=== PATIENT | male | born 1985 | race Caucasian/White ===

== ENCOUNTER 2018-02-16 17:13 | Emergency (ER) | payer MEDICAID, OTHER ==
[2018-02-16 17:20] VITALS: BMI 41.1
[2018-02-16] MEDS ORDERED: Sodium Chloride 0.9% 1,000 ML IV ONE (18:46)
[2018-02-16] MEDS ORDERED: Clindamycin 600mg/50ml D5W 600 MG/50 ML VIAL IVPB SCH (19:00)
--- NOTE | 2018-02-16 19:09 | C.PDOC ---
History Of Present Illness 32 year old male with a history of diabetes (diagnosed 2013) and hypertension presents to the ED for evaluation of a growing abscess on the left side of his neck for the last month. Patient non compliant on medications X 1 year. Last week was shaved at a [employer] shop and soon started developing small abscesses. Notes prior abscesses are normally only around the groin area, this is the first time the abscess appeared on the neck, fever of 100.7 today and fever of 100.6 1 day ago. Denies vomiting and any other associated symptoms. Time Seen by Provider: 02/16/18 18:28 Chief Complaint (Nursing): Abnormal Skin Integrity History Per: Patient History/Exam Limitations: no limitations Onset/Duration Of Symptoms: Days Current Symptoms Are (Timing): Still Present Past Medical History Reviewed: Historical Data, Nursing Documentation, Vital Signs Vital Signs: Last Vital Signs Temp 98.6 F 02/16/18 17:20 Pulse 101 H 02/16/18 17:20 Resp 18 02/16/18 17:20 BP 144/98 H 02/16/18 17:20 Pulse Ox 98 02/16/18 17:20 - Medical History PMH: Diabetes, HTN, Seizures Family History: States: Unknown Family Hx - Social History Hx Tobacco Use: No Hx Alcohol Use: No Hx Substance Use: Yes - Immunization History Hx Tetanus Toxoid Vaccination: Yes Hx Influenza Vaccination: No Hx Pneumococcal Vaccination: No Review Of Systems Except As Marked, All Systems Reviewed And Found Negative. Constitutional: Positive for: Fever. Negative for: Chills ENT: Negative for: Ear Pain Cardiovascular: Negative for: Chest Pain Respiratory: Negative for: Cough, Shortness of Breath Gastrointestinal: Negative for: Vomiting Musculoskeletal: Positive for: Other (abscess to the left side of the neck.) Physical Exam - Physical Exam Appears: Non-toxic, Other (obese. ) Skin: Normal Color, Warm, Dry Head: Atraumatic, Normacephalic Eye(s): bilateral: Normal Inspection Nose: Normal Oral Mucosa: Moist Neck: Other (limited range of motion due to abscess. Large area of induration to left neck with small opening and some purulent drainage. multiple small pimples surrounding the area. ) Chest: Symmetrical Cardiovascular: Rhythm Regular Respiratory: Normal Breath Sounds, Other (no acute respiratory distress.) Gastrointestinal/Abdominal: Normal Exam, Soft, No Tenderness Extremity: Normal ROM (x4) Neurological/Psych: Oriented x3, Normal Speech, Normal Motor, Normal Sensation Gait: Steady ED Course And Treatment - Laboratory Results Result Diagrams: 02/16/18 19:29 02/16/18 19:29 ECG Rhythm: Sinus Tachycardia Interpretation Of ECG: Sinus tachycardia at 107bpm. No ST elevations or depressions. Borderline right bundle branch block Rate From EC O2 Sat by Pulse Oximetry: 98 (RA) Pulse Ox Interpretation: Normal - Incision & Drainage Of Abscess Anesthesia: Lidocaine 2% Prep Used: Betadine Procedure: Incised W/Scalpel Blade#: (11), Drained Pus (Little to no drainage. Little blood visualized.) Medical Decision Making Medical Decision Making: Plan: --Blood sent. --CXR portable. --Blood culture sent. --Given Clindamycin, Morphine and Insulin. Update/Progress: Patient was admitted to the ED for an incision and drainage. Procedure: Incision and Drainage. Cleaned and prepped with betadine. Injected 2% Lidocaine. No epi. Created a 1mm incision with an 11 blade. Little to no drainage visualized. Little bit of blood visualized. Disposition Counseled Patient/Family Regarding: Studies Performed, Diagnosis, Need For Followup, Rx Given - Disposition Referrals: [facility] at [facility] [Outside] Disposition: HOME/ ROUTINE Disposition Time: 22:22 Condition: IMPROVED Additional Instructions: Keep area clean and dry. Use warm compresses 2-3 times a day. Return to the Emergency Department in the next 2 days for wound evaluation or follow with your physician. Return immediate if you developed fever, stiff neck of anything concerning to you. Prescriptions: Ibuprofen [Motrin] 600 mg PO TID #15 tab MetFORMIN [glucoPHAGE] 500 mg PO BID #30 tab traMADol [Ultram] 50 mg PO TID #12 tab Instructions: Skin Abscess Forms: [facility] ([facility]), General Discharge Instructions - POA Present On Arrival: None - Clinical Impression Clinical Impression: Abscess, Uncontrolled diabetes mellitus - Scribe Statement The provider has reviewed the documentation as recorded by the Scribe (Snow Lucero) Provider Attestation: All medical record entries made by the Scribe were at my direction and personally dictated by me. I have reviewed the chart and agree that the record accurately reflects my personal performance of the history, physical exam, medical decision making, and the department course for this patient. I have also personally directed, reviewed, and agree with the discharge instructions and disposition. Decision To Admit - . Patient Diagnosis: Abscess
[2018-02-16 19:34] LABS: BASO # 0.1 K/uL (0.0-0.2); BASO % 0.6 % (0.0-2.0); EOS # 0.4 K/uL (0.0-0.7); EOS % 3.7 % (0.0-4.0); LYMPH # 1.9 K/uL (1.0-4.3); LYMPH % 16.3 % (20.0-40.0); MEAN CELL VOLUME 83.1 fL (80.0-94.0); MEAN CORPUSCULAR HEMOGLOBIN 29.4 pg (27.0-31.0); MEAN CORPUSCULAR HGB CONC 35.4 g/dL (33.0-37.0); MEAN PLATELET VOLUME 9.6 fL (7.2-11.7); MONO # 0.9 K/uL (0.0-0.8); MONO % 7.8 % (0.0-10.0); NEUT # 8.3 K/uL (1.8-7.0); NEUT % 71.6 % (50.0-75.0); NRBC % 0.1 % (0.0-2.0); RBC 5.09 Mil/uL (4.40-5.90); RED CELL DISTRIBUTION WIDTH 12.4 % (11.5-14.5); WHITE BLOOD COUNT 11.7 K/uL (4.8-10.8)
[2018-02-16] MEDS ORDERED: Clindamycin 600mg/50ml NS 600 MG/50 ML BAG IVPB ONE (19:43)
[2018-02-16] MEDS ORDERED: Sodium Chloride 0.9% 1,000 ML ONE (19:43)
[2018-02-16 19:44] LABS: VENOUS BLOOD GAS BASE EXCESS -2.8 mmol/L (0.0-2.0); VENOUS BLOOD GAS PCO2 32 mmHg (40-60); VENOUS BLOOD GAS PO2 164 mm/Hg (30-55); VENOUS BLOOD PH 7.42 (7.32-7.43)
[2018-02-16 19:52] LABS: ALB/GLOB RATIO 1.2 (1.0-2.1); ALBUMIN 4.1 g/dL (3.5-5.0); ALT/SGPT 29 U/L (21-72); AST/SGOT 23 U/L (17-59); BLOOD UREA NITROGEN 11 mg/dL (9-20); GFR NON-AFRICAN AMERICAN > 60
[2018-02-16] MEDS ORDERED: (Novolin 70/30) NPH/Regular 70/30 Units/ml 10 ml vial SC STA (19:53)
[2018-02-16] MEDS ORDERED: Lidocaine 2% Inj (20ml) INFIL ONE (19:54)
[2018-02-16] MEDS ORDERED: Lidocaine 2% w Epi 1:100,000 Inj IJ ONE (20:03)
[2018-02-16] MEDS ORDERED: (Novolin 70/30) NPH/Regular 70/30 Units/ml 10 ml vial SC ONE (20:16)
[2018-02-16] MEDS ORDERED: Morphine 4 MG/ML VIAL ONE (20:16)
[2018-02-16 22:45] VITALS: BP 137/87; PULSE 92; RESP 18; TEMP 98.5
--- NOTE | 2018-02-17 09:14 | RAD ---
Date of service: 02/16/2018 HISTORY: hyperglycemia/admission COMPARISON: No prior. FINDINGS: LUNGS: No active pulmonary disease. PLEURA: No significant pleural effusion identified, no pneumothorax apparent. CARDIOVASCULAR: Normal. OSSEOUS STRUCTURES: No significant abnormalities. VISUALIZED UPPER ABDOMEN: Normal. OTHER FINDINGS: None. IMPRESSION: No acute cardiopulmonary disease appreciated.
--- NOTE | 2018-02-18 12:31 | CARD ---
APPROVED REPORT Date of service: 02/16/2018 EKG Measurement Heart [id number] <Conclusion> Sinus tachycardia Otherwise normal ECG
[2018-02-18 14:44] VITALS: O2SAT 98
== END 2018-02-16 22:44 | disposition home or self-care (01) ==
LOC: C.ER 17:13
DX: L02.11 Cutaneous abscess of neck (principal); E11.65 Type 2 diabetes mellitus with hyperglycemia
CPT/HCPCS: 10060; 71045; 80053; 82803; 82948; 85025; 87040; 87149; 87181; 87205; 93005; 96361; 96365; 96375; 99284; J2270; J7030

== ENCOUNTER 2018-03-21 01:45 | Inpatient (IN) | payer OTHER ==
[2018-03-21 01:47] VITALS: BMI 41.1
[2018-03-21] MEDS ORDERED: Piperacillin/Tazobact 3.375 gm 100 ML IVPB STA (02:21)
[2018-03-21] MEDS ORDERED: Sodium Chloride 0.9% 1,000 ML IV ONE ×2 (02:22→06:58)
--- NOTE | 2018-03-21 02:25 | C.PDOC ---
History Of Present Illness 32 y/o male with niddm presents with worsening pain to right back and right lateral rib/chest wall area. pt was seen in ed 2 days ago for same, had ekg, labs, cxr done, with no acute findings and discharged with gabapentin, tramadol and robaxin. pt reports he is taking all medications as prescribed, however pain is much worse, it hurts to breathe due to pain, and now has a rash to back and right side. denies fever and chills, no trauma, insect bites. no cough. feels sob due to pain of deep breaths. denies chicken pox as child. <Bree Machuca - Last Filed: 03/21/18 07:23> History Per: Patient History/Exam Limitations: no limitations Onset/Duration Of Symptoms: Days Current Symptoms Are (Timing): Worse Location Of Injury: Right: Back, Chest Quality Of Symptoms: Painful Severity: Severe <Bree Machuca - Last Filed: 03/21/18 07:23> <Haresh Baker Jr. - Last Filed: 03/21/18 08:37> Time Seen by Provider: 03/21/18 02:03 Chief Complaint (Nursing): Abnormal Skin Integrity Past Medical History Reviewed: Historical Data, Nursing Documentation, Vital Signs Vital Signs: Last Vital Signs Temp 98.8 F 03/21/18 01:53 Pulse 129 H 03/21/18 01:53 Resp 24 03/21/18 01:53 BP 147/86 03/21/18 01:53 Pulse Ox 99 03/21/18 01:53 - Medical History PMH: Diabetes, HTN, Seizures Family History: States: Unknown Family Hx - Social History Hx Tobacco Use: No Hx Alcohol Use: No Hx Substance Use: Yes - Immunization History Hx Tetanus Toxoid Vaccination: Yes Hx Influenza Vaccination: No Hx Pneumococcal Vaccination: No <Bree Machuca - Last Filed: 03/21/18 07:23> Vital Signs: Last Vital Signs Temp 99.6 F 03/21/18 07:42 Pulse 112 H 03/21/18 07:42 Resp 20 03/21/18 07:42 BP 134/98 H 03/21/18 07:42 Pulse Ox 99 03/21/18 07:42 <Haresh Baker Jr. - Last Filed: 03/21/18 08:37> Review Of Systems Constitutional: Negative for: Fever, Chills ENT: Negative for: Ear Pain, Throat Pain Cardiovascular: Negative for: Chest Pain Respiratory: Positive for: Pleuritic Pain. Negative for: Cough, Wheezing Gastrointestinal: Negative for: Nausea, Vomiting, Abdominal Pain Musculoskeletal: Positive for: Back Pain, Other (lateral chest wall right ) Skin: Positive for: Rash (erythemaotus and warm to right side bakc and right lateral chest wall) Neurological: Negative for: Weakness, Numbness <Bree Machuca - Last Filed: 03/21/18 07:23> Physical Exam - Physical Exam Appears: In Acute Distress (from pain) Skin: Warm, Dry, Rash (most if right side back with well demarcated erythematous warm tender patch, skin blances; lateral right chest wall with erythematous exquisitely tender striae, no vesicles noted. ) Head: Atraumatic, Normacephalic Oral Mucosa: Dry, Other (lips chapped) Chest: Tenderness (right lateral chest at site of rash, no swelling noted) Cardiovascular: Rhythm Regular, Other (tachycardic) Respiratory: No Decreased Breath Sounds, No Stridor, No Wheezing, Other (tachypneic) Gastrointestinal/Abdominal: Bowel Sounds, Soft, No Tenderness Neurological/Psych: Oriented x3, Normal Speech, Normal Cognition <Bree Machuca - Last Filed: 03/21/18 07:23> ED Course And Treatment - Laboratory Results Result Diagrams: 03/21/18 02:51 03/21/18 02:51 O2 Sat by Pulse Oximetry: 99 - CT Scan/US CT Chest Other Rad Studies (CT/US): Read By Radiologist, Radiology Report Reviewed CT/US Interpretation: IMPRESSION: Soft tissue cellulitis of the back. No associated abscess formation. Multifocal nodular groundglass densities of the lungs. Probably multifocal infectious/inflammatory pathology. Hepatomegaly with hepatic steatosis. Mild right pleural effusion. <Bree Machuca - Last Filed: 03/21/18 07:23> - Laboratory Results Result Diagrams: 03/21/18 02:51 03/21/18 02:51 <Haresh Baker Jr. - Last Filed: 03/21/18 08:37> Medical Decision Making Medical Decision Makin32 y/o diabetic male with hyperglycemia, rash c/w cellulitis ro right side back and right lateral chest wall, with pain that appears to be out of proportion to condition.l will get labs, give analgesics, fluids, antibiotics for cellulitis, and get chest ct to evalf or necrotizing fasciitis, gas gangrene. Spoke to Dr. Mahajan 04:10, patient will be admitted to her, Dr. Amador for surgery and Dr. Marin for ID. 04:20 spoke to Willian from OR, who stated that Dr. Amadro and certified ophthalmic surgical assistant are both in the OR and will be notified regarding the case as soon as possible. 05:35 Dr. Amador and certified ophthalmic surgical assistant are still in the OR. Awaiting a call back. <Bree Machuca - Last Filed: 03/21/18 07:23> Medical Decision Makin:34 AM Progress note by ED attending. Pt is admitted to floor but surgery just came down to the ED to do a consult. Surgery states that no surgical treatment is required at this time. I also examined pt at bedside w/ surgery. Dr. Amador (surgeon) and I feel that Shingles is in the differential diagnosis. 1 gm Valtrex ordered and 8 mg Morphine also ordered. 1 gm Valtrex TID x 7 days is recommended. This was explained to pt. Pt to go to floor shortly. <Haresh Baker Jr. - Last Filed: 03/21/18 08:37> Disposition Discussed With : Sonia Mahajan Doctor Will See Patient In The: Hospital - Disposition Disposition Time: 05:05 <Bree Machuca - Last Filed: 03/21/18 07:23> <Haresh Baker Jr. - Last Filed: 03/21/18 08:37> - Disposition Disposition: HOSPITALIZED Condition: GOOD - Clinical Impression Clinical Impression: Cellulitis of back, Hyperglycemia - PA / CHAIR SPRINGER / Resident Statement /DO has reviewed & agrees with the documentation as recorded. <Bree Machuca - Last Filed: 03/21/18 07:23> Decision To Admit - Pt Status Changed To: Hospital Disposition Of: Inpatient - Admit Certification Admit to Inpatient:: After my assessment, the patient will require hospitalization for at least two midnights. This is because of the severity of symptoms shown, intensity of services needed, and/or the medical risk in this patient being treated as an outpatient. - InPatient: Physician Admission Certification: I certify that this patient requires 2 or more midnights of care for the following reason:: pt will require several days iv antobiotics for cellulitis - . Bed Request Type: Regular <Bree Machuca - Last Filed: 03/21/18 07:23> <Haresh Baker Jr. - Last Filed: 03/21/18 08:37> - . Patient Diagnosis: Cellulitis of back, Hyperglycemia
[2018-03-21] MEDS ORDERED: Piperacillin/Tazobact 3.375 gm 100 ML IVPB ONE (02:35)
[2018-03-21] MEDS ORDERED: Sodium Chloride 0.9% 1,000 ML ONE (02:35)
[2018-03-21 02:51] LABS: VENOUS BLOOD GAS BASE EXCESS -1.6 mmol/L (0.0-2.0); VENOUS BLOOD GAS PCO2 32 mmHg (40-60); VENOUS BLOOD GAS PO2 56 mm/Hg (30-55); VENOUS BLOOD PH 7.44 (7.32-7.43)
[2018-03-21 02:55] LABS: BASO % 0.5 % (0.0-2.0); EOS % 0.2 % (0.0-4.0); HEMOGLOBIN 14.2 g/dL (12.0-18.0); LYMPH # 0.6 K/uL (1.0-4.3); LYMPH % 6.3 % (20.0-40.0); MEAN CELL VOLUME 83.2 fL (80.0-94.0); MEAN CORPUSCULAR HEMOGLOBIN 28.7 pg (27.0-31.0); MEAN CORPUSCULAR HGB CONC 34.5 g/dL (33.0-37.0); MEAN PLATELET VOLUME 9.1 fL (7.2-11.7); MONO % 10.6 % (0.0-10.0); NEUT % 82.4 % (50.0-75.0); PLATELET COUNT 229 K/uL (130-400); RBC 4.93 Mil/uL (4.40-5.90); RED CELL DISTRIBUTION WIDTH 12.4 % (11.5-14.5); WHITE BLOOD COUNT 9.7 K/uL (4.8-10.8)
[2018-03-21 02:59] LABS: INR 1.2; PROTHROMBIN TIME 12.8 SECONDS (9.7-12.2)
[2018-03-21 03:35] LABS: ALB/GLOB RATIO 1.2 (1.0-2.1); ALBUMIN 3.9 g/dL (3.5-5.0); ALT/SGPT 56 U/L (21-72); AST/SGOT 60 U/L (17-59); BLOOD UREA NITROGEN 8 mg/dL (9-20); GFR NON-AFRICAN AMERICAN > 60
[2018-03-21] MEDS ORDERED: Vancomycin 1 GM 1 GM/250 ML BAG IVPB ONE (03:36)
[2018-03-21 03:47] LABS: BARBITURATES, UR NEGATIVE (NEGATIVE); BENZODIAZEPINES, UR NEGATIVE (NEGATIVE); OPIATES, UR NEGATIVE (NEGATIVE); PHENCYCLIDINE, UR NEGATIVE (NEGATIVE)
[2018-03-21] MEDS ORDERED: (Novolin R) Insulin Human Regular 100 units/ml vial IVP ONE (04:08)
[2018-03-21] MEDS ORDERED: (Novolin R) Insulin Human Regular 100 units/ml vial ONE (04:15)
[2018-03-21 04:41] LABS: BANDS 7 % (0-2); LYMPHOCYTE 6 % (20-40); MONOCYTE 6 % (0-10); NEUTROPHIL 78 % (50-75); PLATELET ESTIMATE NORMAL (NORMAL); REACTIVE LYMPHOCYTES 3 % (0-0); TOTAL CELLS COUNTED 100
[2018-03-21] MEDS: Piperacill/Tazo 3.375gm in Dex 3.375 GM/50 ML BAG IVPB SCH ×3 (07:51→18:14)
[2018-03-21] MEDS: Sodium Chloride 0.9% 1,000 ML IV SCH ×3 (07:52→21:12)
[2018-03-21] MEDS ORDERED: Vancomycin 1 gm/NS 200 ml 1 GM/200 ML BAG IVPB SCH (08:00)
--- NOTE | 2018-03-21 08:54 | CP.PCM.CON ---
History of Present Illness - History of Present Illness History of Present Illness: GENERAL SURGERY CONSULT NOTE FOR DR. WATKINS 32 yo M with PMHx of DM presents to the ED with right flank/back pain. The pain began a week ago. On 03/19, he came to the ED with right rib pain that was worse with movement. Labs were normal. He was discharged home with chest wall muscle strain and Rx for gabapentin, ultram, and methocarbamol. Then, a rash began on the right flank and right back yesterday. Pt returned to the ED with pain that was unrelieved by previously prescribed medications as well as the new rash. Pt denies any trauma, insect bites. Never had a rash like this before. PMHx: DM, seizures Surgeries: none Allergies: none Medications: Metformin Social hx: denies etoh, tobacco, occasional marijuana use Past Patient History - Infectious Disease Hx of Infectious Diseases: None - Past Social History Smoking Status: Never Smoked - CARDIAC Hx Hypertension: Yes - NEUROLOGICAL Hx Seizures: Yes - ENDOCRINE/METABOLIC Hx Diabetes Mellitus Type 2: Yes - PSYCHIATRIC Hx Substance Use: Yes - SURGICAL HISTORY Hx Surgeries: No - ANESTHESIA Hx Anesthesia: No Meds Allergies/Adverse Reactions: Allergies Allergy/AdvReac Type Severity Reaction Status Date / Time No Known Allergies Allergy Verified 03/21/18 01:57 - Medications Medications: Current Medications Piperacillin Sod/Tazobactam Sod (Zosyn 3.375 Gm Iv Premix) 3.375 gm in 50 mls @ 100 mls/hr IVPB Q6H [facility]; Protocol Last Admin: 03/21/18 07:51 Dose: 100 mls/hr Sodium Chloride (Sodium Chloride 0.9%) 1,000 mls @ 150 mls/hr IV .Q6H40M [facility] Last Admin: 03/21/18 07:52 Dose: 150 mls/hr Vancomycin/Sodium Chloride (Vancomycin 1 Gm/Ns 200 Ml) 1 gm in 200 mls @ 133.333 mls/hr IVPB Q12H [facility]; Protocol Morphine Sulfate (Morphine) 2 mg IVP Q4 PRN PRN Reason: Pain, severe (8-10) Valacyclovir HCl (Valtrex) 1,000 mg PO TID JERED; Protocol Stop: 03/28/18 10:01 Last Admin: 03/21/18 08:44 Dose: 1,000 mg Physical Exam - Constitutional Appears: Non-toxic, No Acute Distress - Head Exam Head Exam: ATRAUMATIC, NORMAL INSPECTION - Eye Exam Eye Exam: EOMI, Normal appearance - Respiratory Exam Respiratory Exam: NORMAL BREATHING PATTERN. absent: Respiratory Distress - Cardiovascular Exam Cardiovascular Exam: Tachycardia - GI/Abdominal Exam GI & Abdominal Exam: Hernia (reducible umbilical hernia), Soft, Tenderness. absent: Distended, Firm, Guarding, Rebound, Rigid Additional comments: Tenderness over rash on right flank - Back Exam Additional comments: Mildly erythematous rash on right back extending around to right flank, does not cross midline, no vesicles, tender - Neurological Exam Neurological exam: Alert, CN II-XII Intact, Oriented x3 - Psychiatric Exam Psychiatric exam: Normal Affect, Normal Mood - Skin Skin Exam: Dry, Erythema, Rash, Warm Results - Vital Signs Recent Vital Signs: Last Vital Signs Temp 98.9 F 03/21/18 08:48 Pulse 100 H 03/21/18 08:48 Resp 18 03/21/18 08:48 BP 153/95 H 03/21/18 08:48 Pulse Ox 96 03/21/18 08:48 - Labs Result Diagrams: 03/21/18 02:51 03/21/18 02:51 Labs: Laboratory Results - last 24 hr 03/21/18 03/21/18 03/21/18 01:51 02:40 02:51 WBC 9.7 RBC 4.93 Hgb 14.2 Hct 41.0 MCV 83.2 MCH 28.7 MCHC 34.5 RDW 12.4 Plt Count 229 MPV 9.1 Neut % (Auto) 82.4 H Lymph % (Auto) 6.3 L Petroleum % (Auto) 10.6 H Eos % (Auto) 0.2 Baso % (Auto) 0.5 Neut # (Auto) 8.0 H Lymph # (Auto) 0.6 L Petroleum # (Auto) 1.0 H Eos # (Auto) 0.0 Baso # (Auto) 0.0 Neutrophils % (Manual) 78 H Band Neutrophils % 7 H Lymphocytes % (Manual) 6 L Reactive Lymphs % 3 H Monocytes % (Manual) 6 Platelet Estimate Normal PT INR APTT pO2 56 H VBG pH 7.44 H VBG pCO2 32 L VBG HCO3 23.5 VBG Total CO2 22.7 VBG O2 Sat (Calc) 93.8 H VBG Base Excess -1.6 L VBG Potassium 3.8 Sodium 135.0 Chloride 101.0 Glucose 376 H Lactate 1.4 Potassium Carbon Dioxide Anion Gap BUN Creatinine Est GFR ( Amer) Est GFR (Non-Af Amer) POC Glucose (mg/dL) 366 H Random Glucose Calcium Total Bilirubin AST ALT Alkaline Phosphatase Total Creatine Kinase C-Reactive Protein Total Protein Albumin Globulin Albumin/Globulin Ratio Venous Blood Potassium 3.8 Urine Opiates Screen Urine Methadone Screen Ur Barbiturates Screen Ur Phencyclidine Scrn Ur Amphetamines Screen U Benzodiazepines Scrn U Oth Cocaine Metabols U Cannabinoids Screen Alcohol, Quantitative 03/21/18 03/21/18 03/21/18 02:51 02:51 03:28 WBC RBC Hgb Hct MCV MCH MCHC RDW Plt Count MPV Neut % (Auto) Lymph % (Auto) Petroleum % (Auto) Eos % (Auto) Baso % (Auto) Neut # (Auto) Lymph # (Auto) Petroleum # (Auto) Eos # (Auto) Baso # (Auto) Neutrophils % (Manual) Band Neutrophils % Lymphocytes % (Manual) Reactive Lymphs % Monocytes % (Manual) Platelet Estimate PT 12.8 H INR 1.2 APTT 32 pO2 VBG pH VBG pCO2 VBG HCO3 VBG Total CO2 VBG O2 Sat (Calc) VBG Base Excess VBG Potassium Sodium 133 Chloride 100 Glucose Lactate Potassium 4.3 Carbon Dioxide 24 Anion Gap 14 BUN 8 L Creatinine 0.6 L Est GFR ( Amer) > 60 Est GFR (Non-Af Amer) > 60 POC Glucose (mg/dL) Random Glucose 407 H* Calcium 9.0 Total Bilirubin 1.0 AST 60 H D ALT 56 Alkaline Phosphatase 122 Total Creatine Kinase 121 C-Reactive Protein 260.80 H Total Protein 7.2 Albumin 3.9 Globulin 3.3 Albumin/Globulin Ratio 1.2 Venous Blood Potassium Urine Opiates Screen Negative Urine Methadone Screen Negative Ur Barbiturates Screen Negative Ur Phencyclidine Scrn Negative Ur Amphetamines Screen Negative U Benzodiazepines Scrn Negative U Oth Cocaine Metabols Negative U Cannabinoids Screen Positive H Alcohol, Quantitative < 10 03/21/18 03/21/18 04:04 05:44 WBC RBC Hgb Hct MCV MCH MCHC RDW Plt Count MPV Neut % (Auto) Lymph % (Auto) Petroleum % (Auto) Eos % (Auto) Baso % (Auto) Neut # (Auto) Lymph # (Auto) Petroleum # (Auto) Eos # (Auto) Baso # (Auto) Neutrophils % (Manual) Band Neutrophils % Lymphocytes % (Manual) Reactive Lymphs % Monocytes % (Manual) Platelet Estimate PT INR APTT pO2 VBG pH VBG pCO2 VBG HCO3 VBG Total CO2 VBG O2 Sat (Calc) VBG Base Excess VBG Potassium Sodium Chloride Glucose Lactate Potassium Carbon Dioxide Anion Gap BUN Creatinine Est GFR ( Amer) Est GFR (Non-Af Amer) POC Glucose (mg/dL) 328 H 265 H Random Glucose Calcium Total Bilirubin AST ALT Alkaline Phosphatase Total Creatine Kinase C-Reactive Protein Total Protein Albumin Globulin Albumin/Globulin Ratio Venous Blood Potassium Urine Opiates Screen Urine Methadone Screen Ur Barbiturates Screen Ur Phencyclidine Scrn Ur Amphetamines Screen U Benzodiazepines Scrn U Oth Cocaine Metabols U Cannabinoids Screen Alcohol, Quantitative Assessment & Plan - Assessment and Plan (Free Text) Assessment: 32 yo M with PMHx of DM presents to the ED with right flank/back pain who was found to have cellulitis, rule out necrotizing fasciitis vs shingles - IV Antibiotics - Valtrex for possible Shingles - Unlikely necrotizing fasciitis - Discussed plan with Dr. Marjorie Blanco PGY-4
[2018-03-21] MEDS: Enoxaparin 40 mg Syringe SC SCH (10:50)
--- NOTE | 2018-03-21 13:09 | CP.PCM.HP ---
History of Present Illness - History of Present Illness History of Present Illness: pt came in for sever pain r side lower back with small aperance odf papular lesions in one dermatome very painfull Present on Admission - Present on Admission Any Indicators Present on Admission: No Review of Systems - Review of Systems Systems not reviewed;Unavailable: Acuity of Condition - Constitutional Constitutional: Weight Gain - EENT Eyes: As Per HPI Ears: As Per HPI Nose/Mouth/Throat: As Per HPI - Cardiovascular Cardiovascular: As Per HPI - Genitourinary Genitourinary: As Per HPI - Musculoskeletal Musculoskeletal: As Per HPI - Integumentary Integumentary: As Per HPI - Neurological Neurological: As Per HPI - Psychiatric Psychiatric: As Per HPI - Endocrine Endocrine: Fatigue - Hematologic/Lymphatic Hematologic: As Per HPI Past Patient History - Infectious Disease Hx of Infectious Diseases: None - Past Social History Smoking Status: Never Smoked - CARDIAC Hx Hypertension: Yes - NEUROLOGICAL Hx Seizures: Yes - ENDOCRINE/METABOLIC Hx Diabetes Mellitus Type 2: Yes - PSYCHIATRIC Hx Substance Use: Yes - SURGICAL HISTORY Hx Surgeries: No - ANESTHESIA Hx Anesthesia: No Meds Allergies/Adverse Reactions: Allergies Allergy/AdvReac Type Severity Reaction Status Date / Time No Known Allergies Allergy Verified 03/21/18 01:57 Physical Exam - Constitutional Appears: In Acute Distress - Head Exam Head Exam: ATRAUMATIC - Eye Exam Eye Exam: Normal appearance - ENT Exam ENT Exam: Mucous Membranes Moist - Neck Exam Neck exam: Positive for: Full Rom - Respiratory Exam Respiratory Exam: Decreased Breath Sounds - Cardiovascular Exam Cardiovascular Exam: REGULAR RHYTHM - GI/Abdominal Exam GI & Abdominal Exam: Normal Bowel Sounds - Exam Exam: NORMAL INSPECTION - Extremities Exam Extremities exam: Positive for: normal inspection - Back Exam Additional comments: smal papular rash in one dermatome very painful - Neurological Exam Neurological exam: Oriented x3 - Skin Skin Exam: Normal Color Results - Vital Signs Recent Vital Signs: Last Vital Signs Temp 98.9 F 03/21/18 09:11 Pulse 100 H 03/21/18 09:11 Resp 20 03/21/18 09:11 BP 139/93 H 03/21/18 12:20 Pulse Ox 97 03/21/18 09:11 - Labs Result Diagrams: 03/21/18 02:51 03/21/18 02:51 Labs: Laboratory Results - last 24 hr 03/21/18 03/21/18 03/21/18 01:51 02:40 02:51 WBC 9.7 RBC 4.93 Hgb 14.2 Hct 41.0 MCV 83.2 MCH 28.7 MCHC 34.5 RDW 12.4 Plt Count 229 MPV 9.1 Neut % (Auto) 82.4 H Lymph % (Auto) 6.3 L [place] % (Auto) 10.6 H Eos % (Auto) 0.2 Baso % (Auto) 0.5 Neut # (Auto) 8.0 H Lymph # (Auto) 0.6 L [place] # (Auto) 1.0 H Eos # (Auto) 0.0 Baso # (Auto) 0.0 Neutrophils % (Manual) 78 H Band Neutrophils % 7 H Lymphocytes % (Manual) 6 L Reactive Lymphs % 3 H Monocytes % (Manual) 6 Platelet Estimate Normal PT INR APTT pO2 56 H VBG pH 7.44 H VBG pCO2 32 L VBG HCO3 23.5 VBG Total CO2 22.7 VBG O2 Sat (Calc) 93.8 H VBG Base Excess -1.6 L VBG Potassium 3.8 Sodium 135.0 Chloride 101.0 Glucose 376 H Lactate 1.4 Potassium Carbon Dioxide Anion Gap BUN Creatinine Est GFR ( Amer) Est GFR (Non-Af Amer) POC Glucose (mg/dL) 366 H Random Glucose Calcium Total Bilirubin AST ALT Alkaline Phosphatase Total Creatine Kinase C-Reactive Protein Total Protein Albumin Globulin Albumin/Globulin Ratio Venous Blood Potassium 3.8 Urine Opiates Screen Urine Methadone Screen Ur Barbiturates Screen Ur Phencyclidine Scrn Ur Amphetamines Screen U Benzodiazepines Scrn U Oth Cocaine Metabols U Cannabinoids Screen Alcohol, Quantitative 03/21/18 03/21/18 03/21/18 02:51 02:51 03:28 WBC RBC Hgb Hct MCV MCH MCHC RDW Plt Count MPV Neut % (Auto) Lymph % (Auto) [place] % (Auto) Eos % (Auto) Baso % (Auto) Neut # (Auto) Lymph # (Auto) [place] # (Auto) Eos # (Auto) Baso # (Auto) Neutrophils % (Manual) Band Neutrophils % Lymphocytes % (Manual) Reactive Lymphs % Monocytes % (Manual) Platelet Estimate PT 12.8 H INR 1.2 APTT 32 pO2 VBG pH VBG pCO2 VBG HCO3 VBG Total CO2 VBG O2 Sat (Calc) VBG Base Excess VBG Potassium Sodium 133 Chloride 100 Glucose Lactate Potassium 4.3 Carbon Dioxide 24 Anion Gap 14 BUN 8 L Creatinine 0.6 L Est GFR ( Amer) > 60 Est GFR (Non-Af Amer) > 60 POC Glucose (mg/dL) Random Glucose 407 H* Calcium 9.0 Total Bilirubin 1.0 AST 60 H D ALT 56 Alkaline Phosphatase 122 Total Creatine Kinase 121 C-Reactive Protein 260.80 H Total Protein 7.2 Albumin 3.9 Globulin 3.3 Albumin/Globulin Ratio 1.2 Venous Blood Potassium Urine Opiates Screen Negative Urine Methadone Screen Negative Ur Barbiturates Screen Negative Ur Phencyclidine Scrn Negative Ur Amphetamines Screen Negative U Benzodiazepines Scrn Negative U Oth Cocaine Metabols Negative U Cannabinoids Screen Positive H Alcohol, Quantitative < 10 03/21/18 03/21/18 03/21/18 04:04 05:44 08:51 WBC RBC Hgb Hct MCV MCH MCHC RDW Plt Count MPV Neut % (Auto) Lymph % (Auto) [place] % (Auto) Eos % (Auto) Baso % (Auto) Neut # (Auto) Lymph # (Auto) [place] # (Auto) Eos # (Auto) Baso # (Auto) Neutrophils % (Manual) Band Neutrophils % Lymphocytes % (Manual) Reactive Lymphs % Monocytes % (Manual) Platelet Estimate PT INR APTT pO2 VBG pH VBG pCO2 VBG HCO3 VBG Total CO2 VBG O2 Sat (Calc) VBG Base Excess VBG Potassium Sodium Chloride Glucose Lactate Potassium Carbon Dioxide Anion Gap BUN Creatinine Est GFR ( Amer) Est GFR (Non-Af Amer) POC Glucose (mg/dL) 328 H 265 H 260 H Random Glucose Calcium Total Bilirubin AST ALT Alkaline Phosphatase Total Creatine Kinase C-Reactive Protein Total Protein Albumin Globulin Albumin/Globulin Ratio Venous Blood Potassium Urine Opiates Screen Urine Methadone Screen Ur Barbiturates Screen Ur Phencyclidine Scrn Ur Amphetamines Screen U Benzodiazepines Scrn U Oth Cocaine Metabols U Cannabinoids Screen Alcohol, Quantitative 03/21/18 11:20 WBC RBC Hgb Hct MCV MCH MCHC RDW Plt Count MPV Neut % (Auto) Lymph % (Auto) [place] % (Auto) Eos % (Auto) Baso % (Auto) Neut # (Auto) Lymph # (Auto) [place] # (Auto) Eos # (Auto) Baso # (Auto) Neutrophils % (Manual) Band Neutrophils % Lymphocytes % (Manual) Reactive Lymphs % Monocytes % (Manual) Platelet Estimate PT INR APTT pO2 VBG pH VBG pCO2 VBG HCO3 VBG Total CO2 VBG O2 Sat (Calc) VBG Base Excess VBG Potassium Sodium Chloride Glucose Lactate Potassium Carbon Dioxide Anion Gap BUN Creatinine Est GFR ( Amer) Est GFR (Non-Af Amer) POC Glucose (mg/dL) 370 H Random Glucose Calcium Total Bilirubin AST ALT Alkaline Phosphatase Total Creatine Kinase C-Reactive Protein Total Protein Albumin Globulin Albumin/Globulin Ratio Venous Blood Potassium Urine Opiates Screen Urine Methadone Screen Ur Barbiturates Screen Ur Phencyclidine Scrn Ur Amphetamines Screen U Benzodiazepines Scrn U Oth Cocaine Metabols U Cannabinoids Screen Alcohol, Quantitative Assessment & Plan - Assessment and Plan (Free Text) Assessment: ac severe pain prbably hepes zoster Plan: as per orders - Date & Time Date: 03/21/18 Time: 13:11
[2018-03-21] MEDS: oxyCODONE 30 mg Immediate Release Tab PO SCH ×2 (14:16→22:25)
--- NOTE | 2018-03-21 16:24 | CT ---
Date of service: 03/21/2018 PROCEDURE: CT Chest without contrast HISTORY: soft tissue infection/cellulitis to back COMPARISON: None available. TECHNIQUE: Contiguous axial images were obtained through the chest without intravenous contrast enhancement. Sagittal and coronal reconstructions were performed. Radiation dose: Total exam DLP = 1245.34 mGy-cm. This CT exam was performed using one or more of the following dose reduction techniques: Automated exposure control, adjustment of the mA and/or kV according to patient size, and/or use of iterative reconstruction technique. FINDINGS: LUNGS: Limited bilateral nodular infiltrates are identified including at the left lower lobe superior segment. Limited nodular foci ranging from a few mm in size up to 2 cm identified at the bilateral upper lobes and infrequently at the right middle and lower lobes with limited patchy nodular infiltrate noted at the right lower lobe as well. The lingula is minimally involved. Central airways are clear. MEDIASTINUM: Unremarkable thoracic aorta. No aneurysm. Normal sized heart. Main pulmonary artery unremarkable. No vascular congestion. No significant lymphadenopathy with the bilateral hilar regions evaluated as best possible given lack of intravenous contrast. No aortic atherosclerotic calcification. PLEURA: No pleural fluid. No pneumothorax. BONES: No fracture. No destructive lesion. UPPER ABDOMEN: Hepatomegaly and hepatic steatosis are identified as well as a moderate umbilical hernia containing only fat. OTHER FINDINGS: None. IMPRESSION: 1. Nodular infiltrates are identified bilaterally but predominate at the left lower lobe. No pleural or pericardial effusion or gross lymphadenopathy. Central airway appears clear. 2. Incidental hepatic steatosis and hepatomegaly. Moderate umbilical hernia contains only fat.
[2018-03-21] MEDS: Vancomycin 1 gm/NS 200 ml 1 GM/200 ML BAG IVPB SCH (16:29)
[2018-03-22] MEDS: Piperacill/Tazo 3.375gm in Dex 3.375 GM/50 ML BAG IVPB SCH ×4 (02:07→18:26)
[2018-03-22] MEDS: Vancomycin 1 gm/NS 200 ml 1 GM/200 ML BAG IVPB SCH ×2 (03:13→18:03)
[2018-03-22] MEDS: Sodium Chloride 0.9% 1,000 ML IV SCH ×2 (05:12→11:04)
[2018-03-22 08:02] LABS: BASO % 0.4 % (0.0-2.0); EOS % 0.1 % (0.0-4.0); HEMOGLOBIN 13.7 g/dL (12.0-18.0); LYMPH # 1.3 K/uL (1.0-4.3); LYMPH % 10.6 % (20.0-40.0); MEAN CELL VOLUME 84.8 fL (80.0-94.0); MEAN CORPUSCULAR HEMOGLOBIN 29.2 pg (27.0-31.0); MEAN CORPUSCULAR HGB CONC 34.4 g/dL (33.0-37.0); MONO # 1.3 K/uL (0.0-0.8); MONO % 9.9 % (0.0-10.0); NRBC % 0.2 % (0.0-2.0); RBC 4.7 Mil/uL (4.40-5.90); RED CELL DISTRIBUTION WIDTH 12.6 % (11.5-14.5); WHITE BLOOD COUNT 12.7 K/uL (4.8-10.8)
[2018-03-22 08:21] LABS: BLOOD UREA NITROGEN 9 mg/dL (9-20); CALCIUM 8.8 mg/dl (8.6-10.4); GFR NON-AFRICAN AMERICAN > 60
[2018-03-22] MEDS ORDERED: HYDROmorphone 0.5 mg/0.5 ml ISec IVP ONE (09:45)
[2018-03-22] MEDS ORDERED: Iodixanol 320 MG/ML 100 ML BOTTLE IV ONE (09:54)
--- NOTE | 2018-03-22 10:07 | PCM.RRT ---
<Edson Peres - Last Filed: 03/22/18 09:56> BIOSTATISTICS PROFESSOR Nurses Assessment - Situation Date: 03/22/18 Time BIOSTATISTICS PROFESSOR was called: 09:28 BIOSTATISTICS PROFESSOR Responder Arrival Time:: 09:30 - Constitutional Appears: In Acute Distress - Head Head Exam: ATRAUMATIC, NORMOCEPHALIC - Eyes Eye Exam: Normal appearance - Respiratory Exam Respiratory Exam: Clear to Ausculation Bilateral. absent: Accessory Muscle Use, Rales, Rhonchi, Wheezes, Respiratory Distress - Cardiovascular Exam Cardiovascular Exam: Tachycardia, REGULAR RHYTHM, +S1, +S2. absent: Gallop, Rubs, Murmur - GI/Abdominal Exam GI & Abdominal Exam: Soft, Normal Bowel Sounds. absent: Distended, Firm, Guarding, Tenderness - Neurological Exam Neurological Exam: Alert, Awake, Oriented x3 - Extremities Exam Extremities Exam: Normal Inspection. absent: Calf Tenderness Plan - Assessment of Findings&Treatment Plan Rapid response was called at 9:28 AM for chest pain and shortness of breath. Upon arrival, patient is in distress and yelling complaining of chest pain only on the right side of the back and chest. Patient is admitted for severe pain on ride side lower back with small appearance of papular lesions. Vitals: BP 128/90, HR 145, RR 22, O2%: 90 on 4L Stat ordere were made: EKG showed sinus tachycardia @ 135, POC glucose of 276, CXR, CT angiogram, Dilaudid 0.5mg, Ativan 0.5mg, D-dimer, Troponin, ESR, urine culture, rapid inluenza A/B Will transfer patient to telemetry. Repeat vitals: BP: 128/85, HR 142, RR: 20, O2%: 92% on 4L Admitting physician Dr. Sonia Mahajan contacted and was updated on patient's status. <Haresh New - Last Filed: 03/22/18 10:48> BIOSTATISTICS PROFESSOR Nurses Assessment - Vital Signs Vital Signs: Rapid Response Vital Sign Blood Pressure 128/87 Pulse Rate 125 Respiratory Rate 24 Temperature 99.9 F Oxygen Saturation 94 - Vital Signs at end of BIOSTATISTICS PROFESSOR Vital Signs at end of BIOSTATISTICS PROFESSOR: Rapid Response End Vital Sign Blood Pressure 126/86 Pulse Rate 130 Respiratory Rate 20 Temperature 100 F O2 Sat by Pulse Oximetry 90 Attending/Attestation - Attestation I have personally seen and examined this patient.: Yes I have fully participated in the care of the patient.: Yes I have reviewed all pertinent clinical information, including history, physical exam and plan: Yes Notes (Text): 03/22/18 10:40 Medical Hospitalist - I came to the BIOSTATISTICS PROFESSOR and the patient was reporting that he was having severe right side pain. We did a 12 lead, this looked not changed from before. His morning lab work does not look acute. We did a portable film stat - and this showed changes to the right lung field. He was given pain medication and the patient reports this helped The patient was brought down for a stat CT of the chest with contrast. We are pending the official read however I looked at it myself and there is a concerning right loculated area that has developed, possible blood in this area. I spoke with resident care spec. Pending official read. Patient was able to say that he did not remember having any recent trauma or falls. Patient has now been moved to telemetry. Haresh New
--- NOTE | 2018-03-22 11:02 | CT ---
Date of service: 03/22/2018 PROCEDURE: CT Chest with contrast (Pulmonary Angiogram) HISTORY: tachycardia, SOB COMPARISON: Noncontrast chest CT 03/21/2018. TECHNIQUE: Axial computed tomography images were obtained of the chest in the pulmonary arterial phase of enhancement. Coronal and sagittal reformatted images were created and reviewed. Intravenous contrast dose: Visipaque 320, 100 cc Radiation dose: Total exam DLP = 635.0 mGy-cm. This CT exam was performed using one or more of the following dose reduction techniques: Automated exposure control, adjustment of the mA and/or kV according to patient size, and/or use of iterative reconstruction technique. FINDINGS: PULMONARY ARTERIES: No definitive pulmonary embolus appreciable. Artifacts obscure exam. AORTA: No acute findings. No thoracic aortic aneurysm. No aortic atherosclerotic calcification or mural plaque present. Right and left ventricle volumes appear within normal limits the images. The interventricular septum appears unremarkable. LUNGS: Nodular infiltrates persist bilaterally within aerated lung and are not significantly changed in the interval. PLEURAL SPACES: There now moderate right pleural effusion exerting compressive atelectasis at the right lower lobe which is nearly completely atelectatic. HEART: Unremarkable. No cardiomegaly. No significant pericardial effusion. LYMPH NODES: Shotty mediastinal and bilateral axillary lymph nodes identified. BONES, CHEST WALL: Unremarkable. No fracture or destructive lesion OTHER FINDINGS: Marked hepatic steatosis reiterated. IMPRESSION: 1. No definite pulmonary embolus appreciable. 2. Moderate right pleural effusion with marked compression atelectasis affecting right lower lobe. 3. Scattered bilateral nodular infiltrates are reiterated within aerated lung dumont once again.
[2018-03-22] MEDS: Enoxaparin 40 mg Syringe SC SCH (11:03)
[2018-03-22] MEDS: oxyCODONE 30 mg Immediate Release Tab PO SCH (11:04)
--- NOTE | 2018-03-22 11:25 | CP.PCM.PN ---
Subjective - Date & Time of Evaluation Date of Evaluation: 03/22/18 Time of Evaluation: 11:23 - Subjective Subjective: pt has pain some papulovesicular leasion in one dermatome is less now ct scan cheast marked pleural efusion Objective - Vital Signs/Intake and Output Vital Signs (last 24 hours): Temp Pulse Resp BP Pulse Ox 98.7 F 131 H 20 134/78 92 L 03/22/18 10:50 03/22/18 10:50 03/22/18 10:50 03/22/18 10:50 03/22/18 10:50 Intake and Output: 03/22/18 03/22/18 06:59 18:59 Intake Total 1200 Balance 1200 - Medications Medications: Current Medications Enoxaparin Sodium (Lovenox) 40 mg SC DAILY [facility] Last Admin: 03/22/18 11:03 Dose: Not Given Gabapentin (Neurontin) 400 mg PO TID [facility] Last Admin: 03/22/18 11:04 Dose: Not Given Piperacillin Sod/Tazobactam Sod (Zosyn 3.375 Gm Iv Premix) 3.375 gm in 50 mls @ 100 mls/hr IVPB Q6H [facility]; Protocol Last Admin: 03/22/18 07:47 Dose: 100 mls/hr Vancomycin/Sodium Chloride (Vancomycin 1 Gm/Ns 200 Ml) 1 gm in 200 mls @ 133.33 3 mls/hr IVPB Q12H [facility]; Protocol Last Admin: 03/22/18 03:13 Dose: 133.333 mls/hr Influenza Virus Vaccine (Fluzone Quad [id number]) 60 mcg IM .ONCE ONE Stop: 03/24/18 10:01 Metformin HCl (Glucophage) 1,000 mg PO BID [facility] Last Admin: 03/22/18 11:03 Dose: Not Given Metoprolol Tartrate (Lopressor) 25 mg PO BID [facility] Last Admin: 03/22/18 11:03 Dose: Not Given Morphine Sulfate (Morphine) 2 mg IVP Q3 PRN PRN Reason: Pain, severe (8-10) Oxycodone HCl (Oxycodone Immediate Release Tab) 30 mg PO Q12 [facility] Last Admin: 03/22/18 11:04 Dose: Not Given - Labs Labs: 03/22/18 07:51 03/22/18 07:51 PT 12.8 SECONDS (9.7-12.2) H 03/21/18 02:51 INR 1.2 03/21/18 02:51 APTT 32 SECONDS (21-34) 03/21/18 02:51 - Constitutional Appears: In Acute Distress - Head Exam Head Exam: ATRAUMATIC - Eye Exam Eye Exam: Normal appearance Pupil Exam: NORMAL ACCOMODATION - ENT Exam ENT Exam: Mucous Membranes Moist - Neck Exam Neck Exam: Full ROM - Respiratory Exam Respiratory Exam: Decreased Breath Sounds - Cardiovascular Exam Cardiovascular Exam: Tachycardia, REGULAR RHYTHM - GI/Abdominal Exam GI & Abdominal Exam: Tenderness, Normal Bowel Sounds - Extremities Exam Extremities Exam: Normal Inspection - Back Exam Back Exam: CVA tenderness (L) - Neurological Exam Neurological Exam: Alert, Oriented x3 - Psychiatric Exam Psychiatric exam: Depressed - Skin Additional comments: skin leasions improving Assessment and Plan - Assessment and Plan (Free Text) Assessment: possible ac shingls severe pain new pleural efusion Plan: cont treatment pulmonary consult
--- NOTE | 2018-03-22 12:22 | CP.PCM.PN ---
Subjective - Date & Time of Evaluation Date of Evaluation: 03/22/18 Time of Evaluation: 07:00 - Subjective Subjective: Dr. Amador Pt seen and examined. No acute overnight events. However, this morning pt found to be tachycardic with O2 sats in the low 90's. pt complaining of severe pain on the R side of his chest/back. An CHAUFFEUR was called and stat CXR an EKQ were obtained along with stat labs. Pt given pain medication which helped improved his symptoms. Objective - Vital Signs/Intake and Output Vital Signs (last 24 hours): Temp Pulse Resp BP Pulse Ox 98.7 F 131 H 20 134/78 92 L 03/22/18 10:50 03/22/18 10:50 03/22/18 10:50 03/22/18 10:50 03/22/18 10:50 Intake and Output: 03/22/18 03/22/18 06:59 18:59 Intake Total 1200 Balance 1200 - Medications Medications: Current Medications Enoxaparin Sodium (Lovenox) 40 mg SC DAILY [facility] Last Admin: 03/22/18 11:03 Dose: Not Given Gabapentin (Neurontin) 400 mg PO TID [facility] Last Admin: 03/22/18 11:04 Dose: Not Given Piperacillin Sod/Tazobactam Sod (Zosyn 3.375 Gm Iv Premix) 3.375 gm in 50 mls @ 100 mls/hr IVPB Q6H [facility]; Protocol Last Admin: 03/22/18 07:47 Dose: 100 mls/hr Vancomycin/Sodium Chloride (Vancomycin 1 Gm/Ns 200 Ml) 1 gm in 200 mls @ 133.333 mls/hr IVPB Q12H [facility]; Protocol Last Admin: 03/22/18 03:13 Dose: 133.333 mls/hr Influenza Virus Vaccine (Fluzone Quad [id number]) 60 mcg IM .ONCE ONE Stop: 03/24/18 10:01 Metformin HCl (Glucophage) 1,000 mg PO BID [facility] Last Admin: 03/22/18 11:03 Dose: Not Given Metoprolol Tartrate (Lopressor) 25 mg PO BID [facility] Last Admin: 03/22/18 11:03 Dose: Not Given Morphine Sulfate (Morphine) 2 mg IVP Q3 PRN PRN Reason: Pain, severe (8-10) Oxycodone HCl (Oxycodone Immediate Release Tab) 30 mg PO Q12 [facility] Last Admin: 03/22/18 11:04 Dose: Not Given - Labs Labs: 03/22/18 07:51 03/22/18 07:51 PT 12.8 SECONDS (9.7-12.2) H 03/21/18 02:51 INR 1.2 03/21/18 02:51 APTT 32 SECONDS (21-34) 03/21/18 02:51 - Head Exam Head Exam: ATRAUMATIC, NORMOCEPHALIC - Eye Exam Eye Exam: Normal appearance - Respiratory Exam Additional comments: breathing heavily, decreased breath sound RLL - Cardiovascular Exam Cardiovascular Exam: Tachycardia - Neurological Exam Neurological Exam: Alert, Awake, Oriented x3 - Skin Skin Exam: Dry, Warm Assessment and Plan - Assessment and Plan (Free Text) Assessment: 32M with R chest/back rash vs cellulitis; r/o shingles Plan: - work up negative for PE; however pt found to have R sided pleural effusion on CT chest which is new compared to yest - recommend IR drainage of pleural effusion to establish etiology - pain control - no plan for surgical intervention at this time - d/w Dr. Marjorie Lord
[2018-03-22 15:29] LABS: ABG ALLEN TEST POS; ARTERIAL BLOOD GAS O2 SAT 96.1 % (95-98); ARTERIAL BLOOD GAS PCO2 32 mm/Hg (35-45); ARTERIAL BLOOD GAS PH 7.43 (7.35-7.45); ARTERIAL BLOOD GAS PO2 62 mm/Hg (80-100); ARTERIAL BLOOD GAS TCO2 22.2 mmol/L (22-28)
--- NOTE | 2018-03-22 15:34 | CP.PCM.PN ---
Subjective - Date & Time of Evaluation Date of Evaluation: 03/22/18 Time of Evaluation: 15:00 - Subjective Subjective: ADDENDUM: I came by again to see how patient was doing and he was still short of breath and still having the pain despite medication from before. He is also diaphoretic as well. I spoke with ICU attending and because of the initial cult ures are positive it is possible that the patient does have endocarditis which caused this R pleural effusion. Echo was ordered. At this time we should repeat cultures again, follow another ABG. Use toradol IV for pain now to see if this helps with pleuritic pain. If worsens then may need to be moved to ICU. Haresh New Objective - Vital Signs/Intake and Output Vital Signs (last 24 hours): Temp Pulse Resp BP Pulse Ox 98.7 F 131 H 20 134/78 92 L 03/22/18 10:50 03/22/18 10:50 03/22/18 10:50 03/22/18 10:50 03/22/18 10:50 Intake and Output: 03/22/18 03/22/18 06:59 18:59 Intake Total 1650 Balance 1650 - Medications Medications: Current Medications Enoxaparin Sodium (Lovenox) 40 mg SC DAILY [facility] Last Admin: 03/22/18 11:03 Dose: Not Given Gabapentin (Neurontin) 400 mg PO TID [facility] Last Admin: 03/22/18 13:47 Dose: Not Given Piperacillin Sod/Tazobactam Sod (Zosyn 3.375 Gm Iv Premix) 3.375 gm in 50 mls @ 100 mls/hr IVPB Q6H [facility]; Protocol Last Admin: 03/22/18 13:40 Dose: 100 mls/hr Vancomycin/Sodium Chloride (Vancomycin 1 Gm/Ns 200 Ml) 1 gm in 200 mls @ 133.333 mls/hr IVPB Q12H [facility]; Protocol Last Admin: 03/22/18 03:13 Dose: 133.333 mls/hr Influenza Virus Vaccine (Fluzone Quad [id number]) 60 mcg IM .ONCE ONE Stop: 03/24/18 10:01 Ketorolac Tromethamine (Toradol) 30 mg IVP Q6 [facility] Metformin HCl (Glucophage) 1,000 mg PO BID [facility] Last Admin: 03/22/18 11:03 Dose: Not Given Metoprolol Tartrate (Lopressor) 25 mg PO BID [facility] Last Admin: 03/22/18 11:03 Dose: Not Given Morphine Sulfate (Morphine) 2 mg IVP Q3 PRN PRN Reason: Pain, severe (8-10) Last Admin: 03/22/18 13:40 Dose: 2 mg Oxycodone HCl (Oxycodone Immediate Release Tab) 30 mg PO Q12 [facility] Last Admin: 03/22/18 11:04 Dose: Not Given - Labs Labs: 03/22/18 07:51 03/22/18 07:51 PT 12.8 SECONDS (9.7-12.2) H 03/21/18 02:51 INR 1.2 03/21/18 02:51 APTT 32 SECONDS (21-34) 03/21/18 02:51
--- NOTE | 2018-03-22 15:40 | CP.PCM.CON ---
History of Present Illness - History of Present Illness History of Present Illness: 32 yo M with PMHx of DM presents to the ED with right flank/back pain. ID consulted for possible VZV / shingles denies fever c/o SOB and chest pain cardio on board PMHx: DM, seizures Surgeries: none Allergies: none Medications: Metformin Social hx: denies etoh, tobacco, occasional marijuana use Review of Systems - Review of Systems All systems: reviewed and no additional remarkable complaints except - Constitutional Constitutional: As Per HPI - EENT Eyes: absent: As Per HPI, Blind Spots, Blurred Vision, Change in Vision, Decreased Night Vision, Diplopia, Discharge, Dry Eye, Exophthalmos, Floaters, Irritation, Itchy Eyes, Loss of Peripheral Vision, Pain, Photophobia, Requires Corrective Lenses, Sees Flashes, Spots in Vision, Tunnel Vision, Other Visual Disturbances, Loss of Vision, Other Ears: absent: As Per HPI, Decreased Hearing, Ear Discharge, Ear Pain, Tinnitus, Abnormal Hearing, Disequilibrium, Dizziness, Other Nose/Mouth/Throat: absent: As Per HPI, Epistaxis, Nasal Congestion, Nasal Discharge, Nasal Obstruction, Nasal Trauma, Nose Pain, Post Nasal Drip, Sinus Pain, Sinus Pressure, Bleeding Gums, Change in Voice, Dental Pain, Dry Mouth, Dysphagia, Halitosis, Hoarsness, Lip Swelling, Mouth Lesions, Mouth Pain, Odynophagia, Sore Throat, Throat Swelling, Tongue Swelling, Facial Pain, Neck Pain, Neck Mass, Other - Cardiovascular Cardiovascular: As Per HPI - Respiratory Respiratory: As Per HPI - Gastrointestinal Gastrointestinal: absent: As Per HPI, Abdominal Pain, Belching, Bloating, Change in Bowel Habits, Change in Stool Character, Coffee Ground Emesis, Constipation, Cramping, Diarrhea, Dyspepsia, Dysphagia, Early Satiety, Excessive Flatus, Fecal Incontinence, Heartburn, Hematemesis, Hematochezia, Loose Stools, Melena, Nausea, Odynophagia, Temesmus, Vomiting, Other - Genitourinary Genitourinary: absent: As Per HPI, Change in Urinary Stream, Difficulty Urinating, Dysuria, Flank Pain, Hematuria, Pyuria, Nocturia, Urinary Incontinence, Urinary Frequency, Urinary Hesitance, Urinary Urgency, Voiding Freq/Small Amts, Freq UTI, Hx Renal/Bladder Calculi, Hx /Renal Surgery, Bladder Distension, Other - Musculoskeletal Musculoskeletal: As Per HPI - Integumentary Integumentary: As Per HPI - Neurological Neurological: absent: As Per HPI, Abnormal Gait, Abnormal Hearing, Abnormal Movements, Abnormal Speech, Behavioral Changes, Burning Sensations, Confusion, Convulsions, Disequilibrium, Dizziness, Numbness, Focal Weakness, Frequent Falls, Headaches, Lack of Coordination, Loss of Vision, Memory Loss, Paresthesias, Radicular Pain, Restless Legs, Sensory Deficit, Syncope, Tingling, Tremor, Vertigo, Weakness, Other Visual Disturbances, Other - Psychiatric Psychiatric: absent: As Per HPI, Abnormal Sleep Pattern, Anhedonia, Anxiety, Auditory Hallucinations, Behavioral Changes, Change in Appetite, Change in Libido, Confusion, Depression, Difficulty Concentrating, Hallucinations, [place] omid Ideation, Hopelessness, Irritability, Memory Loss, Mood Swings, Panic Attacks, Paranoia, Suicidal Ideation, Visual Hallucinations, Tactile Hallucinations, Other - Endocrine Endocrine: absent: As Per HPI, Change in Body Appearance, Change in Libido, Cold Intolorance, Deepening of Voice, Excessive Sweating, Fatigue, Flushing, Heat Intolorance, Increase in Ring/Shoe/Hat Size, Palpitations, Polydipsia, Polyphagia, Polyuria, Other - Hematologic/Lymphatic Hematologic: absent: As Per HPI, Easy Bleeding, Easy Bruising, Lymphadenopathy, Other Past Patient History - Infectious Disease Hx of Infectious Diseases: None - Past Social History Smoking Status: Never Smoked - CARDIAC Hx Hypertension: Yes - NEUROLOGICAL Hx Seizures: Yes (when he was much younger, last seizure more than 10 years ago) - ENDOCRINE/METABOLIC Hx Diabetes Mellitus Type 2: Yes - MUSCULOSKELETAL/RHEUMATOLOGICAL Hx Falls: No - PSYCHIATRIC Hx Substance Use: Yes (marijuana once in a while as per pt) - SURGICAL HISTORY Hx Surgeries: No - ANESTHESIA Hx Anesthesia: No Meds Allergies/Adverse Reactions: Allergies Allergy/AdvReac Type Severity Reaction Status Date / Time No Known Allergies Allergy Verified 03/21/18 01:57 - Medications Medications: Current Medications Enoxaparin Sodium (Lovenox) 40 mg SC DAILY [facility] Last Admin: 03/22/18 11:03 Dose: Not Given Gabapentin (Neurontin) 400 mg PO TID [facility] Last Admin: 03/22/18 13:47 Dose: Not Given Piperacillin Sod/Tazobactam Sod (Zosyn 3.375 Gm Iv Premix) 3.375 gm in 50 mls @ 100 mls/hr IVPB Q6H [facility]; Protocol Last Admin: 03/22/18 13:40 Dose: 100 mls/hr Vancomycin/Sodium Chloride (Vancomycin 1 Gm/Ns 200 Ml) 1 gm in 200 mls @ 133.333 mls/hr IVPB Q12H [facility]; Protocol Last Admin: 03/22/18 03:13 Dose: 133.333 mls/hr Influenza Virus Vaccine (Fluzone Quad [id number]) 60 mcg IM .ONCE ONE Stop: 03/24/18 10:01 Ketorolac Tromethamine (Toradol) 30 mg IVP Q6 PRN Metformin HCl (Glucophage) 1,000 mg PO BID [facility] Last Admin: 03/22/18 11:03 Dose: Not Given Metoprolol Tartrate (Lopressor) 25 mg PO BID [facility] Last Admin: 03/22/18 11:03 Dose: Not Given Morphine Sulfate (Morphine) 2 mg IVP Q3 PRN PRN Reason: Pain, severe (8-10) Last Admin: 03/22/18 13:40 Dose: 2 mg Oxycodone HCl (Oxycodone Immediate Release Tab) 30 mg PO Q12 [facility] Last Admin: 03/22/18 11:04 Dose: Not Given Physical Exam - Constitutional Appears: In Acute Distress - Head Exam Head Exam: ATRAUMATIC, NORMAL INSPECTION, NORMOCEPHALIC - Eye Exam Eye Exam: EOMI. absent: Scleral icterus - ENT Exam ENT Exam: Mucous Membranes Dry, Normal External Ear Exam - Neck Exam Neck exam: Negative for: Lymphadenopathy - Respiratory Exam Respiratory Exam: Decreased Breath Sounds - Cardiovascular Exam Cardiovascular Exam: REGULAR RHYTHM - GI/Abdominal Exam GI & Abdominal Exam: Diminished Bowel Sounds, Soft. absent: Tenderness - Rectal Exam Rectal Exam: Deferred - Exam Exam: NORMAL INSPECTION - Extremities Exam Extremities exam: Negative for: pedal edema - Back Exam Back exam: absent: CVA tenderness (L), CVA tenderness (R) - Neurological Exam Neurological exam: Alert, CN II-XII Intact, Oriented x3, Reflexes Normal - Psychiatric Exam Psychiatric exam: Depressed - Skin Skin Exam: Dry, Rash Results - Vital Signs Recent Vital Signs: Last Vital Signs Temp 98.7 F 03/22/18 10:50 Pulse 131 H 03/22/18 10:50 Resp 20 03/22/18 10:50 BP 134/78 03/22/18 10:50 Pulse Ox 92 L 03/22/18 10:50 - Labs Result Diagrams: 03/23/18 06:26 03/23/18 06:27 Labs: Laboratory Results - last 24 hr 03/21/18 03/22/18 03/22/18 21:25 07:51 07:51 WBC 12.7 H RBC 4.70 Hgb 13.7 Hct 39.9 MCV 84.8 MCH 29.2 MCHC 34.4 RDW 12.6 Plt Count 245 MPV 9.0 Neut % (Auto) 79.0 H Lymph % (Auto) 10.6 L [place] % (Auto) 9.9 Eos % (Auto) 0.1 Baso % (Auto) 0.4 Neut # (Auto) 10.0 H Lymph # (Auto) 1.3 [place] # (Auto) 1.3 H Eos # (Auto) 0.0 Baso # (Auto) 0.0 ESR D-Dimer, Quantitative Puncture Site pCO2 pO2 HCO3 ABG pH ABG Total CO2 ABG O2 Saturation ABG Base Excess Naseem Test ABG Potassium A-a O2 Difference Respiratory Index Glucose Lactate Liter Flow FiO2 Sodium 133 Potassium 4.7 Chloride 99 Carbon Dioxide 24 Anion Gap 15 BUN 9 Creatinine 0.8 Est GFR ( Amer) > 60 Est GFR (Non-Af Amer) > 60 POC Glucose (mg/dL) 282 H Random Glucose 277 H Lactic Acid Calcium 8.8 Troponin I Arterial Blood Potassium Influenza Typ A,B (EIA) 03/22/18 03/22/18 03/22/18 08:15 09:31 10:00 WBC RBC Hgb Hct MCV MCH MCHC RDW Plt Count MPV Neut % (Auto) Lymph % (Auto) [place] % (Auto) Eos % (Auto) Baso % (Auto) Neut # (Auto) Lymph # (Auto) [place] # (Auto) Eos # (Auto) Baso # (Auto) ESR D-Dimer, Quantitative Puncture Site pCO2 pO2 HCO3 ABG pH ABG Total CO2 ABG O2 Saturation ABG Base Excess Naseem Test ABG Potassium A-a O2 Difference Respiratory Index Glucose Lactate Liter Flow FiO2 Sodium Potassium Chloride Carbon Dioxide Anion Gap BUN Creatinine Est GFR ( Amer) Est GFR (Non-Af Amer) POC Glucose (mg/dL) 247 H 276 H Random Glucose Lactic Acid Calcium Troponin I Arterial Blood Potassium Influenza Typ A,B (EIA) Negative for flu a/b 03/22/18 03/22/18 03/22/18 10:03 10:03 10:03 WBC RBC Hgb Hct MCV MCH MCHC RDW Plt Count MPV Neut % (Auto) Lymph % (Auto) [place] % (Auto) Eos % (Auto) Baso % (Auto) Neut # (Auto) Lymph # (Auto) [place] # (Auto) Eos # (Auto) Baso # (Auto) ESR 101 H D-Dimer, Quantitative 649 H Puncture Site pCO2 pO2 HCO3 ABG pH ABG Total CO2 ABG O2 Saturation ABG Base Excess Naseem Test ABG Potassium A-a O2 Difference Respiratory Index Glucose Lactate Liter Flow FiO2 Sodium Potassium Chloride Carbon Dioxide Anion Gap BUN Creatinine Est GFR ( Amer) Est GFR (Non-Af Amer) POC Glucose (mg/dL) Random Glucose Lactic Acid Calcium Troponin I 0.0480 Arterial Blood Potassium Influenza Typ A,B (EIA) 03/22/18 03/22/18 03/22/18 10:03 14:29 15:25 WBC RBC Hgb Hct MCV MCH MCHC RDW Plt Count MPV Neut % (Auto) Lymph % (Auto) [place] % (Auto) Eos % (Auto) Baso % (Auto) Neut # (Auto) Lymph # (Auto) [place] # (Auto) Eos # (Auto) Baso # (Auto) ESR D-Dimer, Quantitative Puncture Site Rr pCO2 32 L pO2 62 L HCO3 23.0 ABG pH 7.43 ABG Total CO2 22.2 ABG O2 Saturation 96.1 ABG Base Excess -2.3 L Naseem Test Pos ABG Potassium 4.1 A-a O2 Difference 183.0 Respiratory Index 3.0 Glucose 267 H Lactate 1.3 Liter Flow 5.0 FiO2 40.0 Sodium 133.0 Potassium Chloride 101.0 Carbon Dioxide Anion Gap BUN Creatinine Est GFR ( Amer) Est GFR (Non-Af Amer) POC Glucose (mg/dL) 258 H Random Glucose Lactic Acid 1.5 Calcium Troponin I Arterial Blood Potassium 4.1 Influenza Typ A,B (EIA) Assessment & Plan (1) Cellulitis of back Status: Acute (2) Hyperglycemia Status: Acute (3) Chest wall muscle strain Status: Acute - Assessment and Plan (Free Text) Assessment: needs cardio eval cont empiric antivirals and antibiotics await septic work uo check CT chest/ aortogram add Vanco /Zosyn
--- NOTE | 2018-03-22 16:22 | CP.PCM.CON ---
History of Present Illness - History of Present Illness History of Present Illness: 32 y/o female with pmx of circumcision, living with , children and dog. NO recent sick contact presents to [facility] with right sided pleuritic chest pain, worsen with deep breathing, no fevers, (+)dark urine, denies any sick contact, (+)THC CT angio revealed no PE Patient placed on bi-pap 2nd shallow breathing 2nd pleural effusion/pain Review of Systems - Constitutional Constitutional: As Per HPI Past Patient History - Infectious Disease Hx of Infectious Diseases: None - Past Social History Smoking Status: Current Some Days Smoker - CARDIAC Hx Hypertension: Yes - NEUROLOGICAL Hx Seizures: Yes (when he was much younger, last seizure more than 10 years ago) - ENDOCRINE/METABOLIC Hx Diabetes Mellitus Type 2: Yes - MUSCULOSKELETAL/RHEUMATOLOGICAL Hx Falls: No - PSYCHIATRIC Hx Substance Use: Yes (marijuana once in a while as per pt) - SURGICAL HISTORY Hx Surgeries: No - ANESTHESIA Hx Anesthesia: No Meds Allergies/Adverse Reactions: Allergies Allergy/AdvReac Type Severity Reaction Status Date / Time No Known Allergies Allergy Verified 03/21/18 01:57 - Medications Medications: Current Medications Enoxaparin Sodium (Lovenox) 40 mg SC DAILY [facility] Last Admin: 03/22/18 11:03 Dose: Not Given Gabapentin (Neurontin) 400 mg PO TID [facility] Last Admin: 03/22/18 13:47 Dose: Not Given Piperacillin Sod/Tazobactam Sod (Zosyn 3.375 Gm Iv Premix) 3.375 gm in 50 mls @ 100 mls/hr IVPB Q6H [facility]; Protocol Last Admin: 03/22/18 13:40 Dose: 100 mls/hr Vancomycin/Sodium Chloride (Vancomycin 1 Gm/Ns 200 Ml) 1 gm in 200 mls @ 133.333 mls/hr IVPB Q12H [facility]; Protocol Last Admin: 03/22/18 03:13 Dose: 133.333 mls/hr Influenza Virus Vaccine (Fluzone Quad [id number]) 60 mcg IM .ONCE ONE Stop: 03/24/18 10:01 Ketorolac Tromethamine (Toradol) 30 mg IVP Q6 PRN Metoprolol Tartrate (Lopressor) 25 mg PO BID [facility] Last Admin: 03/22/18 11:03 Dose: Not Given Morphine Sulfate (Morphine) 2 mg IVP Q3 PRN PRN Reason: Pain, severe (8-10) Last Admin: 03/22/18 13:40 Dose: 2 mg Oxycodone HCl (Oxycodone Immediate Release Tab) 30 mg PO Q12 [facility] Last Admin: 03/22/18 11:04 Dose: Not Given Physical Exam - Head Exam Head Exam: ATRAUMATIC, NORMAL INSPECTION, NORMOCEPHALIC - Eye Exam Eye Exam: EOMI Pupil Exam: PERRL - ENT Exam ENT Exam: Mucous Membranes Moist - Respiratory Exam Respiratory Exam: Decreased Breath Sounds, Clear to Auscultation Bilateral, Respiratory Distress - Cardiovascular Exam Cardiovascular Exam: Tachycardia, REGULAR RHYTHM, +S1, +S2 - GI/Abdominal Exam GI & Abdominal Exam: Distended, Normal Bowel Sounds. absent: Guarding, Hernia, Rebound, Rigid - Neurological Exam Neurological exam: Alert, Oriented x3 - Skin Skin Exam: Normal Color Results - Vital Signs Recent Vital Signs: Last Vital Signs Temp 98.6 F 03/22/18 15:00 Pulse 129 H 03/22/18 15:00 Resp 18 03/22/18 15:00 BP 164/97 H 03/22/18 15:00 Pulse Ox 97 03/22/18 15:00 - Labs Result Diagrams: 03/22/18 07:51 03/22/18 07:51 Labs: Laboratory Results - last 24 hr 03/21/18 03/22/18 03/22/18 21:25 07:51 07:51 WBC 12.7 H RBC 4.70 Hgb 13.7 Hct 39.9 MCV 84.8 MCH 29.2 MCHC 34.4 RDW 12.6 Plt Count 245 MPV 9.0 Neut % (Auto) 79.0 H Lymph % (Auto) 10.6 L [place] % (Auto) 9.9 Eos % (Auto) 0.1 Baso % (Auto) 0.4 Neut # (Auto) 10.0 H Lymph # (Auto) 1.3 [place] # (Auto) 1.3 H Eos # (Auto) 0.0 Baso # (Auto) 0.0 ESR D-Dimer, Quantitative Puncture Site pCO2 pO2 HCO3 ABG pH ABG Total CO2 ABG O2 Saturation ABG Base Excess Naseem Test ABG Potassium A-a O2 Difference Respiratory Index Glucose Lactate Liter Flow FiO2 Sodium 133 Potassium 4.7 Chloride 99 Carbon Dioxide 24 Anion Gap 15 BUN 9 Creatinine 0.8 Est GFR ( Amer) > 60 Est GFR (Non-Af Amer) > 60 POC Glucose (mg/dL) 282 H Random Glucose 277 H Lactic Acid Calcium 8.8 Troponin I Arterial Blood Potassium Influenza Typ A,B (EIA) 03/22/18 03/22/18 03/22/18 08:15 09:31 10:00 WBC RBC Hgb Hct MCV MCH MCHC RDW Plt Count MPV Neut % (Auto) Lymph % (Auto) [place] % (Auto) Eos % (Auto) Baso % (Auto) Neut # (Auto) Lymph # (Auto) [place] # (Auto) Eos # (Auto) Baso # (Auto) ESR D-Dimer, Quantitative Puncture Site pCO2 pO2 HCO3 ABG pH ABG Total CO2 ABG O2 Saturation ABG Base Excess Naseem Test ABG Potassium A-a O2 Difference Respiratory Index Glucose Lactate Liter Flow FiO2 Sodium Potassium Chloride Carbon Dioxide Anion Gap BUN Creatinine Est GFR ( Amer) Est GFR (Non-Af Amer) POC Glucose (mg/dL) 247 H 276 H Random Glucose Lactic Acid Calcium Troponin I Arterial Blood Potassium Influenza Typ A,B (EIA) Negative for flu a/b 03/22/18 03/22/18 03/22/18 10:03 10:03 10:03 WBC RBC Hgb Hct MCV MCH MCHC RDW Plt Count MPV Neut % (Auto) Lymph % (Auto) [place] % (Auto) Eos % (Auto) Baso % (Auto) Neut # (Auto) Lymph # (Auto) [place] # (Auto) Eos # (Auto) Baso # (Auto) ESR 101 H D-Dimer, Quantitative 649 H Puncture Site pCO2 pO2 HCO3 ABG pH ABG Total CO2 ABG O2 Saturation ABG Base Excess Naseem Test ABG Potassium A-a O2 Difference Respiratory Index Glucose Lactate Liter Flow FiO2 Sodium Potassium Chloride Carbon Dioxide Anion Gap BUN Creatinine Est GFR ( Amer) Est GFR (Non-Af Amer) POC Glucose (mg/dL) Random Glucose Lactic Acid Calcium Troponin I 0.0480 Arterial Blood Potassium Influenza Typ A,B (EIA) 03/22/18 03/22/18 03/22/18 10:03 11:20 14:29 WBC RBC Hgb Hct MCV MCH MCHC RDW Plt Count MPV Neut % (Auto) Lymph % (Auto) [place] % (Auto) Eos % (Auto) Baso % (Auto) Neut # (Auto) Lymph # (Auto) [place] # (Auto) Eos # (Auto) Baso # (Auto) ESR D-Dimer, Quantitative Puncture Site pCO2 pO2 HCO3 ABG pH ABG Total CO2 ABG O2 Saturation ABG Base Excess Naseem Test ABG Potassium A-a O2 Difference Respiratory Index Glucose Lactate Liter Flow FiO2 Sodium Potassium Chloride Carbon Dioxide Anion Gap BUN Creatinine Est GFR ( Amer) Est GFR (Non-Af Amer) POC Glucose (mg/dL) 287 H 258 H Random Glucose Lactic Acid 1.5 Calcium Troponin I Arterial Blood Potassium Influenza Typ A,B (EIA) 03/22/18 15:25 WBC RBC Hgb Hct MCV MCH MCHC RDW Plt Count MPV Neut % (Auto) Lymph % (Auto) [place] % (Auto) Eos % (Auto) Baso % (Auto) Neut # (Auto) Lymph # (Auto) [place] # (Auto) Eos # (Auto) Baso # (Auto) ESR D-Dimer, Quantitative Puncture Site Rr pCO2 32 L pO2 62 L HCO3 23.0 ABG pH 7.43 ABG Total CO2 22.2 ABG O2 Saturation 96.1 ABG Base Excess -2.3 L Naseem Test Pos ABG Potassium 4.1 A-a O2 Difference 183.0 Respiratory Index 3.0 Glucose 267 H Lactate 1.3 Liter Flow 5.0 FiO2 40.0 Sodium 133.0 Potassium Chloride 101.0 Carbon Dioxide Anion Gap BUN Creatinine Est GFR ( Amer) Est GFR (Non-Af Amer) POC Glucose (mg/dL) Random Glucose Lactic Acid Calcium Troponin I Arterial Blood Potassium 4.1 Influenza Typ A,B (EIA) Assessment & Plan - Assessment and Plan (Free Text) Assessment: right sided chest pain: described as painful upon deep breathing, pleuritic in nature, suspect infectious etiology, toradol IV -sepsis: not in shock: serial lactic, start empirial abx vanco + zosyn -r/o IE, check echo -currently on bi-pap: check ABG, avoid sedatoin -c/o right flank pain: check UA, CT abd/pelvis, if nephrolithiasis, start flomax -dvt ppx heparin sq -PUD ppx pepcid Patient is is in pain ? withdrawal, check utox, oxycodone urine screning -multiple diagnostic tests pending -continue to monitor d/w nursing Addendum: Patient admitted to ICU. Family (, mother, mother inlaw and sister at bedside) -Sister informed the ICU team that patient has history of drug use including cocaine, IV "drugs" -Utox pending -legionella pending - Date & Time Date: 03/22/18 Time: 16:28
--- NOTE | 2018-03-22 16:45 | RAD ---
Date of service: 03/22/2018 HISTORY: chest pain COMPARISON: Right ribs with chest 03/19/2018. FINDINGS: LUNGS: Prominent opacification of the right hemithorax is appreciated comprise of moderate right pleural effusion with likely mid to inferior pulmonary infiltrate. No definite left-sided infiltrate although pulmonary vascular congestion is question. Cardiac silhouette is likely technically magnified by frontal technique. Clinically correlate further. No pneumothorax bilaterally. PLEURA: As above. CARDIOVASCULAR: As above. No aortic atherosclerosis demonstrated grossly. OSSEOUS STRUCTURES: No significant abnormalities. VISUALIZED UPPER ABDOMEN: Normal. OTHER FINDINGS: None. IMPRESSION: At least moderate right pleural effusion with prominent right mid to inferior pulmonary infiltrates present in the interval. Underlying pulmonary vascular congestion is questioned. No left-sided infiltrate.
[2018-03-22] MEDS ORDERED: Sodium Chloride 0.9% 1,000 ML IV ONE (17:21)
[2018-03-22] MEDS ORDERED: Moxifloxacin IV 400mg/250ml NS 400 MG/250 ML BAG IVPB ONE (18:09)
--- NOTE | 2018-03-22 18:53 | PCM.SEPTIC ---
Sepsis Progress Note - Reassessment Type Date of Evaluation: 03/22/18 Time of Evaluation: 18:52 Reassessment Type: Non-invasive reassessment - Non Invasive Reassessment Were the most recent vital sign reviewed: Yes Vital Sign (Latest): Temp Pulse Resp BP Pulse Ox 98.6 F 130 H 24 170/110 H 91 L 03/22/18 15:00 03/22/18 18:40 03/22/18 18:40 03/22/18 18:07 03/22/18 18:40 Cardiovascular: Yes: Regular Rate, Rhythm, Tachycardia Respiratory: Yes: Normal Breath Sounds, Decreased Breath Sounds Capillary Refill: Normal (Less than 2 sec) Pulses: Normal Radial, Normal Dorsalis Pedis, Normal Posterior Tibialis Skin: Normal Color - Invasive Reassessment (complete 2 of 4) Was a Central Venous Pressure Measurement obtained within 6 Hours after the presentation of septic shock: No Was a central venous oxygen measurement obtained within 6 hours after the presentation of septic shock: No Was a bedside cardiovascular ultrasound performed within 6 hours after the presentation of septic shock: No Was a passive leg raise performed or was a fluid challenge performed within 6 hrs of the initial fluid bolus: No
[2018-03-22 20:25] LABS: GRANULAR CAST 1 /lpf (0-1); SQUAMOUS EPITHIAL 4 /hpf (0-5); URINE BILIRUBIN NEGATIVE (NEGATIVE); URINE BLOOD 1+ (NEGATIVE); URINE CLARITY Clear (Clear); URINE COLOR Yellow (YELLOW); URINE GLUCOSE (UA) 3+ mg/dL (Normal); URINE LEUKOCYTE ESTERASE NEG Leu/uL (Negative); URINE PROTEIN 2+ mg/dL (NEGATIVE); URINE UROBILINOGEN NORMAL mg/dL (0.2-1.0)
[2018-03-22] MEDS: (Novolog) Insulin Aspart, Recombinant 100 u/ml 10 ml vial SC SCH (22:43)
[2018-03-23] MEDS: Piperacill/Tazo 3.375gm in Dex 3.375 GM/50 ML BAG IVPB SCH ×4 (01:31→18:24)
[2018-03-23] MEDS: Vancomycin 1 gm/NS 200 ml 1 GM/200 ML BAG IVPB SCH ×3 (03:11→18:25)
[2018-03-23 06:36] LABS: BASO # 0.1 K/uL (0.0-0.2); BASO % 0.6 % (0.0-2.0); EOS # 0.1 K/uL (0.0-0.7); EOS % 1.2 % (0.0-4.0); HEMOGLOBIN 12.9 g/dL (12.0-18.0); LYMPH # 1.6 K/uL (1.0-4.3); LYMPH % 13.9 % (20.0-40.0); MEAN CORPUSCULAR HEMOGLOBIN 28.8 pg (27.0-31.0); MEAN CORPUSCULAR HGB CONC 33.8 g/dL (33.0-37.0); MONO # 1.4 K/uL (0.0-0.8); MONO % 12.5 % (0.0-10.0); NEUT # 8.3 K/uL (1.8-7.0); NEUT % 71.8 % (50.0-75.0); NRBC % 0.1 % (0.0-2.0); RBC 4.49 Mil/uL (4.40-5.90); RED CELL DISTRIBUTION WIDTH 12.6 % (11.5-14.5); WHITE BLOOD COUNT 11.6 K/uL (4.8-10.8)
[2018-03-23 06:54] LABS: ALB/GLOB RATIO 0.9 (1.0-2.1); ALBUMIN 3.6 g/dL (3.5-5.0); ALT/SGPT 30 U/L (21-72); AST/SGOT 35 U/L (17-59); BLOOD UREA NITROGEN 11 mg/dL (9-20); CALCIUM 8.8 mg/dl (8.6-10.4); GFR NON-AFRICAN AMERICAN > 60
[2018-03-23] MEDS: (Novolog) Insulin Aspart, Recombinant 100 u/ml 10 ml vial SC SCH ×4 (08:03→21:21)
--- NOTE | 2018-03-23 08:21 | CP.CCUPN ---
<Dian Zuleta - Last Filed: 03/23/18 14:22> CCU Subjective - Physician Review Events Since Last Encounter (Free Text): 03/23/18 08:15 no over night events reported Subjective (Free Text): 03/23/18 08:15 Patient was seen and examined this morning. He is complaining of significant R back pain that radiates to the chest/front and pain with inspiration. He is saturating well on RA. Critical Care Time Spent (in minutes): 35 CCU Objective - Vital Signs / Intake & Output Vital Signs (Last 4 hours): Vital Signs Temp Pulse Resp BP Pulse Ox 03/23/18 07:02 121 H 17 152/104 H 95 03/23/18 06:06 117 H 12 175/114 H 95 03/23/18 05:03 109 H 39 H 158/101 H 97 03/23/18 05:00 98.3 F Intake and Output (Last 8hrs): Intake & Output 03/22/18 03/23/18 03/23/18 22:59 06:59 14:59 Intake Total 1033 983 100 Output Total 725 700 Balance 308 283 100 Weight 288 lb 14.4 oz Intake: Intake, IV Amount 733 783 100 Right Hand 733 783 100 Oral 300 200 Output: Urine 725 700 Urine, Voided 725 700 Other: # Voids Urine, Voided 1 1 - Physical Exam Head: Positive for: Atraumatic, Normocephalic Pupils: Positive for: PERRL Extroacular Muscles: Positive for: EOMI Conjunctiva: Positive for: Normal Mouth: Positive for: Moist Mucous Membranes Nose (Internal): Positive for: Normal Inspection Respiratory/Chest: Positive for: Decreased Breath Sounds (R>L), Tachypneic. Negative for: Respiratory Distress, Accessory Muscle Use, Retracting Cardiovascular: Positive for: Normal S1, S2, Tachycardic. Negative for: Murmurs Abdomen: Negative for: Tenderness, Distention, Peritoneal Signs Back: Positive for: Other (no lesions observed) Neurological: Positive for: GCS=15, CN II-XII Intact Skin: Positive for: Warm, Dry, Normal Color. Negative for: Rashes Psychiatric: Positive for: Alert, Oriented x 3 - Medications Active Medications: Active Medications Generic Name Dose Route Start Last Admin Trade Name Freq PRN Reason Stop Dose Admin Acetaminophen 650 mg 03/22/18 21:49 03/22/18 23:38 Tylenol 325mg Tab PO 650 mg Q6 PRN Administration Pain, moderate (4-7) Enoxaparin Sodium 40 mg 03/21/18 10:30 03/22/18 11:03 Lovenox SC Not Given DAILY JERED Gabapentin 400 mg 03/21/18 18:00 03/22/18 18:25 Neurontin PO 400 mg TID JERED Administration Piperacillin Sod/Tazobactam Sod 3.375 gm in 50 mls @ 100 mls/hr 03/21/18 07:15 03/23/18 06:44 Zosyn 3.375 Gm Iv Premix IVPB 100 mls/hr Q6H JERED Administration Protocol Vancomycin/Sodium Chloride 1 gm in 200 mls @ 133.333 mls/hr 03/21/18 16:00 03/23/18 03:11 Vancomycin 1 Gm/Ns 200 Ml IVPB 133.333 mls/hr Q12H JERED Administration Protocol Influenza Virus Vaccine 60 mcg 03/24/18 10:00 Fluzone Quad [id number] IM 03/24/18 10:01 .ONCE ONE Insulin Aspart 0 unit 03/22/18 22:00 03/23/18 08:03 Novolog SC 4 units ACHS JERED Administration Protocol Ketorolac Tromethamine 30 mg 03/22/18 15:33 03/23/18 08:04 Toradol IVP 30 mg Q6 PRN Administration Metoprolol Tartrate 25 mg 03/22/18 10:00 03/22/18 18:07 Lopressor PO 25 mg BID JERED Administration Morphine Sulfate 2 mg 03/22/18 09:23 03/23/18 03:18 Morphine IVP 2 mg Q3 PRN Administration Pain, severe (8-10) - Patient Studies Lab Studies: Microbiology Studies 03/21/18 07:30 Blood Culture - Final Blood Gram Positive Cocci Gram Stain - Final 03/21/18 07:30 Blood Culture - Preliminary Blood Gram Positive Cocci Gram Stain - Final Lab Studies 03/23/18 03/23/18 03/23/18 Range/Units 06:36 06:27 06:26 WBC 11.6 H (4.8-10.8) K/uL RBC 4.49 (4.40-5.90) Mil/uL Hgb 12.9 (12.0-18.0) g/dL Hct 38.2 (35.0-51.0) % MCV 85.0 (80.0-94.0) fL MCH 28.8 (27.0-31.0) pg MCHC 33.8 (33.0-37.0) g/dL RDW 12.6 (11.5-14.5) % Plt Count 272 (130-400) K/uL MPV 9.0 (7.2-11.7) fL Neut % (Auto) 71.8 (50.0-75.0) % Lymph % (Auto) 13.9 L (20.0-40.0) % [place] % (Auto) 12.5 H (0.0-10.0) % Eos % (Auto) 1.2 (0.0-4.0) % Baso % (Auto) 0.6 (0.0-2.0) % Neut # (Auto) 8.3 H (1.8-7.0) K/uL Lymph # (Auto) 1.6 (1.0-4.3) K/uL [place] # (Auto) 1.4 H (0.0-0.8) K/uL Eos # (Auto) 0.1 (0.0-0.7) K/uL Baso # (Auto) 0.1 (0.0-0.2) K/uL ESR (0-15) mm/hr D-Dimer, Quantitative (0-243) ng/mlDDU Puncture Site pCO2 (35-45) mm/Hg pO2 (80-100) mm/Hg HCO3 (21-28) mmol/L ABG pH (7.35-7.45) ABG Total CO2 (22-28) mmol/L ABG O2 Saturation (95-98) % ABG Base Excess (-2.0-3.0) mmol/L Naseem Test ABG Potassium (3.6-5.2) mmol/L A-a O2 Difference mm/Hg Respiratory Index Glucose (75-110) mg/dl Lactate (0.7-2.1) mmol/L Liter Flow FiO2 % Sodium 134 (132-148) mmol/L Potassium 4.6 (3.6-5.2) mmol/L Chloride 100 (98-107) mmol/L Carbon Dioxide 26 (22-30) mmol/L Anion Gap 12 (10-20) BUN 11 (9-20) mg/dL Creatinine 0.5 L (0.8-1.5) mg/dL Est GFR ( Amer) > 60 Est GFR (Non-Af Amer) > 60 POC Glucose (mg/dL) (65-110) mg/dL Random Glucose 251 H (75-110) mg/dL Hemoglobin A1c (4.2-6.5) % Lactic Acid 1.6 (0.7-2.1) mmol/L Calcium 8.8 (8.6-10.4) mg/dl Phosphorus 2.9 (2.5-4.5) mg/dL Magnesium 2.0 (1.6-2.3) mg/dL Total Bilirubin 1.2 (0.2-1.3) mg/dL AST 35 (17-59) U/L ALT 30 (21-72) U/L Alkaline Phosphatase 159 H D (38-126) U/L Troponin I (0.00-0.120) ng/mL NT-Pro-B Natriuret Pep (0-450) pg/mL Total Protein 7.4 (6.3-8.3) g/dL Albumin 3.6 (3.5-5.0) g/dL Globulin 3.8 (2.2-3.9) gm/dL Albumin/Globulin Ratio 0.9 L (1.0-2.1) Procalcitonin (0.19-0.49) NG/ML TSH 3rd Generation (0.46-4.68) mIU/L Arterial Blood Potassium (3.6-5.2) mmol/L Urine Color (YELLOW) Urine Clarity (Clear) Urine pH (5.0-8.0) Ur Specific [place] (1.003-1.030) Urine Protein (NEGATIVE) mg/dL Urine Glucose (UA) (Normal) mg/dL Urine Ketones (NEGATIVE) mg/dL Urine Blood (NEGATIVE) Urine Nitrate (NEGATIVE) Urine Bilirubin (NEGATIVE) Urine Urobilinogen (0.2-1.0) mg/dL Ur Leukocyte Esterase (Negative) [place]/uL Urine WBC (Auto) (0-5) /hpf Urine RBC (Auto) (0-3) /hpf Ur Squamous Epith Cells (0-5) /hpf Granular Casts (Auto) (0-1) /lpf Influenza Typ A,B (EIA) (NEGATIVE) 03/22/18 03/22/18 03/22/18 Range/Units 21:13 20:12 17:00 WBC (4.8-10.8) K/uL RBC (4.40-5.90) Mil/uL Hgb (12.0-18.0) g/dL Hct (35.0-51.0) % MCV (80.0-94.0) fL MCH (27.0-31.0) pg MCHC (33.0-37.0) g/dL RDW (11.5-14.5) % Plt Count (130-400) K/uL MPV (7.2-11.7) fL Neut % (Auto) (50.0-75.0) % Lymph % (Auto) (20.0-40.0) % [place] % (Auto) (0.0-10.0) % Eos % (Auto) (0.0-4.0) % Baso % (Auto) (0.0-2.0) % Neut # (Auto) (1.8-7.0) K/uL Lymph # (Auto) (1.0-4.3) K/uL [place] # (Auto) (0.0-0.8) K/uL Eos # (Auto) (0.0-0.7) K/uL Baso # (Auto) (0.0-0.2) K/uL ESR (0-15) mm/hr D-Dimer, Quantitative (0-243) ng/mlDDU Puncture Site pCO2 (35-45) mm/Hg pO2 (80-100) mm/Hg HCO3 (21-28) mmol/L ABG pH (7.35-7.45) ABG Total CO2 (22-28) mmol/L ABG O2 Saturation (95-98) % ABG Base Excess (-2.0-3.0) mmol/L Naseem Test ABG Potassium (3.6-5.2) mmol/L A-a O2 Difference mm/Hg Respiratory Index Glucose (75-110) mg/dl Lactate (0.7-2.1) mmol/L Liter Flow FiO2 % Sodium (132-148) mmol/L Potassium (3.6-5.2) mmol/L Chloride (98-107) mmol/L Carbon Dioxide (22-30) mmol/L Anion Gap (10-20) BUN (9-20) mg/dL Creatinine (0.8-1.5) mg/dL Est GFR ( Amer) Est GFR (Non-Af Amer) POC Glucose (mg/dL) 337 H (65-110) mg/dL Random Glucose (75-110) mg/dL Hemoglobin A1c (4.2-6.5) % Lactic Acid (0.7-2.1) mmol/L Calcium (8.6-10.4) mg/dl Phosphorus (2.5-4.5) mg/dL Magnesium (1.6-2.3) mg/dL Total Bilirubin (0.2-1.3) mg/dL AST (17-59) U/L ALT (21-72) U/L Alkaline Phosphatase (38-126) U/L Troponin I 0.0380 (0.00-0.120) ng/mL NT-Pro-B Natriuret Pep (0-450) pg/mL Total Protein (6.3-8.3) g/dL Albumin (3.5-5.0) g/dL Globulin (2.2-3.9) gm/dL Albumin/Globulin Ratio (1.0-2.1) Procalcitonin (0.19-0.49) NG/ML TSH 3rd Generation (0.46-4.68) mIU/L Arterial Blood Potassium (3.6-5.2) mmol/L Urine Color Yellow (YELLOW) Urine Clarity Clear (Clear) Urine pH 5.0 (5.0-8.0) Ur Specific [place] 1.035 H (1.003-1.030) Urine Protein 2+ H (NEGATIVE) mg/dL Urine Glucose (UA) 3+ H (Normal) mg/dL Urine Ketones 2+ H (NEGATIVE) mg/dL Urine Blood 1+ H (NEGATIVE) Urine Nitrate Negative (NEGATIVE) Urine Bilirubin Negative (NEGATIVE) Urine Urobilinogen Normal (0.2-1.0) mg/dL Ur Leukocyte Esterase Neg (Negative) [place]/uL Urine WBC (Auto) 1 (0-5) /hpf Urine RBC (Auto) 3 (0-3) /hpf Ur Squamous Epith Cells 4 (0-5) /hpf Granular Casts (Auto) 1 (0-1) /lpf Influenza Typ A,B (EIA) (NEGATIVE) 03/22/18 03/22/18 03/22/18 Range/Units 16:47 16:47 16:47 WBC (4.8-10.8) K/uL RBC (4.40-5.90) Mil/uL Hgb (12.0-18.0) g/dL Hct (35.0-51.0) % MCV (80.0-94.0) fL MCH (27.0-31.0) pg MCHC (33.0-37.0) g/dL RDW (11.5-14.5) % Plt Count (130-400) K/uL MPV (7.2-11.7) fL Neut % (Auto) (50.0-75.0) % Lymph % (Auto) (20.0-40.0) % [place] % (Auto) (0.0-10.0) % Eos % (Auto) (0.0-4.0) % Baso % (Auto) (0.0-2.0) % Neut # (Auto) (1.8-7.0) K/uL Lymph # (Auto) (1.0-4.3) K/uL [place] # (Auto) (0.0-0.8) K/uL Eos # (Auto) (0.0-0.7) K/uL Baso # (Auto) (0.0-0.2) K/uL ESR (0-15) mm/hr D-Dimer, Quantitative (0-243) ng/mlDDU Puncture Site pCO2 (35-45) mm/Hg pO2 (80-100) mm/Hg HCO3 (21-28) mmol/L ABG pH (7.35-7.45) ABG Total CO2 (22-28) mmol/L ABG O2 Saturation (95-98) % ABG Base Excess (-2.0-3.0) mmol/L Naseem Test ABG Potassium (3.6-5.2) mmol/L A-a O2 Difference mm/Hg Respiratory Index Glucose (75-110) mg/dl Lactate (0.7-2.1) mmol/L Liter Flow FiO2 % Sodium (132-148) mmol/L Potassium (3.6-5.2) mmol/L Chloride (98-107) mmol/L Carbon Dioxide (22-30) mmol/L Anion Gap (10-20) BUN (9-20) mg/dL Creatinine (0.8-1.5) mg/dL Est GFR ( Amer) Est GFR (Non-Af Amer) POC Glucose (mg/dL) (65-110) mg/dL Random Glucose (75-110) mg/dL Hemoglobin A1c 12.4 H (4.2-6.5) % Lactic Acid 2.7 H (0.7-2.1) mmol/L Calcium (8.6-10.4) mg/dl Phosphorus (2.5-4.5) mg/dL Magnesium (1.6-2.3) mg/dL Total Bilirubin (0.2-1.3) mg/dL AST (17-59) U/L ALT (21-72) U/L Alkaline Phosphatase (38-126) U/L Troponin I (0.00-0.120) ng/mL NT-Pro-B Natriuret Pep 654 H (0-450) pg/mL Total Protein (6.3-8.3) g/dL Albumin (3.5-5.0) g/dL Globulin (2.2-3.9) gm/dL Albumin/Globulin Ratio (1.0-2.1) Procalcitonin (0.19-0.49) NG/ML TSH 3rd Generation 2.41 (0.46-4.68) mIU/L Arterial Blood Potassium (3.6-5.2) mmol/L Urine Color (YELLOW) Urine Clarity (Clear) Urine pH (5.0-8.0) Ur Specific [place] (1.003-1.030) Urine Protein (NEGATIVE) mg/dL Urine Glucose (UA) (Normal) mg/dL Urine Ketones (NEGATIVE) mg/dL Urine Blood (NEGATIVE) Urine Nitrate (NEGATIVE) Urine Bilirubin (NEGATIVE) Urine Urobilinogen (0.2-1.0) mg/dL Ur Leukocyte Esterase (Negative) [place]/uL Urine WBC (Auto) (0-5) /hpf Urine RBC (Auto) (0-3) /hpf Ur Squamous Epith Cells (0-5) /hpf Granular Casts (Auto) (0-1) /lpf Influenza Typ A,B (EIA) (NEGATIVE) 03/22/18 03/22/18 03/22/18 Range/Units 16:47 16:09 15:25 WBC (4.8-10.8) K/uL RBC (4.40-5.90) Mil/uL Hgb (12.0-18.0) g/dL Hct (35.0-51.0) % MCV (80.0-94.0) fL MCH (27.0-31.0) pg MCHC (33.0-37.0) g/dL RDW (11.5-14.5) % Plt Count (130-400) K/uL MPV (7.2-11.7) fL Neut % (Auto) (50.0-75.0) % Lymph % (Auto) (20.0-40.0) % [place] % (Auto) (0.0-10.0) % Eos % (Auto) (0.0-4.0) % Baso % (Auto) (0.0-2.0) % Neut # (Auto) (1.8-7.0) K/uL Lymph # (Auto) (1.0-4.3) K/uL [place] # (Auto) (0.0-0.8) K/uL Eos # (Auto) (0.0-0.7) K/uL Baso # (Auto) (0.0-0.2) K/uL ESR (0-15) mm/hr D-Dimer, Quantitative (0-243) ng/mlDDU Puncture Site Rr pCO2 32 L (35-45) mm/Hg pO2 62 L (80-100) mm/Hg HCO3 23.0 (21-28) mmol/L ABG pH 7.43 (7.35-7.45) ABG Total CO2 22.2 (22-28) mmol/L ABG O2 Saturation 96.1 (95-98) % ABG Base Excess -2.3 L (-2.0-3.0) mmol/L Naseem Test Pos ABG Potassium 4.1 (3.6-5.2) mmol/L A-a O2 Difference 183.0 mm/Hg Respiratory Index 3.0 Glucose 267 H (75-110) mg/dl Lactate 1.3 (0.7-2.1) mmol/L Liter Flow 5.0 FiO2 40.0 % Sodium 133.0 (132-148) mmol/L Potassium (3.6-5.2) mmol/L Chloride 101.0 (98-107) mmol/L Carbon Dioxide (22-30) mmol/L Anion Gap (10-20) BUN (9-20) mg/dL Creatinine (0.8-1.5) mg/dL Est GFR ( Amer) Est GFR (Non-Af Amer) POC Glucose (mg/dL) 249 H (65-110) mg/dL Random Glucose (75-110) mg/dL Hemoglobin A1c (4.2-6.5) % Lactic Acid (0.7-2.1) mmol/L Calcium (8.6-10.4) mg/dl Phosphorus (2.5-4.5) mg/dL Magnesium (1.6-2.3) mg/dL Total Bilirubin (0.2-1.3) mg/dL AST (17-59) U/L ALT (21-72) U/L Alkaline Phosphatase (38-126) U/L Troponin I (0.00-0.120) ng/mL NT-Pro-B Natriuret Pep (0-450) pg/mL Total Protein (6.3-8.3) g/dL Albumin (3.5-5.0) g/dL Globulin (2.2-3.9) gm/dL Albumin/Globulin Ratio (1.0-2.1) Procalcitonin 2.92 H (0.19-0.49) NG/ML TSH 3rd Generation (0.46-4.68) mIU/L Arterial Blood Potassium 4.1 (3.6-5.2) mmol/L Urine Color (YELLOW) Urine Clarity (Clear) Urine pH (5.0-8.0) Ur Specific [place] (1.003-1.030) Urine Protein (NEGATIVE) mg/dL Urine Glucose (UA) (Normal) mg/dL Urine Ketones (NEGATIVE) mg/dL Urine Blood (NEGATIVE) Urine Nitrate (NEGATIVE) Urine Bilirubin (NEGATIVE) Urine Urobilinogen (0.2-1.0) mg/dL Ur Leukocyte Esterase (Negative) [place]/uL Urine WBC (Auto) (0-5) /hpf Urine RBC (Auto) (0-3) /hpf Ur Squamous Epith Cells (0-5) /hpf Granular Casts (Auto) (0-1) /lpf Influenza Typ A,B (EIA) (NEGATIVE) 03/22/18 03/22/18 03/22/18 Range/Units 14:29 11:20 10:03 WBC (4.8-10.8) K/uL RBC (4.40-5.90) Mil/uL Hgb (12.0-18.0) g/dL Hct (35.0-51.0) % MCV (80.0-94.0) fL MCH (27.0-31.0) pg MCHC (33.0-37.0) g/dL RDW (11.5-14.5) % Plt Count (130-400) K/uL MPV (7.2-11.7) fL Neut % (Auto) (50.0-75.0) % Lymph % (Auto) (20.0-40.0) % [place] % (Auto) (0.0-10.0) % Eos % (Auto) (0.0-4.0) % Baso % (Auto) (0.0-2.0) % Neut # (Auto) (1.8-7.0) K/uL Lymph # (Auto) (1.0-4.3) K/uL [place] # (Auto) (0.0-0.8) K/uL Eos # (Auto) (0.0-0.7) K/uL Baso # (Auto) (0.0-0.2) K/uL ESR (0-15) mm/hr D-Dimer, Quantitative (0-243) ng/mlDDU Puncture Site pCO2 (35-45) mm/Hg pO2 (80-100) mm/Hg HCO3 (21-28) mmol/L ABG pH (7.35-7.45) ABG Total CO2 (22-28) mmol/L ABG O2 Saturation (95-98) % ABG Base Excess (-2.0-3.0) mmol/L Naseem Test ABG Potassium (3.6-5.2) mmol/L A-a O2 Difference mm/Hg Respiratory Index Glucose (75-110) mg/dl Lactate (0.7-2.1) mmol/L Liter Flow FiO2 % Sodium (132-148) mmol/L Potassium (3.6-5.2) mmol/L Chloride (98-107) mmol/L Carbon Dioxide (22-30) mmol/L Anion Gap (10-20) BUN (9-20) mg/dL Creatinine (0.8-1.5) mg/dL Est GFR ( Amer) Est GFR (Non-Af Amer) POC Glucose (mg/dL) 258 H 287 H (65-110) mg/dL Random Glucose (75-110) mg/dL Hemoglobin A1c (4.2-6.5) % Lactic Acid 1.5 (0.7-2.1) mmol/L Calcium (8.6-10.4) mg/dl Phosphorus (2.5-4.5) mg/dL Magnesium (1.6-2.3) mg/dL Total Bilirubin (0.2-1.3) mg/dL AST (17-59) U/L ALT (21-72) U/L Alkaline Phosphatase (38-126) U/L Troponin I (0.00-0.120) ng/mL NT-Pro-B Natriuret Pep (0-450) pg/mL Total Protein (6.3-8.3) g/dL Albumin (3.5-5.0) g/dL Globulin (2.2-3.9) gm/dL Albumin/Globulin Ratio (1.0-2.1) Procalcitonin (0.19-0.49) NG/ML TSH 3rd Generation (0.46-4.68) mIU/L Arterial Blood Potassium (3.6-5.2) mmol/L Urine Color (YELLOW) Urine Clarity (Clear) Urine pH (5.0-8.0) Ur Specific [place] (1.003-1.030) Urine Protein (NEGATIVE) mg/dL Urine Glucose (UA) (Normal) mg/dL Urine Ketones (NEGATIVE) mg/dL Urine Blood (NEGATIVE) Urine Nitrate (NEGATIVE) Urine Bilirubin (NEGATIVE) Urine Urobilinogen (0.2-1.0) mg/dL Ur Leukocyte Esterase (Negative) [place]/uL Urine WBC (Auto) (0-5) /hpf Urine RBC (Auto) (0-3) /hpf Ur Squamous Epith Cells (0-5) /hpf Granular Casts (Auto) (0-1) /lpf Influenza Typ A,B (EIA) (NEGATIVE) 03/22/18 03/22/18 03/22/18 Range/Units 10:03 10:03 10:03 WBC (4.8-10.8) K/uL RBC (4.40-5.90) Mil/uL Hgb (12.0-18.0) g/dL Hct (35.0-51.0) % MCV (80.0-94.0) fL MCH (27.0-31.0) pg MCHC (33.0-37.0) g/dL RDW (11.5-14.5) % Plt Count (130-400) K/uL MPV (7.2-11.7) fL Neut % (Auto) (50.0-75.0) % Lymph % (Auto) (20.0-40.0) % [place] % (Auto) (0.0-10.0) % Eos % (Auto) (0.0-4.0) % Baso % (Auto) (0.0-2.0) % Neut # (Auto) (1.8-7.0) K/uL Lymph # (Auto) (1.0-4.3) K/uL [place] # (Auto) (0.0-0.8) K/uL Eos # (Auto) (0.0-0.7) K/uL Baso # (Auto) (0.0-0.2) K/uL ESR 101 H (0-15) mm/hr D-Dimer, Quantitative 649 H (0-243) ng/mlDDU Puncture Site pCO2 (35-45) mm/Hg pO2 (80-100) mm/Hg HCO3 (21-28) mmol/L ABG pH (7.35-7.45) ABG Total CO2 (22-28) mmol/L ABG O2 Saturation (95-98) % ABG Base Excess (-2.0-3.0) mmol/L Naseem Test ABG Potassium (3.6-5.2) mmol/L A-a O2 Difference mm/Hg Respiratory Index Glucose (75-110) mg/dl Lactate (0.7-2.1) mmol/L Liter Flow FiO2 % Sodium (132-148) mmol/L Potassium (3.6-5.2) mmol/L Chloride (98-107) mmol/L Carbon Dioxide (22-30) mmol/L Anion Gap (10-20) BUN (9-20) mg/dL Creatinine (0.8-1.5) mg/dL Est GFR ( Amer) Est GFR (Non-Af Amer) POC Glucose (mg/dL) (65-110) mg/dL Random Glucose (75-110) mg/dL Hemoglobin A1c (4.2-6.5) % Lactic Acid (0.7-2.1) mmol/L Calcium (8.6-10.4) mg/dl Phosphorus (2.5-4.5) mg/dL Magnesium (1.6-2.3) mg/dL Total Bilirubin (0.2-1.3) mg/dL AST (17-59) U/L ALT (21-72) U/L Alkaline Phosphatase (38-126) U/L Troponin I 0.0480 (0.00-0.120) ng/mL NT-Pro-B Natriuret Pep (0-450) pg/mL Total Protein (6.3-8.3) g/dL Albumin (3.5-5.0) g/dL Globulin (2.2-3.9) gm/dL Albumin/Globulin Ratio (1.0-2.1) Procalcitonin (0.19-0.49) NG/ML TSH 3rd Generation (0.46-4.68) mIU/L Arterial Blood Potassium (3.6-5.2) mmol/L Urine Color (YELLOW) Urine Clarity (Clear) Urine pH (5.0-8.0) Ur Specific [place] (1.003-1.030) Urine Protein (NEGATIVE) mg/dL Urine Glucose (UA) (Normal) mg/dL Urine Ketones (NEGATIVE) mg/dL Urine Blood (NEGATIVE) Urine Nitrate (NEGATIVE) Urine Bilirubin (NEGATIVE) Urine Urobilinogen (0.2-1.0) mg/dL Ur Leukocyte Esterase (Negative) [place]/uL Urine WBC (Auto) (0-5) /hpf Urine RBC (Auto) (0-3) /hpf Ur Squamous Epith Cells (0-5) /hpf Granular Casts (Auto) (0-1) /lpf Influenza Typ A,B (EIA) (NEGATIVE) 03/22/18 03/22/18 03/22/18 Range/Units 10:00 09:31 08:15 WBC (4.8-10.8) K/uL RBC (4.40-5.90) Mil/uL Hgb (12.0-18.0) g/dL Hct (35.0-51.0) % MCV (80.0-94.0) fL MCH (27.0-31.0) pg MCHC (33.0-37.0) g/dL RDW (11.5-14.5) % Plt Count (130-400) K/uL MPV (7.2-11.7) fL Neut % (Auto) (50.0-75.0) % Lymph % (Auto) (20.0-40.0) % [place] % (Auto) (0.0-10.0) % Eos % (Auto) (0.0-4.0) % Baso % (Auto) (0.0-2.0) % Neut # (Auto) (1.8-7.0) K/uL Lymph # (Auto) (1.0-4.3) K/uL [place] # (Auto) (0.0-0.8) K/uL Eos # (Auto) (0.0-0.7) K/uL Baso # (Auto) (0.0-0.2) K/uL ESR (0-15) mm/hr D-Dimer, Quantitative (0-243) ng/mlDDU Puncture Site pCO2 (35-45) mm/Hg pO2 (80-100) mm/Hg HCO3 (21-28) mmol/L ABG pH (7.35-7.45) ABG Total CO2 (22-28) mmol/L ABG O2 Saturation (95-98) % ABG Base Excess (-2.0-3.0) mmol/L Naseem Test ABG Potassium (3.6-5.2) mmol/L A-a O2 Difference mm/Hg Respiratory Index Glucose (75-110) mg/dl Lactate (0.7-2.1) mmol/L Liter Flow FiO2 % Sodium (132-148) mmol/L Potassium (3.6-5.2) mmol/L Chloride (98-107) mmol/L Carbon Dioxide (22-30) mmol/L Anion Gap (10-20) BUN (9-20) mg/dL Creatinine (0.8-1.5) mg/dL Est GFR ( Amer) Est GFR (Non-Af Amer) POC Glucose (mg/dL) 276 H 247 H (65-110) mg/dL Random Glucose (75-110) mg/dL Hemoglobin A1c (4.2-6.5) % Lactic Acid (0.7-2.1) mmol/L Calcium (8.6-10.4) mg/dl Phosphorus (2.5-4.5) mg/dL Magnesium (1.6-2.3) mg/dL Total Bilirubin (0.2-1.3) mg/dL AST (17-59) U/L ALT (21-72) U/L Alkaline Phosphatase (38-126) U/L Troponin I (0.00-0.120) ng/mL NT-Pro-B Natriuret Pep (0-450) pg/mL Total Protein (6.3-8.3) g/dL Albumin (3.5-5.0) g/dL Globulin (2.2-3.9) gm/dL Albumin/Globulin Ratio (1.0-2.1) Procalcitonin (0.19-0.49) NG/ML TSH 3rd Generation (0.46-4.68) mIU/L Arterial Blood Potassium (3.6-5.2) mmol/L Urine Color (YELLOW) Urine Clarity (Clear) Urine pH (5.0-8.0) Ur Specific [place] (1.003-1.030) Urine Protein (NEGATIVE) mg/dL Urine Glucose (UA) (Normal) mg/dL Urine Ketones (NEGATIVE) mg/dL Urine Blood (NEGATIVE) Urine Nitrate (NEGATIVE) Urine Bilirubin (NEGATIVE) Urine Urobilinogen (0.2-1.0) mg/dL Ur Leukocyte Esterase (Negative) [place]/uL Urine WBC (Auto) (0-5) /hpf Urine RBC (Auto) (0-3) /hpf Ur Squamous Epith Cells (0-5) /hpf Granular Casts (Auto) (0-1) /lpf Influenza Typ A,B (EIA) Negative for flu a/b (NEGATIVE) 03/22/18 Range/Units 07:51 WBC (4.8-10.8) K/uL RBC (4.40-5.90) Mil/uL Hgb (12.0-18.0) g/dL Hct (35.0-51.0) % MCV (80.0-94.0) fL MCH (27.0-31.0) pg MCHC (33.0-37.0) g/dL RDW (11.5-14.5) % Plt Count (130-400) K/uL MPV (7.2-11.7) fL Neut % (Auto) (50.0-75.0) % Lymph % (Auto) (20.0-40.0) % [place] % (Auto) (0.0-10.0) % Eos % (Auto) (0.0-4.0) % Baso % (Auto) (0.0-2.0) % Neut # (Auto) (1.8-7.0) K/uL Lymph # (Auto) (1.0-4.3) K/uL [place] # (Auto) (0.0-0.8) K/uL Eos # (Auto) (0.0-0.7) K/uL Baso # (Auto) (0.0-0.2) K/uL ESR (0-15) mm/hr D-Dimer, Quantitative (0-243) ng/mlDDU Puncture Site pCO2 (35-45) mm/Hg pO2 (80-100) mm/Hg HCO3 (21-28) mmol/L ABG pH (7.35-7.45) ABG Total CO2 (22-28) mmol/L ABG O2 Saturation (95-98) % ABG Base Excess (-2.0-3.0) mmol/L Naseem Test ABG Potassium (3.6-5.2) mmol/L A-a O2 Difference mm/Hg Respiratory Index Glucose (75-110) mg/dl Lactate (0.7-2.1) mmol/L Liter Flow FiO2 % Sodium 133 (132-148) mmol/L Potassium 4.7 (3.6-5.2) mmol/L Chloride 99 (98-107) mmol/L Carbon Dioxide 24 (22-30) mmol/L Anion Gap 15 (10-20) BUN 9 (9-20) mg/dL Creatinine 0.8 (0.8-1.5) mg/dL Est GFR ( Amer) > 60 Est GFR (Non-Af Amer) > 60 POC Glucose (mg/dL) (65-110) mg/dL Random Glucose 277 H (75-110) mg/dL Hemoglobin A1c (4.2-6.5) % Lactic Acid (0.7-2.1) mmol/L Calcium 8.8 (8.6-10.4) mg/dl Phosphorus (2.5-4.5) mg/dL Magnesium (1.6-2.3) mg/dL Total Bilirubin (0.2-1.3) mg/dL AST (17-59) U/L ALT (21-72) U/L Alkaline Phosphatase (38-126) U/L Troponin I (0.00-0.120) ng/mL NT-Pro-B Natriuret Pep (0-450) pg/mL Total Protein (6.3-8.3) g/dL Albumin (3.5-5.0) g/dL Globulin (2.2-3.9) gm/dL Albumin/Globulin Ratio (1.0-2.1) Procalcitonin (0.19-0.49) NG/ML TSH 3rd Generation (0.46-4.68) mIU/L Arterial Blood Potassium (3.6-5.2) mmol/L Urine Color (YELLOW) Urine Clarity (Clear) Urine pH (5.0-8.0) Ur Specific [place] (1.003-1.030) Urine Protein (NEGATIVE) mg/dL Urine Glucose (UA) (Normal) mg/dL Urine Ketones (NEGATIVE) mg/dL Urine Blood (NEGATIVE) Urine Nitrate (NEGATIVE) Urine Bilirubin (NEGATIVE) Urine Urobilinogen (0.2-1.0) mg/dL Ur Leukocyte Esterase (Negative) [place]/uL Urine WBC (Auto) (0-5) /hpf Urine RBC (Auto) (0-3) /hpf Ur Squamous Epith Cells (0-5) /hpf Granular Casts (Auto) (0-1) /lpf Influenza Typ A,B (EIA) (NEGATIVE) Laboratory Results - last 24 hr 03/22/18 03/22/18 03/22/18 07:51 08:15 09:31 WBC RBC Hgb Hct MCV MCH MCHC RDW Plt Count MPV Neut % (Auto) Lymph % (Auto) [place] % (Auto) Eos % (Auto) Baso % (Auto) Neut # (Auto) Lymph # (Auto) [place] # (Auto) Eos # (Auto) Baso # (Auto) ESR D-Dimer, Quantitative Puncture Site pCO2 pO2 HCO3 ABG pH ABG Total CO2 ABG O2 Saturation ABG Base Excess Naseem Test ABG Potassium A-a O2 Difference Respiratory Index Glucose Lactate Liter Flow FiO2 Sodium 133 Potassium 4.7 Chloride 99 Carbon Dioxide 24 Anion Gap 15 BUN 9 Creatinine 0.8 Est GFR ( Amer) > 60 Est GFR (Non-Af Amer) > 60 POC Glucose (mg/dL) 247 H 276 H Random Glucose 277 H Hemoglobin A1c Lactic Acid Calcium 8.8 Phosphorus Magnesium Total Bilirubin AST ALT Alkaline Phosphatase Troponin I NT-Pro-B Natriuret Pep Total Protein Albumin Globulin Albumin/Globulin Ratio Procalcitonin TSH 3rd Generation Arterial Blood Potassium Urine Color Urine Clarity Urine pH Ur Specific [place] Urine Protein Urine Glucose (UA) Urine Ketones Urine Blood Urine Nitrate Urine Bilirubin Urine Urobilinogen Ur Leukocyte Esterase Urine WBC (Auto) Urine RBC (Auto) Ur Squamous Epith Cells Granular Casts (Auto) Influenza Typ A,B (EIA) 03/22/18 03/22/18 03/22/18 10:00 10:03 10:03 WBC RBC Hgb Hct MCV MCH MCHC RDW Plt Count MPV Neut % (Auto) Lymph % (Auto) [place] % (Auto) Eos % (Auto) Baso % (Auto) Neut # (Auto) Lymph # (Auto) [place] # (Auto) Eos # (Auto) Baso # (Auto) ESR 101 H D-Dimer, Quantitative 649 H Puncture Site pCO2 pO2 HCO3 ABG pH ABG Total CO2 ABG O2 Saturation ABG Base Excess Naseem Test ABG Potassium A-a O2 Difference Respiratory Index Glucose Lactate Liter Flow FiO2 Sodium Potassium Chloride Carbon Dioxide Anion Gap BUN Creatinine Est GFR ( Amer) Est GFR (Non-Af Amer) POC Glucose (mg/dL) Random Glucose Hemoglobin A1c Lactic Acid Calcium Phosphorus Magnesium Total Bilirubin AST ALT Alkaline Phosphatase Troponin I NT-Pro-B Natriuret Pep Total Protein Albumin Globulin Albumin/Globulin Ratio Procalcitonin TSH 3rd Generation Arterial Blood Potassium Urine Color Urine Clarity Urine pH Ur Specific [place] Urine Protein Urine Glucose (UA) Urine Ketones Urine Blood Urine Nitrate Urine Bilirubin Urine Urobilinogen Ur Leukocyte Esterase Urine WBC (Auto) Urine RBC (Auto) Ur Squamous Epith Cells Granular Casts (Auto) Influenza Typ A,B (EIA) Negative for flu a/b 03/22/18 03/22/18 03/22/18 10:03 10:03 11:20 WBC RBC Hgb Hct MCV MCH MCHC RDW Plt Count MPV Neut % (Auto) Lymph % (Auto) [place] % (Auto) Eos % (Auto) Baso % (Auto) Neut # (Auto) Lymph # (Auto) [place] # (Auto) Eos # (Auto) Baso # (Auto) ESR D-Dimer, Quantitative Puncture Site pCO2 pO2 HCO3 ABG pH ABG Total CO2 ABG O2 Saturation ABG Base Excess Naseem Test ABG Potassium A-a O2 Difference Respiratory Index Glucose Lactate Liter Flow FiO2 Sodium Potassium Chloride Carbon Dioxide Anion Gap BUN Creatinine Est GFR ( Amer) Est GFR (Non-Af Amer) POC Glucose (mg/dL) 287 H Random Glucose Hemoglobin A1c Lactic Acid 1.5 Calcium Phosphorus Magnesium Total Bilirubin AST ALT Alkaline Phosphatase Troponin I 0.0480 NT-Pro-B Natriuret Pep Total Protein Albumin Globulin Albumin/Globulin Ratio Procalcitonin TSH 3rd Generation Arterial Blood Potassium Urine Color Urine Clarity Urine pH Ur Specific [place] Urine Protein Urine Glucose (UA) Urine Ketones Urine Blood Urine Nitrate Urine Bilirubin Urine Urobilinogen Ur Leukocyte Esterase Urine WBC (Auto) Urine RBC (Auto) Ur Squamous Epith Cells Granular Casts (Auto) Influenza Typ A,B (EIA) 03/22/18 03/22/18 03/22/18 14:29 15:25 16:09 WBC RBC Hgb Hct MCV MCH MCHC RDW Plt Count MPV Neut % (Auto) Lymph % (Auto) [place] % (Auto) Eos % (Auto) Baso % (Auto) Neut # (Auto) Lymph # (Auto) [place] # (Auto) Eos # (Auto) Baso # (Auto) ESR D-Dimer, Quantitative Puncture Site Rr pCO2 32 L pO2 62 L HCO3 23.0 ABG pH 7.43 ABG Total CO2 22.2 ABG O2 Saturation 96.1 ABG Base Excess -2.3 L Naseem Test Pos ABG Potassium 4.1 A-a O2 Difference 183.0 Respiratory Index 3.0 Glucose 267 H Lactate 1.3 Liter Flow 5.0 FiO2 40.0 Sodium 133.0 Potassium Chloride 101.0 Carbon Dioxide Anion Gap BUN Creatinine Est GFR ( Amer) Est GFR (Non-Af Amer) POC Glucose (mg/dL) 258 H 249 H Random Glucose Hemoglobin A1c Lactic Acid Calcium Phosphorus Magnesium Total Bilirubin AST ALT Alkaline Phosphatase Troponin I NT-Pro-B Natriuret Pep Total Protein Albumin Globulin Albumin/Globulin Ratio Procalcitonin TSH 3rd Generation Arterial Blood Potassium 4.1 Urine Color Urine Clarity Urine pH Ur Specific [place] Urine Protein Urine Glucose (UA) Urine Ketones Urine Blood Urine Nitrate Urine Bilirubin Urine Urobilinogen Ur Leukocyte Esterase Urine WBC (Auto) Urine RBC (Auto) Ur Squamous Epith Cells Granular Casts (Auto) Influenza Typ A,B (EIA) 03/22/18 03/22/18 03/22/18 16:47 16:47 16:47 WBC RBC Hgb Hct MCV MCH MCHC RDW Plt Count MPV Neut % (Auto) Lymph % (Auto) [place] % (Auto) Eos % (Auto) Baso % (Auto) Neut # (Auto) Lymph # (Auto) [place] # (Auto) Eos # (Auto) Baso # (Auto) ESR D-Dimer, Quantitative Puncture Site pCO2 pO2 HCO3 ABG pH ABG Total CO2 ABG O2 Saturation ABG Base Excess Naseem Test ABG Potassium A-a O2 Difference Respiratory Index Glucose Lactate Liter Flow FiO2 Sodium Potassium Chloride Carbon Dioxide Anion Gap BUN Creatinine Est GFR ( Amer) Est GFR (Non-Af Amer) POC Glucose (mg/dL) Random Glucose Hemoglobin A1c Lactic Acid 2.7 H Calcium Phosphorus Magnesium Total Bilirubin AST ALT Alkaline Phosphatase Troponin I NT-Pro-B Natriuret Pep 654 H Total Protein Albumin Globulin Albumin/Globulin Ratio Procalcitonin 2.92 H TSH 3rd Generation 2.41 Arterial Blood Potassium Urine Color Urine Clarity Urine pH Ur Specific [place] Urine Protein Urine Glucose (UA) Urine Ketones Urine Blood Urine Nitrate Urine Bilirubin Urine Urobilinogen Ur Leukocyte Esterase Urine WBC (Auto) Urine RBC (Auto) Ur Squamous Epith Cells Granular Casts (Auto) Influenza Typ A,B (EIA) 03/22/18 03/22/18 03/22/18 16:47 17:00 20:12 WBC RBC Hgb Hct MCV MCH MCHC RDW Plt Count MPV Neut % (Auto) Lymph % (Auto) [place] % (Auto) Eos % (Auto) Baso % (Auto) Neut # (Auto) Lymph # (Auto) [place] # (Auto) Eos # (Auto) Baso # (Auto) ESR D-Dimer, Quantitative Puncture Site pCO2 pO2 HCO3 ABG pH ABG Total CO2 ABG O2 Saturation ABG Base Excess Naseem Test ABG Potassium A-a O2 Difference Respiratory Index Glucose Lactate Liter Flow FiO2 Sodium Potassium Chloride Carbon Dioxide Anion Gap BUN Creatinine Est GFR ( Amer) Est GFR (Non-Af Amer) POC Glucose (mg/dL) Random Glucose Hemoglobin A1c 12.4 H Lactic Acid Calcium Phosphorus Magnesium Total Bilirubin AST ALT Alkaline Phosphatase Troponin I 0.0380 NT-Pro-B Natriuret Pep Total Protein Albumin Globulin Albumin/Globulin Ratio Procalcitonin TSH 3rd Generation Arterial Blood Potassium Urine Color Yellow Urine Clarity Clear Urine pH 5.0 Ur Specific [place] 1.035 H Urine Protein 2+ H Urine Glucose (UA) 3+ H Urine Ketones 2+ H Urine Blood 1+ H Urine Nitrate Negative Urine Bilirubin Negative Urine Urobilinogen Normal Ur Leukocyte Esterase Neg Urine WBC (Auto) 1 Urine RBC (Auto) 3 Ur Squamous Epith Cells 4 Granular Casts (Auto) 1 Influenza Typ A,B (EIA) 03/22/18 03/23/18 03/23/18 21:13 06:26 06:27 WBC 11.6 H RBC 4.49 Hgb 12.9 Hct 38.2 MCV 85.0 MCH 28.8 MCHC 33.8 RDW 12.6 Plt Count 272 MPV 9.0 Neut % (Auto) 71.8 Lymph % (Auto) 13.9 L [place] % (Auto) 12.5 H Eos % (Auto) 1.2 Baso % (Auto) 0.6 Neut # (Auto) 8.3 H Lymph # (Auto) 1.6 [place] # (Auto) 1.4 H Eos # (Auto) 0.1 Baso # (Auto) 0.1 ESR D-Dimer, Quantitative Puncture Site pCO2 pO2 HCO3 ABG pH ABG Total CO2 ABG O2 Saturation ABG Base Excess Naseem Test ABG Potassium A-a O2 Difference Respiratory Index Glucose Lactate Liter Flow FiO2 Sodium 134 Potassium 4.6 Chloride 100 Carbon Dioxide 26 Anion Gap 12 BUN 11 Creatinine 0.5 L Est GFR ( Amer) > 60 Est GFR (Non-Af Amer) > 60 POC Glucose (mg/dL) 337 H Random Glucose 251 H Hemoglobin A1c Lactic Acid Calcium 8.8 Phosphorus 2.9 Magnesium 2.0 Total Bilirubin 1.2 AST 35 ALT 30 Alkaline Phosphatase 159 H D Troponin I NT-Pro-B Natriuret Pep Total Protein 7.4 Albumin 3.6 Globulin 3.8 Albumin/Globulin Ratio 0.9 L Procalcitonin TSH 3rd Generation Arterial Blood Potassium Urine Color Urine Clarity Urine pH Ur Specific [place] Urine Protein Urine Glucose (UA) Urine Ketones Urine Blood Urine Nitrate Urine Bilirubin Urine Urobilinogen Ur Leukocyte Esterase Urine WBC (Auto) Urine RBC (Auto) Ur Squamous Epith Cells Granular Casts (Auto) Influenza Typ A,B (EIA) 03/23/18 06:36 WBC RBC Hgb Hct MCV MCH MCHC RDW Plt Count MPV Neut % (Auto) Lymph % (Auto) [place] % (Auto) Eos % (Auto) Baso % (Auto) Neut # (Auto) Lymph # (Auto) [place] # (Auto) Eos # (Auto) Baso # (Auto) ESR D-Dimer, Quantitative Puncture Site pCO2 pO2 HCO3 ABG pH ABG Total CO2 ABG O2 Saturation ABG Base Excess Naseem Test ABG Potassium A-a O2 Difference Respiratory Index Glucose Lactate Liter Flow FiO2 Sodium Potassium Chloride Carbon Dioxide Anion Gap BUN Creatinine Est GFR ( Amer) Est GFR (Non-Af Amer) POC Glucose (mg/dL) Random Glucose Hemoglobin A1c Lactic Acid 1.6 Calcium Phosphorus Magnesium Total Bilirubin AST ALT Alkaline Phosphatase Troponin I NT-Pro-B Natriuret Pep Total Protein Albumin Globulin Albumin/Globulin Ratio Procalcitonin TSH 3rd Generation Arterial Blood Potassium Urine Color Urine Clarity Urine pH Ur Specific [place] Urine Protein Urine Glucose (UA) Urine Ketones Urine Blood Urine Nitrate Urine Bilirubin Urine Urobilinogen Ur Leukocyte Esterase Urine WBC (Auto) Urine RBC (Auto) Ur Squamous Epith Cells Granular Casts (Auto) Influenza Typ A,B (EIA) Fingerstick Blood Sugar Results: 268 Results Reviewed to Date: Yes Review of Systems - Review of Systems Systems not reviewed;Unavailable: Acuity of Condition Critical Care Progress Note - Extremities/Vascular Does the Patient have a Central Venous Catheter?: No Does the Patient need a Central Venous Catheter?: No Does the Patient have a Boothe Catheter?: No Does the Patient need a Boothe Catheter?: No - Prophylaxis GI Prophylaxis GI: PPI - Prophylaxis DVT Prophylaxis DVT: Heparin SQ - Nutrition Nutrition: Nutrition Category Date Time Status Consistent Carbohydrate [DIET] Diets 03/21/18 Lunch Active Assessment/Plan - Assessment and Plan (Free Text) Assessment: Patient is a 32 yo male with a history of T2DM and drug abuse who initially presented with low back pain. 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 A DIRECTOR AUTO was called for SOB and R-sided chest pain. He was transferred to ICU. Plan: Neuro: - No acute issues - Gabapentin 400 mg PO TID CV: - Sinus tachycardia- pain - Metoprolol 25 mg PO BID - Monitor vitals - Echo pending Pulm: - CXR: moderate R pleural effusions with prominent R pulm infiltrates - CTA chest 03/22- no PE, moderate R pleural effusion with marked compression atelectasis, scattered b/l nodular infiltrates - Maintain spO2>92%- NC or BiPAP PRN - ABG wnl - Toradol 30 mg IV Q6H PRN - Morphine 2 mg IV Q3H PRN - Pulmonology consulted (Artur) - IR consulted (Leon)- possible thoracentesis GI: - CT A/P pending - Diabetic diet : - I's & O's - Replete electrolytes PRN - 1/2NS @ 50 mL/hr Endo: - A1c 12.4 - Maintain euglycemia - Hypoglycemic protocol - ISS Heme: - Monitor H&H - D-dimer 649 - LE Dopplers pending ID: Sepsis (MRSA bacteremia)- r/o endocarditis - Tmax 102.5- afebrile since 03/21 - Tylenol 650 mg PO Q6H PRN - Mild leukocytosis stable (11.6) - ESR 101, CRP 260.8 - Blood Cx: MRSA - HIV negative - Legionella, Mycoplasma, Herpes pending - Echo pending - Zosyn 3.375 g IV Q6H - Vancomycin 1 g IV Q8H - ID consulted (Tomas) Integumentary: - No lesions identifiable - Herpes pending - Discontinue valacyclovir - Surgery consulted (Marjorie)- r/o nec fasc PPx: VTE: heparin 5000 units SC Q12H GI: PTX 40 mg IV daily PT/OT/ST Code status: full code Case discussed with attending, Dr. Saunders. PGY-1 Dian Zuleta D.O. <Ian Saunders - Last Filed: 03/23/18 19:36> CCU Objective - Vital Signs / Intake & Output Vital Signs (Last 4 hours): Vital Signs Temp Pulse Resp BP Pulse Ox 03/23/18 19:02 107 H 48 H 110/93 H 96 03/23/18 19:00 106 H 41 H 95 03/23/18 18:31 115 H 31 H 92/71 L 97 03/23/18 18:00 123 H 24 97 03/23/18 17:13 144/93 H 03/23/18 17:02 111 H 41 H 144/93 H 99 03/23/18 17:00 104 H 33 H 97 03/23/18 16:02 110 H 27 H 132/76 96 03/23/18 16:00 97.9 F 109 H 26 H 98 Intake and Output (Last 8hrs): Intake & Output 03/23/18 03/23/18 03/23/18 06:59 14:59 22:59 Intake Total 983 1378 751 Output Total 700 1150 Balance 283 228 751 Weight 288 lb 14.4 oz Intake: Intake, IV Amount 783 778 391 Right Hand 783 778 391 Oral 200 600 360 Output: Urine 700 1150 Urine, Voided 700 1150 Other: # Voids Urine, Voided 1 1 # Bowel Movements 1 - Medications Active Medications: Active Medications Generic Name Dose Route Start Last Admin Trade Name Freq PRN Reason Stop Dose Admin Acetaminophen 650 mg 03/22/18 21:49 03/22/18 23:38 Tylenol 325mg Tab PO 650 mg Q6 PRN Administration Pain, moderate (4-7) Enoxaparin Sodium 40 mg 03/21/18 10:30 03/22/18 11:03 Lovenox SC Not Given DAILY JERED Gabapentin 400 mg 03/21/18 18:00 03/23/18 17:14 Neurontin PO 400 mg TID JERED Administration Heparin Sodium (Porcine) 5,000 units 03/23/18 14:00 03/23/18 13:35 Heparin SC 5,000 units Q8 JERED Administration Piperacillin Sod/Tazobactam Sod 3.375 gm in 50 mls @ 100 mls/hr 03/21/18 07:15 03/23/18 18:24 Zosyn 3.375 Gm Iv Premix IVPB 100 mls/hr Q6H JERED Administration Protocol Sodium Chloride 1,000 mls @ 50 mls/hr 03/23/18 11:30 03/23/18 11:40 Sodium Chloride 0.45% IV 50 mls/hr .Q20H JERED Administration Vancomycin/Sodium Chloride 1 gm in 200 mls @ 166.6 mls/hr 03/23/18 11:15 03/23/18 18:25 Vancomycin 1 Gm/Ns 200 Ml IVPB 03/28/18 11:16 166.6 mls/hr Q8H JERED Administration Protocol Influenza Virus Vaccine 60 mcg 03/24/18 10:00 Fluzone Quad [id number] IM 03/24/18 10:01 .ONCE ONE Insulin Aspart 0 unit 03/22/18 22:00 03/23/18 16:28 Novolog SC 6 units ACHS JERED Administration Protocol Ketorolac Tromethamine 30 mg 03/22/18 15:33 03/23/18 14:09 Toradol IVP 30 mg Q6 PRN Administration Metoprolol Tartrate 25 mg 03/22/18 10:00 03/23/18 17:13 Lopressor PO 25 mg BID JERED Administration Morphine Sulfate 2 mg 03/22/18 09:23 03/23/18 18:27 Morphine IVP 2 mg Q3 PRN Administration Pain, severe (8-10) Pantoprazole Sodium 40 mg 03/23/18 11:30 03/23/18 11:41 Protonix Ec Tab PO 40 mg DAILY JERED Administration - Patient Studies Lab Studies: Microbiology Studies 03/22/18 17:00 Blood Culture - Preliminary Blood NO GROWTH AFTER 24 HOURS 03/22/18 18:47 MRSA Culture (Admit) - Final Naris MRSA DETECTED 03/22/18 16:30 Blood Culture - Preliminary Blood NO GROWTH AFTER 24 HOURS 03/21/18 07:30 Blood Culture - Final Blood Methicillin Resistant S Aureus Gram Stain - Final 03/21/18 07:30 S.aureus & Coag-Neg Staph PNA FISH - Final Blood Blood Culture - Final Methicillin Resistant S Aureus Gram Stain - Final Lab Studies 03/23/18 03/23/18 03/23/18 Range/Units 16:20 14:12 11:08 WBC (4.8-10.8) K/uL RBC (4.40-5.90) Mil/uL Hgb (12.0-18.0) g/dL Hct (35.0-51.0) % MCV (80.0-94.0) fL MCH (27.0-31.0) pg MCHC (33.0-37.0) g/dL RDW (11.5-14.5) % Plt Count (130-400) K/uL MPV (7.2-11.7) fL Neut % (Auto) (50.0-75.0) % Lymph % (Auto) (20.0-40.0) % [place] % (Auto) (0.0-10.0) % Eos % (Auto) (0.0-4.0) % Baso % (Auto) (0.0-2.0) % Neut # (Auto) (1.8-7.0) K/uL Lymph # (Auto) (1.0-4.3) K/uL [place] # (Auto) (0.0-0.8) K/uL Eos # (Auto) (0.0-0.7) K/uL Baso # (Auto) (0.0-0.2) K/uL Sodium (132-148) mmol/L Potassium (3.6-5.2) mmol/L Chloride (98-107) mmol/L Carbon Dioxide (22-30) mmol/L Anion Gap (10-20) BUN (9-20) mg/dL Creatinine (0.8-1.5) mg/dL Est GFR ( Amer) Est GFR (Non-Af Amer) POC Glucose (mg/dL) 302 H 329 H (65-110) mg/dL Random Glucose (75-110) mg/dL Lactic Acid (0.7-2.1) mmol/L Calcium (8.6-10.4) mg/dl Phosphorus (2.5-4.5) mg/dL Magnesium (1.6-2.3) mg/dL Total Bilirubin (0.2-1.3) mg/dL AST (17-59) U/L ALT (21-72) U/L Alkaline Phosphatase (38-126) U/L Total Protein (6.3-8.3) g/dL Albumin (3.5-5.0) g/dL Globulin (2.2-3.9) gm/dL Albumin/Globulin Ratio (1.0-2.1) Procalcitonin (0.19-0.49) NG/ML Urine Color (YELLOW) Urine Clarity (Clear) Urine pH (5.0-8.0) Ur Specific [place] (1.003-1.030) Urine Protein (NEGATIVE) mg/dL Urine Glucose (UA) (Normal) mg/dL Urine Ketones (NEGATIVE) mg/dL Urine Blood (NEGATIVE) Urine Nitrate (NEGATIVE) Urine Bilirubin (NEGATIVE) Urine Urobilinogen (0.2-1.0) mg/dL Ur Leukocyte Esterase (Negative) [place]/uL Urine WBC (Auto) (0-5) /hpf Urine RBC (Auto) (0-3) /hpf Ur Squamous Epith Cells (0-5) /hpf Granular Casts (Auto) (0-1) /lpf HIV 1&2 Ag/Ab, 4th Gen (Nonreactive) Ur L.pneumophila Ag Negative (NEGATIVE) 03/23/18 03/23/18 03/23/18 Range/Units 07:52 06:36 06:27 WBC (4.8-10.8) K/uL RBC (4.40-5.90) Mil/uL Hgb (12.0-18.0) g/dL Hct (35.0-51.0) % MCV (80.0-94.0) fL MCH (27.0-31.0) pg MCHC (33.0-37.0) g/dL RDW (11.5-14.5) % Plt Count (130-400) K/uL MPV (7.2-11.7) fL Neut % (Auto) (50.0-75.0) % Lymph % (Auto) (20.0-40.0) % [place] % (Auto) (0.0-10.0) % Eos % (Auto) (0.0-4.0) % Baso % (Auto) (0.0-2.0) % Neut # (Auto) (1.8-7.0) K/uL Lymph # (Auto) (1.0-4.3) K/uL [place] # (Auto) (0.0-0.8) K/uL Eos # (Auto) (0.0-0.7) K/uL Baso # (Auto) (0.0-0.2) K/uL Sodium 134 (132-148) mmol/L Potassium 4.6 (3.6-5.2) mmol/L Chloride 100 (98-107) mmol/L Carbon Dioxide 26 (22-30) mmol/L Anion Gap 12 (10-20) BUN 11 (9-20) mg/dL Creatinine 0.5 L (0.8-1.5) mg/dL Est GFR ( Amer) > 60 Est GFR (Non-Af Amer) > 60 POC Glucose (mg/dL) 268 H (65-110) mg/dL Random Glucose 251 H (75-110) mg/dL Lactic Acid 1.6 (0.7-2.1) mmol/L Calcium 8.8 (8.6-10.4) mg/dl Phosphorus 2.9 (2.5-4.5) mg/dL Magnesium 2.0 (1.6-2.3) mg/dL Total Bilirubin 1.2 (0.2-1.3) mg/dL AST 35 (17-59) U/L ALT 30 (21-72) U/L Alkaline Phosphatase 159 H D (38-126) U/L Total Protein 7.4 (6.3-8.3) g/dL Albumin 3.6 (3.5-5.0) g/dL Globulin 3.8 (2.2-3.9) gm/dL Albumin/Globulin Ratio 0.9 L (1.0-2.1) Procalcitonin (0.19-0.49) NG/ML Urine Color (YELLOW) Urine Clarity (Clear) Urine pH (5.0-8.0) Ur Specific [place] (1.003-1.030) Urine Protein (NEGATIVE) mg/dL Urine Glucose (UA) (Normal) mg/dL Urine Ketones (NEGATIVE) mg/dL Urine Blood (NEGATIVE) Urine Nitrate (NEGATIVE) Urine Bilirubin (NEGATIVE) Urine Urobilinogen (0.2-1.0) mg/dL Ur Leukocyte Esterase (Negative) [place]/uL Urine WBC (Auto) (0-5) /hpf Urine RBC (Auto) (0-3) /hpf Ur Squamous Epith Cells (0-5) /hpf Granular Casts (Auto) (0-1) /lpf HIV 1&2 Ag/Ab, 4th Gen (Nonreactive) Ur L.pneumophila Ag (NEGATIVE) 03/23/18 03/22/18 03/22/18 Range/Units 06:26 21:13 20:12 WBC 11.6 H (4.8-10.8) K/uL RBC 4.49 (4.40-5.90) Mil/uL Hgb 12.9 (12.0-18.0) g/dL Hct 38.2 (35.0-51.0) % MCV 85.0 (80.0-94.0) fL MCH 28.8 (27.0-31.0) pg MCHC 33.8 (33.0-37.0) g/dL RDW 12.6 (11.5-14.5) % Plt Count 272 (130-400) K/uL MPV 9.0 (7.2-11.7) fL Neut % (Auto) 71.8 (50.0-75.0) % Lymph % (Auto) 13.9 L (20.0-40.0) % [place] % (Auto) 12.5 H (0.0-10.0) % Eos % (Auto) 1.2 (0.0-4.0) % Baso % (Auto) 0.6 (0.0-2.0) % Neut # (Auto) 8.3 H (1.8-7.0) K/uL Lymph # (Auto) 1.6 (1.0-4.3) K/uL [place] # (Auto) 1.4 H (0.0-0.8) K/uL Eos # (Auto) 0.1 (0.0-0.7) K/uL Baso # (Auto) 0.1 (0.0-0.2) K/uL Sodium (132-148) mmol/L Potassium (3.6-5.2) mmol/L Chloride (98-107) mmol/L Carbon Dioxide (22-30) mmol/L Anion Gap (10-20) BUN (9-20) mg/dL Creatinine (0.8-1.5) mg/dL Est GFR ( Amer) Est GFR (Non-Af Amer) POC Glucose (mg/dL) 337 H (65-110) mg/dL Random Glucose (75-110) mg/dL Lactic Acid (0.7-2.1) mmol/L Calcium (8.6-10.4) mg/dl Phosphorus (2.5-4.5) mg/dL Magnesium (1.6-2.3) mg/dL Total Bilirubin (0.2-1.3) mg/dL AST (17-59) U/L ALT (21-72) U/L Alkaline Phosphatase (38-126) U/L Total Protein (6.3-8.3) g/dL Albumin (3.5-5.0) g/dL Globulin (2.2-3.9) gm/dL Albumin/Globulin Ratio (1.0-2.1) Procalcitonin (0.19-0.49) NG/ML Urine Color Yellow (YELLOW) Urine Clarity Clear (Clear) Urine pH 5.0 (5.0-8.0) Ur Specific [place] 1.035 H (1.003-1.030) Urine Protein 2+ H (NEGATIVE) mg/dL Urine Glucose (UA) 3+ H (Normal) mg/dL Urine Ketones 2+ H (NEGATIVE) mg/dL Urine Blood 1+ H (NEGATIVE) Urine Nitrate Negative (NEGATIVE) Urine Bilirubin Negative (NEGATIVE) Urine Urobilinogen Normal (0.2-1.0) mg/dL Ur Leukocyte Esterase Neg (Negative) [place]/uL Urine WBC (Auto) 1 (0-5) /hpf Urine RBC (Auto) 3 (0-3) /hpf Ur Squamous Epith Cells 4 (0-5) /hpf Granular Casts (Auto) 1 (0-1) /lpf HIV 1&2 Ag/Ab, 4th Gen (Nonreactive) Ur L.pneumophila Ag (NEGATIVE) 03/22/18 03/22/18 Range/Units 16:47 10:03 WBC (4.8-10.8) K/uL RBC (4.40-5.90) Mil/uL Hgb (12.0-18.0) g/dL Hct (35.0-51.0) % MCV (80.0-94.0) fL MCH (27.0-31.0) pg MCHC (33.0-37.0) g/dL RDW (11.5-14.5) % Plt Count (130-400) K/uL MPV (7.2-11.7) fL Neut % (Auto) (50.0-75.0) % Lymph % (Auto) (20.0-40.0) % [place] % (Auto) (0.0-10.0) % Eos % (Auto) (0.0-4.0) % Baso % (Auto) (0.0-2.0) % Neut # (Auto) (1.8-7.0) K/uL Lymph # (Auto) (1.0-4.3) K/uL [place] # (Auto) (0.0-0.8) K/uL Eos # (Auto) (0.0-0.7) K/uL Baso # (Auto) (0.0-0.2) K/uL Sodium (132-148) mmol/L Potassium (3.6-5.2) mmol/L Chloride (98-107) mmol/L Carbon Dioxide (22-30) mmol/L Anion Gap (10-20) BUN (9-20) mg/dL Creatinine (0.8-1.5) mg/dL Est GFR ( Amer) Est GFR (Non-Af Amer) POC Glucose (mg/dL) (65-110) mg/dL Random Glucose (75-110) mg/dL Lactic Acid (0.7-2.1) mmol/L Calcium (8.6-10.4) mg/dl Phosphorus (2.5-4.5) mg/dL Magnesium (1.6-2.3) mg/dL Total Bilirubin (0.2-1.3) mg/dL AST (17-59) U/L ALT (21-72) U/L Alkaline Phosphatase (38-126) U/L Total Protein (6.3-8.3) g/dL Albumin (3.5-5.0) g/dL Globulin (2.2-3.9) gm/dL Albumin/Globulin Ratio (1.0-2.1) Procalcitonin 2.92 H (0.19-0.49) NG/ML Urine Color (YELLOW) Urine Clarity (Clear) Urine pH (5.0-8.0) Ur Specific [place] (1.003-1.030) Urine Protein (NEGATIVE) mg/dL Urine Glucose (UA) (Normal) mg/dL Urine Ketones (NEGATIVE) mg/dL Urine Blood (NEGATIVE) Urine Nitrate (NEGATIVE) Urine Bilirubin (NEGATIVE) Urine Urobilinogen (0.2-1.0) mg/dL Ur Leukocyte Esterase (Negative) [place]/uL Urine WBC (Auto) (0-5) /hpf Urine RBC (Auto) (0-3) /hpf Ur Squamous Epith Cells (0-5) /hpf Granular Casts (Auto) (0-1) /lpf HIV 1&2 Ag/Ab, 4th Gen Nonreactive (Nonreactive) Ur L.pneumophila Ag (NEGATIVE) Laboratory Results - last 24 hr 03/22/18 03/22/18 03/22/18 10:03 16:47 20:12 WBC RBC Hgb Hct MCV MCH MCHC RDW Plt Count MPV Neut % (Auto) Lymph % (Auto) [place] % (Auto) Eos % (Auto) Baso % (Auto) Neut # (Auto) Lymph # (Auto) [place] # (Auto) Eos # (Auto) Baso # (Auto) Sodium Potassium Chloride Carbon Dioxide Anion Gap BUN Creatinine Est GFR ( Amer) Est GFR (Non-Af Amer) POC Glucose (mg/dL) Random Glucose Lactic Acid Calcium Phosphorus Magnesium Total Bilirubin AST ALT Alkaline Phosphatase Total Protein Albumin Globulin Albumin/Globulin Ratio Procalcitonin 2.92 H Urine Color Yellow Urine Clarity Clear Urine pH 5.0 Ur Specific [place] 1.035 H Urine Protein 2+ H Urine Glucose (UA) 3+ H Urine Ketones 2+ H Urine Blood 1+ H Urine Nitrate Negative Urine Bilirubin Negative Urine Urobilinogen Normal Ur Leukocyte Esterase Neg Urine WBC (Auto) 1 Urine RBC (Auto) 3 Ur Squamous Epith Cells 4 Granular Casts (Auto) 1 HIV 1&2 Ag/Ab, 4th Gen Nonreactive Ur L.pneumophila Ag 03/22/18 03/23/18 03/23/18 21:13 06:26 06:27 WBC 11.6 H RBC 4.49 Hgb 12.9 Hct 38.2 MCV 85.0 MCH 28.8 MCHC 33.8 RDW 12.6 Plt Count 272 MPV 9.0 Neut % (Auto) 71.8 Lymph % (Auto) 13.9 L [place] % (Auto) 12.5 H Eos % (Auto) 1.2 Baso % (Auto) 0.6 Neut # (Auto) 8.3 H Lymph # (Auto) 1.6 [place] # (Auto) 1.4 H Eos # (Auto) 0.1 Baso # (Auto) 0.1 Sodium 134 Potassium 4.6 Chloride 100 Carbon Dioxide 26 Anion Gap 12 BUN 11 Creatinine 0.5 L Est GFR ( Amer) > 60 Est GFR (Non-Af Amer) > 60 POC Glucose (mg/dL) 337 H Random Glucose 251 H Lactic Acid Calcium 8.8 Phosphorus 2.9 Magnesium 2.0 Total Bilirubin 1.2 AST 35 ALT 30 Alkaline Phosphatase 159 H D Total Protein 7.4 Albumin 3.6 Globulin 3.8 Albumin/Globulin Ratio 0.9 L Procalcitonin Urine Color Urine Clarity Urine pH Ur Specific [place] Urine Protein Urine Glucose (UA) Urine Ketones Urine Blood Urine Nitrate Urine Bilirubin Urine Urobilinogen Ur Leukocyte Esterase Urine WBC (Auto) Urine RBC (Auto) Ur Squamous Epith Cells Granular Casts (Auto) HIV 1&2 Ag/Ab, 4th Gen Ur L.pneumophila Ag 03/23/18 03/23/18 03/23/18 06:36 07:52 11:08 WBC RBC Hgb Hct MCV MCH MCHC RDW Plt Count MPV Neut % (Auto) Lymph % (Auto) [place] % (Auto) Eos % (Auto) Baso % (Auto) Neut # (Auto) Lymph # (Auto) [place] # (Auto) Eos # (Auto) Baso # (Auto) Sodium Potassium Chloride Carbon Dioxide Anion Gap BUN Creatinine Est GFR ( Amer) Est GFR (Non-Af Amer) POC Glucose (mg/dL) 268 H 329 H Random Glucose Lactic Acid 1.6 Calcium Phosphorus Magnesium Total Bilirubin AST ALT Alkaline Phosphatase Total Protein Albumin Globulin Albumin/Globulin Ratio Procalcitonin Urine Color Urine Clarity Urine pH Ur Specific [place] Urine Protein Urine Glucose (UA) Urine Ketones Urine Blood Urine Nitrate Urine Bilirubin Urine Urobilinogen Ur Leukocyte Esterase Urine WBC (Auto) Urine RBC (Auto) Ur Squamous Epith Cells Granular Casts (Auto) HIV 1&2 Ag/Ab, 4th Gen Ur L.pneumophila Ag 03/23/18 03/23/18 14:12 16:20 WBC RBC Hgb Hct MCV MCH MCHC RDW Plt Count MPV Neut % (Auto) Lymph % (Auto) [place] % (Auto) Eos % (Auto) Baso % (Auto) Neut # (Auto) Lymph # (Auto) [place] # (Auto) Eos # (Auto) Baso # (Auto) Sodium Potassium Chloride Carbon Dioxide Anion Gap BUN Creatinine Est GFR ( Amer) Est GFR (Non-Af Amer) POC Glucose (mg/dL) 302 H Random Glucose Lactic Acid Calcium Phosphorus Magnesium Total Bilirubin AST ALT Alkaline Phosphatase Total Protein Albumin Globulin Albumin/Globulin Ratio Procalcitonin Urine Color Urine Clarity Urine pH Ur Specific [place] Urine Protein Urine Glucose (UA) Urine Ketones Urine Blood Urine Nitrate Urine Bilirubin Urine Urobilinogen Ur Leukocyte Esterase Urine WBC (Auto) Urine RBC (Auto) Ur Squamous Epith Cells Granular Casts (Auto) HIV 1&2 Ag/Ab, 4th Gen Ur L.pneumophila Ag Negative Critical Care Progress Note - Nutrition Nutrition: Nutrition Category Date Time Status Consistent Carbohydrate [DIET] Diets 03/21/18 Lunch Active Attending/Attestation - Attestation I have fully participated in the care of the patient.: Yes I have reviewed all pertinent clinical information: Yes Notes (Text): 03/23/18 19:36 for pig tail in am by MARIA FERNANDA
--- NOTE | 2018-03-23 11:08 | CP.PCM.PN ---
Subjective - Date & Time of Evaluation Date of Evaluation: 03/23/18 Time of Evaluation: 08:00 - Subjective Subjective: events noted MRSA + blood cultures possible endocarditis consider thoracentesis r/o empyema Objective - Vital Signs/Intake and Output Vital Signs (last 24 hours): Temp Pulse Resp BP Pulse Ox 98.2 F 118 H 37 H 180/106 H 96 03/23/18 08:39 03/23/18 09:02 03/23/18 09:02 03/23/18 09:10 03/23/18 09:02 Intake and Output: 03/23/18 03/23/18 06:59 18:59 Intake Total 1483 440 Output Total 1425 400 Balance 58 40 - Medications Medications: Current Medications Acetaminophen (Tylenol 325mg Tab) 650 mg PO Q6 PRN PRN Reason: Pain, moderate (4-7) Last Admin: 03/22/18 23:38 Dose: 650 mg Enoxaparin Sodium (Lovenox) 40 mg SC DAILY [facility] Last Admin: 03/22/18 11:03 Dose: Not Given Gabapentin (Neurontin) 400 mg PO TID [facility] Last Admin: 03/23/18 09:10 Dose: 400 mg Piperacillin Sod/Tazobactam Sod (Zosyn 3.375 Gm Iv Premix) 3.375 gm in 50 mls @ 100 mls/hr IVPB Q6H [facility]; Protocol Last Admin: 03/23/18 06:44 Dose: 100 mls/hr Vancomycin/Sodium Chloride (Vancomycin 1 Gm/Ns 200 Ml) 1 gm in 200 mls @ 133.333 mls/hr IVPB Q12H [facility]; Protocol Last Admin: 03/23/18 03:11 Dose: 133.333 mls/hr Influenza Virus Vaccine (Fluzone Quad [id number]) 60 mcg IM .ONCE ONE Stop: 03/24/18 10:01 Insulin Aspart (Novolog) 0 unit SC ACHS [facility]; Protocol Last Admin: 03/23/18 08:03 Dose: 4 units Ketorolac Tromethamine (Toradol) 30 mg IVP Q6 PRN Last Admin: 03/23/18 08:04 Dose: 30 mg Metoprolol Tartrate (Lopressor) 25 mg PO BID [facility] Last Admin: 03/23/18 09:10 Dose: 25 mg Morphine Sulfate (Morphine) 2 mg IVP Q3 PRN PRN Reason: Pain, severe (8-10) Last Admin: 03/23/18 03:18 Dose: 2 mg - Labs Labs: 03/23/18 06:26 03/23/18 06:27 PT 12.8 SECONDS (9.7-12.2) H 03/21/18 02:51 INR 1.2 03/21/18 02:51 APTT 32 SECONDS (21-34) 03/21/18 02:51 - Head Exam Head Exam: NORMOCEPHALIC - Eye Exam Eye Exam: absent: Scleral icterus - ENT Exam ENT Exam: Mucous Membranes Dry - Neck Exam Neck Exam: absent: Lymphadenopathy - Respiratory Exam Respiratory Exam: Decreased Breath Sounds - Cardiovascular Exam Cardiovascular Exam: REGULAR RHYTHM - GI/Abdominal Exam GI & Abdominal Exam: Distended, Soft - Rectal Exam Rectal Exam: Deferred - Exam Exam: NORMAL INSPECTION Assessment and Plan (1) Cellulitis of back Status: Acute (2) Hyperglycemia Status: Acute (3) Chest wall muscle strain Status: Acute - Assessment and Plan (Free Text) Assessment: await echo follow up CXR cont Vanco
[2018-03-23] MEDS: Sodium Chloride 0.45% 1,000 ML IV SCH (11:40)
[2018-03-23] MEDS: Pantoprazole 40 mg EC Tab PO SCH (11:41)
--- NOTE | 2018-03-23 15:46 | CP.PCM.PN ---
Subjective - Date & Time of Evaluation Date of Evaluation: 03/23/18 Time of Evaluation: 07:00 - Subjective Subjective: GENERAL SURGERY PROGRESS NOTE FOR DR. WATKINS Patient seen and examined at bedside. 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 On BIPAP overnight. Per nurse, pain controlled on morphine + toradol. + Bm this morning. Objective - Vital Signs/Intake and Output Vital Signs (last 24 hours): Temp Pulse Resp BP Pulse Ox 98.2 F 116 H 32 H 153/100 H 88 L 03/23/18 08:39 03/23/18 12:02 03/23/18 12:02 03/23/18 12:02 03/23/18 12:02 Intake and Output: 03/23/18 03/23/18 06:59 18:59 Intake Total 1483 1096 Output Total 1425 700 Balance 58 396 - Medications Medications: Current Medications Acetaminophen (Tylenol 325mg Tab) 650 mg PO Q6 PRN PRN Reason: Pain, moderate (4-7) Last Admin: 03/22/18 23:38 Dose: 650 mg Enoxaparin Sodium (Lovenox) 40 mg SC DAILY [facility] Last Admin: 03/22/18 11:03 Dose: Not Given Gabapentin (Neurontin) 400 mg PO TID [facility] Last Admin: 03/23/18 13:35 Dose: 400 mg Heparin Sodium (Porcine) (Heparin) 5,000 units SC Q8 [facility] Last Admin: 03/23/18 13:35 Dose: 5,000 units Piperacillin Sod/Tazobactam Sod (Zosyn 3.375 Gm Iv Premix) 3.375 gm in 50 mls @ 100 mls/hr IVPB Q6H [facility]; Protocol Last Admin: 03/23/18 13:34 Dose: 100 mls/hr Sodium Chloride (Sodium Chloride 0.45%) 1,000 mls @ 50 mls/hr IV .Q20H [facility] Last Admin: 03/23/18 11:40 Dose: 50 mls/hr Vancomycin/Sodium Chloride (Vancomycin 1 Gm/Ns 200 Ml) 1 gm in 200 mls @ 166.6 mls/hr IVPB Q8H [facility]; Protocol Stop: 03/28/18 11:16 Last Admin: 03/23/18 12:09 Dose: 166.6 mls/hr Influenza Virus Vaccine (Fluzone Quad [id number]) 60 mcg IM .ONCE ONE Stop: 03/24/18 10:01 Insulin Aspart (Novolog) 0 unit SC ACHS [facility]; Protocol Last Admin: 03/23/18 11:41 Dose: 6 units Ketorolac Tromethamine (Toradol) 30 mg IVP Q6 PRN Last Admin: 03/23/18 14:09 Dose: 30 mg Metoprolol Tartrate (Lopressor) 25 mg PO BID [facility] Last Admin: 03/23/18 09:10 Dose: 25 mg Morphine Sulfate (Morphine) 2 mg IVP Q3 PRN PRN Reason: Pain, severe (8-10) Last Admin: 03/23/18 03:18 Dose: 2 mg Pantoprazole Sodium (Protonix Ec Tab) 40 mg PO DAILY [facility] Last Admin: 03/23/18 11:41 Dose: 40 mg - Labs Labs: 03/23/18 06:26 03/23/18 06:27 PT 12.8 SECONDS (9.7-12.2) H 03/21/18 02:51 INR 1.2 03/21/18 02:51 APTT 32 SECONDS (21-34) 03/21/18 02:51 Assessment and Plan - Assessment and Plan (Free Text) Assessment: 32M with R chest/back rash vs cellulitis; r/o shingles, + blood cx for MRSA Plan: - IV antibiotics per ID - work up negative for PE; however pt found to have R sided pleural effusion on CT chest - recommend IR drainage of pleural effusion to establish etiology - pain control - no plan for surgical intervention at this time - d/w Dr. Marjorie Blanco PGY-4
--- NOTE | 2018-03-23 17:25 | CP.PCM.CON ---
History of Present Illness - History of Present Illness History of Present Illness: Patient is a 32 y/o male with PMHx of DM Type II, who presented to ED on 03/21/18 with complaint of right flank/back pain x 1 week. Patient had been present on 03/19/18 to the ED with similar right rib pain, but was discharged w ith dx of chest wall muscle strain with Rx for Gabapentin, Ultram, and Methocarbamol. Then, a rash appeared on the right flank/back on 03/20/18 with pain out of proportion, prompting him to come to ED. CT chest was done and revealed moderate right pleural effusion with marked compression atelectasis affecting right lower lobe and scattered bilateral nodular infiltrates. During his stay, rapid response was called for increasing shortness of breath and right-sided chest pain, and patient was transferred to ICU; currently on suspicion of infective endocarditis as underlying cause of pleural effusion, since hx. of IVDU and blood culture x1 positive for MRSA. Currently, patient still complains of right-sided flank pain with shortness of breath, but SOB is improving with BiPAP. Patient also complains of diaphoresis. PMHx: DM, seizures PSHx: denies Allergies: denies, NKDA Medication: Metformin Social Hx: denies tobacco, alcohol use; admits only to occasional marijuana use, but according to sister, he has hx. of IVDU (cocaine + "other drugs") CT chest (03/22): no definite pulmonary embolus; moderate right pleural effusion with marked compression atelectasis affecting right lower lobe; scattered bilateral nodular infiltrates as reiterated within aerated lung dumont once again. CXR (03/22): at least moderate right pleural effusion with prominent right [id number] pulmonary infiltrates present in the interval; underlying pulmonary vascular congestion is questioned; no left-sided infiltrate. Review of Systems - Review of Systems All systems: reviewed and no additional remarkable complaints except (Shortness of breath) Past Patient History - Infectious Disease Hx of Infectious Diseases: None - Past Social History Smoking Status: Never Smoked - CARDIAC Hx Hypertension: Yes - NEUROLOGICAL Hx Seizures: Yes (when he was much younger, last seizure more than 10 years ago) - ENDOCRINE/METABOLIC Hx Diabetes Mellitus Type 2: Yes - MUSCULOSKELETAL/RHEUMATOLOGICAL Hx Falls: No - PSYCHIATRIC Hx Substance Use: Yes (marijuana once in a while as per pt) - SURGICAL HISTORY Hx Surgeries: No - ANESTHESIA Hx Anesthesia: No Meds Allergies/Adverse Reactions: Allergies Allergy/AdvReac Type Severity Reaction Status Date / Time No Known Allergies Allergy Verified 03/21/18 01:57 - Medications Medications: Current Medications Acetaminophen (Tylenol 325mg Tab) 650 mg PO Q6 PRN PRN Reason: Pain, moderate (4-7) Last Admin: 03/22/18 23:38 Dose: 650 mg Enoxaparin Sodium (Lovenox) 40 mg SC DAILY [facility] Last Admin: 03/22/18 11:03 Dose: Not Given Gabapentin (Neurontin) 400 mg PO TID [facility] Last Admin: 03/23/18 17:14 Dose: 400 mg Heparin Sodium (Porcine) (Heparin) 5,000 units SC Q8 [facility] Last Admin: 03/23/18 13:35 Dose: 5,000 units Piperacillin Sod/Tazobactam Sod (Zosyn 3.375 Gm Iv Premix) 3.375 gm in 50 mls @ 100 mls/hr IVPB Q6H [facility]; Protocol Last Admin: 03/23/18 13:34 Dose: 100 mls/hr Sodium Chloride (Sodium Chloride 0.45%) 1,000 mls @ 50 mls/hr IV .Q20H [facility] Last Admin: 03/23/18 11:40 Dose: 50 mls/hr Vancomycin/Sodium Chloride (Vancomycin 1 Gm/Ns 200 Ml) 1 gm in 200 mls @ 166.6 mls/hr IVPB Q8H [facility]; Protocol Stop: 03/28/18 11:16 Last Admin: 03/23/18 12:09 Dose: 166.6 mls/hr Influenza Virus Vaccine (Fluzone Quad [id number]) 60 mcg IM .ONCE ONE Stop: 03/24/18 10:01 Insulin Aspart (Novolog) 0 unit SC ACHS [facility]; Protocol Last Admin: 03/23/18 16:28 Dose: 6 units Ketorolac Tromethamine (Toradol) 30 mg IVP Q6 PRN Last Admin: 03/23/18 14:09 Dose: 30 mg Metoprolol Tartrate (Lopressor) 25 mg PO BID [facility] Last Admin: 03/23/18 17:13 Dose: 25 mg Morphine Sulfate (Morphine) 2 mg IVP Q3 PRN PRN Reason: Pain, severe (8-10) Last Admin: 03/23/18 03:18 Dose: 2 mg Pantoprazole Sodium (Protonix Ec Tab) 40 mg PO DAILY [facility] Last Admin: 03/23/18 11:41 Dose: 40 mg Physical Exam - Head Exam Head Exam: ATRAUMATIC - ENT Exam ENT Exam: Mucous Membranes Moist - Respiratory Exam Respiratory Exam: Decreased Breath Sounds - Cardiovascular Exam Cardiovascular Exam: REGULAR RHYTHM - GI/Abdominal Exam GI & Abdominal Exam: Normal Bowel Sounds - Extremities Exam Extremities exam: Positive for: normal inspection - Neurological Exam Neurological exam: Alert, Oriented x3 Results - Vital Signs Recent Vital Signs: Last Vital Signs Temp 97.9 F 03/23/18 16:00 Pulse 111 H 03/23/18 17:02 Resp 41 H 03/23/18 17:02 BP 144/93 H 03/23/18 17:13 Pulse Ox 99 03/23/18 17:02 - Labs Result Diagrams: 03/23/18 06:26 03/23/18 06:27 Labs: Laboratory Results - last 24 hr 03/22/18 03/22/18 03/22/18 10:03 16:47 16:47 WBC RBC Hgb Hct MCV MCH MCHC RDW Plt Count MPV Neut % (Auto) Lymph % (Auto) Boyle % (Auto) Eos % (Auto) Baso % (Auto) Neut # (Auto) Lymph # (Auto) Boyle # (Auto) Eos # (Auto) Baso # (Auto) Sodium Potassium Chloride Carbon Dioxide Anion Gap BUN Creatinine Est GFR ( Amer) Est GFR (Non-Af Amer) POC Glucose (mg/dL) Random Glucose Hemoglobin A1c Lactic Acid Calcium Phosphorus Magnesium Total Bilirubin AST ALT Alkaline Phosphatase Troponin I NT-Pro-B Natriuret Pep 654 H Total Protein Albumin Globulin Albumin/Globulin Ratio Procalcitonin 2.92 H TSH 3rd Generation 2.41 Urine Color Urine Clarity Urine pH Ur Specific [place] Urine Protein Urine Glucose (UA) Urine Ketones Urine Blood Urine Nitrate Urine Bilirubin Urine Urobilinogen Ur Leukocyte Esterase Urine WBC (Auto) Urine RBC (Auto) Ur Squamous Epith Cells Granular Casts (Auto) HIV 1&2 Ag/Ab, 4th Gen Nonreactive Ur L.pneumophila Ag 03/22/18 03/22/18 03/22/18 16:47 17:00 20:12 WBC RBC Hgb Hct MCV MCH MCHC RDW Plt Count MPV Neut % (Auto) Lymph % (Auto) Boyle % (Auto) Eos % (Auto) Baso % (Auto) Neut # (Auto) Lymph # (Auto) Boyle # (Auto) Eos # (Auto) Baso # (Auto) Sodium Potassium Chloride Carbon Dioxide Anion Gap BUN Creatinine Est GFR ( Amer) Est GFR (Non-Af Amer) POC Glucose (mg/dL) Random Glucose Hemoglobin A1c 12.4 H Lactic Acid Calcium Phosphorus Magnesium Total Bilirubin AST ALT Alkaline Phosphatase Troponin I 0.0380 NT-Pro-B Natriuret Pep Total Protein Albumin Globulin Albumin/Globulin Ratio Procalcitonin TSH 3rd Generation Urine Color Yellow Urine Clarity Clear Urine pH 5.0 Ur Specific [place] 1.035 H Urine Protein 2+ H Urine Glucose (UA) 3+ H Urine Ketones 2+ H Urine Blood 1+ H Urine Nitrate Negative Urine Bilirubin Negative Urine Urobilinogen Normal Ur Leukocyte Esterase Neg Urine WBC (Auto) 1 Urine RBC (Auto) 3 Ur Squamous Epith Cells 4 Granular Casts (Auto) 1 HIV 1&2 Ag/Ab, 4th Gen Ur L.pneumophila Ag 03/22/18 03/23/18 03/23/18 21:13 06:26 06:27 WBC 11.6 H RBC 4.49 Hgb 12.9 Hct 38.2 MCV 85.0 MCH 28.8 MCHC 33.8 RDW 12.6 Plt Count 272 MPV 9.0 Neut % (Auto) 71.8 Lymph % (Auto) 13.9 L Boyle % (Auto) 12.5 H Eos % (Auto) 1.2 Baso % (Auto) 0.6 Neut # (Auto) 8.3 H Lymph # (Auto) 1.6 Boyle # (Auto) 1.4 H Eos # (Auto) 0.1 Baso # (Auto) 0.1 Sodium 134 Potassium 4.6 Chloride 100 Carbon Dioxide 26 Anion Gap 12 BUN 11 Creatinine 0.5 L Est GFR ( Amer) > 60 Est GFR (Non-Af Amer) > 60 POC Glucose (mg/dL) 337 H Random Glucose 251 H Hemoglobin A1c Lactic Acid Calcium 8.8 Phosphorus 2.9 Magnesium 2.0 Total Bilirubin 1.2 AST 35 ALT 30 Alkaline Phosphatase 159 H D Troponin I NT-Pro-B Natriuret Pep Total Protein 7.4 Albumin 3.6 Globulin 3.8 Albumin/Globulin Ratio 0.9 L Procalcitonin TSH 3rd Generation Urine Color Urine Clarity Urine pH Ur Specific [place] Urine Protein Urine Glucose (UA) Urine Ketones Urine Blood Urine Nitrate Urine Bilirubin Urine Urobilinogen Ur Leukocyte Esterase Urine WBC (Auto) Urine RBC (Auto) Ur Squamous Epith Cells Granular Casts (Auto) HIV 1&2 Ag/Ab, 4th Gen Ur L.pneumophila Ag 03/23/18 03/23/18 03/23/18 06:36 07:52 11:08 WBC RBC Hgb Hct MCV MCH MCHC RDW Plt Count MPV Neut % (Auto) Lymph % (Auto) Boyle % (Auto) Eos % (Auto) Baso % (Auto) Neut # (Auto) Lymph # (Auto) Boyle # (Auto) Eos # (Auto) Baso # (Auto) Sodium Potassium Chloride Carbon Dioxide Anion Gap BUN Creatinine Est GFR ( Amer) Est GFR (Non-Af Amer) POC Glucose (mg/dL) 268 H 329 H Random Glucose Hemoglobin A1c Lactic Acid 1.6 Calcium Phosphorus Magnesium Total Bilirubin AST ALT Alkaline Phosphatase Troponin I NT-Pro-B Natriuret Pep Total Protein Albumin Globulin Albumin/Globulin Ratio Procalcitonin TSH 3rd Generation Urine Color Urine Clarity Urine pH Ur Specific [place] Urine Protein Urine Glucose (UA) Urine Ketones Urine Blood Urine Nitrate Urine Bilirubin Urine Urobilinogen Ur Leukocyte Esterase Urine WBC (Auto) Urine RBC (Auto) Ur Squamous Epith Cells Granular Casts (Auto) HIV 1&2 Ag/Ab, 4th Gen Ur L.pneumophila Ag 03/23/18 03/23/18 14:12 16:20 WBC RBC Hgb Hct MCV MCH MCHC RDW Plt Count MPV Neut % (Auto) Lymph % (Auto) Boyle % (Auto) Eos % (Auto) Baso % (Auto) Neut # (Auto) Lymph # (Auto) Boyle # (Auto) Eos # (Auto) Baso # (Auto) Sodium Potassium Chloride Carbon Dioxide Anion Gap BUN Creatinine Est GFR ( Amer) Est GFR (Non-Af Amer) POC Glucose (mg/dL) 302 H Random Glucose Hemoglobin A1c Lactic Acid Calcium Phosphorus Magnesium Total Bilirubin AST ALT Alkaline Phosphatase Troponin I NT-Pro-B Natriuret Pep Total Protein Albumin Globulin Albumin/Globulin Ratio Procalcitonin TSH 3rd Generation Urine Color Urine Clarity Urine pH Ur Specific [place] Urine Protein Urine Glucose (UA) Urine Ketones Urine Blood Urine Nitrate Urine Bilirubin Urine Urobilinogen Ur Leukocyte Esterase Urine WBC (Auto) Urine RBC (Auto) Ur Squamous Epith Cells Granular Casts (Auto) HIV 1&2 Ag/Ab, 4th Gen Ur L.pneumophila Ag Negative Assessment & Plan (1) Pleural effusion Status: Acute Comment: thoracentesis by IR. Continue antibiotics. Analgesics. Continue ICU observation. Patient refusing BiPAP. care as per ICU team. Will followup once patient transfered to floor (2) MRSA bacteremia Status: Acute
--- NOTE | 2018-03-23 18:37 | CARD ---
APPROVED REPORT Date of service: 03/23/2018 EXAM: Two-dimensional and M-mode echocardiogram with Doppler and color Doppler. INDICATION Infection:Rule out subacute bacterial endocarditis RISK FACTORS Hypertension Diabetes 2D DIMENSIONS IVSd0.9 (0.7-1.1cm)LVDd4.9 (3.9-5.9cm) PWd0.9 (0.7-1.1cm)LVDs3.3 (2.5-4.0cm) LVEF (%)68.0 (>50%)LVEF (Lopez's)61 % M-Mode DIMENSIONS IVSd0.90 (0.7-1.1cm)LVDd5.40 (4.0-5.6cm) PWd1.00 (0.7-1.1cm)LVDs3.70 (2.0-3.8cm) LVEF (%)59 (>50%) Mitral Valve MV E Dkefhleh402.0cm/sMV A Nucfngvv31.0cm/sE/A ratio1.2 TDI Lateral E' Peak V16.00cm/sMedial E' Peak V11.00cm/sE/Lateral E'7.3 E/Medial E'10.6 Tricuspid Valve TR Peak [id number]/sRAP [id number] Peak Gr.17mmHg LEFT VENTRICLE The left ventricle is normal size. There is normal left ventricular wall thickness. The left ventricular function is normal. The left ventricular ejection fraction is within the normal range. There is normal LV segmental wall motion. The left ventricular diastolic function is normal. RIGHT VENTRICLE The right ventricle is normal size. There is normal right ventricular wall thickness. ATRIA The left atrium size is normal. The right atrium size is normal. AORTIC VALVE The aortic valve is normal in structure. MITRAL VALVE The mitral valve is normal in structure. TRICUSPID VALVE The tricuspid valve is normal in structure. <Conclusion> Normal LV systolic function. Normal chamber size. No definite vegetation seen, consider DEREK if clinically indicated.
--- NOTE | 2018-03-23 18:44 | CP.PCM.PN ---
Subjective - Date & Time of Evaluation Date of Evaluation: 03/23/18 Time of Evaluation: 18:41 - Subjective Subjective: pt in icu still has pain leasions less Objective - Vital Signs/Intake and Output Vital Signs (last 24 hours): Temp Pulse Resp BP Pulse Ox 97.9 F 111 H 41 H 144/93 H 99 03/23/18 16:00 03/23/18 17:02 03/23/18 17:02 03/23/18 17:13 03/23/18 17:02 Intake and Output: 03/23/18 03/23/18 06:59 18:59 Intake Total 1483 1963 Output Total 1425 1150 Balance 58 813 - Medications Medications: Current Medications Acetaminophen (Tylenol 325mg Tab) 650 mg PO Q6 PRN PRN Reason: Pain, moderate (4-7) Last Admin: 03/22/18 23:38 Dose: 650 mg Enoxaparin Sodium (Lovenox) 40 mg SC DAILY [facility] Last Admin: 03/22/18 11:03 Dose: Not Given Gabapentin (Neurontin) 400 mg PO TID [facility] Last Admin: 03/23/18 17:14 Dose: 400 mg Heparin Sodium (Porcine) (Heparin) 5,000 units SC Q8 [facility] Last Admin: 03/23/18 13:35 Dose: 5,000 units Piperacillin Sod/Tazobactam Sod (Zosyn 3.375 Gm Iv Premix) 3.375 gm in 50 mls @ 100 mls/hr IVPB Q6H [facility]; Protocol Last Admin: 03/23/18 18:24 Dose: 100 mls/hr Sodium Chloride (Sodium Chloride 0.45%) 1,000 mls @ 50 mls/hr IV .Q20H [facility] Last Admin: 03/23/18 11:40 Dose: 50 mls/hr Vancomycin/Sodium Chloride (Vancomycin 1 Gm/Ns 200 Ml) 1 gm in 200 mls @ 166.6 mls/hr IVPB Q8H [facility]; Protocol Stop: 03/28/18 11:16 Last Admin: 03/23/18 18:25 Dose: 166.6 mls/hr Influenza Virus Vaccine (Fluzone Quad [id number]) 60 mcg IM .ONCE ONE Stop: 03/24/18 10:01 Insulin Aspart (Novolog) 0 unit SC ACHS [facility]; Protocol Last Admin: 03/23/18 16:28 Dose: 6 units Ketorolac Tromethamine (Toradol) 30 mg IVP Q6 PRN Last Admin: 03/23/18 14:09 Dose: 30 mg Metoprolol Tartrate (Lopressor) 25 mg PO BID [facility] Last Admin: 03/23/18 17:13 Dose: 25 mg Morphine Sulfate (Morphine) 2 mg IVP Q3 PRN PRN Reason: Pain, severe (8-10) Last Admin: 03/23/18 18:27 Dose: 2 mg Pantoprazole Sodium (Protonix Ec Tab) 40 mg PO DAILY [facility] Last Admin: 03/23/18 11:41 Dose: 40 mg - Labs Labs: 03/23/18 06:26 03/23/18 06:27 PT 12.8 SECONDS (9.7-12.2) H 03/21/18 02:51 INR 1.2 03/21/18 02:51 APTT 32 SECONDS (21-34) 03/21/18 02:51 - Constitutional Appears: Non-toxic - Head Exam Head Exam: NORMAL INSPECTION - Eye Exam Eye Exam: Normal appearance Pupil Exam: NORMAL ACCOMODATION - ENT Exam ENT Exam: Normal Exam - Neck Exam Neck Exam: Full ROM - Respiratory Exam Respiratory Exam: Clear to Ausculation Bilateral - Cardiovascular Exam Cardiovascular Exam: REGULAR RHYTHM - GI/Abdominal Exam GI & Abdominal Exam: Normal Bowel Sounds - Rectal Exam Rectal Exam: NORMAL INSPECTION - Exam Exam: NORMAL INSPECTION - Extremities Exam Extremities Exam: Normal Inspection - Back Exam Additional comments: less leasions - Neurological Exam Neurological Exam: Abnormal Gait, Normal Gait - Psychiatric Exam Psychiatric exam: Normal Affect - Skin Skin Exam: Normal Color Assessment and Plan - Assessment and Plan (Free Text) Assessment: ac herpes zosteer radiculopathy obesity Plan: cont as per orders
[2018-03-24] MEDS: Piperacill/Tazo 3.375gm in Dex 3.375 GM/50 ML BAG IVPB SCH ×2 (02:00→06:48)
[2018-03-24] MEDS: Vancomycin 1 gm/NS 200 ml 1 GM/200 ML BAG IVPB SCH (04:15)
[2018-03-24 04:19] LABS: BASO % 0.3 % (0.0-2.0); EOS # 0.1 K/uL (0.0-0.7); EOS % 1.3 % (0.0-4.0); HEMOGLOBIN 11.7 g/dL (12.0-18.0); LYMPH # 1.5 K/uL (1.0-4.3); LYMPH % 13.9 % (20.0-40.0); MEAN CELL VOLUME 83.1 fL (80.0-94.0); MEAN CORPUSCULAR HEMOGLOBIN 28.9 pg (27.0-31.0); MEAN CORPUSCULAR HGB CONC 34.8 g/dL (33.0-37.0); MEAN PLATELET VOLUME 7.7 fL (7.2-11.7); MONO # 1.3 K/uL (0.0-0.8); MONO % 12.3 % (0.0-10.0); NEUT # 7.7 K/uL (1.8-7.0); NEUT % 72.2 % (50.0-75.0); RBC 4.06 Mil/uL (4.40-5.90); RED CELL DISTRIBUTION WIDTH 12.4 % (11.5-14.5); WHITE BLOOD COUNT 10.7 K/uL (4.8-10.8)
[2018-03-24 04:46] LABS: ALBUMIN 3.4 g/dL (3.5-5.0); ALT/SGPT 37 U/L (21-72); AST/SGOT 35 U/L (17-59); BLOOD UREA NITROGEN 11 mg/dL (9-20); CALCIUM 8.6 mg/dl (8.6-10.4); GFR NON-AFRICAN AMERICAN > 60
--- NOTE | 2018-03-24 07:52 | CP.CCUPN ---
<Dian Zuleta - Last Filed: 03/24/18 11:48> CCU Subjective - Physician Review Events Since Last Encounter (Free Text): 03/24/18 07:51 no over night events Subjective (Free Text): 03/24/18 07:51 Patient was seen and examined this morning. He is sitting up comfortably in a chair. He still complains of pain and difficulty taking deep breaths. Critical Care Time Spent (in minutes): 35 CCU Objective - Vital Signs / Intake & Output Vital Signs (Last 4 hours): Vital Signs Temp Pulse Resp BP Pulse Ox 03/24/18 06:02 116 H 30 H 135/89 87 L 03/24/18 06:00 115 H 35 H 87 L 03/24/18 05:02 121 H 32 H 139/80 87 L 03/24/18 05:00 113 H 48 H 86 L 03/24/18 04:23 122 H 34 H 150/97 H 91 L 03/24/18 04:21 120 H 34 H 173/110 H 91 L 03/24/18 04:02 127 H 17 166/105 H 92 L 03/24/18 04:01 124 H 23 169/101 H 91 L 03/24/18 04:00 99.9 F H 127 H 26 H 90 L Intake and Output (Last 8hrs): Intake & Output 03/23/18 03/24/18 03/24/18 22:59 06:59 14:59 Intake Total 901 550 Output Total 600 Balance 301 550 Intake: Intake, IV Amount 541 550 Right Hand 541 550 Oral 360 Output: Urine 600 Urine, Voided 600 - Physical Exam Head: Positive for: Atraumatic, Normocephalic Pupils: Positive for: PERRL Extroacular Muscles: Positive for: EOMI Conjunctiva: Positive for: Normal Mouth: Positive for: Moist Mucous Membranes Nose (Internal): Positive for: Normal Inspection Respiratory/Chest: Positive for: Decreased Breath Sounds (R>L), Tachypneic. Negative for: Respiratory Distress, Accessory Muscle Use, Retracting Cardiovascular: Positive for: Normal S1, S2, Tachycardic. Negative for: Murmurs Abdomen: Negative for: Tenderness, Distention, Peritoneal Signs Back: Positive for: Other (no lesions observed) Neurological: Positive for: GCS=15, CN II-XII Intact Skin: Positive for: Warm, Dry, Normal Color. Negative for: Rashes Psychiatric: Positive for: Alert, Oriented x 3 - Medications Active Medications: Active Medications Generic Name Dose Route Start Last Admin Trade Name Freq PRN Reason Stop Dose Admin Acetaminophen 650 mg 03/22/18 21:49 03/22/18 23:38 Tylenol 325mg Tab PO 650 mg Q6 PRN Administration Pain, moderate (4-7) Enoxaparin Sodium 40 mg 03/21/18 10:30 03/22/18 11:03 Lovenox SC Not Given DAILY JERED Gabapentin 400 mg 03/21/18 18:00 03/23/18 17:14 Neurontin PO 400 mg TID JERED Administration Heparin Sodium (Porcine) 5,000 units 03/23/18 14:00 03/24/18 05:22 Heparin SC Not Given Q8 JERED Sodium Chloride 1,000 mls @ 50 mls/hr 03/23/18 11:30 03/23/18 11:40 Sodium Chloride 0.45% IV 50 mls/hr .Q20H JERED Administration Vancomycin/Sodium Chloride 1 gm in 200 mls @ 166.6 mls/hr 03/23/18 11:15 03/24/18 04:15 Vancomycin 1 Gm/Ns 200 Ml IVPB 03/28/18 11:16 166.6 mls/hr Q8H JERED Administration Protocol Influenza Virus Vaccine 60 mcg 03/24/18 10:00 Fluzone Quad [id number] IM 03/24/18 10:01 .ONCE ONE Insulin Aspart 0 unit 03/22/18 22:00 03/23/18 21:21 Novolog SC Not Given ACHS [facility] Protocol Ketorolac Tromethamine 30 mg 03/22/18 15:33 03/24/18 04:10 Toradol IVP 30 mg Q6 PRN Administration Metoprolol Tartrate 25 mg 03/22/18 10:00 03/23/18 17:13 Lopressor PO 25 mg BID JERED Administration Morphine Sulfate 2 mg 03/22/18 09:23 03/24/18 03:07 Morphine IVP 2 mg Q3 PRN Administration Pain, severe (8-10) Pantoprazole Sodium 40 mg 03/23/18 11:30 03/23/18 11:41 Protonix Ec Tab PO 40 mg DAILY [facility] Administration - Patient Studies Lab Studies: Microbiology Studies 03/22/18 17:00 Blood Culture - Preliminary Blood NO GROWTH AFTER 24 HOURS 03/22/18 18:47 MRSA Culture (Admit) - Final Naris MRSA DETECTED 03/22/18 16:30 Blood Culture - Preliminary Blood NO GROWTH AFTER 24 HOURS 03/21/18 07:30 Blood Culture - Final Blood Methicillin Resistant S Aureus Gram Stain - Final 03/21/18 07:30 S.aureus & Coag-Neg Staph PNA FISH - Final Blood Blood Culture - Final Methicillin Resistant S Aureus Gram Stain - Final Lab Studies 03/24/18 03/24/18 03/24/18 Range/Units 04:16 04:16 04:16 WBC 10.7 (4.8-10.8) K/uL RBC 4.06 L (4.40-5.90) Mil/uL Hgb 11.7 L (12.0-18.0) g/dL Hct 33.7 L (35.0-51.0) % MCV 83.1 (80.0-94.0) fL MCH 28.9 (27.0-31.0) pg MCHC 34.8 (33.0-37.0) g/dL RDW 12.4 (11.5-14.5) % Plt Count 320 (130-400) K/uL MPV 7.7 (7.2-11.7) fL Neut % (Auto) 72.2 (50.0-75.0) % Lymph % (Auto) 13.9 L (20.0-40.0) % Wallace % (Auto) 12.3 H (0.0-10.0) % Eos % (Auto) 1.3 (0.0-4.0) % Baso % (Auto) 0.3 (0.0-2.0) % Neut # (Auto) 7.7 H (1.8-7.0) K/uL Lymph # (Auto) 1.5 (1.0-4.3) K/uL Wallace # (Auto) 1.3 H (0.0-0.8) K/uL Eos # (Auto) 0.1 (0.0-0.7) K/uL Baso # (Auto) 0.0 (0.0-0.2) K/uL Sodium 136 (132-148) mmol/L Potassium 4.0 (3.6-5.2) mmol/L Chloride 99 (98-107) mmol/L Carbon Dioxide 25 (22-30) mmol/L Anion Gap 15 (10-20) BUN 11 (9-20) mg/dL Creatinine 0.7 L (0.8-1.5) mg/dL Est GFR ( Amer) > 60 Est GFR (Non-Af Amer) > 60 POC Glucose (mg/dL) (65-110) mg/dL Random Glucose 301 H (75-110) mg/dL Calcium 8.6 (8.6-10.4) mg/dl Phosphorus 3.0 (2.5-4.5) mg/dL Magnesium 2.0 (1.6-2.3) mg/dL Total Bilirubin 1.0 (0.2-1.3) mg/dL AST 35 (17-59) U/L ALT 37 (21-72) U/L Alkaline Phosphatase 227 H D (38-126) U/L Total Protein 6.9 (6.3-8.3) g/dL Albumin 3.4 L (3.5-5.0) g/dL Globulin 3.5 (2.2-3.9) gm/dL Albumin/Globulin Ratio 1.0 (1.0-2.1) Vancomycin Trough < 5.0 L (5.0-10.0) ug/mL HIV 1&2 Ag/Ab, 4th Gen (Nonreactive) Ur L.pneumophila Ag (NEGATIVE) 03/23/18 03/23/18 03/23/18 Range/Units 21:20 16:20 14:12 WBC (4.8-10.8) K/uL RBC (4.40-5.90) Mil/uL Hgb (12.0-18.0) g/dL Hct (35.0-51.0) % MCV (80.0-94.0) fL MCH (27.0-31.0) pg MCHC (33.0-37.0) g/dL RDW (11.5-14.5) % Plt Count (130-400) K/uL MPV (7.2-11.7) fL Neut % (Auto) (50.0-75.0) % Lymph % (Auto) (20.0-40.0) % Wallace % (Auto) (0.0-10.0) % Eos % (Auto) (0.0-4.0) % Baso % (Auto) (0.0-2.0) % Neut # (Auto) (1.8-7.0) K/uL Lymph # (Auto) (1.0-4.3) K/uL Wallace # (Auto) (0.0-0.8) K/uL Eos # (Auto) (0.0-0.7) K/uL Baso # (Auto) (0.0-0.2) K/uL Sodium (132-148) mmol/L Potassium (3.6-5.2) mmol/L Chloride (98-107) mmol/L Carbon Dioxide (22-30) mmol/L Anion Gap (10-20) BUN (9-20) mg/dL Creatinine (0.8-1.5) mg/dL Est GFR ( Amer) Est GFR (Non-Af Amer) POC Glucose (mg/dL) 317 H 302 H (65-110) mg/dL Random Glucose (75-110) mg/dL Calcium (8.6-10.4) mg/dl Phosphorus (2.5-4.5) mg/dL Magnesium (1.6-2.3) mg/dL Total Bilirubin (0.2-1.3) mg/dL AST (17-59) U/L ALT (21-72) U/L Alkaline Phosphatase (38-126) U/L Total Protein (6.3-8.3) g/dL Albumin (3.5-5.0) g/dL Globulin (2.2-3.9) gm/dL Albumin/Globulin Ratio (1.0-2.1) Vancomycin Trough (5.0-10.0) ug/mL HIV 1&2 Ag/Ab, 4th Gen (Nonreactive) Ur L.pneumophila Ag Negative (NEGATIVE) 03/23/18 03/23/18 03/22/18 Range/Units 11:08 07:52 10:03 WBC (4.8-10.8) K/uL RBC (4.40-5.90) Mil/uL Hgb (12.0-18.0) g/dL Hct (35.0-51.0) % MCV (80.0-94.0) fL MCH (27.0-31.0) pg MCHC (33.0-37.0) g/dL RDW (11.5-14.5) % Plt Count (130-400) K/uL MPV (7.2-11.7) fL Neut % (Auto) (50.0-75.0) % Lymph % (Auto) (20.0-40.0) % Wallace % (Auto) (0.0-10.0) % Eos % (Auto) (0.0-4.0) % Baso % (Auto) (0.0-2.0) % Neut # (Auto) (1.8-7.0) K/uL Lymph # (Auto) (1.0-4.3) K/uL Wallace # (Auto) (0.0-0.8) K/uL Eos # (Auto) (0.0-0.7) K/uL Baso # (Auto) (0.0-0.2) K/uL Sodium (132-148) mmol/L Potassium (3.6-5.2) mmol/L Chloride (98-107) mmol/L Carbon Dioxide (22-30) mmol/L Anion Gap (10-20) BUN (9-20) mg/dL Creatinine (0.8-1.5) mg/dL Est GFR ( Amer) Est GFR (Non-Af Amer) POC Glucose (mg/dL) 329 H 268 H (65-110) mg/dL Random Glucose (75-110) mg/dL Calcium (8.6-10.4) mg/dl Phosphorus (2.5-4.5) mg/dL Magnesium (1.6-2.3) mg/dL Total Bilirubin (0.2-1.3) mg/dL AST (17-59) U/L ALT (21-72) U/L Alkaline Phosphatase (38-126) U/L Total Protein (6.3-8.3) g/dL Albumin (3.5-5.0) g/dL Globulin (2.2-3.9) gm/dL Albumin/Globulin Ratio (1.0-2.1) Vancomycin Trough (5.0-10.0) ug/mL HIV 1&2 Ag/Ab, 4th Gen Nonreactive (Nonreactive) Ur L.pneumophila Ag (NEGATIVE) Laboratory Results - last 24 hr 03/22/18 03/23/18 03/23/18 10:03 07:52 11:08 WBC RBC Hgb Hct MCV MCH MCHC RDW Plt Count MPV Neut % (Auto) Lymph % (Auto) Wallace % (Auto) Eos % (Auto) Baso % (Auto) Neut # (Auto) Lymph # (Auto) Wallace # (Auto) Eos # (Auto) Baso # (Auto) Sodium Potassium Chloride Carbon Dioxide Anion Gap BUN Creatinine Est GFR ( Amer) Est GFR (Non-Af Amer) POC Glucose (mg/dL) 268 H 329 H Random Glucose Calcium Phosphorus Magnesium Total Bilirubin AST ALT Alkaline Phosphatase Total Protein Albumin Globulin Albumin/Globulin Ratio Vancomycin Trough HIV 1&2 Ag/Ab, 4th Gen Nonreactive Ur L.pneumophila Ag 03/23/18 03/23/18 03/23/18 14:12 16:20 21:20 WBC RBC Hgb Hct MCV MCH MCHC RDW Plt Count MPV Neut % (Auto) Lymph % (Auto) Wallace % (Auto) Eos % (Auto) Baso % (Auto) Neut # (Auto) Lymph # (Auto) Wallace # (Auto) Eos # (Auto) Baso # (Auto) Sodium Potassium Chloride Carbon Dioxide Anion Gap BUN Creatinine Est GFR ( Amer) Est GFR (Non-Af Amer) POC Glucose (mg/dL) 302 H 317 H Random Glucose Calcium Phosphorus Magnesium Total Bilirubin AST ALT Alkaline Phosphatase Total Protein Albumin Globulin Albumin/Globulin Ratio Vancomycin Trough HIV 1&2 Ag/Ab, 4th Gen Ur L.pneumophila Ag Negative 03/24/18 03/24/18 03/24/18 04:16 04:16 04:16 WBC 10.7 RBC 4.06 L Hgb 11.7 L Hct 33.7 L MCV 83.1 MCH 28.9 MCHC 34.8 RDW 12.4 Plt Count 320 MPV 7.7 Neut % (Auto) 72.2 Lymph % (Auto) 13.9 L Wallace % (Auto) 12.3 H Eos % (Auto) 1.3 Baso % (Auto) 0.3 Neut # (Auto) 7.7 H Lymph # (Auto) 1.5 Wallace # (Auto) 1.3 H Eos # (Auto) 0.1 Baso # (Auto) 0.0 Sodium 136 Potassium 4.0 Chloride 99 Carbon Dioxide 25 Anion Gap 15 BUN 11 Creatinine 0.7 L Est GFR ( Amer) > 60 Est GFR (Non-Af Amer) > 60 POC Glucose (mg/dL) Random Glucose 301 H Calcium 8.6 Phosphorus 3.0 Magnesium 2.0 Total Bilirubin 1.0 AST 35 ALT 37 Alkaline Phosphatase 227 H D Total Protein 6.9 Albumin 3.4 L Globulin 3.5 Albumin/Globulin Ratio 1.0 Vancomycin Trough < 5.0 L HIV 1&2 Ag/Ab, 4th Gen Ur L.pneumophila Ag Fingerstick Blood Sugar Results: 302 Results Reviewed to Date: Yes Review of Systems - Review of Systems All systems: reviewed and no additional remarkable complaints except - Constitutional Constitutional: absent: Fever, Chills, Sweats - EENT Eyes: Change in Vision, UNREMARKABLE Ears: UNREMARKABLE Nose/Mouth/Throat: UNREMARKABLE - Cardiovascular Cardiovascular: Chest Pain (pleuritic), Dyspnea. absent: Diaphoresis - Respiratory Respiratory: Dyspnea, UNREMARKABLE. absent: Cough, Wheezing - Gastrointestinal Gastrointestinal: UNREMARKABLE. absent: Change in Bowel Habits, Nausea, Vomiting - Genitourinary Genitourinary: UNREMARKABLE - Musculoskeletal Musculoskeletal: Back Pain - Integumentary Integumentary: UNREMARKABLE. absent: Lesions, Pruritus, Rash - Neurological Neurological: UNREMARKABLE - Psychiatric Psychiatric: UNREMARKABLE - Endocrine Endocrine: UNREMARKABLE - Hematologic/Lymphatic Hematologic: UNREMARKABLE Critical Care Progress Note - Extremities/Vascular Does the Patient have a Central Venous Catheter?: No Does the Patient need a Central Venous Catheter?: No Does the Patient have a Boothe Catheter?: No Does the Patient need a Boothe Catheter?: No - Prophylaxis GI Prophylaxis GI: PPI - Prophylaxis DVT Prophylaxis DVT: Heparin SQ - Nutrition Nutrition: Nutrition Category Date Time Status Consistent Carbohydrate [DIET] Diets 03/21/18 Lunch Active Assessment/Plan - Assessment and Plan (Free Text) Assessment: Patient is a 32 yo male with a history of T2DM and drug abuse who initially presented with low back pain. 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 He was transferred to ICU. He is saturating well on RA, still with pleuritc chest pain. CT revealed large loculated pleural effusion. Plan for R thoracentesis by IR today 03/24. Plan: Neuro: - No acute issues - Gabapentin 400 mg PO TID CV: - Sinus tachycardia- pain - Metoprolol 25 mg PO BID - Monitor vitals - TTE: normal EF, no vegetation observed - DEREK pending - Cardiology consulted (Otoniel) Pulm: - CXR: moderate R pleural effusions with prominent R pulm infiltrates - CTA chest 03/22- no PE, moderate R pleural effusion with marked compression atelectasis, scattered b/l nodular infiltrates - Maintain spO2>92%- NC or BiPAP PRN - ABG wnl - Toradol 30 mg IV Q6H PRN - Morphine 2 mg IV Q6H PRN - Pulmonology consulted (Artur) - IR consulted (Leon)- R thoracentesis 03/24 GI: - Diabetic diet : - I's & O's - Replete electrolytes PRN - Stop IVF Endo: - A1c 12.4 - Maintain euglycemia - Hypoglycemic protocol - Accuchecks ACHS with ISS Heme: - Monitor H&H - D-dimer 649 - LE Dopplers: no DVT ID: Sepsis (MRSA bacteremia)- 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 Siddiqui. PGY-1 Dian Zuleta D.O. <Tian Siddiqui - Last Filed: 03/24/18 18:08> CCU Objective - Vital Signs / Intake & Output Vital Signs (Last 4 hours): Vital Signs Pulse Resp BP Pulse Ox 03/24/18 18:00 147/95 H 03/24/18 17:02 104 H 36 H 147/95 H 94 L 03/24/18 17:00 104 H 35 H 93 L 03/24/18 16:04 98 H 34 H 143/88 93 L 03/24/18 16:00 100 H 27 H 95 03/24/18 15:02 96 H 41 H 152/103 H 90 L 03/24/18 15:00 89 42 H 90 L Intake and Output (Last 8hrs): Intake & Output 03/24/18 03/24/18 03/24/18 06:59 14:59 22:59 Intake Total 550 Balance 550 Intake: Intake, IV Amount 550 Right Hand 550 - Medications Active Medications: Active Medications Generic Name Dose Route Start Last Admin Trade Name Freq PRN Reason Stop Dose Admin Acetaminophen 650 mg 03/22/18 21:49 03/22/18 23:38 Tylenol 325mg Tab PO 650 mg Q6 PRN Administration Pain, moderate (4-7) Gabapentin 400 mg 03/21/18 18:00 03/24/18 17:58 Neurontin PO 400 mg TID JERED Administration Heparin Sodium (Porcine) 5,000 units 03/23/18 14:00 03/24/18 05:22 Heparin SC Not Given Q8 JERED Vancomycin HCl 1.25 gm/ Sodium 250 mls @ 166.7 mls/hr 03/24/18 11:30 03/24/18 11:56 Chloride IVPB 166.7 mls/hr Q8H [facility] Administration Protocol Insulin Aspart 0 unit 03/22/18 22:00 03/24/18 16:52 Novolog SC 4 units ACHS [facility] Administration Protocol Ketorolac Tromethamine 30 mg 03/24/18 17:19 03/24/18 17:57 Toradol IVP 30 mg Q6 PRN Administration Pain, moderate (4-7) Metoprolol Tartrate 25 mg 03/22/18 10:00 03/24/18 18:00 Lopressor PO 25 mg BID JERED Administration Morphine Sulfate 2 mg 03/24/18 10:44 03/24/18 14:18 Morphine IVP 2 mg Q6 PRN Administration Pain, severe (8-10) Pantoprazole Sodium 40 mg 03/23/18 11:30 03/24/18 10:32 Protonix Ec Tab PO 40 mg DAILY JERED Administration - Patient Studies Lab Studies: Microbiology Studies 03/22/18 16:30 Blood Culture - Preliminary Blood NO GROWTH AFTER 48 HOURS 03/22/18 14:19 Urine Culture - Final Urine No Growth (<1,000 CFU/ML) 03/22/18 17:00 Blood Culture - Preliminary Blood NO GROWTH AFTER 24 HOURS 03/22/18 18:47 MRSA Culture (Admit) - Final Naris MRSA DETECTED Lab Studies 03/24/18 03/24/18 03/24/18 Range/Units 17:19 11:22 07:29 WBC (4.8-10.8) K/uL RBC (4.40-5.90) Mil/uL Hgb (12.0-18.0) g/dL Hct (35.0-51.0) % MCV (80.0-94.0) fL MCH (27.0-31.0) pg MCHC (33.0-37.0) g/dL RDW (11.5-14.5) % Plt Count (130-400) K/uL MPV (7.2-11.7) fL Neut % (Auto) (50.0-75.0) % Lymph % (Auto) (20.0-40.0) % Wallace % (Auto) (0.0-10.0) % Eos % (Auto) (0.0-4.0) % Baso % (Auto) (0.0-2.0) % Neut # (Auto) (1.8-7.0) K/uL Lymph # (Auto) (1.0-4.3) K/uL Wallace # (Auto) (0.0-0.8) K/uL Eos # (Auto) (0.0-0.7) K/uL Baso # (Auto) (0.0-0.2) K/uL Sodium (132-148) mmol/L Potassium (3.6-5.2) mmol/L Chloride (98-107) mmol/L Carbon Dioxide (22-30) mmol/L Anion Gap (10-20) BUN (9-20) mg/dL Creatinine (0.8-1.5) mg/dL Est GFR ( Amer) Est GFR (Non-Af Amer) POC Glucose (mg/dL) 251 H 289 H (65-110) mg/dL Random Glucose (75-110) mg/dL Calcium (8.6-10.4) mg/dl Phosphorus (2.5-4.5) mg/dL Magnesium (1.6-2.3) mg/dL Total Bilirubin (0.2-1.3) mg/dL AST (17-59) U/L ALT (21-72) U/L Alkaline Phosphatase (38-126) U/L Total Protein (6.3-8.3) g/dL Albumin (3.5-5.0) g/dL Globulin (2.2-3.9) gm/dL Albumin/Globulin Ratio (1.0-2.1) Fluid Source Pleural/thoracentesi Vancomycin Trough (5.0-10.0) ug/mL 03/24/18 03/24/18 03/24/18 Range/Units 04:16 04:16 04:16 WBC 10.7 (4.8-10.8) K/uL RBC 4.06 L (4.40-5.90) Mil/uL Hgb 11.7 L (12.0-18.0) g/dL Hct 33.7 L (35.0-51.0) % MCV 83.1 (80.0-94.0) fL MCH 28.9 (27.0-31.0) pg MCHC 34.8 (33.0-37.0) g/dL RDW 12.4 (11.5-14.5) % Plt Count 320 (130-400) K/uL MPV 7.7 (7.2-11.7) fL Neut % (Auto) 72.2 (50.0-75.0) % Lymph % (Auto) 13.9 L (20.0-40.0) % Wallace % (Auto) 12.3 H (0.0-10.0) % Eos % (Auto) 1.3 (0.0-4.0) % Baso % (Auto) 0.3 (0.0-2.0) % Neut # (Auto) 7.7 H (1.8-7.0) K/uL Lymph # (Auto) 1.5 (1.0-4.3) K/uL Wallace # (Auto) 1.3 H (0.0-0.8) K/uL Eos # (Auto) 0.1 (0.0-0.7) K/uL Baso # (Auto) 0.0 (0.0-0.2) K/uL Sodium 136 (132-148) mmol/L Potassium 4.0 (3.6-5.2) mmol/L Chloride 99 (98-107) mmol/L Carbon Dioxide 25 (22-30) mmol/L Anion Gap 15 (10-20) BUN 11 (9-20) mg/dL Creatinine 0.7 L (0.8-1.5) mg/dL Est GFR ( Amer) > 60 Est GFR (Non-Af Amer) > 60 POC Glucose (mg/dL) (65-110) mg/dL Random Glucose 301 H (75-110) mg/dL Calcium 8.6 (8.6-10.4) mg/dl Phosphorus 3.0 (2.5-4.5) mg/dL Magnesium 2.0 (1.6-2.3) mg/dL Total Bilirubin 1.0 (0.2-1.3) mg/dL AST 35 (17-59) U/L ALT 37 (21-72) U/L Alkaline Phosphatase 227 H D (38-126) U/L Total Protein 6.9 (6.3-8.3) g/dL Albumin 3.4 L (3.5-5.0) g/dL Globulin 3.5 (2.2-3.9) gm/dL Albumin/Globulin Ratio 1.0 (1.0-2.1) Fluid Source Vancomycin Trough < 5.0 L (5.0-10.0) ug/mL 03/23/18 Range/Units 21:20 WBC (4.8-10.8) K/uL RBC (4.40-5.90) Mil/uL Hgb (12.0-18.0) g/dL Hct (35.0-51.0) % MCV (80.0-94.0) fL MCH (27.0-31.0) pg MCHC (33.0-37.0) g/dL RDW (11.5-14.5) % Plt Count (130-400) K/uL MPV (7.2-11.7) fL Neut % (Auto) (50.0-75.0) % Lymph % (Auto) (20.0-40.0) % Wallace % (Auto) (0.0-10.0) % Eos % (Auto) (0.0-4.0) % Baso % (Auto) (0.0-2.0) % Neut # (Auto) (1.8-7.0) K/uL Lymph # (Auto) (1.0-4.3) K/uL Wallace # (Auto) (0.0-0.8) K/uL Eos # (Auto) (0.0-0.7) K/uL Baso # (Auto) (0.0-0.2) K/uL Sodium (132-148) mmol/L Potassium (3.6-5.2) mmol/L Chloride (98-107) mmol/L Carbon Dioxide (22-30) mmol/L Anion Gap (10-20) BUN (9-20) mg/dL Creatinine (0.8-1.5) mg/dL Est GFR ( Amer) Est GFR (Non-Af Amer) POC Glucose (mg/dL) 317 H (65-110) mg/dL Random Glucose (75-110) mg/dL Calcium (8.6-10.4) mg/dl Phosphorus (2.5-4.5) mg/dL Magnesium (1.6-2.3) mg/dL Total Bilirubin (0.2-1.3) mg/dL AST (17-59) U/L ALT (21-72) U/L Alkaline Phosphatase (38-126) U/L Total Protein (6.3-8.3) g/dL Albumin (3.5-5.0) g/dL Globulin (2.2-3.9) gm/dL Albumin/Globulin Ratio (1.0-2.1) Fluid Source Vancomycin Trough (5.0-10.0) ug/mL Laboratory Results - last 24 hr 03/23/18 03/24/18 03/24/18 21:20 04:16 04:16 WBC 10.7 RBC 4.06 L Hgb 11.7 L Hct 33.7 L MCV 83.1 MCH 28.9 MCHC 34.8 RDW 12.4 Plt Count 320 MPV 7.7 Neut % (Auto) 72.2 Lymph % (Auto) 13.9 L Wallace % (Auto) 12.3 H Eos % (Auto) 1.3 Baso % (Auto) 0.3 Neut # (Auto) 7.7 H Lymph # (Auto) 1.5 Wallace # (Auto) 1.3 H Eos # (Auto) 0.1 Baso # (Auto) 0.0 Sodium Potassium Chloride Carbon Dioxide Anion Gap BUN Creatinine Est GFR ( Amer) Est GFR (Non-Af Amer) POC Glucose (mg/dL) 317 H Random Glucose Calcium Phosphorus Magnesium Total Bilirubin AST ALT Alkaline Phosphatase Total Protein Albumin Globulin Albumin/Globulin Ratio Fluid Source Vancomycin Trough < 5.0 L 03/24/18 03/24/18 03/24/18 04:16 07:29 11:22 WBC RBC Hgb Hct MCV MCH MCHC RDW Plt Count MPV Neut % (Auto) Lymph % (Auto) Wallace % (Auto) Eos % (Auto) Baso % (Auto) Neut # (Auto) Lymph # (Auto) Wallace # (Auto) Eos # (Auto) Baso # (Auto) Sodium 136 Potassium 4.0 Chloride 99 Carbon Dioxide 25 Anion Gap 15 BUN 11 Creatinine 0.7 L Est GFR ( Amer) > 60 Est GFR (Non-Af Amer) > 60 POC Glucose (mg/dL) 289 H 251 H Random Glucose 301 H Calcium 8.6 Phosphorus 3.0 Magnesium 2.0 Total Bilirubin 1.0 AST 35 ALT 37 Alkaline Phosphatase 227 H D Total Protein 6.9 Albumin 3.4 L Globulin 3.5 Albumin/Globulin Ratio 1.0 Fluid Source Vancomycin Trough 03/24/18 17:19 WBC RBC Hgb Hct MCV MCH MCHC RDW Plt Count MPV Neut % (Auto) Lymph % (Auto) Wallace % (Auto) Eos % (Auto) Baso % (Auto) Neut # (Auto) Lymph # (Auto) Wallace # (Auto) Eos # (Auto) Baso # (Auto) Sodium Potassium Chloride Carbon Dioxide Anion Gap BUN Creatinine Est GFR ( Amer) Est GFR (Non-Af Amer) POC Glucose (mg/dL) Random Glucose Calcium Phosphorus Magnesium Total Bilirubin AST ALT Alkaline Phosphatase Total Protein Albumin Globulin Albumin/Globulin Ratio Fluid Source Pleural/thoracentesi Vancomycin Trough Critical Care Progress Note - Nutrition Nutrition: Nutrition Category Date Time Status Heart Healthy Diet [DIET] Diets 03/24/18 Dinner Active Assessment/Plan (1) Pleural effusion Current Visit: Yes Status: Acute (2) MRSA bacteremia Current Visit: Yes Status: Acute Attending/Attestation - Attestation I have personally seen and examined this patient.: Yes I have fully participated in the care of the patient.: Yes I have reviewed all pertinent clinical information: Yes Notes (Text): 03/24/18 18:07 patient seen and examined in the intensive care unit. status post thoracentesis and 60 mL of luli colored fluid removed Continue IV antibiotics Cardiology evaluation for DEREK Thoracic consult for chest tube drainage
[2018-03-24] MEDS: (Novolog) Insulin Aspart, Recombinant 100 u/ml 10 ml vial SC SCH ×4 (08:28→22:08)
[2018-03-24] MEDS ORDERED: Pneumococcal 23-Valent Vaccine IM ONE (10:00)
[2018-03-24] MEDS ORDERED: Influenza Vaccine 60 MCG/0.5 ML SYR (3 yr & up) IM ONE (10:00)
--- NOTE | 2018-03-24 10:26 | CP.PCM.PN ---
Subjective - Date & Time of Evaluation Date of Evaluation: 03/24/18 Time of Evaluation: 10:23 - Subjective Subjective: pt seen in icu still has pain but less sob has pleural efusion Objective - Vital Signs/Intake and Output Vital Signs (last 24 hours): Temp Pulse Resp BP Pulse Ox 99.9 F H 116 H 30 H 135/89 87 L 03/24/18 04:00 03/24/18 06:02 03/24/18 06:02 03/24/18 06:02 03/24/18 06:02 Intake and Output: 03/24/18 03/24/18 06:59 18:59 Intake Total 866 Output Total 600 Balance 266 - Medications Medications: Current Medications Acetaminophen (Tylenol 325mg Tab) 650 mg PO Q6 PRN PRN Reason: Pain, moderate (4-7) Last Admin: 03/22/18 23:38 Dose: 650 mg Gabapentin (Neurontin) 400 mg PO TID [facility] Last Admin: 03/23/18 17:14 Dose: 400 mg Heparin Sodium (Porcine) (Heparin) 5,000 units SC Q8 [facility] Last Admin: 03/24/18 05:22 Dose: Not Given Sodium Chloride (Sodium Chloride 0.45%) 1,000 mls @ 50 mls/hr IV .Q20H [facility] Last Admin: 03/23/18 11:40 Dose: 50 mls/hr Vancomycin/Sodium Chloride (Vancomycin 1 Gm/Ns 200 Ml) 1 gm in 200 mls @ 166.6 mls/hr IVPB Q8H [facility]; Protocol Stop: 03/28/18 11:16 Last Admin: 03/24/18 04:15 Dose: 166.6 mls/hr Insulin Aspart (Novolog) 0 unit SC ACHS [facility]; Protocol Last Admin: 03/24/18 08:28 Dose: 4 units Ketorolac Tromethamine (Toradol) 30 mg IVP Q6 PRN Last Admin: 03/24/18 04:10 Dose: 30 mg Metoprolol Tartrate (Lopressor) 25 mg PO BID [facility] Last Admin: 03/23/18 17:13 Dose: 25 mg Morphine Sulfate (Morphine) 2 mg IVP Q3 PRN PRN Reason: Pain, severe (8-10) Last Admin: 03/24/18 03:07 Dose: 2 mg Pantoprazole Sodium (Protonix Ec Tab) 40 mg PO DAILY [facility] Last Admin: 03/23/18 11:41 Dose: 40 mg - Labs Labs: 03/24/18 04:16 03/24/18 04:16 PT 12.8 SECONDS (9.7-12.2) H 03/21/18 02:51 INR 1.2 03/21/18 02:51 APTT 32 SECONDS (21-34) 03/21/18 02:51 - Constitutional Appears: Non-toxic - Head Exam Head Exam: ATRAUMATIC - Eye Exam Eye Exam: Normal appearance Pupil Exam: NORMAL ACCOMODATION - ENT Exam ENT Exam: Mucous Membranes Moist - Neck Exam Neck Exam: Full ROM - Respiratory Exam Respiratory Exam: Decreased Breath Sounds - Cardiovascular Exam Cardiovascular Exam: Tachycardia - GI/Abdominal Exam GI & Abdominal Exam: Normal Bowel Sounds Additional comments: pain back r side herpes leasion going awawy - Extremities Exam Extremities Exam: Normal Inspection - Neurological Exam Neurological Exam: Oriented x3 - Psychiatric Exam Psychiatric exam: Normal Affect - Skin Skin Exam: Normal Color Assessment and Plan - Assessment and Plan (Free Text) Assessment: ac hepes zoster pleural efusins morbid obesity Plan: as per icu
[2018-03-24] MEDS: Pantoprazole 40 mg EC Tab PO SCH (10:32)
--- NOTE | 2018-03-24 10:58 | RAD ---
HISTORY: eval pleural effusions COMPARISON: Chest x-ray performed 03/22/18 TECHNIQUE: Chest, one view. FINDINGS: Examination limited by habitus and hypoinflation. The patient's chin obscures evaluation of the lung apices. LUNGS: Moderate-sized right pleural effusion including loculated appearing component along the lateral wall. Moderate to large right sided and mild left sided interstitial prominence may reflect infection or edema. Please note that chest x-ray has limited sensitivity for the detection of pulmonary masses. CARDIOVASCULAR: Cardiomegaly. No significant atherosclerotic calcification present. OSSEOUS STRUCTURES: No acute osseous abnormality identified. VISUALIZED UPPER ABDOMEN: Unremarkable. OTHER FINDINGS: None. IMPRESSION: Moderate-sized right pleural effusion including loculated appearing component along the lateral wall. Moderate to large right sided and mild left sided interstitial prominence may reflect infection or edema.
--- NOTE | 2018-03-24 11:58 | CP.PCM.PN ---
Subjective - Date & Time of Evaluation Date of Evaluation: 03/24/18 Time of Evaluation: 08:00 - Subjective Subjective: events noted IV rx adjustred will follow Objective - Vital Signs/Intake and Output Vital Signs (last 24 hours): Temp Pulse Resp BP Pulse Ox 99.9 F H 116 H 30 H 139/93 H 87 L 03/24/18 04:00 03/24/18 06:02 03/24/18 06:02 03/24/18 10:32 03/24/18 06:02 Intake and Output: 03/24/18 03/24/18 06:59 18:59 Intake Total 866 Output Total 600 Balance 266 - Medications Medications: Current Medications Acetaminophen (Tylenol 325mg Tab) 650 mg PO Q6 PRN PRN Reason: Pain, moderate (4-7) Last Admin: 03/22/18 23:38 Dose: 650 mg Gabapentin (Neurontin) 400 mg PO TID [facility] Last Admin: 03/24/18 10:32 Dose: 400 mg Heparin Sodium (Porcine) (Heparin) 5,000 units SC Q8 [facility] Last Admin: 03/24/18 05:22 Dose: Not Given Sodium Chloride (Sodium Chloride 0.45%) 1,000 mls @ 50 mls/hr IV .Q20H [facility] Last Admin: 03/23/18 11:40 Dose: 50 mls/hr Vancomycin HCl 1.25 gm/ Sodium (Chloride) 250 mls @ 166.7 mls/hr IVPB Q8H [facility]; Protocol Insulin Aspart (Novolog) 0 unit SC ACHS [facility]; Protocol Last Admin: 03/24/18 08:28 Dose: 4 units Ketorolac Tromethamine (Toradol) 30 mg IVP Q6 PRN Last Admin: 03/24/18 10:30 Dose: 30 mg Metoprolol Tartrate (Lopressor) 25 mg PO BID [facility] Last Admin: 03/24/18 10:32 Dose: 25 mg Morphine Sulfate (Morphine) 2 mg IVP Q6 PRN PRN Reason: Pain, severe (8-10) Pantoprazole Sodium (Protonix Ec Tab) 40 mg PO DAILY [facility] Last Admin: 03/24/18 10:32 Dose: 40 mg - Labs Labs: 03/24/18 04:16 03/24/18 04:16 PT 12.8 SECONDS (9.7-12.2) H 03/21/18 02:51 INR 1.2 03/21/18 02:51 APTT 32 SECONDS (21-34) 03/21/18 02:51 Assessment and Plan (1) Cellulitis of back Status: Acute (2) Hyperglycemia Status: Acute (3) Chest wall muscle strain Status: Acute
[2018-03-24] MEDS: Sodium Chloride 0.45% 1,000 ML IV SCH (14:22)
--- NOTE | 2018-03-24 15:44 | CARD ---
APPROVED REPORT Date of service: 03/21/2018 EKG Measurement Heart [id number] <Conclusion> Sinus tachycardia Otherwise normal ECG
[2018-03-24] MEDS ORDERED: Lidocaine Hydrochloride 10 ML INJ ONE (15:54)
--- NOTE | 2018-03-24 16:16 | PCM.SURG1 ---
Surgeon's Initial Post Op Note - Surgeon's Notes Surgeon: Leon Centrifugal Spinner: None Type of Anesthesia: Local Pre-Operative Diagnosis: Moderate right pleural effusion Operative Findings: Moderate right pleural effusion Post-Operative Diagnosis: Moderate right pleural effusion Operation Performed: Right thoracentesis Specimen/Specimens Removed: Approx 60cc of cloudy yellow fluid aspirated. Estimated Blood Loss: EBL {In ML}: 1 Date of Surgery/Procedure: 03/24/18 Time of Surgery/Procedure: 16:15
--- NOTE | 2018-03-24 16:34 | RAD ---
Date of service: 03/24/2018 HISTORY: post thoracentesis COMPARISON: 03/24/2018 at 0546 hr FINDINGS: LUNGS: The lateral right pleural based opacity compatible with a pleural loculation is similar. PLEURA: Right pleural [id number]-lwygijdpi-iudnbon in appearance No gross pneumothorax appreciated on this exam. CARDIOVASCULAR: No aortic atherosclerotic calcification present. Cardiomegaly-similar . moderate pulmonary venous congestion increased since prior exam. OSSEOUS STRUCTURES: No significant abnormalities. VISUALIZED UPPER ABDOMEN: Normal. OTHER FINDINGS: None. IMPRESSION: No gross pneumothorax appreciated. Large right pleural effusion-appears loculated-similar to that before. Cardiomegaly-similar. Interval increased pulmonary venous congestion.
[2018-03-24 17:22] LABS: BODY FLUID TYPE PLEURAL/THORACENTESI
[2018-03-24 18:33] LABS: CORD BLOOD GAS BE -22.1 mmol/L (0-10); CORD BLOOD GAS HCO3 7.7 mmol/L (2.5-3.5); CORD BLOOD GAS PCO2 21 mm/Hg (49-57)
[2018-03-24 19:57] LABS: BF GROSS APPEARANCE CLOUDY (CLEAR); BODY FLUID MONO/MACROPHAGE 10 % (0-0); BODY FLUID TOTAL COUNT 100 (0-0)
--- NOTE | 2018-03-25 05:35 | CP.PCM.CON ---
History of Present Illness - History of Present Illness History of Present Illness: CT Surgery Consult Note for Dr. Gold CC: Persistent effusion This is a 32M with a PMH of DM who presented for cellulitis that began 2 weeks ago. On admission his first CXR and CT scan were clear of lung pathology however on he developed right sided infiltrates followed by a right sided effusion. IR attempted draining the effusion however they were only able to produce 60cc. PMHx: DM, seizures Surgeries: none Allergies: none Medications: Metformin Social hx: denies etoh, tobacco, occasional marijuana use Review of Systems - Review of Systems All systems: reviewed and no additional remarkable complaints except Review of Systems: Pain from his rash, SOB off [place] Past Patient History - Infectious Disease Hx of Infectious Diseases: None - Past Social History Smoking Status: Never Smoked - CARDIAC Hx Hypertension: Yes - NEUROLOGICAL Hx Seizures: Yes (when he was much younger, last seizure more than 10 years ago) - ENDOCRINE/METABOLIC Hx Diabetes Mellitus Type 2: Yes - MUSCULOSKELETAL/RHEUMATOLOGICAL Hx Falls: No - PSYCHIATRIC Hx Substance Use: Yes (marijuana once in a while as per pt) - SURGICAL HISTORY Hx Surgeries: No - ANESTHESIA Hx Anesthesia: No Meds Allergies/Adverse Reactions: Allergies Allergy/AdvReac Type Severity Reaction Status Date / Time No Known Allergies Allergy Verified 03/21/18 01:57 - Medications Medications: Current Medications Acetaminophen (Tylenol 325mg Tab) 650 mg PO Q6 PRN PRN Reason: Pain, moderate (4-7) Last Admin: 03/22/18 23:38 Dose: 650 mg Gabapentin (Neurontin) 400 mg PO TID [facility] Last Admin: 03/24/18 17:58 Dose: 400 mg Heparin Sodium (Porcine) (Heparin) 5,000 units SC Q8 [facility] Last Admin: 03/24/18 05:22 Dose: Not Given Vancomycin HCl 1.25 gm/ Sodium (Chloride) 250 mls @ 166.7 mls/hr IVPB Q8H [facility]; Protocol Last Admin: 03/25/18 02:38 Dose: 166.7 mls/hr Insulin Aspart (Novolog) 0 unit SC ACHS [facility]; Protocol Last Admin: 03/24/18 22:08 Dose: 2 units Ketorolac Tromethamine (Toradol) 30 mg IVP Q6 PRN PRN Reason: Pain, moderate (4-7) Last Admin: 03/25/18 00:00 Dose: 30 mg Metoprolol Tartrate (Lopressor) 25 mg PO BID [facility] Last Admin: 03/24/18 18:00 Dose: 25 mg Morphine Sulfate (Morphine) 2 mg IVP Q6 PRN PRN Reason: Pain, severe (8-10) Last Admin: 03/25/18 02:39 Dose: 2 mg Pantoprazole Sodium (Protonix Ec Tab) 40 mg PO DAILY [facility] Last Admin: 03/24/18 10:32 Dose: 40 mg Physical Exam - Constitutional Additional comments: - Constitutional Appears: Non-toxic, No Acute Distress - Head Exam Head Exam: ATRAUMATIC, NORMAL INSPECTION - Eye Exam Eye Exam: EOMI, Normal appearance - Respiratory Exam Respiratory Exam: NORMAL BREATHING PATTERN. absent: Respiratory Distress - Cardiovascular Exam Cardiovascular Exam: Tachycardia - GI/Abdominal Exam GI & Abdominal Exam: Hernia (reducible umbilical hernia), Soft, Tenderness. absent: Distended, Firm, Guarding, Rebound, Rigid Additional comments: Tenderness over rash on right flank - Back Exam Additional comments: Mildly erythematous rash on right back extending around to right flank, does not cross midline, no vesicles, tender - Neurological Exam Neurological exam: Alert, CN II-XII Intact, Oriented x3 - Psychiatric Exam Psychiatric exam: Normal Affect, Normal Mood - Skin Skin Exam: Dry, Erythema, Rash, Warm Results - Vital Signs Recent Vital Signs: Last Vital Signs Temp 99.9 F H 03/24/18 04:00 Pulse 123 H 03/25/18 04:10 Resp 18 03/25/18 03:00 BP 135/69 03/25/18 02:03 Pulse Ox 94 L 03/25/18 03:00 - Labs Result Diagrams: 03/24/18 04:16 03/24/18 04:16 Labs: Laboratory Results - last 24 hr 03/21/18 03/24/18 03/24/18 15:45 07:29 11:22 Cord Blood pH Cord Blood PCO2 Cord Blood PO2 Cord Blood HCO3 Cord Base Excess POC Glucose (mg/dL) 289 H 251 H Fluid Source Fluid Appearance Fluid WBC Fluid RBC Fluid Tot Cell Count Fluid Neutrophils Fluid Lymphocytes Fld Monocyte/Macrophag Fluid Comment Herpes Simplex DNA PCR Not detected 03/24/18 03/24/18 03/24/18 16:12 17:19 18:25 Cord Blood pH 7.080 L* Cord Blood PCO2 21 L* Cord Blood PO2 185.0 H Cord Blood HCO3 7.7 H Cord Base Excess -22.1 L POC Glucose (mg/dL) 280 H Fluid Source Pleural/thoracentesi Fluid Appearance Cloudy Fluid WBC 5992.0 H Fluid RBC 669.0 H Fluid Tot Cell Count 100 H Fluid Neutrophils 74.0 H Fluid Lymphocytes 16.0 H Fld Monocyte/Macrophag 10 H Fluid Comment Yellow Herpes Simplex DNA PCR 03/24/18 21:14 Cord Blood pH Cord Blood PCO2 Cord Blood PO2 Cord Blood HCO3 Cord Base Excess POC Glucose (mg/dL) 347 H Fluid Source Fluid Appearance Fluid WBC Fluid RBC Fluid Tot Cell Count Fluid Neutrophils Fluid Lymphocytes Fld Monocyte/Macrophag Fluid Comment Herpes Simplex DNA PCR Assessment & Plan - Assessment and Plan (Free Text) Assessment: 32M with a loculated effusion possible empyema NPO Type and screen Will likely need VATS with Decortication D/W Dr. Asif Funk PGY3
[2018-03-25 06:09] LABS: BASO % 0.4 % (0.0-2.0); EOS # 0.1 K/uL (0.0-0.7); HEMOGLOBIN 11.2 g/dL (12.0-18.0); LYMPH # 1.4 K/uL (1.0-4.3); LYMPH % 12.1 % (20.0-40.0); MEAN CORPUSCULAR HEMOGLOBIN 28.7 pg (27.0-31.0); MEAN CORPUSCULAR HGB CONC 34.2 g/dL (33.0-37.0); MEAN PLATELET VOLUME 8.5 fL (7.2-11.7); MONO # 1.6 K/uL (0.0-0.8); MONO % 13.9 % (0.0-10.0); NEUT # 8.6 K/uL (1.8-7.0); NEUT % 72.6 % (50.0-75.0); NRBC % 0.1 % (0.0-2.0); RBC 3.91 Mil/uL (4.40-5.90); RED CELL DISTRIBUTION WIDTH 12.3 % (11.5-14.5); WHITE BLOOD COUNT 11.8 K/uL (4.8-10.8)
[2018-03-25 06:17] LABS: INR 1.3; PROTHROMBIN TIME 14.3 SECONDS (9.7-12.2)
[2018-03-25 06:30] LABS: ALBUMIN 3.4 g/dL (3.5-5.0); ALT/SGPT 38 U/L (21-72); AST/SGOT 43 U/L (17-59); BLOOD UREA NITROGEN 13 mg/dL (9-20); CALCIUM 8.8 mg/dl (8.6-10.4); GFR NON-AFRICAN AMERICAN > 60
[2018-03-25] MEDS: (Novolog) Insulin Aspart, Recombinant 100 u/ml 10 ml vial SC SCH ×4 (07:30→22:34)
--- NOTE | 2018-03-25 07:42 | CP.PCM.CON ---
History of Present Illness - History of Present Illness History of Present Illness: Reason For Consultation: Endocarditis 32 yo M with PMHx of DM presents to the ED with right flank/back pain. The pain began a week ago. On 03/19, he came to the ED with right rib pain that was worse with movement. Labs were normal. He was discharged home with chest wall muscle strain and Rx for gabapentin, ultram, and methocarbamol. Then, a rash began on the right flank and right back yesterday. Pt returned to the ED with pain that was unrelieved by previously prescribed medications as well as the new rash. Pt denies any trauma, insect bites. Never had a rash like this before. PMHx: DM, seizures Surgeries: none Allergies: none Medications: Metformin Social hx: denies etoh, tobacco, occasional marijuana use Physical Exam - Constitutional Appears: Non-toxic, No Acute Distress - Head Exam Head Exam: ATRAUMATIC, NORMAL INSPECTION - Eye Exam Eye Exam: EOMI, Normal appearance - Respiratory Exam Respiratory Exam: NORMAL BREATHING PATTERN. absent: Respiratory Distress - Cardiovascular Exam Cardiovascular Exam: Tachycardia - GI/Abdominal Exam GI & Abdominal Exam: Hernia (reducible umbilical hernia), Soft, Tenderness. absent: Distended, Firm, Guarding, Rebound, Rigid Additional comments: Tenderness over rash on right flank - Back Exam Additional comments: Mildly erythematous rash on right back extending around to right flank, does not cross midline, no vesicles, tender - Neurological Exam Neurological exam: Alert, CN II-XII Intact, Oriented x3 - Psychiatric Exam Psychiatric exam: Normal Affect, Normal Mood - Skin Skin Exam: Dry, Erythema, Rash, Warm Assessment & Plan - Assessment and Plan (Free Text) Assessment: 32 yo M with PMHx of DM presents to the ED with right flank/back pain who was found to have cellulitis, rule out necrotizing fasciitis vs shingles Positive Blood cultures - IV Antibiotics - Valtrex for possible Shingles - Unlikely necrotizing fasciitis For DEREK tomorrow Past Patient History - Infectious Disease Hx of Infectious Diseases: None - Past Social History Smoking Status: Never Smoked - CARDIAC Hx Hypertension: Yes - NEUROLOGICAL Hx Seizures: Yes (when he was much younger, last seizure more than 10 years ago) - ENDOCRINE/METABOLIC Hx Diabetes Mellitus Type 2: Yes - MUSCULOSKELETAL/RHEUMATOLOGICAL Hx Falls: No - PSYCHIATRIC Hx Substance Use: Yes (marijuana once in a while as per pt) - SURGICAL HISTORY Hx Surgeries: No - ANESTHESIA Hx Anesthesia: No Meds Allergies/Adverse Reactions: Allergies Allergy/AdvReac Type Severity Reaction Status Date / Time No Known Allergies Allergy Verified 03/21/18 01:57 - Medications Medications: Current Medications Acetaminophen (Tylenol 325mg Tab) 650 mg PO Q6 PRN PRN Reason: Pain, moderate (4-7) Last Admin: 03/22/18 23:38 Dose: 650 mg Gabapentin (Neurontin) [address] [facility] Last Admin: 03/24/18 17:58 Dose: 400 mg Heparin Sodium (Porcine) (Heparin) 5,[address] [facility] Last Admin: 03/24/18 05:22 Dose: Not Given Vancomycin HCl 1.25 gm/ Sodium (Chloride) 250 mls @ 166.7 mls/hr IVPB Q8H [facility]; Protocol Last Admin: 03/25/18 02:38 Dose: 166.7 mls/hr Insulin Aspart (Novolog) [address] [facility]; Protocol Last Admin: 03/24/18 22:08 Dose: 2 units Ketorolac Tromethamine (Toradol) 30 mg IVP Q6 PRN PRN Reason: Pain, moderate (4-7) Last Admin: 03/25/18 05:55 Dose: 30 mg Metoprolol Tartrate (Lopressor) [address] [facility] Last Admin: 03/24/18 18:00 Dose: 25 mg Morphine Sulfate (Morphine) 2 mg IVP Q6 PRN PRN Reason: Pain, severe (8-10) Last Admin: 03/25/18 02:39 Dose: 2 mg Pantoprazole Sodium (Protonix Ec Tab) [address] [facility] Last Admin: 03/24/18 10:32 Dose: 40 mg Results - Vital Signs Recent Vital Signs: Last Vital Signs Temp 99.9 F H 03/24/18 04:00 Pulse 120 H 03/25/18 05:00 Resp 28 H 03/25/18 05:00 BP 135/69 03/25/18 02:03 Pulse Ox 95 03/25/18 05:00 - Labs Result Diagrams: 03/25/18 06:01 03/25/18 06:01 Labs: Laboratory Results - last 24 hr 03/21/18 03/24/18 03/24/18 15:45 07:29 11:22 WBC RBC Hgb Hct MCV MCH MCHC RDW Plt Count MPV Neut % (Auto) Lymph % (Auto) Moca % (Auto) Eos % (Auto) Baso % (Auto) Neut # (Auto) Lymph # (Auto) Moca # (Auto) Eos # (Auto) Baso # (Auto) PT INR APTT Cord Blood pH Cord Blood PCO2 Cord Blood PO2 Cord Blood HCO3 Cord Base Excess Sodium Potassium Chloride Carbon Dioxide Anion Gap BUN Creatinine Est GFR ( Amer) Est GFR (Non-Af Amer) POC Glucose (mg/dL) 289 H 251 H Random Glucose Calcium Phosphorus Magnesium Total Bilirubin AST ALT Alkaline Phosphatase Total Protein Albumin Globulin Albumin/Globulin Ratio Fluid Source Fluid Appearance Fluid WBC Fluid RBC Fluid Tot Cell Count Fluid Neutrophils Fluid Lymphocytes Fld Monocyte/Macrophag Fluid Comment Herpes Simplex DNA PCR Not detected 03/24/18 03/24/18 03/24/18 16:12 17:19 18:25 WBC RBC Hgb Hct MCV MCH MCHC RDW Plt Count MPV Neut % (Auto) Lymph % (Auto) Moca % (Auto) Eos % (Auto) Baso % (Auto) Neut # (Auto) Lymph # (Auto) Moca # (Auto) Eos # (Auto) Baso # (Auto) PT INR APTT Cord Blood pH 7.080 L* Cord Blood PCO2 21 L* Cord Blood PO2 185.0 H Cord Blood HCO3 7.7 H Cord Base Excess -22.1 L Sodium Potassium Chloride Carbon Dioxide Anion Gap BUN Creatinine Est GFR ( Amer) Est GFR (Non-Af Amer) POC Glucose (mg/dL) 280 H Random Glucose Calcium Phosphorus Magnesium Total Bilirubin AST ALT Alkaline Phosphatase Total Protein Albumin Globulin Albumin/Globulin Ratio Fluid Source Pleural/thoracentesi Fluid Appearance Cloudy Fluid WBC 5992.0 H Fluid RBC 669.0 H Fluid Tot Cell Count 100 H Fluid Neutrophils 74.0 H Fluid Lymphocytes 16.0 H Fld Monocyte/Macrophag 10 H Fluid Comment Yellow Herpes Simplex DNA PCR 03/24/18 03/25/18 03/25/18 21:14 06:01 06:01 WBC 11.8 H RBC 3.91 L Hgb 11.2 L Hct 32.9 L MCV 84.0 MCH 28.7 MCHC 34.2 RDW 12.3 Plt Count 366 MPV 8.5 Neut % (Auto) 72.6 Lymph % (Auto) 12.1 L Moca % (Auto) 13.9 H Eos % (Auto) 1.0 Baso % (Auto) 0.4 Neut # (Auto) 8.6 H Lymph # (Auto) 1.4 Moca # (Auto) 1.6 H Eos # (Auto) 0.1 Baso # (Auto) 0.0 PT 14.3 H INR 1.3 APTT 31 Cord Blood pH Cord Blood PCO2 Cord Blood PO2 Cord Blood HCO3 Cord Base Excess Sodium Potassium Chloride Carbon Dioxide Anion Gap BUN Creatinine Est GFR ( Amer) Est GFR (Non-Af Amer) POC Glucose (mg/dL) 347 H Random Glucose Calcium Phosphorus Magnesium Total Bilirubin AST ALT Alkaline Phosphatase Total Protein Albumin Globulin Albumin/Globulin Ratio Fluid Source Fluid Appearance Fluid WBC Fluid RBC Fluid Tot Cell Count Fluid Neutrophils Fluid Lymphocytes Fld Monocyte/Macrophag Fluid Comment Herpes Simplex DNA PCR 03/25/18 03/25/18 06:01 07:27 WBC RBC Hgb Hct MCV MCH MCHC RDW Plt Count MPV Neut % (Auto) Lymph % (Auto) Moca % (Auto) Eos % (Auto) Baso % (Auto) Neut # (Auto) Lymph # (Auto) Moca # (Auto) Eos # (Auto) Baso # (Auto) PT INR APTT Cord Blood pH Cord Blood PCO2 Cord Blood PO2 Cord Blood HCO3 Cord Base Excess Sodium 135 Potassium 3.9 Chloride 98 Carbon Dioxide 25 Anion Gap 15 BUN 13 Creatinine 0.7 L Est GFR ( Amer) > 60 Est GFR (Non-Af Amer) > 60 POC Glucose (mg/dL) 267 H Random Glucose 314 H Calcium 8.8 Phosphorus 3.4 Magnesium 2.0 Total Bilirubin 0.7 AST 43 ALT 38 Alkaline Phosphatase 235 H Total Protein 7.0 Albumin 3.4 L Globulin 3.6 Albumin/Globulin Ratio 1.0 Fluid Source Fluid Appearance Fluid WBC Fluid RBC Fluid Tot Cell Count Fluid Neutrophils Fluid Lymphocytes Fld Monocyte/Macrophag Fluid Comment Herpes Simplex DNA PCR
[2018-03-25] MEDS ORDERED: HYDROmorphone 1 mg/ml ISec IVP STA (07:49)
--- NOTE | 2018-03-25 07:54 | CP.CCUPN ---
<Dian Zuleta - Last Filed: 03/25/18 13:31> CCU Subjective - Physician Review Events Since Last Encounter (Free Text): 03/25/18 07:53 no over night events Subjective (Free Text): 03/25/18 07:53 Patient was seen and examined this morning. He appears comfortable but is still complaining of pain. He is not in respiratory distress. Saturating well on NC. Critical Care Time Spent (in minutes): 35 CCU Objective - Vital Signs / Intake & Output Vital Signs (Last 4 hours): Vital Signs Pulse Resp Pulse Ox 03/25/18 05:00 120 H 28 H 95 03/25/18 04:10 123 H Intake and Output (Last 8hrs): Intake & Output 03/24/18 03/25/18 03/25/18 22:59 06:59 14:59 Intake Total 1160 250 Output Total 1450 500 Balance -290 -250 Intake: Intake, IV Amount 250 250 Left Forearm 250 Right Hand 250 Oral 910 0 Output: Urine 1450 500 Urine, Voided 1450 500 Other: # Voids Urine, Voided 2 1 - Physical Exam Head: Positive for: Atraumatic, Normocephalic Pupils: Positive for: PERRL Extroacular Muscles: Positive for: EOMI Conjunctiva: Positive for: Normal Mouth: Positive for: Moist Mucous Membranes Nose (Internal): Positive for: Normal Inspection Respiratory/Chest: Positive for: Decreased Breath Sounds (R>L), Tachypneic. Negative for: Respiratory Distress, Accessory Muscle Use, Retracting Cardiovascular: Positive for: Normal S1, S2, Tachycardic. Negative for: Murmurs Abdomen: Negative for: Tenderness, Distention, Peritoneal Signs Back: Positive for: Other (no lesions observed) Neurological: Positive for: GCS=15, CN II-XII Intact Skin: Positive for: Warm, Dry, Normal Color. Negative for: Rashes Psychiatric: Positive for: Alert, Oriented x 3 - Medications Active Medications: Active Medications Generic Name Dose Route Start Last Admin Trade Name Freq PRN Reason Stop Dose Admin Acetaminophen 650 mg 03/22/18 21:49 03/22/18 23:38 Tylenol 325mg Tab PO 650 mg Q6 PRN Administration Pain, moderate (4-7) Gabapentin 400 mg 03/21/18 18:00 03/24/18 17:58 Neurontin PO 400 mg TID [facility] Administration Heparin Sodium (Porcine) 5,000 units 03/23/18 14:00 03/24/18 05:22 Heparin SC Not Given Q8 [facility] Hydromorphone HCl 1 mg 03/25/18 07:49 Dilaudid IVP 03/25/18 07:50 STAT STA Vancomycin HCl 1.25 gm/ Sodium 250 mls @ 166.7 mls/hr 03/24/18 11:30 03/25/18 02:38 Chloride IVPB 166.7 mls/hr Q8H [facility] Administration Protocol Insulin Aspart 0 unit 03/22/18 22:00 03/24/18 22:08 Novolog SC 2 units ACHS [facility] Administration Protocol Ketorolac Tromethamine 30 mg 03/24/18 17:19 03/25/18 05:00 Toradol IVP 30 mg Q6 PRN Administration Pain, moderate (4-7) Metoprolol Tartrate 25 mg 03/22/18 10:00 03/24/18 18:00 Lopressor PO 25 mg BID [facility] Administration Morphine Sulfate 2 mg 03/24/18 10:44 03/25/18 02:39 Morphine IVP 2 mg Q6 PRN Administration Pain, severe (8-10) Pantoprazole Sodium 40 mg 03/23/18 11:30 03/24/18 10:32 Protonix Ec Tab PO 40 mg DAILY [facility] Administration - Patient Studies Lab Studies: Microbiology Studies 03/24/18 17:19 Gram Stain - Final Thoracic Fluid 03/22/18 17:00 Blood Culture - Preliminary Blood NO GROWTH AFTER 48 HOURS 03/22/18 16:30 Blood Culture - Preliminary Blood NO GROWTH AFTER 48 HOURS 03/22/18 14:19 Urine Culture - Final Urine No Growth (<1,000 CFU/ML) Lab Studies 03/25/18 03/25/18 03/25/18 Range/Units 07:27 06:01 06:01 WBC (4.8-10.8) K/uL RBC (4.40-5.90) Mil/uL Hgb (12.0-18.0) g/dL Hct (35.0-51.0) % MCV (80.0-94.0) fL MCH (27.0-31.0) pg MCHC (33.0-37.0) g/dL RDW (11.5-14.5) % Plt Count (130-400) K/uL MPV (7.2-11.7) fL Neut % (Auto) (50.0-75.0) % Lymph % (Auto) (20.0-40.0) % [place] % (Auto) (0.0-10.0) % Eos % (Auto) (0.0-4.0) % Baso % (Auto) (0.0-2.0) % Neut # (Auto) (1.8-7.0) K/uL Lymph # (Auto) (1.0-4.3) K/uL [place] # (Auto) (0.0-0.8) K/uL Eos # (Auto) (0.0-0.7) K/uL Baso # (Auto) (0.0-0.2) K/uL PT 14.3 H (9.7-12.2) SECONDS INR 1.3 APTT 31 (21-34) SECONDS Cord Blood pH (7.350-7.450) Cord Blood PCO2 (49-57) mm/Hg Cord Blood PO2 (18.0-24.2) mm/Hg Cord Blood HCO3 (2.5-3.5) mmol/L Cord Base Excess (0-10) mmol/L Sodium 135 (132-148) mmol/L Potassium 3.9 (3.6-5.2) mmol/L Chloride 98 (98-107) mmol/L Carbon Dioxide 25 (22-30) mmol/L Anion Gap 15 (10-20) BUN 13 (9-20) mg/dL Creatinine 0.7 L (0.8-1.5) mg/dL Est GFR ( Amer) > 60 Est GFR (Non-Af Amer) > 60 POC Glucose (mg/dL) 267 H (65-110) mg/dL Random Glucose 314 H (75-110) mg/dL Calcium 8.8 (8.6-10.4) mg/dl Phosphorus 3.4 (2.5-4.5) mg/dL Magnesium 2.0 (1.6-2.3) mg/dL Total Bilirubin 0.7 (0.2-1.3) mg/dL AST 43 (17-59) U/L ALT 38 (21-72) U/L Alkaline Phosphatase 235 H (38-126) U/L Total Protein 7.0 (6.3-8.3) g/dL Albumin 3.4 L (3.5-5.0) g/dL Globulin 3.6 (2.2-3.9) gm/dL Albumin/Globulin Ratio 1.0 (1.0-2.1) Fluid Source Fluid Appearance (CLEAR) Fluid WBC (0.0-300.0) /mm3 Fluid RBC (0.0-0.0) /mm3 Fluid Tot Cell Count (0-0) Fluid Neutrophils (0-0) % Fluid Lymphocytes (0-0) % Fld Monocyte/Macrophag (0-0) % Fluid Comment Herpes Simplex DNA PCR (Not Detected) 03/25/18 03/24/18 03/24/18 Range/Units 06:01 21:14 18:25 WBC 11.8 H (4.8-10.8) K/uL RBC 3.91 L (4.40-5.90) Mil/uL Hgb 11.2 L (12.0-18.0) g/dL Hct 32.9 L (35.0-51.0) % MCV 84.0 (80.0-94.0) fL MCH 28.7 (27.0-31.0) pg MCHC 34.2 (33.0-37.0) g/dL RDW 12.3 (11.5-14.5) % Plt Count 366 (130-400) K/uL MPV 8.5 (7.2-11.7) fL Neut % (Auto) 72.6 (50.0-75.0) % Lymph % (Auto) 12.1 L (20.0-40.0) % [place] % (Auto) 13.9 H (0.0-10.0) % Eos % (Auto) 1.0 (0.0-4.0) % Baso % (Auto) 0.4 (0.0-2.0) % Neut # (Auto) 8.6 H (1.8-7.0) K/uL Lymph # (Auto) 1.4 (1.0-4.3) K/uL [place] # (Auto) 1.6 H (0.0-0.8) K/uL Eos # (Auto) 0.1 (0.0-0.7) K/uL Baso # (Auto) 0.0 (0.0-0.2) K/uL PT (9.7-12.2) SECONDS INR APTT (21-34) SECONDS Cord Blood pH 7.080 L* (7.350-7.450) Cord Blood PCO2 21 L* (49-57) mm/Hg Cord Blood PO2 185.0 H (18.0-24.2) mm/Hg Cord Blood HCO3 7.7 H (2.5-3.5) mmol/L Cord Base Excess -22.1 L (0-10) mmol/L Sodium (132-148) mmol/L Potassium (3.6-5.2) mmol/L Chloride (98-107) mmol/L Carbon Dioxide (22-30) mmol/L Anion Gap (10-20) BUN (9-20) mg/dL Creatinine (0.8-1.5) mg/dL Est GFR ( Amer) Est GFR (Non-Af Amer) POC Glucose (mg/dL) 347 H (65-110) mg/dL Random Glucose (75-110) mg/dL Calcium (8.6-10.4) mg/dl Phosphorus (2.5-4.5) mg/dL Magnesium (1.6-2.3) mg/dL Total Bilirubin (0.2-1.3) mg/dL AST (17-59) U/L ALT (21-72) U/L Alkaline Phosphatase (38-126) U/L Total Protein (6.3-8.3) g/dL Albumin (3.5-5.0) g/dL Globulin (2.2-3.9) gm/dL Albumin/Globulin Ratio (1.0-2.1) Fluid Source Fluid Appearance (CLEAR) Fluid WBC (0.0-300.0) /mm3 Fluid RBC (0.0-0.0) /mm3 Fluid Tot Cell Count (0-0) Fluid Neutrophils (0-0) % Fluid Lymphocytes (0-0) % Fld Monocyte/Macrophag (0-0) % Fluid Comment Herpes Simplex DNA PCR (Not Detected) 03/24/18 03/24/18 03/24/18 Range/Units 17:19 16:12 11:22 WBC (4.8-10.8) K/uL RBC (4.40-5.90) Mil/uL Hgb (12.0-18.0) g/dL Hct (35.0-51.0) % MCV (80.0-94.0) fL MCH (27.0-31.0) pg MCHC (33.0-37.0) g/dL RDW (11.5-14.5) % Plt Count (130-400) K/uL MPV (7.2-11.7) fL Neut % (Auto) (50.0-75.0) % Lymph % (Auto) (20.0-40.0) % [place] % (Auto) (0.0-10.0) % Eos % (Auto) (0.0-4.0) % Baso % (Auto) (0.0-2.0) % Neut # (Auto) (1.8-7.0) K/uL Lymph # (Auto) (1.0-4.3) K/uL [place] # (Auto) (0.0-0.8) K/uL Eos # (Auto) (0.0-0.7) K/uL Baso # (Auto) (0.0-0.2) K/uL PT (9.7-12.2) SECONDS INR APTT (21-34) SECONDS Cord Blood pH (7.350-7.450) Cord Blood PCO2 (49-57) mm/Hg Cord Blood PO2 (18.0-24.2) mm/Hg Cord Blood HCO3 (2.5-3.5) mmol/L Cord Base Excess (0-10) mmol/L Sodium (132-148) mmol/L Potassium (3.6-5.2) mmol/L Chloride (98-107) mmol/L Carbon Dioxide (22-30) mmol/L Anion Gap (10-20) BUN (9-20) mg/dL Creatinine (0.8-1.5) mg/dL Est GFR ( Amer) Est GFR (Non-Af Amer) POC Glucose (mg/dL) 280 H 251 H (65-110) mg/dL Random Glucose (75-110) mg/dL Calcium (8.6-10.4) mg/dl Phosphorus (2.5-4.5) mg/dL Magnesium (1.6-2.3) mg/dL Total Bilirubin (0.2-1.3) mg/dL AST (17-59) U/L ALT (21-72) U/L Alkaline Phosphatase (38-126) U/L Total Protein (6.3-8.3) g/dL Albumin (3.5-5.0) g/dL Globulin (2.2-3.9) gm/dL Albumin/Globulin Ratio (1.0-2.1) Fluid Source Pleural/thoracentesi Fluid Appearance Cloudy (CLEAR) Fluid WBC 5992.0 H (0.0-300.0) /mm3 Fluid RBC 669.0 H (0.0-0.0) /mm3 Fluid Tot Cell Count 100 H (0-0) Fluid Neutrophils 74.0 H (0-0) % Fluid Lymphocytes 16.0 H (0-0) % Fld Monocyte/Macrophag 10 H (0-0) % Fluid Comment Yellow Herpes Simplex DNA PCR (Not Detected) 03/24/18 03/21/18 Range/Units 07:29 15:45 WBC (4.8-10.8) K/uL RBC (4.40-5.90) Mil/uL Hgb (12.0-18.0) g/dL Hct (35.0-51.0) % MCV (80.0-94.0) fL MCH (27.0-31.0) pg MCHC (33.0-37.0) g/dL RDW (11.5-14.5) % Plt Count (130-400) K/uL MPV (7.2-11.7) fL Neut % (Auto) (50.0-75.0) % Lymph % (Auto) (20.0-40.0) % [place] % (Auto) (0.0-10.0) % Eos % (Auto) (0.0-4.0) % Baso % (Auto) (0.0-2.0) % Neut # (Auto) (1.8-7.0) K/uL Lymph # (Auto) (1.0-4.3) K/uL [place] # (Auto) (0.0-0.8) K/uL Eos # (Auto) (0.0-0.7) K/uL Baso # (Auto) (0.0-0.2) K/uL PT (9.7-12.2) SECONDS INR APTT (21-34) SECONDS Cord Blood pH (7.350-7.450) Cord Blood PCO2 (49-57) mm/Hg Cord Blood PO2 (18.0-24.2) mm/Hg Cord Blood HCO3 (2.5-3.5) mmol/L Cord Base Excess (0-10) mmol/L Sodium (132-148) mmol/L Potassium (3.6-5.2) mmol/L Chloride (98-107) mmol/L Carbon Dioxide (22-30) mmol/L Anion Gap (10-20) BUN (9-20) mg/dL Creatinine (0.8-1.5) mg/dL Est GFR ( Amer) Est GFR (Non-Af Amer) POC Glucose (mg/dL) 289 H (65-110) mg/dL Random Glucose (75-110) mg/dL Calcium (8.6-10.4) mg/dl Phosphorus (2.5-4.5) mg/dL Magnesium (1.6-2.3) mg/dL Total Bilirubin (0.2-1.3) mg/dL AST (17-59) U/L ALT (21-72) U/L Alkaline Phosphatase (38-126) U/L Total Protein (6.3-8.3) g/dL Albumin (3.5-5.0) g/dL Globulin (2.2-3.9) gm/dL Albumin/Globulin Ratio (1.0-2.1) Fluid Source Fluid Appearance (CLEAR) Fluid WBC (0.0-300.0) /mm3 Fluid RBC (0.0-0.0) /mm3 Fluid Tot Cell Count (0-0) Fluid Neutrophils (0-0) % Fluid Lymphocytes (0-0) % Fld Monocyte/Macrophag (0-0) % Fluid Comment Herpes Simplex DNA PCR Not detected (Not Detected) Laboratory Results - last 24 hr 03/21/18 03/24/18 03/24/18 15:45 07:29 11:22 WBC RBC Hgb Hct MCV MCH MCHC RDW Plt Count MPV Neut % (Auto) Lymph % (Auto) [place] % (Auto) Eos % (Auto) Baso % (Auto) Neut # (Auto) Lymph # (Auto) [place] # (Auto) Eos # (Auto) Baso # (Auto) PT INR APTT Cord Blood pH Cord Blood PCO2 Cord Blood PO2 Cord Blood HCO3 Cord Base Excess Sodium Potassium Chloride Carbon Dioxide Anion Gap BUN Creatinine Est GFR ( Amer) Est GFR (Non-Af Amer) POC Glucose (mg/dL) 289 H 251 H Random Glucose Calcium Phosphorus Magnesium Total Bilirubin AST ALT Alkaline Phosphatase Total Protein Albumin Globulin Albumin/Globulin Ratio Fluid Source Fluid Appearance Fluid WBC Fluid RBC Fluid Tot Cell Count Fluid Neutrophils Fluid Lymphocytes Fld Monocyte/Macrophag Fluid Comment Herpes Simplex DNA PCR Not detected 03/24/18 03/24/18 03/24/18 16:12 17:19 18:25 WBC RBC Hgb Hct MCV MCH MCHC RDW Plt Count MPV Neut % (Auto) Lymph % (Auto) [place] % (Auto) Eos % (Auto) Baso % (Auto) Neut # (Auto) Lymph # (Auto) [place] # (Auto) Eos # (Auto) Baso # (Auto) PT INR APTT Cord Blood pH 7.080 L* Cord Blood PCO2 21 L* Cord Blood PO2 185.0 H Cord Blood HCO3 7.7 H Cord Base Excess -22.1 L Sodium Potassium Chloride Carbon Dioxide Anion Gap BUN Creatinine Est GFR ( Amer) Est GFR (Non-Af Amer) POC Glucose (mg/dL) 280 H Random Glucose Calcium Phosphorus Magnesium Total Bilirubin AST ALT Alkaline Phosphatase Total Protein Albumin Globulin Albumin/Globulin Ratio Fluid Source Pleural/thoracentesi Fluid Appearance Cloudy Fluid WBC 5992.0 H Fluid RBC 669.0 H Fluid Tot Cell Count 100 H Fluid Neutrophils 74.0 H Fluid Lymphocytes 16.0 H Fld Monocyte/Macrophag 10 H Fluid Comment Yellow Herpes Simplex DNA PCR 03/24/18 03/25/18 03/25/18 21:14 06:01 06:01 WBC 11.8 H RBC 3.91 L Hgb 11.2 L Hct 32.9 L MCV 84.0 MCH 28.7 MCHC 34.2 RDW 12.3 Plt Count 366 MPV 8.5 Neut % (Auto) 72.6 Lymph % (Auto) 12.1 L [place] % (Auto) 13.9 H Eos % (Auto) 1.0 Baso % (Auto) 0.4 Neut # (Auto) 8.6 H Lymph # (Auto) 1.4 [place] # (Auto) 1.6 H Eos # (Auto) 0.1 Baso # (Auto) 0.0 PT 14.3 H INR 1.3 APTT 31 Cord Blood pH Cord Blood PCO2 Cord Blood PO2 Cord Blood HCO3 Cord Base Excess Sodium Potassium Chloride Carbon Dioxide Anion Gap BUN Creatinine Est GFR ( Amer) Est GFR (Non-Af Amer) POC Glucose (mg/dL) 347 H Random Glucose Calcium Phosphorus Magnesium Total Bilirubin AST ALT Alkaline Phosphatase Total Protein Albumin Globulin Albumin/Globulin Ratio Fluid Source Fluid Appearance Fluid WBC Fluid RBC Fluid Tot Cell Count Fluid Neutrophils Fluid Lymphocytes Fld Monocyte/Macrophag Fluid Comment Herpes Simplex DNA PCR 03/25/18 03/25/18 06:01 07:27 WBC RBC Hgb Hct MCV MCH MCHC RDW Plt Count MPV Neut % (Auto) Lymph % (Auto) [place] % (Auto) Eos % (Auto) Baso % (Auto) Neut # (Auto) Lymph # (Auto) [place] # (Auto) Eos # (Auto) Baso # (Auto) PT INR APTT Cord Blood pH Cord Blood PCO2 Cord Blood PO2 Cord Blood HCO3 Cord Base Excess Sodium 135 Potassium 3.9 Chloride 98 Carbon Dioxide 25 Anion Gap 15 BUN 13 Creatinine 0.7 L Est GFR ( Amer) > 60 Est GFR (Non-Af Amer) > 60 POC Glucose (mg/dL) 267 H Random Glucose 314 H Calcium 8.8 Phosphorus 3.4 Magnesium 2.0 Total Bilirubin 0.7 AST 43 ALT 38 Alkaline Phosphatase 235 H Total Protein 7.0 Albumin 3.4 L Globulin 3.6 Albumin/Globulin Ratio 1.0 Fluid Source Fluid Appearance Fluid WBC Fluid RBC Fluid Tot Cell Count Fluid Neutrophils Fluid Lymphocytes Fld Monocyte/Macrophag Fluid Comment Herpes Simplex DNA PCR Fingerstick Blood Sugar Results: 347 Review of Systems - Review of Systems All systems: reviewed and no additional remarkable complaints except - Constitutional Constitutional: absent: Fever, Chills, Sweats - EENT Eyes: UNREMARKABLE Ears: UNREMARKABLE Nose/Mouth/Throat: UNREMARKABLE - Cardiovascular Cardiovascular: UNREMARKABLE. absent: Chest Pain, Palpitations - Respiratory Respiratory: Dyspnea, Dyspnea on Exertion, Pain on Inspiration. absent: Cough - Gastrointestinal Gastrointestinal: UNREMARKABLE. absent: Abdominal Pain, Change in Bowel Habits, Nausea, Vomiting - Genitourinary Genitourinary: UNREMARKABLE. absent: Dysuria - Musculoskeletal Musculoskeletal: UNREMARKABLE - Integumentary Integumentary: UNREMARKABLE - Neurological Neurological: UNREMARKABLE - Psychiatric Psychiatric: UNREMARKABLE - Endocrine Endocrine: UNREMARKABLE - Hematologic/Lymphatic Hematologic: UNREMARKABLE Critical Care Progress Note - Extremities/Vascular Does the Patient have a Central Venous Catheter?: No Does the Patient need a Central Venous Catheter?: No Does the Patient have a Boothe Catheter?: No Does the Patient need a Boothe Catheter?: No - Prophylaxis GI Prophylaxis GI: PPI - Prophylaxis DVT Prophylaxis DVT: Heparin SQ - Nutrition Nutrition: Nutrition Category Date Time Status NPO Diet [DIET] Diets 03/24/18 Breakfast Active Assessment/Plan - Assessment and Plan (Free Text) Assessment: Patient is a 32 yo male with a history of T2DM and drug abuse who initially presented with low back pain. A [employer] was called for SOB and R-sided chest pain. He was transferred to ICU. He is saturating well on RA, still with pleuritc chest pain. CT revealed large loculated pleural effusion. R thoracentesis by IR 03/24- removed 60 cc, rec CT surgery. DEREK no vegetation. Plan for VATS tomorrow 03/26. Plan: Neuro: - No acute issues - Gabapentin 400 mg PO TID CV: - Sinus tachycardia- 2/2 pain - Metoprolol 25 mg PO BID - Monitor vitals - TTE: normal EF, no vegetation observed - DEREK: no vegetation - Cardiology consulted (Otoniel) Pulm: Empyema - CXR: moderate R pleural effusions with prominent R pulm infiltrates - CTA chest 03/22- no PE, moderate R pleural effusion with marked compression atelectasis, scattered b/l nodular infiltrates - Pleural fluid: pH 7.08, WBC 5992, 74 neutrophils, RBC 669 - Maintain spO2>92%- NC or BiPAP PRN - ABG wnl - Tylenol 650 mg PO Q6H PRN - Toradol 30 mg IV Q6H PRN - Morphine 2 mg IV Q6H PRN - Pulmonology consulted (Artur) - IR consulted (Leon)- R thoracentesis 03/24, 60 cc - CT surgery consulted (Asif)- VATS with decortication tomorrow 03/26 GI: - Diabetic diet - NPO after midnight : - I's & O's - Replete electrolytes PRN Endo: - A1c 12.4 - Maintain euglycemia - Hypoglycemic protocol - Accuchecks ACHS with ISS Heme: - Monitor H&H - D-dimer 649 - LE Dopplers: no DVT ID: Sepsis (MRSA bacteremia)- 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 Siddiqui. PGY-1 Dian Zuleta D.O. <Tian Siddiqui S - Last Filed: 03/25/18 17:32> CCU Objective - Vital Signs / Intake & Output Vital Signs (Last 4 hours): Vital Signs Temp Pulse Resp BP Pulse Ox 03/25/18 17:00 106 H 39 H 94 L 03/25/18 16:15 101 H 27 H 151/96 H 98 03/25/18 16:00 98.3 F 107 H 23 95 03/25/18 15:15 107 H 33 H 155/121 H 97 03/25/18 15:00 106 H 23 94 L 03/25/18 14:15 99 H 32 H 138/83 97 03/25/18 14:00 97 H 31 H 97 Intake and Output (Last 8hrs): Intake & Output 03/25/18 03/25/18 03/25/18 06:59 14:59 22:59 Intake Total 250 700 160 Output Total 500 800 800 Balance -250 -100 -640 Weight 286 lb 12.8 oz Intake: Intake, IV Amount 250 250 Left Forearm 250 0 Left Wrist 250 Oral 0 450 160 Output: Urine 500 800 800 Urine, Voided 500 800 800 Emesis 0 0 Other: # Voids Urine, Voided 1 # Bowel Movements 0 0 - Medications Active Medications: Active Medications Generic Name Dose Route Start Last Admin Trade Name Freq PRN Reason Stop Dose Admin Acetaminophen 650 mg 03/22/18 21:49 03/22/18 23:38 Tylenol 325mg Tab PO 650 mg Q6 PRN Administration Pain, moderate (4-7) Gabapentin 400 mg 03/21/18 18:00 03/25/18 15:00 Neurontin PO 400 mg TID JERED Administration Heparin Sodium (Porcine) 5,000 units 03/23/18 14:00 03/24/18 05:22 Heparin SC Not Given Q8 JERED Hydromorphone HCl 1 mg 03/25/18 16:47 03/25/18 17:15 Dilaudid IVP 1 mg Q4H PRN Administration Pain, severe (8-10) Vancomycin HCl 1.25 gm/ Sodium 250 mls @ 166.7 mls/hr 03/24/18 11:30 03/25/18 12:01 Chloride IVPB 166.7 mls/hr Q8H JERED Administration Protocol Insulin Aspart 0 unit 03/22/18 22:00 03/25/18 12:00 Novolog SC 4 units ACHS [facility] Administration Protocol Ketorolac Tromethamine 30 mg 03/24/18 17:19 03/25/18 10:45 Toradol IVP 30 mg Q6 PRN Administration Pain, moderate (4-7) Metoprolol Tartrate 25 mg 03/22/18 10:00 03/25/18 10:51 Lopressor PO 25 mg BID JERED Administration Pantoprazole Sodium 40 mg 03/23/18 11:30 03/25/18 10:51 Protonix Ec Tab PO 40 mg DAILY JERED Administration - Patient Studies Lab Studies: Microbiology Studies 03/22/18 16:30 Blood Culture - Preliminary Blood NO GROWTH AFTER 3 DAYS 03/24/18 09:04 Blood Culture - Preliminary Blood-Venous NO GROWTH AFTER 24 HOURS 03/24/18 09:04 Blood Culture - Preliminary Blood-Venous NO GROWTH AFTER 24 HOURS 03/24/18 17:19 Gram Stain - Final Thoracic Fluid 03/22/18 17:00 Blood Culture - Preliminary Blood NO GROWTH AFTER 48 HOURS Lab Studies 03/25/18 03/25/18 03/25/18 Range/Units 11:09 11:00 07:53 WBC (4.8-10.8) K/uL RBC (4.40-5.90) Mil/uL Hgb (12.0-18.0) g/dL Hct (35.0-51.0) % MCV (80.0-94.0) fL MCH (27.0-31.0) pg MCHC (33.0-37.0) g/dL RDW (11.5-14.5) % Plt Count (130-400) K/uL MPV (7.2-11.7) fL Neut % (Auto) (50.0-75.0) % Lymph % (Auto) (20.0-40.0) % [place] % (Auto) (0.0-10.0) % Eos % (Auto) (0.0-4.0) % Baso % (Auto) (0.0-2.0) % Neut # (Auto) (1.8-7.0) K/uL Lymph # (Auto) (1.0-4.3) K/uL [place] # (Auto) (0.0-0.8) K/uL Eos # (Auto) (0.0-0.7) K/uL Baso # (Auto) (0.0-0.2) K/uL PT (9.7-12.2) SECONDS INR APTT (21-34) SECONDS Cord Blood pH (7.350-7.450) Cord Blood PCO2 (49-57) mm/Hg Cord Blood PO2 (18.0-24.2) mm/Hg Cord Blood HCO3 (2.5-3.5) mmol/L Cord Base Excess (0-10) mmol/L Sodium (132-148) mmol/L Potassium (3.6-5.2) mmol/L Chloride (98-107) mmol/L Carbon Dioxide (22-30) mmol/L Anion Gap (10-20) BUN (9-20) mg/dL Creatinine (0.8-1.5) mg/dL Est GFR ( Amer) Est GFR (Non-Af Amer) POC Glucose (mg/dL) 274 H (65-110) mg/dL Random Glucose (75-110) mg/dL Calcium (8.6-10.4) mg/dl Phosphorus (2.5-4.5) mg/dL Magnesium (1.6-2.3) mg/dL Total Bilirubin (0.2-1.3) mg/dL AST (17-59) U/L ALT (21-72) U/L Alkaline Phosphatase (38-126) U/L Total Protein (6.3-8.3) g/dL Albumin (3.5-5.0) g/dL Globulin (2.2-3.9) gm/dL Albumin/Globulin Ratio (1.0-2.1) Fluid Appearance (CLEAR) Fluid WBC (0.0-300.0) /mm3 Fluid RBC (0.0-0.0) /mm3 Fluid Tot Cell Count (0-0) Fluid Neutrophils (0-0) % Fluid Lymphocytes (0-0) % Fld Monocyte/Macrophag (0-0) % Fluid Comment Vancomycin Trough < 5.0 L (5.0-10.0) ug/mL Oxycodone Screen Ur Oxycodone Comment Herpes Simplex DNA PCR (Not Detected) Mycoplasma pneumon IgG (<=0.90) Mycoplasma pneumon IgM (<770) U/mL Blood Type O POSITIVE Antibody Screen Negative 03/25/18 03/25/18 03/25/18 Range/Units 07:27 06:01 06:01 WBC (4.8-10.8) K/uL RBC (4.40-5.90) Mil/uL Hgb (12.0-18.0) g/dL Hct (35.0-51.0) % MCV (80.0-94.0) fL MCH (27.0-31.0) pg MCHC (33.0-37.0) g/dL RDW (11.5-14.5) % Plt Count (130-400) K/uL MPV (7.2-11.7) fL Neut % (Auto) (50.0-75.0) % Lymph % (Auto) (20.0-40.0) % [place] % (Auto) (0.0-10.0) % Eos % (Auto) (0.0-4.0) % Baso % (Auto) (0.0-2.0) % Neut # (Auto) (1.8-7.0) K/uL Lymph # (Auto) (1.0-4.3) K/uL [place] # (Auto) (0.0-0.8) K/uL Eos # (Auto) (0.0-0.7) K/uL Baso # (Auto) (0.0-0.2) K/uL PT 14.3 H (9.7-12.2) SECONDS INR 1.3 APTT 31 (21-34) SECONDS Cord Blood pH (7.350-7.450) Cord Blood PCO2 (49-57) mm/Hg Cord Blood PO2 (18.0-24.2) mm/Hg Cord Blood HCO3 (2.5-3.5) mmol/L Cord Base Excess (0-10) mmol/L Sodium 135 (132-148) mmol/L Potassium 3.9 (3.6-5.2) mmol/L Chloride 98 (98-107) mmol/L Carbon Dioxide 25 (22-30) mmol/L Anion Gap 15 (10-20) BUN 13 (9-20) mg/dL Creatinine 0.7 L (0.8-1.5) mg/dL Est GFR ( Amer) > 60 Est GFR (Non-Af Amer) > 60 POC Glucose (mg/dL) 267 H (65-110) mg/dL Random Glucose 314 H (75-110) mg/dL Calcium 8.8 (8.6-10.4) mg/dl Phosphorus 3.4 (2.5-4.5) mg/dL Magnesium 2.0 (1.6-2.3) mg/dL Total Bilirubin 0.7 (0.2-1.3) mg/dL AST 43 (17-59) U/L ALT 38 (21-72) U/L Alkaline Phosphatase 235 H (38-126) U/L Total Protein 7.0 (6.3-8.3) g/dL Albumin 3.4 L (3.5-5.0) g/dL Globulin 3.6 (2.2-3.9) gm/dL Albumin/Globulin Ratio 1.0 (1.0-2.1) Fluid Appearance (CLEAR) Fluid WBC (0.0-300.0) /mm3 Fluid RBC (0.0-0.0) /mm3 Fluid Tot Cell Count (0-0) Fluid Neutrophils (0-0) % Fluid Lymphocytes (0-0) % Fld Monocyte/Macrophag (0-0) % Fluid Comment Vancomycin Trough (5.0-10.0) ug/mL Oxycodone Screen Ur Oxycodone Comment Herpes Simplex DNA PCR (Not Detected) Mycoplasma pneumon IgG (<=0.90) Mycoplasma pneumon IgM (<770) U/mL Blood Type Antibody Screen 03/25/18 03/24/18 03/24/18 Range/Units 06:01 21:14 18:25 WBC 11.8 H (4.8-10.8) K/uL RBC 3.91 L (4.40-5.90) Mil/uL Hgb 11.2 L (12.0-18.0) g/dL Hct 32.9 L (35.0-51.0) % MCV 84.0 (80.0-94.0) fL MCH 28.7 (27.0-31.0) pg MCHC 34.2 (33.0-37.0) g/dL RDW 12.3 (11.5-14.5) % Plt Count 366 (130-400) K/uL MPV 8.5 (7.2-11.7) fL Neut % (Auto) 72.6 (50.0-75.0) % Lymph % (Auto) 12.1 L (20.0-40.0) % [place] % (Auto) 13.9 H (0.0-10.0) % Eos % (Auto) 1.0 (0.0-4.0) % Baso % (Auto) 0.4 (0.0-2.0) % Neut # (Auto) 8.6 H (1.8-7.0) K/uL Lymph # (Auto) 1.4 (1.0-4.3) K/uL [place] # (Auto) 1.6 H (0.0-0.8) K/uL Eos # (Auto) 0.1 (0.0-0.7) K/uL Baso # (Auto) 0.0 (0.0-0.2) K/uL PT (9.7-12.2) SECONDS INR APTT (21-34) SECONDS Cord Blood pH 7.080 L* (7.350-7.450) Cord Blood PCO2 21 L* (49-57) mm/Hg Cord Blood PO2 185.0 H (18.0-24.2) mm/Hg Cord Blood HCO3 7.7 H (2.5-3.5) mmol/L Cord Base Excess -22.1 L (0-10) mmol/L Sodium (132-148) mmol/L Potassium (3.6-5.2) mmol/L Chloride (98-107) mmol/L Carbon Dioxide (22-30) mmol/L Anion Gap (10-20) BUN (9-20) mg/dL Creatinine (0.8-1.5) mg/dL Est GFR ( Amer) Est GFR (Non-Af Amer) POC Glucose (mg/dL) 347 H (65-110) mg/dL Random Glucose (75-110) mg/dL Calcium (8.6-10.4) mg/dl Phosphorus (2.5-4.5) mg/dL Magnesium (1.6-2.3) mg/dL Total Bilirubin (0.2-1.3) mg/dL AST (17-59) U/L ALT (21-72) U/L Alkaline Phosphatase (38-126) U/L Total Protein (6.3-8.3) g/dL Albumin (3.5-5.0) g/dL Globulin (2.2-3.9) gm/dL Albumin/Globulin Ratio (1.0-2.1) Fluid Appearance (CLEAR) Fluid WBC (0.0-300.0) /mm3 Fluid RBC (0.0-0.0) /mm3 Fluid Tot Cell Count (0-0) Fluid Neutrophils (0-0) % Fluid Lymphocytes (0-0) % Fld Monocyte/Macrophag (0-0) % Fluid Comment Vancomycin Trough (5.0-10.0) ug/mL Oxycodone Screen Ur Oxycodone Comment Herpes Simplex DNA PCR (Not Detected) Mycoplasma pneumon IgG (<=0.90) Mycoplasma pneumon IgM (<770) U/mL Blood Type Antibody Screen 03/24/18 03/24/18 03/23/18 Range/Units 17:19 16:12 14:12 WBC (4.8-10.8) K/uL RBC (4.40-5.90) Mil/uL Hgb (12.0-18.0) g/dL Hct (35.0-51.0) % MCV (80.0-94.0) fL MCH (27.0-31.0) pg MCHC (33.0-37.0) g/dL RDW (11.5-14.5) % Plt Count (130-400) K/uL MPV (7.2-11.7) fL Neut % (Auto) (50.0-75.0) % Lymph % (Auto) (20.0-40.0) % [place] % (Auto) (0.0-10.0) % Eos % (Auto) (0.0-4.0) % Baso % (Auto) (0.0-2.0) % Neut # (Auto) (1.8-7.0) K/uL Lymph # (Auto) (1.0-4.3) K/uL [place] # (Auto) (0.0-0.8) K/uL Eos # (Auto) (0.0-0.7) K/uL Baso # (Auto) (0.0-0.2) K/uL PT (9.7-12.2) SECONDS INR APTT (21-34) SECONDS Cord Blood pH (7.350-7.450) Cord Blood PCO2 (49-57) mm/Hg Cord Blood PO2 (18.0-24.2) mm/Hg Cord Blood HCO3 (2.5-3.5) mmol/L Cord Base Excess (0-10) mmol/L Sodium (132-148) mmol/L Potassium (3.6-5.2) mmol/L Chloride (98-107) mmol/L Carbon Dioxide (22-30) mmol/L Anion Gap (10-20) BUN (9-20) mg/dL Creatinine (0.8-1.5) mg/dL Est GFR ( Amer) Est GFR (Non-Af Amer) POC Glucose (mg/dL) 280 H (65-110) mg/dL Random Glucose (75-110) mg/dL Calcium (8.6-10.4) mg/dl Phosphorus (2.5-4.5) mg/dL Magnesium (1.6-2.3) mg/dL Total Bilirubin (0.2-1.3) mg/dL AST (17-59) U/L ALT (21-72) U/L Alkaline Phosphatase (38-126) U/L Total Protein (6.3-8.3) g/dL Albumin (3.5-5.0) g/dL Globulin (2.2-3.9) gm/dL Albumin/Globulin Ratio (1.0-2.1) Fluid Appearance Cloudy (CLEAR) Fluid WBC 5992.0 H (0.0-300.0) /mm3 Fluid RBC 669.0 H (0.0-0.0) /mm3 Fluid Tot Cell Count 100 H (0-0) Fluid Neutrophils 74.0 H (0-0) % Fluid Lymphocytes 16.0 H (0-0) % Fld Monocyte/Macrophag 10 H (0-0) % Fluid Comment Yellow Vancomycin Trough (5.0-10.0) ug/mL Oxycodone Screen negative Ur Oxycodone Comment See note Herpes Simplex DNA PCR (Not Detected) Mycoplasma pneumon IgG (<=0.90) Mycoplasma pneumon IgM (<770) U/mL Blood Type Antibody Screen 03/23/18 03/21/18 Range/Units 11:00 15:45 WBC (4.8-10.8) K/uL RBC (4.40-5.90) Mil/uL Hgb (12.0-18.0) g/dL Hct (35.0-51.0) % MCV (80.0-94.0) fL MCH (27.0-31.0) pg MCHC (33.0-37.0) g/dL RDW (11.5-14.5) % Plt Count (130-400) K/uL MPV (7.2-11.7) fL Neut % (Auto) (50.0-75.0) % Lymph % (Auto) (20.0-40.0) % [place] % (Auto) (0.0-10.0) % Eos % (Auto) (0.0-4.0) % Baso % (Auto) (0.0-2.0) % Neut # (Auto) (1.8-7.0) K/uL Lymph # (Auto) (1.0-4.3) K/uL [place] # (Auto) (0.0-0.8) K/uL Eos # (Auto) (0.0-0.7) K/uL Baso # (Auto) (0.0-0.2) K/uL PT (9.7-12.2) SECONDS INR APTT (21-34) SECONDS Cord Blood pH (7.350-7.450) Cord Blood PCO2 (49-57) mm/Hg Cord Blood PO2 (18.0-24.2) mm/Hg Cord Blood HCO3 (2.5-3.5) mmol/L Cord Base Excess (0-10) mmol/L Sodium (132-148) mmol/L Potassium (3.6-5.2) mmol/L Chloride (98-107) mmol/L Carbon Dioxide (22-30) mmol/L Anion Gap (10-20) BUN (9-20) mg/dL Creatinine (0.8-1.5) mg/dL Est GFR ( Amer) Est GFR (Non-Af Amer) POC Glucose (mg/dL) (65-110) mg/dL Random Glucose (75-110) mg/dL Calcium (8.6-10.4) mg/dl Phosphorus (2.5-4.5) mg/dL Magnesium (1.6-2.3) mg/dL Total Bilirubin (0.2-1.3) mg/dL AST (17-59) U/L ALT (21-72) U/L Alkaline Phosphatase (38-126) U/L Total Protein (6.3-8.3) g/dL Albumin (3.5-5.0) g/dL Globulin (2.2-3.9) gm/dL Albumin/Globulin Ratio (1.0-2.1) Fluid Appearance (CLEAR) Fluid WBC (0.0-300.0) /mm3 Fluid RBC (0.0-0.0) /mm3 Fluid Tot Cell Count (0-0) Fluid Neutrophils (0-0) % Fluid Lymphocytes (0-0) % Fld Monocyte/Macrophag (0-0) % Fluid Comment Vancomycin Trough (5.0-10.0) ug/mL Oxycodone Screen Ur Oxycodone Comment Herpes Simplex DNA PCR Not detected (Not Detected) Mycoplasma pneumon IgG <=0.90 (<=0.90) Mycoplasma pneumon IgM 463 (<770) U/mL Blood Type Antibody Screen Laboratory Results - last 24 hr 03/21/18 03/23/18 03/23/18 15:45 11:00 14:12 WBC RBC Hgb Hct MCV MCH MCHC RDW Plt Count MPV Neut % (Auto) Lymph % (Auto) [place] % (Auto) Eos % (Auto) Baso % (Auto) Neut # (Auto) Lymph # (Auto) [place] # (Auto) Eos # (Auto) Baso # (Auto) PT INR APTT Cord Blood pH Cord Blood PCO2 Cord Blood PO2 Cord Blood HCO3 Cord Base Excess Sodium Potassium Chloride Carbon Dioxide Anion Gap BUN Creatinine Est GFR ( Amer) Est GFR (Non-Af Amer) POC Glucose (mg/dL) Random Glucose Calcium Phosphorus Magnesium Total Bilirubin AST ALT Alkaline Phosphatase Total Protein Albumin Globulin Albumin/Globulin Ratio Fluid Appearance Fluid WBC Fluid RBC Fluid Tot Cell Count Fluid Neutrophils Fluid Lymphocytes Fld Monocyte/Macrophag Fluid Comment Vancomycin Trough Oxycodone Screen negative Ur Oxycodone Comment See note Herpes Simplex DNA PCR Not detected Mycoplasma pneumon IgG <=0.90 Mycoplasma pneumon IgM 463 Blood Type Antibody Screen 03/24/18 03/24/18 03/24/18 16:12 17:19 18:25 WBC RBC Hgb Hct MCV MCH MCHC RDW Plt Count MPV Neut % (Auto) Lymph % (Auto) [place] % (Auto) Eos % (Auto) Baso % (Auto) Neut # (Auto) Lymph # (Auto) [place] # (Auto) Eos # (Auto) Baso # (Auto) PT INR APTT Cord Blood pH 7.080 L* Cord Blood PCO2 21 L* Cord Blood PO2 185.0 H Cord Blood HCO3 7.7 H Cord Base Excess -22.1 L Sodium Potassium Chloride Carbon Dioxide Anion Gap BUN Creatinine Est GFR ( Amer) Est GFR (Non-Af Amer) POC Glucose (mg/dL) 280 H Random Glucose Calcium Phosphorus Magnesium Total Bilirubin AST ALT Alkaline Phosphatase Total Protein Albumin Globulin Albumin/Globulin Ratio Fluid Appearance Cloudy Fluid WBC 5992.0 H Fluid RBC 669.0 H Fluid Tot Cell Count 100 H Fluid Neutrophils 74.0 H Fluid Lymphocytes 16.0 H Fld Monocyte/Macrophag 10 H Fluid Comment Yellow Vancomycin Trough Oxycodone Screen Ur Oxycodone Comment Herpes Simplex DNA PCR Mycoplasma pneumon IgG Mycoplasma pneumon IgM Blood Type Antibody Screen 03/24/18 03/25/18 03/25/18 21:14 06:01 06:01 WBC 11.8 H RBC 3.91 L Hgb 11.2 L Hct 32.9 L MCV 84.0 MCH 28.7 MCHC 34.2 RDW 12.3 Plt Count 366 MPV 8.5 Neut % (Auto) 72.6 Lymph % (Auto) 12.1 L [place] % (Auto) 13.9 H Eos % (Auto) 1.0 Baso % (Auto) 0.4 Neut # (Auto) 8.6 H Lymph # (Auto) 1.4 [place] # (Auto) 1.6 H Eos # (Auto) 0.1 Baso # (Auto) 0.0 PT 14.3 H INR 1.3 APTT 31 Cord Blood pH Cord Blood PCO2 Cord Blood PO2 Cord Blood HCO3 Cord Base Excess Sodium Potassium Chloride Carbon Dioxide Anion Gap BUN Creatinine Est GFR ( Amer) Est GFR (Non-Af Amer) POC Glucose (mg/dL) 347 H Random Glucose Calcium Phosphorus Magnesium Total Bilirubin AST ALT Alkaline Phosphatase Total Protein Albumin Globulin Albumin/Globulin Ratio Fluid Appearance Fluid WBC Fluid RBC Fluid Tot Cell Count Fluid Neutrophils Fluid Lymphocytes Fld Monocyte/Macrophag Fluid Comment Vancomycin Trough Oxycodone Screen Ur Oxycodone Comment Herpes Simplex DNA PCR Mycoplasma pneumon IgG Mycoplasma pneumon IgM Blood Type Antibody Screen 03/25/18 03/25/18 03/25/18 06:01 07:27 07:53 WBC RBC Hgb Hct MCV MCH MCHC RDW Plt Count MPV Neut % (Auto) Lymph % (Auto) [place] % (Auto) Eos % (Auto) Baso % (Auto) Neut # (Auto) Lymph # (Auto) [place] # (Auto) Eos # (Auto) Baso # (Auto) PT INR APTT Cord Blood pH Cord Blood PCO2 Cord Blood PO2 Cord Blood HCO3 Cord Base Excess Sodium 135 Potassium 3.9 Chloride 98 Carbon Dioxide 25 Anion Gap 15 BUN 13 Creatinine 0.7 L Est GFR ( Amer) > 60 Est GFR (Non-Af Amer) > 60 POC Glucose (mg/dL) 267 H Random Glucose 314 H Calcium 8.8 Phosphorus 3.4 Magnesium 2.0 Total Bilirubin 0.7 AST 43 ALT 38 Alkaline Phosphatase 235 H Total Protein 7.0 Albumin 3.4 L Globulin 3.6 Albumin/Globulin Ratio 1.0 Fluid Appearance Fluid WBC Fluid RBC Fluid Tot Cell Count Fluid Neutrophils Fluid Lymphocytes Fld Monocyte/Macrophag Fluid Comment Vancomycin Trough Oxycodone Screen Ur Oxycodone Comment Herpes Simplex DNA PCR Mycoplasma pneumon IgG Mycoplasma pneumon IgM Blood Type O POSITIVE Antibody Screen Negative 03/25/18 03/25/18 11:00 11:09 WBC RBC Hgb Hct MCV MCH MCHC RDW Plt Count MPV Neut % (Auto) Lymph % (Auto) [place] % (Auto) Eos % (Auto) Baso % (Auto) Neut # (Auto) Lymph # (Auto) [place] # (Auto) Eos # (Auto) Baso # (Auto) PT INR APTT Cord Blood pH Cord Blood PCO2 Cord Blood PO2 Cord Blood HCO3 Cord Base Excess Sodium Potassium Chloride Carbon Dioxide Anion Gap BUN Creatinine Est GFR ( Amer) Est GFR (Non-Af Amer) POC Glucose (mg/dL) 274 H Random Glucose Calcium Phosphorus Magnesium Total Bilirubin AST ALT Alkaline Phosphatase Total Protein Albumin Globulin Albumin/Globulin Ratio Fluid Appearance Fluid WBC Fluid RBC Fluid Tot Cell Count Fluid Neutrophils Fluid Lymphocytes Fld Monocyte/Macrophag Fluid Comment Vancomycin Trough < 5.0 L Oxycodone Screen Ur Oxycodone Comment Herpes Simplex DNA PCR Mycoplasma pneumon IgG Mycoplasma pneumon IgM Blood Type Antibody Screen Critical Care Progress Note - Nutrition Nutrition: Nutrition Category Date Time Status Liquid Diet [DIET] Diets 03/25/18 Dinner Active NPO Diet [DIET] Diets 03/26/18 Breakfast Active Assessment/Plan (1) Pleural effusion Current Visit: Yes Status: Acute (2) MRSA bacteremia Current Visit: Yes Status: Acute Attending/Attestation - Attestation I have personally seen and examined this patient.: Yes I have fully participated in the care of the patient.: Yes I have reviewed all pertinent clinical information: Yes Notes (Text): 03/25/18 17:30 patient seen and examined in the intensive care unit. Complaining pain On the lt side of chest continue IV antibiotics For VATS and chest tube placement tomorrow continue analgesics
[2018-03-25] MEDS ORDERED: Propofol 10 mg/ml Inj (20 ML) ONE (07:58)
[2018-03-25] MEDS ORDERED: Midazolam 2 MG/2 ML VIAL ONE (07:58)
[2018-03-25] MEDS ORDERED: Lidocaine 4% (Laryng-O-Jet) Kit MM ONE (08:31)
[2018-03-25] MEDS: Pantoprazole 40 mg EC Tab PO SCH (10:51)
--- NOTE | 2018-03-25 11:12 | CP.PCM.PN ---
Subjective - Date & Time of Evaluation Date of Evaluation: 03/25/18 Time of Evaluation: 10:30 - Subjective Subjective: Patient s/p DEREK No evidence of endocarditis full report to follow Objective - Vital Signs/Intake and Output Vital Signs (last 24 hours): Temp Pulse Resp BP Pulse Ox 99.9 F H 110 H 18 157/100 H 100 03/24/18 04:00 03/25/18 07:15 03/25/18 07:15 03/25/18 07:15 03/25/18 07:15 Intake and Output: 03/25/18 03/25/18 06:59 18:59 Intake Total 883 0 Output Total 1300 Balance -417 0 - Medications Medications: Current Medications Acetaminophen (Tylenol 325mg Tab) 650 mg PO Q6 PRN PRN Reason: Pain, moderate (4-7) Last Admin: 03/22/18 23:38 Dose: 650 mg Gabapentin (Neurontin) 400 mg PO TID [facility] Last Admin: 03/24/18 17:58 Dose: 400 mg Heparin Sodium (Porcine) (Heparin) 5,000 units SC Q8 [facility] Last Admin: 03/24/18 05:22 Dose: Not Given Vancomycin HCl 1.25 gm/ Sodium (Chloride) 250 mls @ 166.7 mls/hr IVPB Q8H [facility]; Protocol Last Admin: 03/25/18 02:38 Dose: 166.7 mls/hr Insulin Aspart (Novolog) 0 unit SC ACHS [facility]; Protocol Last Admin: 03/24/18 22:08 Dose: 2 units Ketorolac Tromethamine (Toradol) 30 mg IVP Q6 PRN PRN Reason: Pain, moderate (4-7) Last Admin: 03/25/18 05:00 Dose: 30 mg Metoprolol Tartrate (Lopressor) 25 mg PO BID [facility] Last Admin: 03/24/18 18:00 Dose: 25 mg Morphine Sulfate (Morphine) 2 mg IVP Q6 PRN PRN Reason: Pain, severe (8-10) Last Admin: 03/25/18 02:39 Dose: 2 mg Pantoprazole Sodium (Protonix Ec Tab) 40 mg PO DAILY [facility] Last Admin: 03/24/18 10:32 Dose: 40 mg - Labs Labs: 03/25/18 06:01 03/25/18 06:01 PT 14.3 SECONDS (9.7-12.2) H 03/25/18 06:01 INR 1.3 03/25/18 06:01 APTT 31 SECONDS (21-34) 03/25/18 06:01
[2018-03-25 12:13] LABS: OXYCODONE SCREEN negative
--- NOTE | 2018-03-25 14:11 | CP.PCM.PN ---
Subjective - Date & Time of Evaluation Date of Evaluation: 03/25/18 Time of Evaluation: 10:00 - Subjective Subjective: Cardiothoracic surgery progress note for Dr. Coyle Pt seen and examined at the bedside this AM with Dr. Coyle. Patient was complaining of ride sided chest pain at the skin, but otherwise did not complain of any other symptoms. Objective - Vital Signs/Intake and Output Vital Signs (last 24 hours): Temp Pulse Resp BP Pulse Ox 98.5 F 96 H 29 H 141/95 H 94 L 03/25/18 12:00 03/25/18 12:15 03/25/18 12:15 03/25/18 12:15 03/25/18 12:15 Intake and Output: 03/25/18 03/25/18 06:59 18:59 Intake Total 883 700 Output Total 1300 800 Balance -417 -100 - Medications Medications: Current Medications Acetaminophen (Tylenol 325mg Tab) 650 mg PO Q6 PRN PRN Reason: Pain, moderate (4-7) Last Admin: 03/22/18 23:38 Dose: 650 mg Gabapentin (Neurontin) 400 mg PO TID [facility] Last Admin: 03/25/18 10:51 Dose: 400 mg Heparin Sodium (Porcine) (Heparin) 5,000 units SC Q8 [facility] Last Admin: 03/24/18 05:22 Dose: Not Given Vancomycin HCl 1.25 gm/ Sodium (Chloride) 250 mls @ 166.7 mls/hr IVPB Q8H [facility]; Protocol Last Admin: 03/25/18 12:01 Dose: 166.7 mls/hr Insulin Aspart (Novolog) 0 unit SC ACHS [facility]; Protocol Last Admin: 03/25/18 12:00 Dose: 4 units Ketorolac Tromethamine (Toradol) 30 mg IVP Q6 PRN PRN Reason: Pain, moderate (4-7) Last Admin: 03/25/18 10:45 Dose: 30 mg Metoprolol Tartrate (Lopressor) 25 mg PO BID [facility] Last Admin: 03/25/18 10:51 Dose: 25 mg Morphine Sulfate (Morphine) 2 mg IVP Q6 PRN PRN Reason: Pain, severe (8-10) Last Admin: 03/25/18 13:11 Dose: 2 mg Pantoprazole Sodium (Protonix Ec Tab) 40 mg PO DAILY [facility] Last Admin: 03/25/18 10:51 Dose: 40 mg - Labs Labs: 03/25/18 06:01 03/25/18 06:01 PT 14.3 SECONDS (9.7-12.2) H 03/25/18 06:01 INR 1.3 03/25/18 06:01 APTT 31 SECONDS (21-34) 03/25/18 06:01 - Constitutional Appears: Non-toxic, No Acute Distress - Head Exam Head Exam: ATRAUMATIC, NORMOCEPHALIC - Eye Exam Eye Exam: Normal appearance. absent: Conjunctival injection, Scleral icterus - ENT Exam ENT Exam: Mucous Membranes Moist, Normal Oropharynx - Respiratory Exam Respiratory Exam: NORMAL BREATHING PATTERN. absent: Accessory Muscle Use, Respiratory Distress - Cardiovascular Exam Cardiovascular Exam: Tachycardia, REGULAR RHYTHM - GI/Abdominal Exam GI & Abdominal Exam: Soft. absent: Distended - Extremities Exam Extremities Exam: absent: Calf Tenderness, Pedal Edema, Tenderness - Neurological Exam Neurological Exam: Alert, Awake, Oriented x3 - Psychiatric Exam Psychiatric exam: Normal Affect, Normal Mood - Skin Additional comments: small vesicular rash in the right chest wall skin, tender to palpation Assessment and Plan - Assessment and Plan (Free Text) Assessment: 32M with right sided pleural effusion refractory to IR thoracentesis, MRSA bacteremia Plan: OR tomorrow afternoon for VATS if acceptable cardiac risk assessment as deter mined cardiology F/U stress test tomorrow NPO after midnight Continue antibiotic per ID trend labs Continue medical management per primary, continue antibiotics Discussed with Dr. Coyle, who agrees with above Tessy Limon, PGY2
--- NOTE | 2018-03-25 14:21 | CP.PCM.PN ---
Subjective - Date & Time of Evaluation Date of Evaluation: 03/25/18 Time of Evaluation: 14:19 - Subjective Subjective: Pre Op cardiac risk assessment requested ECHO: Normal EF Scheduled for stress test in am Risk assessment after the stress results obtained Objective - Vital Signs/Intake and Output Vital Signs (last 24 hours): Temp Pulse Resp BP Pulse Ox 98.5 F 96 H 29 H 141/95 H 94 L 03/25/18 12:00 03/25/18 12:15 03/25/18 12:15 03/25/18 12:15 03/25/18 12:15 Intake and Output: 03/25/18 03/25/18 06:59 18:59 Intake Total 883 700 Output Total 1300 800 Balance -417 -100 - Medications Medications: Current Medications Acetaminophen (Tylenol 325mg Tab) 650 mg PO Q6 PRN PRN Reason: Pain, moderate (4-7) Last Admin: 03/22/18 23:38 Dose: 650 mg Gabapentin (Neurontin) 400 mg PO TID [facility] Last Admin: 03/25/18 10:51 Dose: 400 mg Heparin Sodium (Porcine) (Heparin) 5,000 units SC Q8 [facility] Last Admin: 03/24/18 05:22 Dose: Not Given Vancomycin HCl 1.25 gm/ Sodium (Chloride) 250 mls @ 166.7 mls/hr IVPB Q8H [facility]; Protocol Last Admin: 03/25/18 12:01 Dose: 166.7 mls/hr Insulin Aspart (Novolog) 0 unit SC ACHS [facility]; Protocol Last Admin: 03/25/18 12:00 Dose: 4 units Ketorolac Tromethamine (Toradol) 30 mg IVP Q6 PRN PRN Reason: Pain, moderate (4-7) Last Admin: 03/25/18 10:45 Dose: 30 mg Metoprolol Tartrate (Lopressor) 25 mg PO BID [facility] Last Admin: 03/25/18 10:51 Dose: 25 mg Morphine Sulfate (Morphine) 2 mg IVP Q6 PRN PRN Reason: Pain, severe (8-10) Last Admin: 03/25/18 13:11 Dose: 2 mg Pantoprazole Sodium (Protonix Ec Tab) 40 mg PO DAILY [facility] Last Admin: 03/25/18 10:51 Dose: 40 mg - Labs Labs: 03/25/18 06:01 03/25/18 06:01 PT 14.3 SECONDS (9.7-12.2) H 03/25/18 06:01 INR 1.3 03/25/18 06:01 APTT 31 SECONDS (21-34) 03/25/18 06:01
--- NOTE | 2018-03-25 14:58 | CP.PCM.PN ---
Subjective - Date & Time of Evaluation Date of Evaluation: 03/25/18 Time of Evaluation: 14:55 - Subjective Subjective: pt still has a lot of painone side around the rib leasins improved Objective - Vital Signs/Intake and Output Vital Signs (last 24 hours): Temp Pulse Resp BP Pulse Ox 98.5 F 96 H 29 H 141/95 H 94 L 03/25/18 12:00 03/25/18 12:15 03/25/18 12:15 03/25/18 12:15 03/25/18 12:15 Intake and Output: 03/25/18 03/25/18 06:59 18:59 Intake Total 883 700 Output Total 1300 800 Balance -417 -100 - Medications Medications: Current Medications Acetaminophen (Tylenol 325mg Tab) 650 mg PO Q6 PRN PRN Reason: Pain, moderate (4-7) Last Admin: 03/22/18 23:38 Dose: 650 mg Gabapentin (Neurontin) 400 mg PO TID [facility] Last Admin: 03/25/18 10:51 Dose: 400 mg Heparin Sodium (Porcine) (Heparin) 5,000 units SC Q8 [facility] Last Admin: 03/24/18 05:22 Dose: Not Given Vancomycin HCl 1.25 gm/ Sodium (Chloride) 250 mls @ 166.7 mls/hr IVPB Q8H [facility]; Protocol Last Admin: 03/25/18 12:01 Dose: 166.7 mls/hr Insulin Aspart (Novolog) 0 unit SC ACHS [facility]; Protocol Last Admin: 03/25/18 12:00 Dose: 4 units Ketorolac Tromethamine (Toradol) 30 mg IVP Q6 PRN PRN Reason: Pain, moderate (4-7) Last Admin: 03/25/18 10:45 Dose: 30 mg Metoprolol Tartrate (Lopressor) 25 mg PO BID [facility] Last Admin: 03/25/18 10:51 Dose: 25 mg Morphine Sulfate (Morphine) 2 mg IVP Q6 PRN PRN Reason: Pain, severe (8-10) Last Admin: 03/25/18 13:11 Dose: 2 mg Pantoprazole Sodium (Protonix Ec Tab) 40 mg PO DAILY [facility] Last Admin: 03/25/18 10:51 Dose: 40 mg - Labs Labs: 03/25/18 06:01 03/25/18 06:01 PT 14.3 SECONDS (9.7-12.2) H 03/25/18 06:01 INR 1.3 03/25/18 06:01 APTT 31 SECONDS (21-34) 03/25/18 06:01 - Constitutional Appears: Non-toxic, In Acute Distress - Head Exam Head Exam: ATRAUMATIC - Eye Exam Eye Exam: Normal appearance - ENT Exam ENT Exam: Normal Exam - Neck Exam Neck Exam: Full ROM - Respiratory Exam Respiratory Exam: Decreased Breath Sounds - Cardiovascular Exam Cardiovascular Exam: REGULAR RHYTHM - GI/Abdominal Exam GI & Abdominal Exam: Normal Bowel Sounds - Rectal Exam Rectal Exam: Deferred - Exam Exam: NORMAL INSPECTION - Extremities Exam Extremities Exam: Normal Inspection - Back Exam Back Exam: NORMAL INSPECTION - Neurological Exam Neurological Exam: Altered, Oriented x3 - Psychiatric Exam Psychiatric exam: Normal Mood - Skin Skin Exam: Normal Color Assessment and Plan - Assessment and Plan (Free Text) Assessment: ac herpez zoster imroving severe pain herpetic neuralgia obesity efusion Plan: need pain management consult
--- NOTE | 2018-03-25 16:12 | PCM.ANES ---
Assessment/Plan - Assessment and Plan (Free Text) Assessment: Pt is a 32 yo m ho morbid obesity (bmi 41), htn, dm, seizures, drug abuse, pleural effusion sp thoracentesis (pending Or for Vats) with chief complaint of severe right sided pain. Pt describes the pain as 9-10/10, burning, constant, and sometimes relieved with the current regiment. Pt is being followed by ID for ?zoster/herpetic lesions and surgery for ?cellulitis recommendations 1. continue gabapentin 400mg Po TID and toradol. 2. Discontinue morphine and tylenol 3. Start patient on percocet 5/325mg 1-2tabs p0 every 6 hours prn for moderate pain 4. Start patient on dilaudid 2mg IV every 4 hours prn for breakthrough pain 5. Consider cymbalta 30mg Po daily 6. If herpetic lesion, consult ID for appropriate recommendations regarding treatment thank you for your consult. Case d/w pain specialist Dr. Miesha Parada
[2018-03-25] MEDS: HYDROmorphone 1 mg/ml ISec IVP PRN ×2 (17:15→22:21)
[2018-03-26] MEDS: HYDROmorphone 1 mg/ml ISec IVP PRN ×3 (03:38→21:02)
[2018-03-26 06:04] LABS: BASO # 0.1 K/uL (0.0-0.2); BASO % 0.5 % (0.0-2.0); EOS # 0.1 K/uL (0.0-0.7); HEMOGLOBIN 11.9 g/dL (12.0-18.0); LYMPH # 1.4 K/uL (1.0-4.3); LYMPH % 11.1 % (20.0-40.0); MEAN CELL VOLUME 83.9 fL (80.0-94.0); MEAN CORPUSCULAR HGB CONC 34.6 g/dL (33.0-37.0); MEAN PLATELET VOLUME 7.8 fL (7.2-11.7); MONO # 1.6 K/uL (0.0-0.8); NEUT # 9.8 K/uL (1.8-7.0); NEUT % 75.4 % (50.0-75.0); RBC 4.1 Mil/uL (4.40-5.90); RED CELL DISTRIBUTION WIDTH 12.5 % (11.5-14.5)
[2018-03-26 06:18] LABS: INR 1.3; PROTHROMBIN TIME 14.3 SECONDS (9.7-12.2)
[2018-03-26 06:33] LABS: ALB/GLOB RATIO 0.9 (1.0-2.1); ALBUMIN 3.4 g/dL (3.5-5.0); ALT/SGPT 35 U/L (21-72); AST/SGOT 33 U/L (17-59); BLOOD UREA NITROGEN 9 mg/dL (9-20); CALCIUM 8.7 mg/dl (8.6-10.4); GFR NON-AFRICAN AMERICAN > 60
--- NOTE | 2018-03-26 07:31 | CP.CCUPN ---
<Dian Zuleta - Last Filed: 03/26/18 13:11> CCU Subjective - Physician Review Events Since Last Encounter (Free Text): 03/26/18 07:30 no over night events Subjective (Free Text): 03/26/18 07:30 Patient was seen and examined this morning. He is still complaining of back pain. He is scheduled for pre-op stress test this morning. Critical Care Time Spent (in minutes): 35 CCU Objective - Vital Signs / Intake & Output Vital Signs (Last 4 hours): Vital Signs Temp Pulse Resp BP Pulse Ox 03/26/18 05:15 100 H 23 137/83 99 03/26/18 04:15 105 H 29 H 131/81 97 03/26/18 04:00 98.1 F 98 Intake and Output (Last 8hrs): Intake & Output 03/25/18 03/26/18 03/26/18 22:59 06:59 14:59 Intake Total 890 250 Output Total 800 800 Balance 90 -550 Intake: Intake, IV Amount 250 250 Left Wrist 250 250 Oral 640 0 Output: Urine 800 800 Urine, Voided 800 800 Emesis 0 Other: # Bowel Movements 0 0 - Physical Exam Head: Positive for: Atraumatic, Normocephalic Pupils: Positive for: PERRL Extroacular Muscles: Positive for: EOMI Conjunctiva: Positive for: Normal Mouth: Positive for: Moist Mucous Membranes Nose (Internal): Positive for: Normal Inspection Respiratory/Chest: Positive for: Decreased Breath Sounds (R>L), Tachypneic. Negative for: Respiratory Distress, Accessory Muscle Use, Retracting Cardiovascular: Positive for: Normal S1, S2, Tachycardic. Negative for: Murmurs Abdomen: Negative for: Tenderness, Distention, Peritoneal Signs Back: Positive for: Other (no lesions observed) Neurological: Positive for: GCS=15, CN II-XII Intact Skin: Positive for: Warm, Dry, Normal Color. Negative for: Rashes Psychiatric: Positive for: Alert, Oriented x 3 - Medications Active Medications: Active Medications Generic Name Dose Route Start Last Admin Trade Name Freq PRN Reason Stop Dose Admin Acetaminophen 650 mg 03/22/18 21:49 03/22/18 23:38 Tylenol 325mg Tab PO 650 mg Q6 PRN Administration Pain, moderate (4-7) Gabapentin 400 mg 03/21/18 18:00 03/25/18 18:03 Neurontin PO 400 mg TID [facility] Administration Heparin Sodium (Porcine) 5,000 units 03/23/18 14:00 03/24/18 05:22 Heparin SC Not Given Q8 JERED Hydromorphone HCl 1 mg 03/25/18 16:47 03/26/18 03:38 Dilaudid IVP 1 mg Q4H PRN Administration Pain, severe (8-10) Vancomycin HCl 1.25 gm/ Sodium 250 mls @ 166.7 mls/hr 03/24/18 11:30 03/26/18 03:37 Chloride IVPB 166.7 mls/hr Q8H [facility] Administration Protocol Insulin Aspart 0 unit 03/22/18 22:00 03/25/18 22:34 Novolog SC Not Given ACHS [facility] Protocol Ketorolac Tromethamine 30 mg 03/24/18 17:19 03/26/18 01:31 Toradol IVP 30 mg Q6 PRN Administration Pain, moderate (4-7) Metoprolol Tartrate 25 mg 03/22/18 10:00 03/25/18 18:03 Lopressor PO 25 mg BID [facility] Administration Pantoprazole Sodium 40 mg 03/23/18 11:30 03/25/18 10:51 Protonix Ec Tab PO 40 mg DAILY [facility] Administration - Patient Studies Lab Studies: Microbiology Studies 03/24/18 17:19 Gram Stain - Final Thoracic Fluid Body Fluid Culture - Preliminary NO GROWTH AFTER 24 HOURS 03/22/18 17:00 Blood Culture - Preliminary Blood NO GROWTH AFTER 3 DAYS 03/22/18 16:30 Blood Culture - Preliminary Blood NO GROWTH AFTER 3 DAYS 03/24/18 09:04 Blood Culture - Preliminary Blood-Venous NO GROWTH AFTER 24 HOURS 03/24/18 09:04 Blood Culture - Preliminary Blood-Venous NO GROWTH AFTER 24 HOURS Lab Studies 03/26/18 03/26/18 03/26/18 Range/Units 05:56 05:56 05:56 WBC 13.0 H (4.8-10.8) K/uL RBC 4.10 L (4.40-5.90) Mil/uL Hgb 11.9 L (12.0-18.0) g/dL Hct 34.4 L (35.0-51.0) % MCV 83.9 (80.0-94.0) fL MCH 29.0 (27.0-31.0) pg MCHC 34.6 (33.0-37.0) g/dL RDW 12.5 (11.5-14.5) % Plt Count 404 H (130-400) K/uL MPV 7.8 (7.2-11.7) fL Neut % (Auto) 75.4 H (50.0-75.0) % Lymph % (Auto) 11.1 L (20.0-40.0) % [place] % (Auto) 12.0 H (0.0-10.0) % Eos % (Auto) 1.0 (0.0-4.0) % Baso % (Auto) 0.5 (0.0-2.0) % Neut # (Auto) 9.8 H (1.8-7.0) K/uL Lymph # (Auto) 1.4 (1.0-4.3) K/uL [place] # (Auto) 1.6 H (0.0-0.8) K/uL Eos # (Auto) 0.1 (0.0-0.7) K/uL Baso # (Auto) 0.1 (0.0-0.2) K/uL PT 14.3 H (9.7-12.2) SECONDS INR 1.3 APTT 38 H D (21-34) SECONDS Sodium 136 (132-148) mmol/L Potassium 4.4 (3.6-5.2) mmol/L Chloride 99 (98-107) mmol/L Carbon Dioxide 27 (22-30) mmol/L Anion Gap 15 (10-20) BUN 9 (9-20) mg/dL Creatinine 0.7 L (0.8-1.5) mg/dL Est GFR ( Amer) > 60 Est GFR (Non-Af Amer) > 60 POC Glucose (mg/dL) (65-110) mg/dL Random Glucose 317 H (75-110) mg/dL Calcium 8.7 (8.6-10.4) mg/dl Phosphorus 4.0 (2.5-4.5) mg/dL Magnesium 2.1 (1.6-2.3) mg/dL Total Bilirubin 0.7 (0.2-1.3) mg/dL AST 33 (17-59) U/L ALT 35 (21-72) U/L Alkaline Phosphatase 241 H (38-126) U/L Total Protein 7.1 (6.3-8.3) g/dL Albumin 3.4 L (3.5-5.0) g/dL Globulin 3.7 (2.2-3.9) gm/dL Albumin/Globulin Ratio 0.9 L (1.0-2.1) Vancomycin Trough (5.0-10.0) ug/mL Oxycodone Screen Ur Oxycodone Comment Mycoplasma pneumon IgG (<=0.90) Mycoplasma pneumon IgM (<770) U/mL Blood Type Antibody Screen 03/25/18 03/25/18 03/25/18 Range/Units 21:34 16:23 11:09 WBC (4.8-10.8) K/uL RBC (4.40-5.90) Mil/uL Hgb (12.0-18.0) g/dL Hct (35.0-51.0) % MCV (80.0-94.0) fL MCH (27.0-31.0) pg MCHC (33.0-37.0) g/dL RDW (11.5-14.5) % Plt Count (130-400) K/uL MPV (7.2-11.7) fL Neut % (Auto) (50.0-75.0) % Lymph % (Auto) (20.0-40.0) % [place] % (Auto) (0.0-10.0) % Eos % (Auto) (0.0-4.0) % Baso % (Auto) (0.0-2.0) % Neut # (Auto) (1.8-7.0) K/uL Lymph # (Auto) (1.0-4.3) K/uL [place] # (Auto) (0.0-0.8) K/uL Eos # (Auto) (0.0-0.7) K/uL Baso # (Auto) (0.0-0.2) K/uL PT (9.7-12.2) SECONDS INR APTT (21-34) SECONDS Sodium (132-148) mmol/L Potassium (3.6-5.2) mmol/L Chloride (98-107) mmol/L Carbon Dioxide (22-30) mmol/L Anion Gap (10-20) BUN (9-20) mg/dL Creatinine (0.8-1.5) mg/dL Est GFR ( Amer) Est GFR (Non-Af Amer) POC Glucose (mg/dL) 269 H 252 H 274 H (65-110) mg/dL Random Glucose (75-110) mg/dL Calcium (8.6-10.4) mg/dl Phosphorus (2.5-4.5) mg/dL Magnesium (1.6-2.3) mg/dL Total Bilirubin (0.2-1.3) mg/dL AST (17-59) U/L ALT (21-72) U/L Alkaline Phosphatase (38-126) U/L Total Protein (6.3-8.3) g/dL Albumin (3.5-5.0) g/dL Globulin (2.2-3.9) gm/dL Albumin/Globulin Ratio (1.0-2.1) Vancomycin Trough (5.0-10.0) ug/mL Oxycodone Screen Ur Oxycodone Comment Mycoplasma pneumon IgG (<=0.90) Mycoplasma pneumon IgM (<770) U/mL Blood Type Antibody Screen 03/25/18 03/25/18 03/25/18 Range/Units 11:00 07:53 07:27 WBC (4.8-10.8) K/uL RBC (4.40-5.90) Mil/uL Hgb (12.0-18.0) g/dL Hct (35.0-51.0) % MCV (80.0-94.0) fL MCH (27.0-31.0) pg MCHC (33.0-37.0) g/dL RDW (11.5-14.5) % Plt Count (130-400) K/uL MPV (7.2-11.7) fL Neut % (Auto) (50.0-75.0) % Lymph % (Auto) (20.0-40.0) % [place] % (Auto) (0.0-10.0) % Eos % (Auto) (0.0-4.0) % Baso % (Auto) (0.0-2.0) % Neut # (Auto) (1.8-7.0) K/uL Lymph # (Auto) (1.0-4.3) K/uL [place] # (Auto) (0.0-0.8) K/uL Eos # (Auto) (0.0-0.7) K/uL Baso # (Auto) (0.0-0.2) K/uL PT (9.7-12.2) SECONDS INR APTT (21-34) SECONDS Sodium (132-148) mmol/L Potassium (3.6-5.2) mmol/L Chloride (98-107) mmol/L Carbon Dioxide (22-30) mmol/L Anion Gap (10-20) BUN (9-20) mg/dL Creatinine (0.8-1.5) mg/dL Est GFR ( Amer) Est GFR (Non-Af Amer) POC Glucose (mg/dL) 267 H (65-110) mg/dL Random Glucose (75-110) mg/dL Calcium (8.6-10.4) mg/dl Phosphorus (2.5-4.5) mg/dL Magnesium (1.6-2.3) mg/dL Total Bilirubin (0.2-1.3) mg/dL AST (17-59) U/L ALT (21-72) U/L Alkaline Phosphatase (38-126) U/L Total Protein (6.3-8.3) g/dL Albumin (3.5-5.0) g/dL Globulin (2.2-3.9) gm/dL Albumin/Globulin Ratio (1.0-2.1) Vancomycin Trough < 5.0 L (5.0-10.0) ug/mL Oxycodone Screen Ur Oxycodone Comment Mycoplasma pneumon IgG (<=0.90) Mycoplasma pneumon IgM (<770) U/mL Blood Type O POSITIVE Antibody Screen Negative 03/23/18 03/23/18 Range/Units 14:12 11:00 WBC (4.8-10.8) K/uL RBC (4.40-5.90) Mil/uL Hgb (12.0-18.0) g/dL Hct (35.0-51.0) % MCV (80.0-94.0) fL MCH (27.0-31.0) pg MCHC (33.0-37.0) g/dL RDW (11.5-14.5) % Plt Count (130-400) K/uL MPV (7.2-11.7) fL Neut % (Auto) (50.0-75.0) % Lymph % (Auto) (20.0-40.0) % [place] % (Auto) (0.0-10.0) % Eos % (Auto) (0.0-4.0) % Baso % (Auto) (0.0-2.0) % Neut # (Auto) (1.8-7.0) K/uL Lymph # (Auto) (1.0-4.3) K/uL [place] # (Auto) (0.0-0.8) K/uL Eos # (Auto) (0.0-0.7) K/uL Baso # (Auto) (0.0-0.2) K/uL PT (9.7-12.2) SECONDS INR APTT (21-34) SECONDS Sodium (132-148) mmol/L Potassium (3.6-5.2) mmol/L Chloride (98-107) mmol/L Carbon Dioxide (22-30) mmol/L Anion Gap (10-20) BUN (9-20) mg/dL Creatinine (0.8-1.5) mg/dL Est GFR ( Amer) Est GFR (Non-Af Amer) POC Glucose (mg/dL) (65-110) mg/dL Random Glucose (75-110) mg/dL Calcium (8.6-10.4) mg/dl Phosphorus (2.5-4.5) mg/dL Magnesium (1.6-2.3) mg/dL Total Bilirubin (0.2-1.3) mg/dL AST (17-59) U/L ALT (21-72) U/L Alkaline Phosphatase (38-126) U/L Total Protein (6.3-8.3) g/dL Albumin (3.5-5.0) g/dL Globulin (2.2-3.9) gm/dL Albumin/Globulin Ratio (1.0-2.1) Vancomycin Trough (5.0-10.0) ug/mL Oxycodone Screen negative Ur Oxycodone Comment See note Mycoplasma pneumon IgG <=0.90 (<=0.90) Mycoplasma pneumon IgM 463 (<770) U/mL Blood Type Antibody Screen Laboratory Results - last 24 hr 03/23/18 03/23/18 03/25/18 11:00 14:12 07:27 WBC RBC Hgb Hct MCV MCH MCHC RDW Plt Count MPV Neut % (Auto) Lymph % (Auto) [place] % (Auto) Eos % (Auto) Baso % (Auto) Neut # (Auto) Lymph # (Auto) [place] # (Auto) Eos # (Auto) Baso # (Auto) PT INR APTT Sodium Potassium Chloride Carbon Dioxide Anion Gap BUN Creatinine Est GFR ( Amer) Est GFR (Non-Af Amer) POC Glucose (mg/dL) 267 H Random Glucose Calcium Phosphorus Magnesium Total Bilirubin AST ALT Alkaline Phosphatase Total Protein Albumin Globulin Albumin/Globulin Ratio Vancomycin Trough Oxycodone Screen negative Ur Oxycodone Comment See note Mycoplasma pneumon IgG <=0.90 Mycoplasma pneumon IgM 463 Blood Type Antibody Screen 03/25/18 03/25/18 03/25/18 07:53 11:00 11:09 WBC RBC Hgb Hct MCV MCH MCHC RDW Plt Count MPV Neut % (Auto) Lymph % (Auto) [place] % (Auto) Eos % (Auto) Baso % (Auto) Neut # (Auto) Lymph # (Auto) [place] # (Auto) Eos # (Auto) Baso # (Auto) PT INR APTT Sodium Potassium Chloride Carbon Dioxide Anion Gap BUN Creatinine Est GFR ( Amer) Est GFR (Non-Af Amer) POC Glucose (mg/dL) 274 H Random Glucose Calcium Phosphorus Magnesium Total Bilirubin AST ALT Alkaline Phosphatase Total Protein Albumin Globulin Albumin/Globulin Ratio Vancomycin Trough < 5.0 L Oxycodone Screen Ur Oxycodone Comment Mycoplasma pneumon IgG Mycoplasma pneumon IgM Blood Type O POSITIVE Antibody Screen Negative 03/25/18 03/25/18 03/26/18 16:23 21:34 05:56 WBC 13.0 H RBC 4.10 L Hgb 11.9 L Hct 34.4 L MCV 83.9 MCH 29.0 MCHC 34.6 RDW 12.5 Plt Count 404 H MPV 7.8 Neut % (Auto) 75.4 H Lymph % (Auto) 11.1 L [place] % (Auto) 12.0 H Eos % (Auto) 1.0 Baso % (Auto) 0.5 Neut # (Auto) 9.8 H Lymph # (Auto) 1.4 [place] # (Auto) 1.6 H Eos # (Auto) 0.1 Baso # (Auto) 0.1 PT INR APTT Sodium Potassium Chloride Carbon Dioxide Anion Gap BUN Creatinine Est GFR ( Amer) Est GFR (Non-Af Amer) POC Glucose (mg/dL) 252 H 269 H Random Glucose Calcium Phosphorus Magnesium Total Bilirubin AST ALT Alkaline Phosphatase Total Protein Albumin Globulin Albumin/Globulin Ratio Vancomycin Trough Oxycodone Screen Ur Oxycodone Comment Mycoplasma pneumon IgG Mycoplasma pneumon IgM Blood Type Antibody Screen 03/26/18 03/26/18 05:56 05:56 WBC RBC Hgb Hct MCV MCH MCHC RDW Plt Count MPV Neut % (Auto) Lymph % (Auto) [place] % (Auto) Eos % (Auto) Baso % (Auto) Neut # (Auto) Lymph # (Auto) [place] # (Auto) Eos # (Auto) Baso # (Auto) PT 14.3 H INR 1.3 APTT 38 H D Sodium 136 Potassium 4.4 Chloride 99 Carbon Dioxide 27 Anion Gap 15 BUN 9 Creatinine 0.7 L Est GFR ( Amer) > 60 Est GFR (Non-Af Amer) > 60 POC Glucose (mg/dL) Random Glucose 317 H Calcium 8.7 Phosphorus 4.0 Magnesium 2.1 Total Bilirubin 0.7 AST 33 ALT 35 Alkaline Phosphatase 241 H Total Protein 7.1 Albumin 3.4 L Globulin 3.7 Albumin/Globulin Ratio 0.9 L Vancomycin Trough Oxycodone Screen Ur Oxycodone Comment Mycoplasma pneumon IgG Mycoplasma pneumon IgM Blood Type Antibody Screen Fingerstick Blood Sugar Results: 252 Review of Systems - Review of Systems All systems: reviewed and no additional remarkable complaints except - Constitutional Constitutional: absent: Fever, Chills, Sweats - EENT Eyes: UNREMARKABLE. absent: Change in Vision Ears: UNREMARKABLE Nose/Mouth/Throat: UNREMARKABLE - Cardiovascular Cardiovascular: As Per HPI, Dyspnea on Exertion. absent: Chest Pain, Palpitations - Respiratory Respiratory: Pain on Inspiration. absent: Cough, Hemoptysis - Gastrointestinal Gastrointestinal: UNREMARKABLE. absent: Abdominal Pain, Nausea - Genitourinary Genitourinary: UNREMARKABLE. absent: Dysuria, Hematuria - Musculoskeletal Musculoskeletal: As Par HPI, Back Pain, UNREMARKABLE - Integumentary Integumentary: UNREMARKABLE. absent: Lesions - Neurological Neurological: UNREMARKABLE - Psychiatric Psychiatric: UNREMARKABLE - Endocrine Endocrine: UNREMARKABLE - Hematologic/Lymphatic Hematologic: UNREMARKABLE Critical Care Progress Note - Extremities/Vascular Does the Patient have a Central Venous Catheter?: No Does the Patient need a Central Venous Catheter?: No Does the Patient have a Boothe Catheter?: No Does the Patient need a Boothe Catheter?: No - Prophylaxis GI Prophylaxis GI: PPI - Prophylaxis DVT Prophylaxis DVT: Heparin SQ - Nutrition Nutrition: Nutrition Category Date Time Status NPO Diet [DIET] Diets 03/26/18 Breakfast Active Assessment/Plan - Assessment and Plan (Free Text) Assessment: Patient is a 32 yo male with a history of T2DM and drug abuse who initially presented with low back pain. A ELECTRICAL TECH was called for SOB and R-sided chest pain. He was transferred to ICU. He is saturating well on RA, still with pleuritc chest pain. CT revealed large loculated pleural effusion. R thoracentesis by IR 03/24- removed 60 cc, rec CT surgery. DEREK no vegetation. Pre-op stress test today 03/26. Plan for VATS tomorrow 03/27. Plan: Neuro: - No acute issues - Gabapentin 400 mg PO TID CV: - Sinus tachycardia- 2/2 pain - Metoprolol 25 mg PO BID - Monitor vitals - TTE: normal EF, no vegetation observed - DEREK: no vegetation - Stress test pending - Cardiology consulted (Otoniel) Pulm: Empyema - CXR: moderate R pleural effusions with prominent R pulm infiltrates - CTA chest 03/22- no PE, moderate R pleural effusion with marked compression atelectasis, scattered b/l nodular infiltrates - Pleural fluid: pH 7.08, WBC 5992, 74 neutrophils, RBC 669, no malignant cells, no growth >2 days - Maintain spO2>92%- NC or BiPAP PRN - ABG wnl - Toradol 30 mg IV Q6H PRN - Percocet 1-2 tabs Q6H PRN - Dilaudid 1 mg IV Q4H PRN - Pulmonology consulted (Artur) - IR consulted (Leon)- R thoracentesis 03/24, 60 cc - CT surgery consulted (Asif)- VATS with decortication tomorrow 03/27 GI: - Diabetic diet - NPO after midnight : - I's & O's - Replete electrolytes PRN Endo: - A1c 12.4 - Maintain euglycemia - Hypoglycemic protocol - Accuchecks ACHS with ISS Heme: - Monitor H&H - D-dimer 649 - LE Dopplers: no DVT ID: Sepsis (MRSA bacteremia) - Tmax 102.5- afebrile since 03/21 - Mild leukocytosis stable (13) - ESR 101, CRP 260.8 - Blood Cx: MRSA - Repeat Cx no growth >48hrs - HIV negative - Influenza, Legionella, Mycoplasma negative - Vancomycin 1.25 g IV Q8H - F/u trough tonight - ID consulted (Tomas) Integumentary: - No lesions identifiable - Herpes pending - Surgery consulted (Hamer)- r/o nec fasc PPx: VTE: Heparin 5000 units SC Q8H- hold for surgery GI: PTX 40 mg IV daily PT/OT/ST Code status: full code Case discussed with attending, Dr. John Osorio. PGY-1 Dian Zuleta D.O. <Gregoria Osorio - Last Filed: 03/27/18 16:41> CCU Objective - Vital Signs / Intake & Output Vital Signs (Last 4 hours): Vital Signs Temp Pulse Resp BP Pulse Ox 03/27/18 16:00 98.5 F 84 18 99 03/27/18 13:05 90 26 H 182/106 H 86 L 03/27/18 13:00 97 H 34 H 91 L Intake and Output (Last 8hrs): Intake & Output 03/27/18 03/27/18 03/27/18 06:59 14:59 22:59 Intake Total 0 500 0 Output Total 600 1400 0 Balance -600 -900 0 Weight 290 lb Intake: IV 0 Intake, IV Amount 500 Left Wrist 500 Oral 0 0 0 Output: Urine 600 1400 0 Urine, Voided 600 1400 0 - Medications Active Medications: Active Medications Generic Name Dose Route Start Last Admin Trade Name Freq PRN Reason Stop Dose Admin Gabapentin 400 mg 03/21/18 18:00 03/27/18 14:00 Neurontin PO Not Given TID JERED Heparin Sodium (Porcine) 5,000 units 03/23/18 14:00 03/26/18 22:38 Heparin SC 5,000 units Q8 JERED Administration Hydromorphone HCl 1 mg 03/25/18 16:47 03/27/18 12:22 Dilaudid IVP 1 mg Q4H PRN Administration Pain, severe (8-10) Vancomycin HCl 1.5 gm/ Sodium 500 mls @ 250 mls/hr 03/27/18 03:00 03/27/18 10:42 Chloride IVPB 250 mls/hr Q8H JERED Administration Protocol Insulin Aspart 0 unit 03/22/18 22:00 03/27/18 11:30 Novolog SC Not Given ACHS JERED Protocol Insulin Glargine 10 unit 03/27/18 10:00 03/27/18 10:03 Lantus SC 10 units DAILY JERED Administration Metoprolol Tartrate 25 mg 03/22/18 10:00 03/27/18 10:03 Lopressor PO 25 mg BID JERED Administration Oxycodone/Acetaminophen 1 tab 03/26/18 13:09 Percocet 5/325 Mg Tab PO 03/29/18 13:10 Q6H PRN Pain, moderate (4-7) Oxycodone/Acetaminophen 2 tab 03/26/18 13:09 Percocet 5/325 Mg Tab PO 03/29/18 13:10 Q6H PRN Pain, severe (8-10) Pantoprazole Sodium 40 mg 03/23/18 11:30 03/27/18 10:00 Protonix Ec Tab PO Not Given DAILY JERED - Patient Studies Lab Studies: Microbiology Studies 03/24/18 17:19 Gram Stain - Final Thoracic Fluid Body Fluid Culture - Preliminary NO GROWTH AFTER 3 DAYS 03/24/18 09:04 Blood Culture - Preliminary Blood-Venous NO GROWTH AFTER 3 DAYS 03/24/18 09:04 Blood Culture - Preliminary Blood-Venous NO GROWTH AFTER 3 DAYS 03/22/18 17:00 Blood Culture - Preliminary Blood NO GROWTH AFTER 4 DAYS 03/22/18 16:30 Blood Culture - Preliminary Blood NO GROWTH AFTER 4 DAYS Lab Studies 03/27/18 03/27/18 03/27/18 Range/Units 11:40 07:26 04:11 WBC (4.8-10.8) K/uL RBC (4.40-5.90) Mil/uL Hgb (12.0-18.0) g/dL Hct (35.0-51.0) % MCV (80.0-94.0) fL MCH (27.0-31.0) pg MCHC (33.0-37.0) g/dL RDW (11.5-14.5) % Plt Count (130-400) K/uL MPV (7.2-11.7) fL Neut % (Auto) (50.0-75.0) % Lymph % (Auto) (20.0-40.0) % [place] % (Auto) (0.0-10.0) % Eos % (Auto) (0.0-4.0) % Baso % (Auto) (0.0-2.0) % Neut # (Auto) (1.8-7.0) K/uL Lymph # (Auto) (1.0-4.3) K/uL [place] # (Auto) (0.0-0.8) K/uL Eos # (Auto) (0.0-0.7) K/uL Baso # (Auto) (0.0-0.2) K/uL Neutrophils % (Manual) (50-75) % Band Neutrophils % (0-2) % Lymphocytes % (Manual) (20-40) % Monocytes % (Manual) (0-10) % Platelet Estimate (NORMAL) Sodium 135 (132-148) mmol/L Potassium 4.4 (3.6-5.2) mmol/L Chloride 98 (98-107) mmol/L Carbon Dioxide 27 (22-30) mmol/L Anion Gap 14 (10-20) BUN 11 (9-20) mg/dL Creatinine 0.6 L (0.8-1.5) mg/dL Est GFR ( Amer) > 60 Est GFR (Non-Af Amer) > 60 POC Glucose (mg/dL) 230 H 326 H (65-110) mg/dL Random Glucose 338 H (75-110) mg/dL Calcium 8.9 (8.6-10.4) mg/dl Phosphorus 3.8 (2.5-4.5) mg/dL Magnesium 2.0 (1.6-2.3) mg/dL Total Bilirubin 0.9 (0.2-1.3) mg/dL AST 34 (17-59) U/L ALT 32 (21-72) U/L Alkaline Phosphatase 228 H (38-126) U/L Total Protein 7.2 (6.3-8.3) g/dL Albumin 3.4 L (3.5-5.0) g/dL Globulin 3.8 (2.2-3.9) gm/dL Albumin/Globulin Ratio 0.9 L (1.0-2.1) Vancomycin Trough (5.0-10.0) ug/mL Herpes Virus Source 03/27/18 03/27/18 03/26/18 Range/Units 04:11 04:11 21:27 WBC 13.8 H (4.8-10.8) K/uL RBC 4.27 L (4.40-5.90) Mil/uL Hgb 12.0 (12.0-18.0) g/dL Hct 35.5 (35.0-51.0) % MCV 83.0 (80.0-94.0) fL MCH 28.0 (27.0-31.0) pg MCHC 33.7 (33.0-37.0) g/dL RDW 12.7 (11.5-14.5) % Plt Count 420 H (130-400) K/uL MPV 8.0 (7.2-11.7) fL Neut % (Auto) 74.2 (50.0-75.0) % Lymph % (Auto) 9.2 L (20.0-40.0) % [place] % (Auto) 10.9 H (0.0-10.0) % Eos % (Auto) 3.4 (0.0-4.0) % Baso % (Auto) 2.3 H (0.0-2.0) % Neut # (Auto) 10.2 H (1.8-7.0) K/uL Lymph # (Auto) 1.3 (1.0-4.3) K/uL [place] # (Auto) 1.5 H (0.0-0.8) K/uL Eos # (Auto) 0.5 (0.0-0.7) K/uL Baso # (Auto) 0.3 H (0.0-0.2) K/uL Neutrophils % (Manual) 77 H (50-75) % Band Neutrophils % 2 (0-2) % Lymphocytes % (Manual) 8 L (20-40) % Monocytes % (Manual) 13 H (0-10) % Platelet Estimate Normal (NORMAL) Sodium (132-148) mmol/L Potassium (3.6-5.2) mmol/L Chloride (98-107) mmol/L Carbon Dioxide (22-30) mmol/L Anion Gap (10-20) BUN (9-20) mg/dL Creatinine (0.8-1.5) mg/dL Est GFR ( Amer) Est GFR (Non-Af Amer) POC Glucose (mg/dL) 323 H (65-110) mg/dL Random Glucose (75-110) mg/dL Calcium (8.6-10.4) mg/dl Phosphorus (2.5-4.5) mg/dL Magnesium (1.6-2.3) mg/dL Total Bilirubin (0.2-1.3) mg/dL AST (17-59) U/L ALT (21-72) U/L Alkaline Phosphatase (38-126) U/L Total Protein (6.3-8.3) g/dL Albumin (3.5-5.0) g/dL Globulin (2.2-3.9) gm/dL Albumin/Globulin Ratio (1.0-2.1) Vancomycin Trough < 5.0 L (5.0-10.0) ug/mL Herpes Virus Source 03/26/18 03/26/18 03/26/18 Range/Units 18:12 16:13 11:15 WBC (4.8-10.8) K/uL RBC (4.40-5.90) Mil/uL Hgb (12.0-18.0) g/dL Hct (35.0-51.0) % MCV (80.0-94.0) fL MCH (27.0-31.0) pg MCHC (33.0-37.0) g/dL RDW (11.5-14.5) % Plt Count (130-400) K/uL MPV (7.2-11.7) fL Neut % (Auto) (50.0-75.0) % Lymph % (Auto) (20.0-40.0) % [place] % (Auto) (0.0-10.0) % Eos % (Auto) (0.0-4.0) % Baso % (Auto) (0.0-2.0) % Neut # (Auto) (1.8-7.0) K/uL Lymph # (Auto) (1.0-4.3) K/uL [place] # (Auto) (0.0-0.8) K/uL Eos # (Auto) (0.0-0.7) K/uL Baso # (Auto) (0.0-0.2) K/uL Neutrophils % (Manual) (50-75) % Band Neutrophils % (0-2) % Lymphocytes % (Manual) (20-40) % Monocytes % (Manual) (0-10) % Platelet Estimate (NORMAL) Sodium (132-148) mmol/L Potassium (3.6-5.2) mmol/L Chloride (98-107) mmol/L Carbon Dioxide (22-30) mmol/L Anion Gap (10-20) BUN (9-20) mg/dL Creatinine (0.8-1.5) mg/dL Est GFR ( Amer) Est GFR (Non-Af Amer) POC Glucose (mg/dL) 311 H 286 H (65-110) mg/dL Random Glucose (75-110) mg/dL Calcium (8.6-10.4) mg/dl Phosphorus (2.5-4.5) mg/dL Magnesium (1.6-2.3) mg/dL Total Bilirubin (0.2-1.3) mg/dL AST (17-59) U/L ALT (21-72) U/L Alkaline Phosphatase (38-126) U/L Total Protein (6.3-8.3) g/dL Albumin (3.5-5.0) g/dL Globulin (2.2-3.9) gm/dL Albumin/Globulin Ratio (1.0-2.1) Vancomycin Trough < 5.0 L (5.0-10.0) ug/mL Herpes Virus Source 03/26/18 03/21/18 Range/Units 07:18 15:45 WBC (4.8-10.8) K/uL RBC (4.40-5.90) Mil/uL Hgb (12.0-18.0) g/dL Hct (35.0-51.0) % MCV (80.0-94.0) fL MCH (27.0-31.0) pg MCHC (33.0-37.0) g/dL RDW (11.5-14.5) % Plt Count (130-400) K/uL MPV (7.2-11.7) fL Neut % (Auto) (50.0-75.0) % Lymph % (Auto) (20.0-40.0) % [place] % (Auto) (0.0-10.0) % Eos % (Auto) (0.0-4.0) % Baso % (Auto) (0.0-2.0) % Neut # (Auto) (1.8-7.0) K/uL Lymph # (Auto) (1.0-4.3) K/uL [place] # (Auto) (0.0-0.8) K/uL Eos # (Auto) (0.0-0.7) K/uL Baso # (Auto) (0.0-0.2) K/uL Neutrophils % (Manual) (50-75) % Band Neutrophils % (0-2) % Lymphocytes % (Manual) (20-40) % Monocytes % (Manual) (0-10) % Platelet Estimate (NORMAL) Sodium (132-148) mmol/L Potassium (3.6-5.2) mmol/L Chloride (98-107) mmol/L Carbon Dioxide (22-30) mmol/L Anion Gap (10-20) BUN (9-20) mg/dL Creatinine (0.8-1.5) mg/dL Est GFR ( Amer) Est GFR (Non-Af Amer) POC Glucose (mg/dL) 291 H (65-110) mg/dL Random Glucose (75-110) mg/dL Calcium (8.6-10.4) mg/dl Phosphorus (2.5-4.5) mg/dL Magnesium (1.6-2.3) mg/dL Total Bilirubin (0.2-1.3) mg/dL AST (17-59) U/L ALT (21-72) U/L Alkaline Phosphatase (38-126) U/L Total Protein (6.3-8.3) g/dL Albumin (3.5-5.0) g/dL Globulin (2.2-3.9) gm/dL Albumin/Globulin Ratio (1.0-2.1) Vancomycin Trough (5.0-10.0) ug/mL Herpes Virus Source Whole blood Laboratory Results - last 24 hr 03/21/18 03/26/18 03/26/18 15:45 07:18 11:15 WBC RBC Hgb Hct MCV MCH MCHC RDW Plt Count MPV Neut % (Auto) Lymph % (Auto) [place] % (Auto) Eos % (Auto) Baso % (Auto) Neut # (Auto) Lymph # (Auto) [place] # (Auto) Eos # (Auto) Baso # (Auto) Neutrophils % (Manual) Band Neutrophils % Lymphocytes % (Manual) Monocytes % (Manual) Platelet Estimate Sodium Potassium Chloride Carbon Dioxide Anion Gap BUN Creatinine Est GFR ( Amer) Est GFR (Non-Af Amer) POC Glucose (mg/dL) 291 H 286 H Random Glucose Calcium Phosphorus Magnesium Total Bilirubin AST ALT Alkaline Phosphatase Total Protein Albumin Globulin Albumin/Globulin Ratio Vancomycin Trough Herpes Virus Source Whole blood 03/26/18 03/26/18 03/26/18 16:13 18:12 21:27 WBC RBC Hgb Hct MCV MCH MCHC RDW Plt Count MPV Neut % (Auto) Lymph % (Auto) [place] % (Auto) Eos % (Auto) Baso % (Auto) Neut # (Auto) Lymph # (Auto) [place] # (Auto) Eos # (Auto) Baso # (Auto) Neutrophils % (Manual) Band Neutrophils % Lymphocytes % (Manual) Monocytes % (Manual) Platelet Estimate Sodium Potassium Chloride Carbon Dioxide Anion Gap BUN Creatinine Est GFR ( Amer) Est GFR (Non-Af Amer) POC Glucose (mg/dL) 311 H 323 H Random Glucose Calcium Phosphorus Magnesium Total Bilirubin AST ALT Alkaline Phosphatase Total Protein Albumin Globulin Albumin/Globulin Ratio Vancomycin Trough < 5.0 L Herpes Virus Source 03/27/18 03/27/18 03/27/18 04:11 04:11 04:11 WBC 13.8 H RBC 4.27 L Hgb 12.0 Hct 35.5 MCV 83.0 MCH 28.0 MCHC 33.7 RDW 12.7 Plt Count 420 H MPV 8.0 Neut % (Auto) 74.2 Lymph % (Auto) 9.2 L [place] % (Auto) 10.9 H Eos % (Auto) 3.4 Baso % (Auto) 2.3 H Neut # (Auto) 10.2 H Lymph # (Auto) 1.3 [place] # (Auto) 1.5 H Eos # (Auto) 0.5 Baso # (Auto) 0.3 H Neutrophils % (Manual) 77 H Band Neutrophils % 2 Lymphocytes % (Manual) 8 L Monocytes % (Manual) 13 H Platelet Estimate Normal Sodium 135 Potassium 4.4 Chloride 98 Carbon Dioxide 27 Anion Gap 14 BUN 11 Creatinine 0.6 L Est GFR ( Amer) > 60 Est GFR (Non-Af Amer) > 60 POC Glucose (mg/dL) Random Glucose 338 H Calcium 8.9 Phosphorus 3.8 Magnesium 2.0 Total Bilirubin 0.9 AST 34 ALT 32 Alkaline Phosphatase 228 H Total Protein 7.2 Albumin 3.4 L Globulin 3.8 Albumin/Globulin Ratio 0.9 L Vancomycin Trough < 5.0 L Herpes Virus Source 03/27/18 03/27/18 07:26 11:40 WBC RBC Hgb Hct MCV MCH MCHC RDW Plt Count MPV Neut % (Auto) Lymph % (Auto) [place] % (Auto) Eos % (Auto) Baso % (Auto) Neut # (Auto) Lymph # (Auto) [place] # (Auto) Eos # (Auto) Baso # (Auto) Neutrophils % (Manual) Band Neutrophils % Lymphocytes % (Manual) Monocytes % (Manual) Platelet Estimate Sodium Potassium Chloride Carbon Dioxide Anion Gap BUN Creatinine Est GFR ( Amer) Est GFR (Non-Af Amer) POC Glucose (mg/dL) 326 H 230 H Random Glucose Calcium Phosphorus Magnesium Total Bilirubin AST ALT Alkaline Phosphatase Total Protein Albumin Globulin Albumin/Globulin Ratio Vancomycin Trough Herpes Virus Source Critical Care Progress Note - Nutrition Nutrition: Nutrition Category Date Time Status NPO Diet [DIET] Diets 03/27/18 Breakfast Active Assessment/Plan - Assessment and Plan (Free Text) Plan: MRSA bacteremia: contineu abx as per ID -not in shock -continue to monitor -continue dvt/pud ppx -above resident documents my clinical management and physical exam - Date & Time Date: 03/26/18 Time: 16:41
[2018-03-26] MEDS: (Novolog) Insulin Aspart, Recombinant 100 u/ml 10 ml vial SC SCH ×4 (07:41→22:38)
[2018-03-26] MEDS ORDERED: Caffeine Citrated **INJ** 20 MG/ML IV ONE (07:55)
--- NOTE | 2018-03-26 11:28 | US ---
Procedure: Ultrasound guided thoracentesis. Clinical History: Right-sided pleural effusion. Technique: The relative risks and indications for the procedure were explained to the patient and informed written consent obtained. Sonography of the right chest was performed in a an upright position. This revealed a complex right-sided pleural effusion. A puncture site was selected in the posterior lateral aspect of the right chest and the area was prepped and draped in the usual sterile fashion. 1% lidocaine was used to anesthetize the skin and soft tissues. A 5 [place] centesis catheter was trochared into the right pleural cavity and approximately 60 cc cloudy luli colored fluid was aspirated. No more fluid could be aspirated. The patient could not tolerate continuing the procedure. Postprocedure radiograph demonstrated no evidence of pneumothorax and near complete resolution of the previously identified pleural effusion. Impression: Ultrasound-guided thoracentesis of the right pleural cavity. Approximately 60 cc cc of cloudy luli colored fluid was aspirated.
--- NOTE | 2018-03-26 12:09 | VASCLAB ---
Date of service: 03/23/2018 PROCEDURE: Lower Extremity Venous Duplex Exam. HISTORY: Elevated D-Dimer PRIORS: None. TECHNIQUE: Bilateral common femoral, femoral, popliteal and posterior tibial, peroneal and great saphenous veins were evaluated. Flow was assessed with color Doppler, compressibility, assessment of phasic flow and augmentation response. Report prepared by KAMILAH Emmanuel FINDINGS: RIGHT: 1. Common Femoral Vein: 1.1. Compressibility - Fully compressible: Thrombus - None : Flow - Phasic: Augmentation -Normal: Reflux - None. 2. Femoral Vein: 2.1. Compressibility - Fully compressible: Thrombus - None : Flow - Phasic: Augmentation -Normal: Reflux - None. 3. Popliteal Vein: 3.1. Compressibility - Fully compressible: Thrombus - None : Flow - Phasic: Augmentation -Normal: Reflux - None. 4. Posterior Tibial Vein: 4.1. Compressibility - Fully compressible: Thrombus - None: Flow - Phasic: Augmentation -Normal: Reflux - None. 5. Peroneal Vein: 5.1. Compressibility - Fully compressible: Thrombus - None: Flow - Phasic: Augmentation -Normal: Reflux - None. 6. Great Saphenous Vein: 6.1. Compressibility - Fully compressible: Thrombus - None: Flow - Phasic: Augmentation - Normal: Reflux - None. LEFT: 1. Common Femoral Vein: 1.1. Compressibility - Fully compressible: Thrombus - None: Flow - Phasic: Augmentation -Normal: Reflux - None. 2. Femoral Vein: 2.1. Compressibility - Fully compressible: Thrombus - None: Flow - Phasic: Augmentation -Normal: Reflux - None. 3. Popliteal Vein: 3.1. Compressibility - Fully compressible: Thrombus - None : Flow - Phasic: Augmentation -Normal: Reflux - None. 4. Posterior Tibial Vein: 4.1. Compressibility - Fully compressible: Thrombus - None: Flow - Phasic: Augmentation -Normal: Reflux - None. 5. Peroneal Vein: 5.1. Compressibility - Fully compressible: Thrombus - None: Flow - Phasic: Augmentation -Normal: Reflux - None. 6. Great Saphenous Vein: 6.1. Compressibility - Fully compressible: Thrombus - None: Flow - Phasic: Augmentation - Normal: Reflux - None. OTHER FINDINGS: Right: None significant. Left: None significant. IMPRESSION: Right: No evidence of deep or superficial vein thrombosis of the right lower extremity. Normal valve function noted of the right side. Left: No evidence of deep or superficial vein thrombosis of the left lower extremity. Normal valve function noted of the left side.
[2018-03-26] MEDS ORDERED: Oxycodone/Acetaminophen 5/325 mg Tab PO PRN ×2 (13:09)
[2018-03-26] MEDS: Pantoprazole 40 mg EC Tab PO SCH (13:17)
--- NOTE | 2018-03-26 14:54 | CP.PCM.PN ---
Subjective - Date & Time of Evaluation Date of Evaluation: 03/26/18 Time of Evaluation: 14:51 - Subjective Subjective: Patient denies chest pain and dyspnea Stress test: Normal ECHO: Normal EF Stable hemodynamics This patient assessed as low to intermediate cardiac risk for VATS under general anaesthesia If benefit outweighs the risk please proceed with the surgery Thank you. will follow Objective - Vital Signs/Intake and Output Vital Signs (last 24 hours): Temp Pulse Resp BP Pulse Ox 98.1 F 100 H 23 137/83 99 03/26/18 04:00 03/26/18 05:15 03/26/18 05:15 03/26/18 05:15 03/26/18 05:15 Intake and Output: 03/26/18 03/26/18 06:59 18:59 Intake Total 610 0 Output Total 800 0 Balance -190 0 - Medications Medications: Current Medications Gabapentin (Neurontin) 400 mg PO TID [facility] Last Admin: 03/26/18 13:17 Dose: 400 mg Heparin Sodium (Porcine) (Heparin) 5,000 units SC Q8 [facility] Last Admin: 03/26/18 13:18 Dose: 5,000 units Hydromorphone HCl (Dilaudid) 1 mg IVP Q4H PRN PRN Reason: Pain, severe (8-10) Last Admin: 03/26/18 13:16 Dose: 1 mg Vancomycin HCl 1.25 gm/ Sodium (Chloride) 250 mls @ 166.7 mls/hr IVPB Q8H [facility]; Protocol Last Admin: 03/26/18 11:00 Dose: 166.7 mls/hr Insulin Aspart (Novolog) 0 unit SC ACHS [facility]; Protocol Last Admin: 03/26/18 11:41 Dose: 4 units Ketorolac Tromethamine (Toradol) 30 mg IVP Q6 PRN PRN Reason: Pain, moderate (4-7) Last Admin: 03/26/18 08:13 Dose: 30 mg Metoprolol Tartrate (Lopressor) 25 mg PO BID [facility] Last Admin: 03/26/18 10:26 Dose: Not Given Oxycodone/Acetaminophen (Percocet 5/325 Mg Tab) 1 tab PO Q6H PRN PRN Reason: Pain, moderate (4-7) Stop: 03/29/18 13:10 Oxycodone/Acetaminophen (Percocet 5/325 Mg Tab) 2 tab PO Q6H PRN PRN Reason: Pain, severe (8-10) Stop: 03/29/18 13:10 Pantoprazole Sodium (Protonix Ec Tab) 40 mg PO DAILY [facility] Last Admin: 03/26/18 13:17 Dose: 40 mg - Labs Labs: 03/26/18 05:56 03/26/18 05:56 PT 14.3 SECONDS (9.7-12.2) H 03/26/18 05:56 INR 1.3 03/26/18 05:56 APTT 38 SECONDS (21-34) H D 03/26/18 05:56
--- NOTE | 2018-03-26 17:16 | CP.PCM.PN ---
Subjective - Date & Time of Evaluation Date of Evaluation: 03/26/18 Time of Evaluation: 17:14 - Subjective Subjective: still c/o of pain but less leasions beter Objective - Vital Signs/Intake and Output Vital Signs (last 24 hours): Temp Pulse Resp BP Pulse Ox 98.1 F 100 H 23 137/83 99 03/26/18 04:00 03/26/18 05:15 03/26/18 05:15 03/26/18 05:15 03/26/18 05:15 Intake and Output: 03/26/18 03/26/18 06:59 18:59 Intake Total 610 0 Output Total 800 0 Balance -190 0 - Medications Medications: Current Medications Gabapentin (Neurontin) 400 mg PO TID [facility] Last Admin: 03/26/18 13:17 Dose: 400 mg Heparin Sodium (Porcine) (Heparin) 5,000 units SC Q8 [facility] Last Admin: 03/26/18 13:18 Dose: 5,000 units Hydromorphone HCl (Dilaudid) 1 mg IVP Q4H PRN PRN Reason: Pain, severe (8-10) Last Admin: 03/26/18 13:16 Dose: 1 mg Vancomycin HCl 1.25 gm/ Sodium (Chloride) 250 mls @ 166.7 mls/hr IVPB Q8H [facility]; Protocol Last Admin: 03/26/18 11:00 Dose: 166.7 mls/hr Insulin Aspart (Novolog) 0 unit SC ACHS [facility]; Protocol Last Admin: 03/26/18 16:32 Dose: 6 units Ketorolac Tromethamine (Toradol) 30 mg IVP Q6 PRN PRN Reason: Pain, moderate (4-7) Last Admin: 03/26/18 15:50 Dose: 30 mg Metoprolol Tartrate (Lopressor) 25 mg PO BID [facility] Last Admin: 03/26/18 10:26 Dose: Not Given Oxycodone/Acetaminophen (Percocet 5/325 Mg Tab) 1 tab PO Q6H PRN PRN Reason: Pain, moderate (4-7) Stop: 03/29/18 13:10 Oxycodone/Acetaminophen (Percocet 5/325 Mg Tab) 2 tab PO Q6H PRN PRN Reason: Pain, severe (8-10) Stop: 03/29/18 13:10 Pantoprazole Sodium (Protonix Ec Tab) 40 mg PO DAILY [facility] Last Admin: 03/26/18 13:17 Dose: 40 mg - Labs Labs: 03/26/18 05:56 03/26/18 05:56 PT 14.3 SECONDS (9.7-12.2) H 03/26/18 05:56 INR 1.3 03/26/18 05:56 APTT 38 SECONDS (21-34) H D 03/26/18 05:56 - Constitutional Appears: Non-toxic - Head Exam Head Exam: NORMAL INSPECTION - Eye Exam Eye Exam: Normal appearance Pupil Exam: NORMAL ACCOMODATION - ENT Exam ENT Exam: Mucous Membranes Moist - Respiratory Exam Respiratory Exam: NORMAL BREATHING PATTERN - Cardiovascular Exam Cardiovascular Exam: Tachycardia, REGULAR RHYTHM - GI/Abdominal Exam GI & Abdominal Exam: Normal Bowel Sounds - Exam Exam: NORMAL INSPECTION - Back Exam Back Exam: NORMAL INSPECTION - Neurological Exam Neurological Exam: Alert, Oriented x3 - Psychiatric Exam Psychiatric exam: Normal Affect - Skin Skin Exam: Normal Color Assessment and Plan - Assessment and Plan (Free Text) Assessment: herbetic neuralgia as per orders
--- NOTE | 2018-03-26 18:04 | CP.PCM.PN ---
Subjective - Date & Time of Evaluation Date of Evaluation: 03/26/18 Time of Evaluation: 10:45 - Subjective Subjective: Patient seen and examined at bedside. Afebrile and in no respiratory distress. Still complains of pain. S/p drainage of right-sided pleural effusion on 03/24--60cc of cloudy yellow fluid. VATS w/ decortication scheduled today. Objective - Vital Signs/Intake and Output Vital Signs (last 24 hours): Temp Pulse Resp BP Pulse Ox 98.1 F 109 H 23 149/90 92 L 03/26/18 04:00 03/26/18 17:06 03/26/18 17:06 03/26/18 17:55 03/26/18 17:06 Intake and Output: 03/26/18 03/26/18 06:59 18:59 Intake Total 610 0 Output Total 800 0 Balance -190 0 - Medications Medications: Current Medications Gabapentin (Neurontin) 400 mg PO TID [facility] Last Admin: 03/26/18 17:56 Dose: 400 mg Heparin Sodium (Porcine) (Heparin) 5,000 units SC Q8 [facility] Last Admin: 03/26/18 13:18 Dose: 5,000 units Hydromorphone HCl (Dilaudid) 1 mg IVP Q4H PRN PRN Reason: Pain, severe (8-10) Last Admin: 03/26/18 13:16 Dose: 1 mg Vancomycin HCl 1.25 gm/ Sodium (Chloride) 250 mls @ 166.7 mls/hr IVPB Q8H [facility]; Protocol Last Admin: 03/26/18 11:00 Dose: 166.7 mls/hr Insulin Aspart (Novolog) 0 unit SC ACHS [facility]; Protocol Last Admin: 03/26/18 16:32 Dose: 6 units Ketorolac Tromethamine (Toradol) 30 mg IVP Q6 PRN PRN Reason: Pain, moderate (4-7) Last Admin: 03/26/18 15:50 Dose: 30 mg Metoprolol Tartrate (Lopressor) 25 mg PO BID [facility] Last Admin: 03/26/18 17:55 Dose: 25 mg Oxycodone/Acetaminophen (Percocet 5/325 Mg Tab) 1 tab PO Q6H PRN PRN Reason: Pain, moderate (4-7) Stop: 03/29/18 13:10 Oxycodone/Acetaminophen (Percocet 5/325 Mg Tab) 2 tab PO Q6H PRN PRN Reason: Pain, severe (8-10) Stop: 03/29/18 13:10 Pantoprazole Sodium (Protonix Ec Tab) 40 mg PO DAILY [facility] Last Admin: 03/26/18 13:17 Dose: 40 mg - Labs Labs: 03/26/18 05:56 03/26/18 05:56 PT 14.3 SECONDS (9.7-12.2) H 03/26/18 05:56 INR 1.3 03/26/18 05:56 APTT 38 SECONDS (21-34) H D 03/26/18 05:56 Assessment and Plan (1) Pleural effusion Status: Acute (2) MRSA bacteremia Status: Acute
--- NOTE | 2018-03-26 19:31 | CP.PCM.PN ---
Subjective - Date & Time of Evaluation Date of Evaluation: 03/26/18 Time of Evaluation: 07:00 - Subjective Subjective: seen in ICU awaiting vats IV rx renewed Objective - Vital Signs/Intake and Output Vital Signs (last 24 hours): Temp Pulse Resp BP Pulse Ox 99.7 F H 138 H 20 151/92 H 87 L 03/26/18 16:00 03/26/18 18:05 03/26/18 18:05 03/26/18 18:05 03/26/18 18:05 Intake and Output: 03/26/18 03/27/18 18:59 06:59 Intake Total 550 Output Total 650 Balance -100 - Medications Medications: Current Medications Gabapentin (Neurontin) 400 mg PO TID [facility] Last Admin: 03/26/18 17:56 Dose: 400 mg Heparin Sodium (Porcine) (Heparin) 5,000 units SC Q8 [facility] Last Admin: 03/26/18 13:18 Dose: 5,000 units Hydromorphone HCl (Dilaudid) 1 mg IVP Q4H PRN PRN Reason: Pain, severe (8-10) Last Admin: 03/26/18 13:16 Dose: 1 mg Vancomycin HCl 1.25 gm/ Sodium (Chloride) 250 mls @ 166.7 mls/hr IVPB Q8H [facility]; Protocol Last Admin: 03/26/18 19:07 Dose: 166.7 mls/hr Insulin Aspart (Novolog) 0 unit SC ACHS [facility]; Protocol Last Admin: 03/26/18 16:32 Dose: 6 units Ketorolac Tromethamine (Toradol) 30 mg IVP Q6 PRN PRN Reason: Pain, moderate (4-7) Last Admin: 03/26/18 15:50 Dose: 30 mg Metoprolol Tartrate (Lopressor) 25 mg PO BID [facility] Last Admin: 03/26/18 17:55 Dose: 25 mg Oxycodone/Acetaminophen (Percocet 5/325 Mg Tab) 1 tab PO Q6H PRN PRN Reason: Pain, moderate (4-7) Stop: 03/29/18 13:10 Oxycodone/Acetaminophen (Percocet 5/325 Mg Tab) 2 tab PO Q6H PRN PRN Reason: Pain, severe (8-10) Stop: 03/29/18 13:10 Pantoprazole Sodium (Protonix Ec Tab) 40 mg PO DAILY [facility] Last Admin: 03/26/18 13:17 Dose: 40 mg - Labs Labs: 03/26/18 05:56 03/26/18 05:56 PT 14.3 SECONDS (9.7-12.2) H 03/26/18 05:56 INR 1.3 03/26/18 05:56 APTT 38 SECONDS (21-34) H D 03/26/18 05:56 Assessment and Plan (1) Cellulitis of back Status: Acute (2) Hyperglycemia Status: Acute (3) Chest wall muscle strain Status: Acute
--- NOTE | 2018-03-26 20:01 | CARD ---
APPROVED REPORT Date of service: 03/25/2018 EXAM: Two-dimensional and M-mode echocardiogram with Doppler and color Doppler. INDICATION Pleural Effusion RISK FACTORS Hypertension Diabetes Mitral Valve E/A ratio0.0 TDI E/Lateral E'0.0E/Medial E'0.0 Reason For Test : Rule out endocarditis. PROCEDURE After obtaining informed consent, patient underwent transesophageal echo in the ICU. Type of Sedation : Conscious Sedation Sedation was provided by anesthesiologist. Sedation was achieved with intravenously. The DEREK was performed complications. Throughout the procedure, the blood pressure, pulse oximetry, cardiac rhythm, and rate were monitored. The patient tolerated the procedure without adverse effects. Recovery from conscious sedation was uneventful and vital signs were stable. LEFT VENTRICLE The left ventricle is normal size. The left ventricular function is normal. The left ventricular ejection fraction is within the normal range. No left ventricle thrombus noted on this study. There is no ventricular septal defect visualized. There is no left ventricular aneurysm. RIGHT VENTRICLE The right ventricle is normal size. The right ventricular systolic function is normal. ATRIA The left atrium size is normal. The right atrium size is normal. PFO with bubble cross over noted AORTIC VALVE The aortic valve is normal in structure. No aortic regurgitation is present. There is no aortic valvular stenosis. There is no aortic valvular vegetation. MITRAL VALVE The mitral valve is normal in structure. There is no evidence of mitral valve prolapse. There is no mitral valve stenosis. Mitral regurgitation is mild. TRICUSPID VALVE The tricuspid valve is normal in structure. There is mild tricuspid regurgitation. There is no tricuspid valve prolapse or vegetation. There is no tricuspid valve stenosis. PULMONIC VALVE The pulmonary valve is normal in structure. GREAT VESSELS The aortic root is normal in size. <Conclusion> The left ventricular function is normal. The left ventricular ejection fraction is within the normal range. The right ventricular systolic function is normal. PFO with bubble cross over noted No evidence of Endocarditis Due to PFO with bubble crossover recommend ASA 81 daily
--- NOTE | 2018-03-26 22:00 | CARD ---
APPROVED REPORT Date of service: 03/26/2018 Protocol: LEXISCAN Test Type: LEXISCAN STRESS Test Indications: PRE OP Target HR: 190 bpm Resting ECG: SINUS TACH Resting Heart Rate: 117 bpm Resting Blood Pressure: 161/106mmHg submaximum (85%): 162 bpm TEST SUMMARY [id number]. INFUSIONDOSE 100:[id number]/.0. [id number]/90.0. PROCEDURE Pharmacologic stress testing was performed using 0.4mg per 5ml of regadenoson given intravenously over 7-10 seconds. POST EXERCISE Reason for Termination: Protocol Completed Target HR: No Max HR: 117 bpm 70% of Maximum Predicted HR: 190 bpm Exercise duration: 00:00 min:sec, 0 Stage Exercise capacity: -3276.-8METs Max Blood Pressure: /mmHg Blood Pressure response to exercise: normal resting BP - appropriate response Heart Rate response to exercise: appropriate Chest Pain: Yes, none Angina index: 0 Arrhythmia: Yes, none ST Change: Yes, none Deviation: 0 mm INTERPRETATION Stress EKG Conclusion: NEGATIVE LEXISCAN STRESS TEST NORMAL BP RESPONSE TO LEXISCAN NUCLEAR STUDIES TO BE READ SEPARATELY EXAM: Myocardial Perfusion STRESS/REST Imaging Protocol The imaging protocol used to acquire images was Stress Tc-99m/rest Tc-99m 1 day Stress Spect myocardial perfusion imaging was performed in supine position 40 minutes following the injection of 13.2 mCi of Tc-99 Sestamibi. Gated Stress Spect was performed 41 minutes after intravenous 20.8 mCi Tc-99 Myoview injection. The images were gated to evaluate regional wall motion and calculate ventricular ejection fraction.Images were reconstructed using backfilter projection method in short horizontal and verticle long axis. Spect slices were generated. RESTING DATA BGU068.47rfPF66.20L/min ESV36.00mlMyocardial Zqqq355.00g Av. Heart Jxgk522.00bpm EF72.00% STRESS DATA HGA056.60axKO98.40L/min ESV33.00mlMyocardial Rtnr180.00g EF73.00% Regional WT score at stress:1.00 Regional WM score at stress:0.00 Summed WT score at stress:17.00 Av. Heart Mbxo398.00bpmSummed WM score at stress:0.00 LV Perf. Quant 17 Seg. SSS4.00 17 Seg. SRS1.00 17 Seg. SDS3.00 Stress Defect Extent (% LAD)0.00Rest Defect Extent (% LAD)0.00Rev. Defect Extent (% LAD)0.00 Stress Defect Extent (% LCX)26.30Rest Defect Extent (% LCX)21.30Rev. Defect Extent (% LCX)7.50 Stress Defect Extent (% RCA)0.00Rest Defect Extent (% RCA)0.00Rev. Defect Extent (% RCA)0.00 Stress Defect Extent (% SUNITA)6.70Rest Defect Extent (% SUNITA)4.10Rev. Defect Extent (% SUNITA)3.30 Other Information Quality:Good IMPRESSION Normal Myocardial Perfusion exercise stress study Left Ventricle LV Size/Shape: The left ventricle is normal size. LV Function:Left ventricle systolic function is normal. The Ejection Fraction is >55%. Conclusion 1. Normal Lexiscan Nuclear Stress Test. Normal EF
[2018-03-27] MEDS: HYDROmorphone 1 mg/ml ISec IVP PRN ×6 (03:55→23:30)
[2018-03-27 04:16] LABS: BASO # 0.3 K/uL (0.0-0.2); BASO % 2.3 % (0.0-2.0); EOS # 0.5 K/uL (0.0-0.7); EOS % 3.4 % (0.0-4.0); LYMPH # 1.3 K/uL (1.0-4.3); LYMPH % 9.2 % (20.0-40.0); MEAN CORPUSCULAR HGB CONC 33.7 g/dL (33.0-37.0); MONO # 1.5 K/uL (0.0-0.8); MONO % 10.9 % (0.0-10.0); NEUT # 10.2 K/uL (1.8-7.0); NEUT % 74.2 % (50.0-75.0); NRBC % 0.1 % (0.0-2.0); PLATELET COUNT 420 K/uL (130-400); RBC 4.27 Mil/uL (4.40-5.90); RED CELL DISTRIBUTION WIDTH 12.7 % (11.5-14.5); WHITE BLOOD COUNT 13.8 K/uL (4.8-10.8)
[2018-03-27] MEDS: Vancomycin 1.5 GM in Sodium Chloride 0.9% 500 ML IVPB SCH ×3 (04:53→18:31)
[2018-03-27 04:59] LABS: ALB/GLOB RATIO 0.9 (1.0-2.1); ALBUMIN 3.4 g/dL (3.5-5.0); ALT/SGPT 32 U/L (21-72); AST/SGOT 34 U/L (17-59); BLOOD UREA NITROGEN 11 mg/dL (9-20); CALCIUM 8.9 mg/dl (8.6-10.4); GFR NON-AFRICAN AMERICAN > 60
[2018-03-27 06:22] LABS: BANDS 2 % (0-2); LYMPHOCYTE 8 % (20-40); MONOCYTE 13 % (0-10); NEUTROPHIL 77 % (50-75); PLATELET ESTIMATE NORMAL (NORMAL); TOTAL CELLS COUNTED 100
[2018-03-27] MEDS: (Novolog) Insulin Aspart, Recombinant 100 u/ml 10 ml vial SC SCH ×4 (08:23→22:00)
[2018-03-27] MEDS: Pantoprazole 40 mg EC Tab PO SCH (10:00)
[2018-03-27] MEDS: (Lantus) Insulin Glargine, Recombinant SC SCH (10:03)
--- NOTE | 2018-03-27 10:29 | CP.CCUPN ---
<Dian Zuleta - Last Filed: 03/27/18 16:20> CCU Subjective - Physician Review Events Since Last Encounter (Free Text): 03/27/18 16:20 no over night events Subjective (Free Text): 03/26/18 07:30 Patient was seen and examined this morning. He is still complaining of back pain. He is scheduled for pre-op stress test this morning. Critical Care Time Spent (in minutes): 35 CCU Objective - Vital Signs / Intake & Output Vital Signs (Last 4 hours): Vital Signs Temp Pulse Resp BP Pulse Ox 03/27/18 10:03 158/95 H 03/27/18 08:05 108 H 28 H 166/97 H 80 L 03/27/18 08:00 98.5 F 101 H 39 H 80 L 03/27/18 07:00 112 H 28 H 98 Intake and Output (Last 8hrs): Intake & Output 03/26/18 03/27/18 03/27/18 22:59 06:59 14:59 Intake Total 887 0 0 Output Total 400 600 400 Balance 487 -600 -400 Weight 290 lb Intake: Intake, IV Amount 167 Left Forearm 167 Oral 720 0 0 Output: Urine 400 600 400 Urine, Voided 400 600 400 - Physical Exam Head: Positive for: Atraumatic, Normocephalic Pupils: Positive for: PERRL Extroacular Muscles: Positive for: EOMI Conjunctiva: Positive for: Normal Mouth: Positive for: Moist Mucous Membranes Nose (Internal): Positive for: Normal Inspection Respiratory/Chest: Positive for: Decreased Breath Sounds (R>L), Tachypneic. Negative for: Respiratory Distress, Accessory Muscle Use, Retracting Cardiovascular: Positive for: Normal S1, S2, Tachycardic. Negative for: Murmurs Abdomen: Negative for: Tenderness, Distention, Peritoneal Signs Back: Positive for: Other (no lesions observed) Neurological: Positive for: GCS=15, CN II-XII Intact Skin: Positive for: Warm, Dry, Normal Color. Negative for: Rashes Psychiatric: Positive for: Alert, Oriented x 3 - Medications Active Medications: Active Medications Generic Name Dose Route Start Last Admin Trade Name Freq PRN Reason Stop Dose Admin Gabapentin 400 mg 03/21/18 18:00 03/26/18 17:56 Neurontin PO 400 mg TID JERED Administration Heparin Sodium (Porcine) 5,000 units 03/23/18 14:00 03/26/18 22:38 Heparin SC 5,000 units Q8 JERED Administration Hydromorphone HCl 1 mg 03/25/18 16:47 03/27/18 08:14 Dilaudid IVP 1 mg Q4H PRN Administration Pain, severe (8-10) Vancomycin HCl 1.5 gm/ Sodium 500 mls @ 250 mls/hr 03/27/18 03:00 03/27/18 04:53 Chloride IVPB 250 mls/hr Q8H JERED Administration Protocol Insulin Aspart 0 unit 03/22/18 22:00 03/27/18 08:23 Novolog SC 6 units ACHS [facility] Administration Protocol Insulin Glargine 10 unit 03/27/18 10:00 03/27/18 10:03 Lantus SC 10 units DAILY JERED Administration Ketorolac Tromethamine 30 mg 03/24/18 17:19 03/27/18 06:42 Toradol IVP 30 mg Q6 PRN Administration Pain, moderate (4-7) Metoprolol Tartrate 25 mg 03/22/18 10:00 03/27/18 10:03 Lopressor PO 25 mg BID JERED Administration Oxycodone/Acetaminophen 1 tab 03/26/18 13:09 Percocet 5/325 Mg Tab PO 03/29/18 13:10 Q6H PRN Pain, moderate (4-7) Oxycodone/Acetaminophen 2 tab 03/26/18 13:09 Percocet 5/325 Mg Tab PO 03/29/18 13:10 Q6H PRN Pain, severe (8-10) Pantoprazole Sodium 40 mg 03/23/18 11:30 03/26/18 13:17 Protonix Ec Tab PO 40 mg DAILY JERED Administration - Patient Studies Lab Studies: Microbiology Studies 03/24/18 09:04 Blood Culture - Preliminary Blood-Venous NO GROWTH AFTER 3 DAYS 03/24/18 09:04 Blood Culture - Preliminary Blood-Venous NO GROWTH AFTER 3 DAYS 03/22/18 17:00 Blood Culture - Preliminary Blood NO GROWTH AFTER 4 DAYS 03/22/18 16:30 Blood Culture - Preliminary Blood NO GROWTH AFTER 4 DAYS 03/24/18 17:19 Gram Stain - Final Thoracic Fluid Body Fluid Culture - Preliminary NO GROWTH AFTER 2 DAYS Lab Studies 03/27/18 03/27/18 03/27/18 Range/Units 07:26 04:11 04:11 WBC 13.8 H (4.8-10.8) K/uL RBC 4.27 L (4.40-5.90) Mil/uL Hgb 12.0 (12.0-18.0) g/dL Hct 35.5 (35.0-51.0) % MCV 83.0 (80.0-94.0) fL MCH 28.0 (27.0-31.0) pg MCHC 33.7 (33.0-37.0) g/dL RDW 12.7 (11.5-14.5) % Plt Count 420 H (130-400) K/uL MPV 8.0 (7.2-11.7) fL Neut % (Auto) 74.2 (50.0-75.0) % Lymph % (Auto) 9.2 L (20.0-40.0) % [place] % (Auto) 10.9 H (0.0-10.0) % Eos % (Auto) 3.4 (0.0-4.0) % Baso % (Auto) 2.3 H (0.0-2.0) % Neut # (Auto) 10.2 H (1.8-7.0) K/uL Lymph # (Auto) 1.3 (1.0-4.3) K/uL [place] # (Auto) 1.5 H (0.0-0.8) K/uL Eos # (Auto) 0.5 (0.0-0.7) K/uL Baso # (Auto) 0.3 H (0.0-0.2) K/uL Neutrophils % (Manual) 77 H (50-75) % Band Neutrophils % 2 (0-2) % Lymphocytes % (Manual) 8 L (20-40) % Monocytes % (Manual) 13 H (0-10) % Platelet Estimate Normal (NORMAL) Sodium 135 (132-148) mmol/L Potassium 4.4 (3.6-5.2) mmol/L Chloride 98 (98-107) mmol/L Carbon Dioxide 27 (22-30) mmol/L Anion Gap 14 (10-20) BUN 11 (9-20) mg/dL Creatinine 0.6 L (0.8-1.5) mg/dL Est GFR ( Amer) > 60 Est GFR (Non-Af Amer) > 60 POC Glucose (mg/dL) 326 H (65-110) mg/dL Random Glucose 338 H (75-110) mg/dL Calcium 8.9 (8.6-10.4) mg/dl Phosphorus 3.8 (2.5-4.5) mg/dL Magnesium 2.0 (1.6-2.3) mg/dL Total Bilirubin 0.9 (0.2-1.3) mg/dL AST 34 (17-59) U/L ALT 32 (21-72) U/L Alkaline Phosphatase 228 H (38-126) U/L Total Protein 7.2 (6.3-8.3) g/dL Albumin 3.4 L (3.5-5.0) g/dL Globulin 3.8 (2.2-3.9) gm/dL Albumin/Globulin Ratio 0.9 L (1.0-2.1) Vancomycin Trough (5.0-10.0) ug/mL Herpes Virus Source 03/27/18 03/26/18 03/26/18 Range/Units 04:11 21:27 18:12 WBC (4.8-10.8) K/uL RBC (4.40-5.90) Mil/uL Hgb (12.0-18.0) g/dL Hct (35.0-51.0) % MCV (80.0-94.0) fL MCH (27.0-31.0) pg MCHC (33.0-37.0) g/dL RDW (11.5-14.5) % Plt Count (130-400) K/uL MPV (7.2-11.7) fL Neut % (Auto) (50.0-75.0) % Lymph % (Auto) (20.0-40.0) % [place] % (Auto) (0.0-10.0) % Eos % (Auto) (0.0-4.0) % Baso % (Auto) (0.0-2.0) % Neut # (Auto) (1.8-7.0) K/uL Lymph # (Auto) (1.0-4.3) K/uL [place] # (Auto) (0.0-0.8) K/uL Eos # (Auto) (0.0-0.7) K/uL Baso # (Auto) (0.0-0.2) K/uL Neutrophils % (Manual) (50-75) % Band Neutrophils % (0-2) % Lymphocytes % (Manual) (20-40) % Monocytes % (Manual) (0-10) % Platelet Estimate (NORMAL) Sodium (132-148) mmol/L Potassium (3.6-5.2) mmol/L Chloride (98-107) mmol/L Carbon Dioxide (22-30) mmol/L Anion Gap (10-20) BUN (9-20) mg/dL Creatinine (0.8-1.5) mg/dL Est GFR ( Amer) Est GFR (Non-Af Amer) POC Glucose (mg/dL) 323 H (65-110) mg/dL Random Glucose (75-110) mg/dL Calcium (8.6-10.4) mg/dl Phosphorus (2.5-4.5) mg/dL Magnesium (1.6-2.3) mg/dL Total Bilirubin (0.2-1.3) mg/dL AST (17-59) U/L ALT (21-72) U/L Alkaline Phosphatase (38-126) U/L Total Protein (6.3-8.3) g/dL Albumin (3.5-5.0) g/dL Globulin (2.2-3.9) gm/dL Albumin/Globulin Ratio (1.0-2.1) Vancomycin Trough < 5.0 L < 5.0 L (5.0-10.0) ug/mL Herpes Virus Source 03/26/18 03/26/18 03/26/18 Range/Units 16:13 11:15 07:18 WBC (4.8-10.8) K/uL RBC (4.40-5.90) Mil/uL Hgb (12.0-18.0) g/dL Hct (35.0-51.0) % MCV (80.0-94.0) fL MCH (27.0-31.0) pg MCHC (33.0-37.0) g/dL RDW (11.5-14.5) % Plt Count (130-400) K/uL MPV (7.2-11.7) fL Neut % (Auto) (50.0-75.0) % Lymph % (Auto) (20.0-40.0) % [place] % (Auto) (0.0-10.0) % Eos % (Auto) (0.0-4.0) % Baso % (Auto) (0.0-2.0) % Neut # (Auto) (1.8-7.0) K/uL Lymph # (Auto) (1.0-4.3) K/uL [place] # (Auto) (0.0-0.8) K/uL Eos # (Auto) (0.0-0.7) K/uL Baso # (Auto) (0.0-0.2) K/uL Neutrophils % (Manual) (50-75) % Band Neutrophils % (0-2) % Lymphocytes % (Manual) (20-40) % Monocytes % (Manual) (0-10) % Platelet Estimate (NORMAL) Sodium (132-148) mmol/L Potassium (3.6-5.2) mmol/L Chloride (98-107) mmol/L Carbon Dioxide (22-30) mmol/L Anion Gap (10-20) BUN (9-20) mg/dL Creatinine (0.8-1.5) mg/dL Est GFR ( Amer) Est GFR (Non-Af Amer) POC Glucose (mg/dL) 311 H 286 H 291 H (65-110) mg/dL Random Glucose (75-110) mg/dL Calcium (8.6-10.4) mg/dl Phosphorus (2.5-4.5) mg/dL Magnesium (1.6-2.3) mg/dL Total Bilirubin (0.2-1.3) mg/dL AST (17-59) U/L ALT (21-72) U/L Alkaline Phosphatase (38-126) U/L Total Protein (6.3-8.3) g/dL Albumin (3.5-5.0) g/dL Globulin (2.2-3.9) gm/dL Albumin/Globulin Ratio (1.0-2.1) Vancomycin Trough (5.0-10.0) ug/mL Herpes Virus Source 03/21/18 Range/Units 15:45 WBC (4.8-10.8) K/uL RBC (4.40-5.90) Mil/uL Hgb (12.0-18.0) g/dL Hct (35.0-51.0) % MCV (80.0-94.0) fL MCH (27.0-31.0) pg MCHC (33.0-37.0) g/dL RDW (11.5-14.5) % Plt Count (130-400) K/uL MPV (7.2-11.7) fL Neut % (Auto) (50.0-75.0) % Lymph % (Auto) (20.0-40.0) % [place] % (Auto) (0.0-10.0) % Eos % (Auto) (0.0-4.0) % Baso % (Auto) (0.0-2.0) % Neut # (Auto) (1.8-7.0) K/uL Lymph # (Auto) (1.0-4.3) K/uL [place] # (Auto) (0.0-0.8) K/uL Eos # (Auto) (0.0-0.7) K/uL Baso # (Auto) (0.0-0.2) K/uL Neutrophils % (Manual) (50-75) % Band Neutrophils % (0-2) % Lymphocytes % (Manual) (20-40) % Monocytes % (Manual) (0-10) % Platelet Estimate (NORMAL) Sodium (132-148) mmol/L Potassium (3.6-5.2) mmol/L Chloride (98-107) mmol/L Carbon Dioxide (22-30) mmol/L Anion Gap (10-20) BUN (9-20) mg/dL Creatinine (0.8-1.5) mg/dL Est GFR ( Amer) Est GFR (Non-Af Amer) POC Glucose (mg/dL) (65-110) mg/dL Random Glucose (75-110) mg/dL Calcium (8.6-10.4) mg/dl Phosphorus (2.5-4.5) mg/dL Magnesium (1.6-2.3) mg/dL Total Bilirubin (0.2-1.3) mg/dL AST (17-59) U/L ALT (21-72) U/L Alkaline Phosphatase (38-126) U/L Total Protein (6.3-8.3) g/dL Albumin (3.5-5.0) g/dL Globulin (2.2-3.9) gm/dL Albumin/Globulin Ratio (1.0-2.1) Vancomycin Trough (5.0-10.0) ug/mL Herpes Virus Source Whole blood Laboratory Results - last 24 hr 03/21/18 03/26/18 03/26/18 15:45 07:18 11:15 WBC RBC Hgb Hct MCV MCH MCHC RDW Plt Count MPV Neut % (Auto) Lymph % (Auto) [place] % (Auto) Eos % (Auto) Baso % (Auto) Neut # (Auto) Lymph # (Auto) [place] # (Auto) Eos # (Auto) Baso # (Auto) Neutrophils % (Manual) Band Neutrophils % Lymphocytes % (Manual) Monocytes % (Manual) Platelet Estimate Sodium Potassium Chloride Carbon Dioxide Anion Gap BUN Creatinine Est GFR ( Amer) Est GFR (Non-Af Amer) POC Glucose (mg/dL) 291 H 286 H Random Glucose Calcium Phosphorus Magnesium Total Bilirubin AST ALT Alkaline Phosphatase Total Protein Albumin Globulin Albumin/Globulin Ratio Vancomycin Trough Herpes Virus Source Whole blood 03/26/18 03/26/18 03/26/18 16:13 18:12 21:27 WBC RBC Hgb Hct MCV MCH MCHC RDW Plt Count MPV Neut % (Auto) Lymph % (Auto) [place] % (Auto) Eos % (Auto) Baso % (Auto) Neut # (Auto) Lymph # (Auto) [place] # (Auto) Eos # (Auto) Baso # (Auto) Neutrophils % (Manual) Band Neutrophils % Lymphocytes % (Manual) Monocytes % (Manual) Platelet Estimate Sodium Potassium Chloride Carbon Dioxide Anion Gap BUN Creatinine Est GFR ( Amer) Est GFR (Non-Af Amer) POC Glucose (mg/dL) 311 H 323 H Random Glucose Calcium Phosphorus Magnesium Total Bilirubin AST ALT Alkaline Phosphatase Total Protein Albumin Globulin Albumin/Globulin Ratio Vancomycin Trough < 5.0 L Herpes Virus Source 03/27/18 03/27/18 03/27/18 04:11 04:11 04:11 WBC 13.8 H RBC 4.27 L Hgb 12.0 Hct 35.5 MCV 83.0 MCH 28.0 MCHC 33.7 RDW 12.7 Plt Count 420 H MPV 8.0 Neut % (Auto) 74.2 Lymph % (Auto) 9.2 L [place] % (Auto) 10.9 H Eos % (Auto) 3.4 Baso % (Auto) 2.3 H Neut # (Auto) 10.2 H Lymph # (Auto) 1.3 [place] # (Auto) 1.5 H Eos # (Auto) 0.5 Baso # (Auto) 0.3 H Neutrophils % (Manual) 77 H Band Neutrophils % 2 Lymphocytes % (Manual) 8 L Monocytes % (Manual) 13 H Platelet Estimate Normal Sodium 135 Potassium 4.4 Chloride 98 Carbon Dioxide 27 Anion Gap 14 BUN 11 Creatinine 0.6 L Est GFR ( Amer) > 60 Est GFR (Non-Af Amer) > 60 POC Glucose (mg/dL) Random Glucose 338 H Calcium 8.9 Phosphorus 3.8 Magnesium 2.0 Total Bilirubin 0.9 AST 34 ALT 32 Alkaline Phosphatase 228 H Total Protein 7.2 Albumin 3.4 L Globulin 3.8 Albumin/Globulin Ratio 0.9 L Vancomycin Trough < 5.0 L Herpes Virus Source 03/27/18 07:26 WBC RBC Hgb Hct MCV MCH MCHC RDW Plt Count MPV Neut % (Auto) Lymph % (Auto) [place] % (Auto) Eos % (Auto) Baso % (Auto) Neut # (Auto) Lymph # (Auto) [place] # (Auto) Eos # (Auto) Baso # (Auto) Neutrophils % (Manual) Band Neutrophils % Lymphocytes % (Manual) Monocytes % (Manual) Platelet Estimate Sodium Potassium Chloride Carbon Dioxide Anion Gap BUN Creatinine Est GFR ( Amer) Est GFR (Non-Af Amer) POC Glucose (mg/dL) 326 H Random Glucose Calcium Phosphorus Magnesium Total Bilirubin AST ALT Alkaline Phosphatase Total Protein Albumin Globulin Albumin/Globulin Ratio Vancomycin Trough Herpes Virus Source Fingerstick Blood Sugar Results: 326 Review of Systems - Review of Systems All systems: reviewed and no additional remarkable complaints except - Constitutional Constitutional: absent: Fever, Chills, Sweats - EENT Eyes: UNREMARKABLE Ears: UNREMARKABLE Nose/Mouth/Throat: UNREMARKABLE - Cardiovascular Cardiovascular: Dyspnea, UNREMARKABLE. absent: Chest Pain - Respiratory Respiratory: Dyspnea, UNREMARKABLE. absent: Cough - Gastrointestinal Gastrointestinal: UNREMARKABLE. absent: Abdominal Pain - Genitourinary Genitourinary: UNREMARKABLE. absent: Dysuria - Musculoskeletal Musculoskeletal: As Par HPI, Back Pain - Integumentary Integumentary: UNREMARKABLE. absent: Lesions - Neurological Neurological: UNREMARKABLE - Psychiatric Psychiatric: UNREMARKABLE - Endocrine Endocrine: UNREMARKABLE - Hematologic/Lymphatic Hematologic: UNREMARKABLE. absent: Easy Bleeding, Easy Bruising, Lymphadenopathy Critical Care Progress Note - Extremities/Vascular Does the Patient have a Central Venous Catheter?: No Does the Patient need a Central Venous Catheter?: No Does the Patient have a Boothe Catheter?: No Does the Patient need a Boothe Catheter?: No - Prophylaxis GI Prophylaxis GI: PPI - Prophylaxis DVT Prophylaxis DVT: Heparin SQ, SCDs - Nutrition Nutrition: Nutrition Category Date Time Status NPO Diet [DIET] Diets 03/27/18 Breakfast Active Assessment/Plan - Assessment and Plan (Free Text) Assessment: Patient is a 32 yo male with a history of T2DM and drug abuse who initially presented with low back pain. A [employer] was called for SOB and R-sided chest pain. He was transferred to ICU. He is saturating well on RA, still with pleuritc chest pain. CT revealed large loculated pleural effusion. R thoracentesis by IR 03/24- removed 60 cc, rec CT surgery. DEREK no vegetation. Pre-op stress test y 03/26. Plan for VATS today 03/27. Plan: Neuro: - No acute issues - Gabapentin 400 mg PO TID CV: - Sinus tachycardia- likely 2/2 pain - Metoprolol 25 mg PO BID - Monitor vitals - TTE: normal EF, no vegetation observed - DEREK: no vegetation - Stress test- surgery clearance - Cardiology consulted (Otoniel) Pulm: Empyema - CXR: moderate R pleural effusions with prominent R pulm infiltrates - CTA chest 03/22- no PE, moderate R pleural effusion with marked compression atelectasis, scattered b/l nodular infiltrates - Pleural fluid: pH 7.08, WBC 5992, 74 neutrophils, RBC 669, no malignant cells, no growth >2 days - Maintain spO2>92%- NC or BiPAP PRN - ABG wnl - Toradol 30 mg IV Q6H PRN - Percocet 1-2 tabs Q6H PRN - Dilaudid 1 mg IV Q4H PRN - Pulmonology consulted (Artur) - IR consulted (Leon)- R thoracentesis 03/24, 60 cc - CT surgery consulted (Asif)- VATS with decortication 03/27 GI: - Diabetic diet : - I's & O's - Replete electrolytes PRN Endo: - A1c 12.4 - Maintain euglycemia - Hypoglycemic protocol - Accuchecks ACHS with ISS Heme: - Monitor H&H - D-dimer 649 - LE Dopplers: no DVT ID: Sepsis (MRSA bacteremia) - Tmax 102.5- afebrile since 03/21 - Mild leukocytosis stable (13) - ESR 101, CRP 260.8 - Blood Cx: MRSA - Repeat Cx no growth >3 days - HIV negative - Influenza, Legionella, Mycoplasma negative - Vancomycin 1.25 g IV Q8H - Trough persistently <5- consider switch to Linezolid - ID consulted (Tomas) Integumentary: - No lesions identifiable - Herpes pending - Surgery consulted (Marjorie)- r/o nec fasc PPx: VTE: SCDs, Heparin 5000 units SC Q8H- hold for surgery GI: PTX 40 mg IV daily PT/OT/ST Code status: full code Case discussed with attending, Dr. John Osorio. PGY-1 Dian Zuleta D.O. <Gregoria Osorio - Last Filed: 03/27/18 16:42> CCU Objective - Vital Signs / Intake & Output Vital Signs (Last 4 hours): Vital Signs Temp Pulse Resp BP Pulse Ox 03/27/18 16:00 98.5 F 84 18 99 03/27/18 13:05 90 26 H 182/106 H 86 L 03/27/18 13:00 97 H 34 H 91 L Intake and Output (Last 8hrs): Intake & Output 03/27/18 03/27/18 03/27/18 06:59 14:59 22:59 Intake Total 0 500 0 Output Total 600 1400 0 Balance -600 -900 0 Weight 290 lb Intake: IV 0 Intake, IV Amount 500 Left Wrist 500 Oral 0 0 0 Output: Urine 600 1400 0 Urine, Voided 600 1400 0 - Medications Active Medications: Active Medications Generic Name Dose Route Start Last Admin Trade Name Freq PRN Reason Stop Dose Admin Aspirin 81 mg 03/28/18 10:00 Aspirin Chewable PO DAILY JERED Gabapentin 400 mg 03/21/18 18:00 03/27/18 14:00 Neurontin PO Not Given TID JERED Heparin Sodium (Porcine) 5,000 units 03/23/18 14:00 03/26/18 22:38 Heparin SC 5,000 units Q8 JERED Administration Hydromorphone HCl 1 mg 03/25/18 16:47 03/27/18 12:22 Dilaudid IVP 1 mg Q4H PRN Administration Pain, severe (8-10) Vancomycin HCl 1.5 gm/ Sodium 500 mls @ 250 mls/hr 03/27/18 03:00 03/27/18 10:42 Chloride IVPB 250 mls/hr Q8H JERED Administration Protocol Insulin Aspart 0 unit 03/22/18 22:00 03/27/18 11:30 Novolog SC Not Given ACHS [facility] Protocol Insulin Glargine 10 unit 03/27/18 10:00 03/27/18 10:03 Lantus SC 10 units DAILY JERED Administration Metoprolol Tartrate 25 mg 03/22/18 10:00 03/27/18 10:03 Lopressor PO 25 mg BID JERED Administration Oxycodone/Acetaminophen 1 tab 03/26/18 13:09 Percocet 5/325 Mg Tab PO 03/29/18 13:10 Q6H PRN Pain, moderate (4-7) Oxycodone/Acetaminophen 2 tab 03/26/18 13:09 Percocet 5/325 Mg Tab PO 03/29/18 13:10 Q6H PRN Pain, severe (8-10) Pantoprazole Sodium 40 mg 03/23/18 11:30 03/27/18 10:00 Protonix Ec Tab PO Not Given DAILY JERED - Patient Studies Lab Studies: Microbiology Studies 03/24/18 17:19 Gram Stain - Final Thoracic Fluid Body Fluid Culture - Preliminary NO GROWTH AFTER 3 DAYS 03/24/18 09:04 Blood Culture - Preliminary Blood-Venous NO GROWTH AFTER 3 DAYS 03/24/18 09:04 Blood Culture - Preliminary Blood-Venous NO GROWTH AFTER 3 DAYS 03/22/18 17:00 Blood Culture - Preliminary Blood NO GROWTH AFTER 4 DAYS 03/22/18 16:30 Blood Culture - Preliminary Blood NO GROWTH AFTER 4 DAYS Lab Studies 03/27/18 03/27/18 03/27/18 Range/Units 11:40 07:26 04:11 WBC (4.8-10.8) K/uL RBC (4.40-5.90) Mil/uL Hgb (12.0-18.0) g/dL Hct (35.0-51.0) % MCV (80.0-94.0) fL MCH (27.0-31.0) pg MCHC (33.0-37.0) g/dL RDW (11.5-14.5) % Plt Count (130-400) K/uL MPV (7.2-11.7) fL Neut % (Auto) (50.0-75.0) % Lymph % (Auto) (20.0-40.0) % [place] % (Auto) (0.0-10.0) % Eos % (Auto) (0.0-4.0) % Baso % (Auto) (0.0-2.0) % Neut # (Auto) (1.8-7.0) K/uL Lymph # (Auto) (1.0-4.3) K/uL [place] # (Auto) (0.0-0.8) K/uL Eos # (Auto) (0.0-0.7) K/uL Baso # (Auto) (0.0-0.2) K/uL Neutrophils % (Manual) (50-75) % Band Neutrophils % (0-2) % Lymphocytes % (Manual) (20-40) % Monocytes % (Manual) (0-10) % Platelet Estimate (NORMAL) Sodium 135 (132-148) mmol/L Potassium 4.4 (3.6-5.2) mmol/L Chloride 98 (98-107) mmol/L Carbon Dioxide 27 (22-30) mmol/L Anion Gap 14 (10-20) BUN 11 (9-20) mg/dL Creatinine 0.6 L (0.8-1.5) mg/dL Est GFR ( Amer) > 60 Est GFR (Non-Af Amer) > 60 POC Glucose (mg/dL) 230 H 326 H (65-110) mg/dL Random Glucose 338 H (75-110) mg/dL Calcium 8.9 (8.6-10.4) mg/dl Phosphorus 3.8 (2.5-4.5) mg/dL Magnesium 2.0 (1.6-2.3) mg/dL Total Bilirubin 0.9 (0.2-1.3) mg/dL AST 34 (17-59) U/L ALT 32 (21-72) U/L Alkaline Phosphatase 228 H (38-126) U/L Total Protein 7.2 (6.3-8.3) g/dL Albumin 3.4 L (3.5-5.0) g/dL Globulin 3.8 (2.2-3.9) gm/dL Albumin/Globulin Ratio 0.9 L (1.0-2.1) Vancomycin Trough (5.0-10.0) ug/mL Herpes Virus Source 03/27/18 03/27/18 03/26/18 Range/Units 04:11 04:11 21:27 WBC 13.8 H (4.8-10.8) K/uL RBC 4.27 L (4.40-5.90) Mil/uL Hgb 12.0 (12.0-18.0) g/dL Hct 35.5 (35.0-51.0) % MCV 83.0 (80.0-94.0) fL MCH 28.0 (27.0-31.0) pg MCHC 33.7 (33.0-37.0) g/dL RDW 12.7 (11.5-14.5) % Plt Count 420 H (130-400) K/uL MPV 8.0 (7.2-11.7) fL Neut % (Auto) 74.2 (50.0-75.0) % Lymph % (Auto) 9.2 L (20.0-40.0) % [place] % (Auto) 10.9 H (0.0-10.0) % Eos % (Auto) 3.4 (0.0-4.0) % Baso % (Auto) 2.3 H (0.0-2.0) % Neut # (Auto) 10.2 H (1.8-7.0) K/uL Lymph # (Auto) 1.3 (1.0-4.3) K/uL [place] # (Auto) 1.5 H (0.0-0.8) K/uL Eos # (Auto) 0.5 (0.0-0.7) K/uL Baso # (Auto) 0.3 H (0.0-0.2) K/uL Neutrophils % (Manual) 77 H (50-75) % Band Neutrophils % 2 (0-2) % Lymphocytes % (Manual) 8 L (20-40) % Monocytes % (Manual) 13 H (0-10) % Platelet Estimate Normal (NORMAL) Sodium (132-148) mmol/L Potassium (3.6-5.2) mmol/L Chloride (98-107) mmol/L Carbon Dioxide (22-30) mmol/L Anion Gap (10-20) BUN (9-20) mg/dL Creatinine (0.8-1.5) mg/dL Est GFR ( Amer) Est GFR (Non-Af Amer) POC Glucose (mg/dL) 323 H (65-110) mg/dL Random Glucose (75-110) mg/dL Calcium (8.6-10.4) mg/dl Phosphorus (2.5-4.5) mg/dL Magnesium (1.6-2.3) mg/dL Total Bilirubin (0.2-1.3) mg/dL AST (17-59) U/L ALT (21-72) U/L Alkaline Phosphatase (38-126) U/L Total Protein (6.3-8.3) g/dL Albumin (3.5-5.0) g/dL Globulin (2.2-3.9) gm/dL Albumin/Globulin Ratio (1.0-2.1) Vancomycin Trough < 5.0 L (5.0-10.0) ug/mL Herpes Virus Source 03/26/18 03/26/18 03/26/18 Range/Units 18:12 16:13 11:15 WBC (4.8-10.8) K/uL RBC (4.40-5.90) Mil/uL Hgb (12.0-18.0) g/dL Hct (35.0-51.0) % MCV (80.0-94.0) fL MCH (27.0-31.0) pg MCHC (33.0-37.0) g/dL RDW (11.5-14.5) % Plt Count (130-400) K/uL MPV (7.2-11.7) fL Neut % (Auto) (50.0-75.0) % Lymph % (Auto) (20.0-40.0) % [place] % (Auto) (0.0-10.0) % Eos % (Auto) (0.0-4.0) % Baso % (Auto) (0.0-2.0) % Neut # (Auto) (1.8-7.0) K/uL Lymph # (Auto) (1.0-4.3) K/uL [place] # (Auto) (0.0-0.8) K/uL Eos # (Auto) (0.0-0.7) K/uL Baso # (Auto) (0.0-0.2) K/uL Neutrophils % (Manual) (50-75) % Band Neutrophils % (0-2) % Lymphocytes % (Manual) (20-40) % Monocytes % (Manual) (0-10) % Platelet Estimate (NORMAL) Sodium (132-148) mmol/L Potassium (3.6-5.2) mmol/L Chloride (98-107) mmol/L Carbon Dioxide (22-30) mmol/L Anion Gap (10-20) BUN (9-20) mg/dL Creatinine (0.8-1.5) mg/dL Est GFR ( Amer) Est GFR (Non-Af Amer) POC Glucose (mg/dL) 311 H 286 H (65-110) mg/dL Random Glucose (75-110) mg/dL Calcium (8.6-10.4) mg/dl Phosphorus (2.5-4.5) mg/dL Magnesium (1.6-2.3) mg/dL Total Bilirubin (0.2-1.3) mg/dL AST (17-59) U/L ALT (21-72) U/L Alkaline Phosphatase (38-126) U/L Total Protein (6.3-8.3) g/dL Albumin (3.5-5.0) g/dL Globulin (2.2-3.9) gm/dL Albumin/Globulin Ratio (1.0-2.1) Vancomycin Trough < 5.0 L (5.0-10.0) ug/mL Herpes Virus Source 03/26/18 03/21/18 Range/Units 07:18 15:45 WBC (4.8-10.8) K/uL RBC (4.40-5.90) Mil/uL Hgb (12.0-18.0) g/dL Hct (35.0-51.0) % MCV (80.0-94.0) fL MCH (27.0-31.0) pg MCHC (33.0-37.0) g/dL RDW (11.5-14.5) % Plt Count (130-400) K/uL MPV (7.2-11.7) fL Neut % (Auto) (50.0-75.0) % Lymph % (Auto) (20.0-40.0) % [place] % (Auto) (0.0-10.0) % Eos % (Auto) (0.0-4.0) % Baso % (Auto) (0.0-2.0) % Neut # (Auto) (1.8-7.0) K/uL Lymph # (Auto) (1.0-4.3) K/uL [place] # (Auto) (0.0-0.8) K/uL Eos # (Auto) (0.0-0.7) K/uL Baso # (Auto) (0.0-0.2) K/uL Neutrophils % (Manual) (50-75) % Band Neutrophils % (0-2) % Lymphocytes % (Manual) (20-40) % Monocytes % (Manual) (0-10) % Platelet Estimate (NORMAL) Sodium (132-148) mmol/L Potassium (3.6-5.2) mmol/L Chloride (98-107) mmol/L Carbon Dioxide (22-30) mmol/L Anion Gap (10-20) BUN (9-20) mg/dL Creatinine (0.8-1.5) mg/dL Est GFR ( Amer) Est GFR (Non-Af Amer) POC Glucose (mg/dL) 291 H (65-110) mg/dL Random Glucose (75-110) mg/dL Calcium (8.6-10.4) mg/dl Phosphorus (2.5-4.5) mg/dL Magnesium (1.6-2.3) mg/dL Total Bilirubin (0.2-1.3) mg/dL AST (17-59) U/L ALT (21-72) U/L Alkaline Phosphatase (38-126) U/L Total Protein (6.3-8.3) g/dL Albumin (3.5-5.0) g/dL Globulin (2.2-3.9) gm/dL Albumin/Globulin Ratio (1.0-2.1) Vancomycin Trough (5.0-10.0) ug/mL Herpes Virus Source Whole blood Laboratory Results - last 24 hr 03/21/18 03/26/18 03/26/18 15:45 07:18 11:15 WBC RBC Hgb Hct MCV MCH MCHC RDW Plt Count MPV Neut % (Auto) Lymph % (Auto) [place] % (Auto) Eos % (Auto) Baso % (Auto) Neut # (Auto) Lymph # (Auto) [place] # (Auto) Eos # (Auto) Baso # (Auto) Neutrophils % (Manual) Band Neutrophils % Lymphocytes % (Manual) Monocytes % (Manual) Platelet Estimate Sodium Potassium Chloride Carbon Dioxide Anion Gap BUN Creatinine Est GFR ( Amer) Est GFR (Non-Af Amer) POC Glucose (mg/dL) 291 H 286 H Random Glucose Calcium Phosphorus Magnesium Total Bilirubin AST ALT Alkaline Phosphatase Total Protein Albumin Globulin Albumin/Globulin Ratio Vancomycin Trough Herpes Virus Source Whole blood 03/26/18 03/26/18 03/26/18 16:13 18:12 21:27 WBC RBC Hgb Hct MCV MCH MCHC RDW Plt Count MPV Neut % (Auto) Lymph % (Auto) [place] % (Auto) Eos % (Auto) Baso % (Auto) Neut # (Auto) Lymph # (Auto) [place] # (Auto) Eos # (Auto) Baso # (Auto) Neutrophils % (Manual) Band Neutrophils % Lymphocytes % (Manual) Monocytes % (Manual) Platelet Estimate Sodium Potassium Chloride Carbon Dioxide Anion Gap BUN Creatinine Est GFR ( Amer) Est GFR (Non-Af Amer) POC Glucose (mg/dL) 311 H 323 H Random Glucose Calcium Phosphorus Magnesium Total Bilirubin AST ALT Alkaline Phosphatase Total Protein Albumin Globulin Albumin/Globulin Ratio Vancomycin Trough < 5.0 L Herpes Virus Source 03/27/18 03/27/18 03/27/18 04:11 04:11 04:11 WBC 13.8 H RBC 4.27 L Hgb 12.0 Hct 35.5 MCV 83.0 MCH 28.0 MCHC 33.7 RDW 12.7 Plt Count 420 H MPV 8.0 Neut % (Auto) 74.2 Lymph % (Auto) 9.2 L [place] % (Auto) 10.9 H Eos % (Auto) 3.4 Baso % (Auto) 2.3 H Neut # (Auto) 10.2 H Lymph # (Auto) 1.3 [place] # (Auto) 1.5 H Eos # (Auto) 0.5 Baso # (Auto) 0.3 H Neutrophils % (Manual) 77 H Band Neutrophils % 2 Lymphocytes % (Manual) 8 L Monocytes % (Manual) 13 H Platelet Estimate Normal Sodium 135 Potassium 4.4 Chloride 98 Carbon Dioxide 27 Anion Gap 14 BUN 11 Creatinine 0.6 L Est GFR ( Amer) > 60 Est GFR (Non-Af Amer) > 60 POC Glucose (mg/dL) Random Glucose 338 H Calcium 8.9 Phosphorus 3.8 Magnesium 2.0 Total Bilirubin 0.9 AST 34 ALT 32 Alkaline Phosphatase 228 H Total Protein 7.2 Albumin 3.4 L Globulin 3.8 Albumin/Globulin Ratio 0.9 L Vancomycin Trough < 5.0 L Herpes Virus Source 03/27/18 03/27/18 07:26 11:40 WBC RBC Hgb Hct MCV MCH MCHC RDW Plt Count MPV Neut % (Auto) Lymph % (Auto) [place] % (Auto) Eos % (Auto) Baso % (Auto) Neut # (Auto) Lymph # (Auto) [place] # (Auto) Eos # (Auto) Baso # (Auto) Neutrophils % (Manual) Band Neutrophils % Lymphocytes % (Manual) Monocytes % (Manual) Platelet Estimate Sodium Potassium Chloride Carbon Dioxide Anion Gap BUN Creatinine Est GFR ( Amer) Est GFR (Non-Af Amer) POC Glucose (mg/dL) 326 H 230 H Random Glucose Calcium Phosphorus Magnesium Total Bilirubin AST ALT Alkaline Phosphatase Total Protein Albumin Globulin Albumin/Globulin Ratio Vancomycin Trough Herpes Virus Source Critical Care Progress Note - Nutrition Nutrition: Nutrition Category Date Time Status NPO Diet [DIET] Diets 03/27/18 Breakfast Active Assessment/Plan - Assessment and Plan (Free Text) Plan: MRSA bacteremia: contineu abx as per ID -not in shock -continue to monitor -continue dvt/pud ppx -above resident documents my clinical management and physical exam -Patient remains hemodynamically stable - Date & Time Date: 03/27/18 Time: 16:42
--- NOTE | 2018-03-27 13:01 | CP.PCM.PN ---
Subjective - Date & Time of Evaluation Date of Evaluation: 03/27/18 Time of Evaluation: 12:59 - Subjective Subjective: pt will have chest tube insersion today for empyema Objective - Vital Signs/Intake and Output Vital Signs (last 24 hours): Temp Pulse Resp BP Pulse Ox 98.5 F 108 H 28 H 158/95 H 80 L 03/27/18 08:00 03/27/18 08:05 03/27/18 08:05 03/27/18 10:03 03/27/18 08:05 Intake and Output: 03/27/18 03/27/18 06:59 18:59 Intake Total 527 0 Output Total 1000 400 Balance -473 -400 - Medications Medications: Current Medications Gabapentin (Neurontin) 400 mg PO TID [facility] Last Admin: 03/26/18 17:56 Dose: 400 mg Heparin Sodium (Porcine) (Heparin) 5,000 units SC Q8 [facility] Last Admin: 03/26/18 22:38 Dose: 5,000 units Hydromorphone HCl (Dilaudid) 1 mg IVP Q4H PRN PRN Reason: Pain, severe (8-10) Last Admin: 03/27/18 12:22 Dose: 1 mg Vancomycin HCl 1.5 gm/ Sodium (Chloride) 500 mls @ 250 mls/hr IVPB Q8H [facility]; Protocol Last Admin: 03/27/18 04:53 Dose: 250 mls/hr Insulin Aspart (Novolog) 0 unit SC ACHS [facility]; Protocol Last Admin: 03/27/18 08:23 Dose: 6 units Insulin Glargine (Lantus) 10 unit SC DAILY [facility] Last Admin: 03/27/18 10:03 Dose: 10 units Ketorolac Tromethamine (Toradol) 30 mg IVP Q6 PRN PRN Reason: Pain, moderate (4-7) Last Admin: 03/27/18 06:42 Dose: 30 mg Metoprolol Tartrate (Lopressor) 25 mg PO BID [facility] Last Admin: 03/27/18 10:03 Dose: 25 mg Oxycodone/Acetaminophen (Percocet 5/325 Mg Tab) 1 tab PO Q6H PRN PRN Reason: Pain, moderate (4-7) Stop: 03/29/18 13:10 Oxycodone/Acetaminophen (Percocet 5/325 Mg Tab) 2 tab PO Q6H PRN PRN Reason: Pain, severe (8-10) Stop: 03/29/18 13:10 Pantoprazole Sodium (Protonix Ec Tab) 40 mg PO DAILY [facility] Last Admin: 03/26/18 13:17 Dose: 40 mg - Labs Labs: 03/27/18 04:11 03/27/18 04:11 PT 14.3 SECONDS (9.7-12.2) H 03/26/18 05:56 INR 1.3 03/26/18 05:56 APTT 38 SECONDS (21-34) H D 03/26/18 05:56 - Constitutional Appears: Non-toxic - Head Exam Head Exam: ATRAUMATIC - Eye Exam Eye Exam: Normal appearance Pupil Exam: NORMAL ACCOMODATION - ENT Exam ENT Exam: Mucous Membranes Moist - Neck Exam Neck Exam: Normal Inspection - Respiratory Exam Respiratory Exam: Decreased Breath Sounds - GI/Abdominal Exam GI & Abdominal Exam: Normal Bowel Sounds - Exam Exam: NORMAL INSPECTION - Extremities Exam Extremities Exam: Full ROM - Back Exam Back Exam: NORMAL INSPECTION - Psychiatric Exam Psychiatric exam: Anxious - Skin Skin Exam: Dry Assessment and Plan - Assessment and Plan (Free Text) Assessment: empyema Plan: chest tube insersion
[2018-03-27] MEDS ORDERED: Bupivacaine 0.25% 20 ML INJ IJ ONE (13:54)
[2018-03-27] MEDS ORDERED: Lidocaine Hydrochloride 0 ML INJ ONE (13:54)
[2018-03-27] MEDS ORDERED: Talc 5 gm Sterile Powder PL ONE (13:54)
[2018-03-27] MEDS ORDERED: Bupivacaine Liposomal Inj 20 ml INFIL ONE (13:59)
[2018-03-27] MEDS ORDERED: Midazolam 2 MG/2 ML VIAL ONE (14:12)
[2018-03-27] MEDS ORDERED: Propofol 10 mg/ml Inj (20 ML) ONE (14:12)
[2018-03-27] MEDS ORDERED: Sodium Chloride 0.9% 20 ML IV ONE (14:24)
[2018-03-27] MEDS ORDERED: Neostigmine Methylsulfate 3mg/3ml Syringe IV ONE (15:52)
--- NOTE | 2018-03-27 16:44 | PCM.SURG1 ---
Surgeon's Initial Post Op Note - Surgeon's Notes Surgeon: Dr. Gold Cathode Builder: Dr. Blanco PGY-4 Type of Anesthesia: General Endo, Local Pre-Operative Diagnosis: Right pleural effusion Operative Findings: Right empyema, adhesions Post-Operative Diagnosis: Right empyema Operation Performed: Right VATS w/ decortication, pleurolysis, pleural biopsy Specimen/Specimens Removed: pleural rind Estimated Blood Loss: EBL {In ML}: 150 Blood Products Given: N/A Drains Used: Chest Tubes (36 Fr anterior chest tube & 32 Fr posterior chest tube) Post-Op Condition: Fair Date of Surgery/Procedure: 03/27/18 Time of Surgery/Procedure: 14:00
--- NOTE | 2018-03-27 17:40 | RAD ---
Date of service: 03/27/2018 HISTORY: s/p Right VATS, decortication, chest tubes x2 COMPARISON: No prior. FINDINGS: . There has been interval placement of 2 right-sided chest tubes with decreased pleural fluid. Mild LUNGS: Interval placement of 2 right-sided chest tubes 1 extending towards the medial aspect right lung apex and the other coursing medially and inferiorly into the medial aspect of the right lung base. 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 Persistent elevation right hemidiaphragm. Subcutaneous emphysema seen overlying the right lateral chest wall no definitive pneumothorax PLEURA: As above the CARDIOVASCULAR: No aortic atherosclerotic calcification present. Normal cardiac size. No pulmonary vascular congestion. OSSEOUS STRUCTURES: No significant abnormalities. VISUALIZED UPPER ABDOMEN: Normal. OTHER FINDINGS: None. IMPRESSION: Interval placement of 2 right-sided chest tubes 1 extending towards the medial aspect right lung apex and the other coursing medially and inferiorly into the medial aspect of the right lung base. 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 Persistent elevation right hemidiaphragm. Subcutaneous emphysema seen overlying the right lateral chest wall no definitive pneumothorax
--- NOTE | 2018-03-27 17:46 | CP.PCM.PN ---
Subjective - Date & Time of Evaluation Date of Evaluation: 03/27/18 Time of Evaluation: 09:00 - Subjective Subjective: s/p vats iv rx in progress Objective - Vital Signs/Intake and Output Vital Signs (last 24 hours): Temp Pulse Resp BP Pulse Ox 98.5 F 84 18 182/106 H 99 03/27/18 16:00 03/27/18 16:00 03/27/18 16:00 03/27/18 13:05 03/27/18 16:00 Intake and Output: 03/27/18 03/27/18 06:59 18:59 Intake Total 527 1200 Output Total 1000 1400 Balance -473 -200 - Medications Medications: Current Medications Aspirin (Aspirin Chewable) 81 mg PO DAILY [facility] Gabapentin (Neurontin) 400 mg PO TID [facility] Last Admin: 03/27/18 14:00 Dose: Not Given Heparin Sodium (Porcine) (Heparin) 5,000 units SC Q8 [facility] Last Admin: 03/26/18 22:38 Dose: 5,000 units Hydromorphone HCl (Dilaudid) 1 mg IVP Q3 PRN PRN Reason: Pain, severe (8-10) Last Admin: 03/27/18 17:15 Dose: 1 mg Vancomycin HCl 1.5 gm/ Sodium (Chloride) 500 mls @ 250 mls/hr IVPB Q8H [facility]; Protocol Last Admin: 03/27/18 10:42 Dose: 250 mls/hr Insulin Aspart (Novolog) 0 unit SC ACHS [facility]; Protocol Last Admin: 03/27/18 11:30 Dose: Not Given Insulin Glargine (Lantus) 10 unit SC DAILY [facility] Last Admin: 03/27/18 10:03 Dose: 10 units Metoprolol Tartrate (Lopressor) 25 mg PO BID [facility] Last Admin: 03/27/18 10:03 Dose: 25 mg Ondansetron HCl (Zofran Inj) 4 mg IVP Q4 PRN PRN Reason: Nausea/Vomiting Oxycodone/Acetaminophen (Percocet 5/325 Mg Tab) 1 tab PO Q6H PRN PRN Reason: Pain, moderate (4-7) Stop: 03/29/18 13:10 Oxycodone/Acetaminophen (Percocet 5/325 Mg Tab) 2 tab PO Q6H PRN PRN Reason: Pain, severe (8-10) Stop: 03/29/18 13:10 Pantoprazole Sodium (Protonix Ec Tab) 40 mg PO DAILY [facility] Last Admin: 03/27/18 10:00 Dose: Not Given - Labs Labs: 03/27/18 04:11 03/27/18 04:11 PT 14.3 SECONDS (9.7-12.2) H 03/26/18 05:56 INR 1.3 03/26/18 05:56 APTT 38 SECONDS (21-34) H D 03/26/18 05:56 - Constitutional Appears: Chronically Ill - Head Exam Head Exam: NORMOCEPHALIC - Eye Exam Eye Exam: absent: Scleral icterus - ENT Exam ENT Exam: Mucous Membranes Dry - Neck Exam Neck Exam: absent: Lymphadenopathy - Respiratory Exam Respiratory Exam: Decreased Breath Sounds - Cardiovascular Exam Cardiovascular Exam: REGULAR RHYTHM - GI/Abdominal Exam GI & Abdominal Exam: Distended Assessment and Plan (1) Cellulitis of back Status: Acute (2) Hyperglycemia Status: Acute (3) Chest wall muscle strain Status: Acute - Assessment and Plan (Free Text) Assessment: cont iv Vanco- will check levels
[2018-03-27 18:31] LABS: BASO # 0.1 K/uL (0.0-0.2); BASO % 0.3 % (0.0-2.0); EOS # 0.1 K/uL (0.0-0.7); EOS % 0.4 % (0.0-4.0); HEMOGLOBIN 11.9 g/dL (12.0-18.0); LYMPH % 6.3 % (20.0-40.0); MEAN CELL VOLUME 83.8 fL (80.0-94.0); MEAN CORPUSCULAR HEMOGLOBIN 27.7 pg (27.0-31.0); MEAN PLATELET VOLUME 7.8 fL (7.2-11.7); MONO # 1.7 K/uL (0.0-0.8); MONO % 10.3 % (0.0-10.0); NEUT # 13.3 K/uL (1.8-7.0); NEUT % 82.7 % (50.0-75.0); PLATELET COUNT 476 K/uL (130-400); RED CELL DISTRIBUTION WIDTH 12.6 % (11.5-14.5); WHITE BLOOD COUNT 16.1 K/uL (4.8-10.8)
[2018-03-27 18:51] LABS: ALB/GLOB RATIO 0.9 (1.0-2.1); ALBUMIN 3.3 g/dL (3.5-5.0); ALT/SGPT 45 U/L (21-72); AST/SGOT 75 U/L (17-59); BLOOD UREA NITROGEN 13 mg/dL (9-20); CALCIUM 8.7 mg/dl (8.6-10.4); GFR NON-AFRICAN AMERICAN > 60
[2018-03-27 19:09] LABS: EOSINOPHIL 1 % (0-4); LYMPHOCYTE 7 % (20-40); MONOCYTE 14 % (0-10); TOTAL CELLS COUNTED 100
[2018-03-27 19:10] LABS: NEUTROPHIL 62 % (50-75)
[2018-03-27 19:11] LABS: PLATELET ESTIMATE NORMAL (NORMAL)
[2018-03-27 19:12] LABS: HYPOCHROMIC SLIGHT; MICROCYTOSIS SLIGHT
[2018-03-27 19:13] LABS: ANISOCYTOSIS SLIGHT; LARGE PLATELETS PRESENT
[2018-03-27 23:30] LABS: BANDS 16 % (0-2)
[2018-03-28 00:11] LABS: TOTAL PROTEIN PLEURAL FLUID 4.4 g/dL
[2018-03-28] MEDS: Vancomycin 1.5 GM in Sodium Chloride 0.9% 500 ML IVPB SCH ×3 (02:00→18:21)
[2018-03-28] MEDS: HYDROmorphone 1 mg/ml ISec IVP PRN ×6 (03:01→21:26)
[2018-03-28 06:09] LABS: HEMOGLOBIN 11.5 g/dL (12.0-18.0); MEAN CELL VOLUME 83.7 fL (80.0-94.0); MEAN CORPUSCULAR HEMOGLOBIN 28.3 pg (27.0-31.0); MEAN CORPUSCULAR HGB CONC 33.8 g/dL (33.0-37.0); MEAN PLATELET VOLUME 8.9 fL (7.2-11.7); RBC 4.06 Mil/uL (4.40-5.90); RED CELL DISTRIBUTION WIDTH 12.6 % (11.5-14.5); WHITE BLOOD COUNT 13.3 K/uL (4.8-10.8)
[2018-03-28 06:30] LABS: ALB/GLOB RATIO 0.8 (1.0-2.1); ALBUMIN 3.2 g/dL (3.5-5.0); ALT/SGPT 37 U/L (21-72); AST/SGOT 61 U/L (17-59); BLOOD UREA NITROGEN 13 mg/dL (9-20); CALCIUM 8.4 mg/dl (8.6-10.4); GFR NON-AFRICAN AMERICAN > 60
[2018-03-28] MEDS ORDERED: HYDROmorphone 1 mg/ml ISec IVP STA (07:42)
--- NOTE | 2018-03-28 08:45 | CP.PCM.PN ---
Subjective - Date & Time of Evaluation Date of Evaluation: 03/27/18 Time of Evaluation: 14:00 - Subjective Subjective: Patient was seen and examined this morning. He is still complaining of back pain Physical Examination - Physical Exam Head: Positive for: Atraumatic, Normocephalic Pupils: Positive for: PERRL Extroacular Muscles: Positive for: EOMI Conjunctiva: Positive for: Normal Mouth: Positive for: Moist Mucous Membranes Nose (Internal): Positive for: Normal Inspection Respiratory/Chest: Positive for: Decreased Breath Sounds (R>L), Tachypneic. Negative for: Respiratory Distress, Accessory Muscle Use, Retracting Cardiovascular: Positive for: Normal S1, S2, Tachycardic. Negative for: Murmurs Abdomen: Negative for: Tenderness, Distention, Peritoneal Signs Back: Positive for: Other (no lesions observed) Neurological: Positive for: GCS=15, CN II-XII Intact Skin: Positive for: Warm, Dry, Normal Color. Negative for: Rashes Psychiatric: Positive for: Alert, Oriented x 3 - Medications Active Medications: Active Medications Generic Name Dose Route Start Last Admin Trade Name Freq PRN Reason Stop Dose Admin Gabapentin 400 mg 03/21/18 18:00 03/26/18 17:56 Neurontin PO 400 mg TID [facility] Administration Heparin Sodium (Porcine) 5,000 units 03/23/18 14:00 03/26/18 22:38 Heparin SC 5,000 units Q8 [facility] Administration Hydromorphone HCl 1 mg 03/25/18 16:47 03/27/18 08:14 Dilaudid IVP 1 mg Q4H PRN Administration Pain, severe (8-10) Vancomycin HCl 1.5 gm/ Sodium 500 mls @ 250 mls/hr 03/27/18 03:00 03/27/18 04:53 Chloride IVPB 250 mls/hr Q8H [facility] Administration Protocol Insulin Aspart 0 unit 03/22/18 22:00 03/27/18 08:23 Novolog SC 6 units ACHS [facility] Administration Protocol Insulin Glargine 10 unit 03/27/18 10:00 03/27/18 10:03 Lantus SC 10 units DAILY [facility] Administration Ketorolac Tromethamine 30 mg 03/24/18 17:19 03/27/18 06:42 Toradol IVP 30 mg Q6 PRN Administration Pain, moderate (4-7) Metoprolol Tartrate 25 mg 03/22/18 10:00 03/27/18 10:03 Lopressor PO 25 mg BID [facility] Administration Oxycodone/Acetaminophen 1 tab 03/26/18 13:09 Percocet 5/325 Mg Tab PO 03/29/18 13:10 Q6H PRN Pain, moderate (4-7) Oxycodone/Acetaminophen 2 tab 03/26/18 13:09 Percocet 5/325 Mg Tab PO 03/29/18 13:10 Q6H PRN Pain, severe (8-10) Pantoprazole Sodium 40 mg 03/23/18 11:30 03/26/18 13:17 Protonix Ec Tab PO 40 mg DAILY [facility] Administration Review of Systems - Review of Systems All systems: reviewed and no additional remarkable complaints except - Constitutional Constitutional: absent: Fever, Chills, Sweats - EENT Eyes: UNREMARKABLE Ears: UNREMARKABLE Nose/Mouth/Throat: UNREMARKABLE - Cardiovascular Cardiovascular: Dyspnea, UNREMARKABLE. absent: Chest Pain - Respiratory Respiratory: Dyspnea, UNREMARKABLE. absent: Cough - Gastrointestinal Gastrointestinal: UNREMARKABLE. absent: Abdominal Pain - Genitourinary Genitourinary: UNREMARKABLE. absent: Dysuria - Musculoskeletal Musculoskeletal: As Par HPI, Back Pain - Integumentary Integumentary: UNREMARKABLE. absent: Lesions - Neurological Neurological: UNREMARKABLE - Psychiatric Psychiatric: UNREMARKABLE - Endocrine Endocrine: UNREMARKABLE - Hematologic/Lymphatic Hematologic: UNREMARKABLE. absent: Easy Bleeding, Easy Bruising, Lymphadenopathy Critical Care Progress Note - Extremities/Vascular Does the Patient have a Central Venous Catheter?: No Does the Patient need a Central Venous Catheter?: No Does the Patient have a Boothe Catheter?: No Does the Patient need a Boothe Catheter?: No - Prophylaxis GI Prophylaxis GI: PPI - Prophylaxis DVT Prophylaxis DVT: Heparin SQ, SCDs - Nutrition Nutrition: Nutrition Category Date Time Status NPO Diet [DIET] Diets 03/27/18 Breakfast Active Assessment/Plan - Assessment and Plan (Free Text) Assessment: Patient is a 32 yo male with a history of T2DM and drug abuse who initially presented with low back pain. 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 He was transferred to ICU. He is saturating well on RA, still with pleuritc chest pain. CT revealed large loculated pleural effusion. R thoracentesis by IR 03/24- removed 60 cc, rec CT surgery. DEREK no vegetation. Pre-op stress test yesterday 03/26. Plan for VATS today 03/27. Plan: Neuro: - No acute issues - Gabapentin 400 mg PO TID CV: - Sinus tachycardia- likely 2/2 pain - Metoprolol 25 mg PO BID - Monitor vitals - TTE: normal EF, no vegetation observed - DEREK: no vegetation - Stress test- surgery clearance - Cardiology consulted (Otoniel) Pulm: Empyema - CXR: moderate R pleural effusions with prominent R pulm infiltrates - CTA chest 03/22- no PE, moderate R pleural effusion with marked compression atelectasis, scattered b/l nodular infiltrates - Pleural fluid: pH 7.08, WBC 5992, 74 neutrophils, RBC 669, no malignant cells, no growth >2 days - Maintain spO2>92%- NC or BiPAP PRN - ABG wnl - Toradol 30 mg IV Q6H PRN - Percocet 1-2 tabs Q6H PRN - Dilaudid 1 mg IV Q4H PRN - Pulmonology consulted (Artur) - IR consulted (Leon)- R thoracentesis 03/24, 60 cc - CT surgery consulted (Asif)- VATS with decortication 03/27 GI: - Diabetic diet : - I's & O's - Replete electrolytes PRN Endo: - A1c 12.4 - Maintain euglycemia - Hypoglycemic protocol - Accuchecks ACHS with ISS Heme: - Monitor H&H - D-dimer 649 - LE Dopplers: no DVT ID: Sepsis (MRSA bacteremia) - Tmax 102.5- afebrile since 03/21 - Mild leukocytosis stable (13) - ESR 101, CRP 260.8 - Blood Cx: MRSA - Repeat Cx no growth >3 days - HIV negative - Influenza, Legionella, Mycoplasma negative - Vancomycin 1.25 g IV Q8H - Trough persistently <5- consider switch to Linezolid - ID consulted (Tomas) Integumentary: - No lesions identifiable - Herpes pending - Surgery consulted (Marjorie)- r/o nec fasc PPx: VTE: SCDs, Heparin 5000 units SC Q8H- hold for surgery GI: PTX 40 mg IV daily PT/OT/ST Code status: full code Objective - Vital Signs/Intake and Output Vital Signs (last 24 hours): Temp Pulse Resp BP Pulse Ox 99.9 F H 129 H 27 H 147/87 93 L 03/28/18 04:00 03/28/18 07:05 03/28/18 07:05 03/28/18 07:05 03/28/18 07:05 Intake and Output: 03/28/18 03/28/18 06:59 18:59 Intake Total 1840 200 Output Total 1471 400 Balance 369 -200 - Medications Medications: Current Medications Aspirin (Aspirin Chewable) 81 mg PO DAILY [facility] Gabapentin (Neurontin) 400 mg PO TID [facility] Last Admin: 03/27/18 18:35 Dose: 400 mg Heparin Sodium (Porcine) (Heparin) 5,000 units SC Q8 [facility] Last Admin: 03/26/18 22:38 Dose: 5,000 units Hydromorphone HCl (Dilaudid) 1 mg IVP Q3 PRN PRN Reason: Pain, severe (8-10) Last Admin: 03/28/18 06:10 Dose: 1 mg Vancomycin HCl 1.5 gm/ Sodium (Chloride) 500 mls @ 250 mls/hr IVPB Q8H [facility]; Protocol Last Admin: 03/28/18 02:00 Dose: 250 mls/hr Insulin Aspart (Novolog) 0 unit SC ACHS [facility]; Protocol Last Admin: 03/27/18 22:00 Dose: 3 units Insulin Glargine (Lantus) 10 unit SC DAILY [facility] Last Admin: 03/27/18 10:03 Dose: 10 units Metoprolol Tartrate (Lopressor) 25 mg PO BID [facility] Last Admin: 03/27/18 18:32 Dose: 25 mg Ondansetron HCl (Zofran Inj) 4 mg IVP Q4 PRN PRN Reason: Nausea/Vomiting Oxycodone/Acetaminophen (Percocet 5/325 Mg Tab) 1 tab PO Q6H PRN PRN Reason: Pain, moderate (4-7) Stop: 03/29/18 13:10 Oxycodone/Acetaminophen (Percocet 5/325 Mg Tab) 2 tab PO Q6H PRN PRN Reason: Pain, severe (8-10) Stop: 03/29/18 13:10 Pantoprazole Sodium (Protonix Ec Tab) 40 mg PO DAILY [facility] Last Admin: 03/27/18 10:00 Dose: Not Given - Labs Labs: 03/28/18 05:59 03/28/18 05:59 PT 14.3 SECONDS (9.7-12.2) H 03/26/18 05:56 INR 1.3 03/26/18 05:56 APTT 38 SECONDS (21-34) H D 03/26/18 05:56
[2018-03-28] MEDS: (Novolog) Insulin Aspart, Recombinant 100 u/ml 10 ml vial SC SCH ×4 (08:48→21:19)
--- NOTE | 2018-03-28 08:58 | CP.PCM.PN ---
Subjective - Date & Time of Evaluation Date of Evaluation: 03/28/18 Time of Evaluation: 07:00 - Subjective Subjective: THORACIC SURGERY PROGRESS NOTE FOR DR. HINOJOSA Patient seen and examined at bedside in the ICU. He reports pain at the chest tube site. He required an additional stat 1mg dilaudid in addition to his dilaudid regimen. Pt states that he got OOB last night to use the restroom. Objective - Vital Signs/Intake and Output Vital Signs (last 24 hours): Temp Pulse Resp BP Pulse Ox 99.9 F H 129 H 27 H 147/87 93 L 03/28/18 04:00 03/28/18 07:05 03/28/18 07:05 03/28/18 07:05 03/28/18 07:05 Intake and Output: 03/28/18 03/28/18 06:59 18:59 Intake Total 1840 200 Output Total 1471 400 Balance 369 -200 - Medications Medications: Current Medications Aspirin (Aspirin Chewable) 81 mg PO DAILY [facility] Gabapentin (Neurontin) 400 mg PO TID [facility] Last Admin: 03/27/18 18:35 Dose: 400 mg Heparin Sodium (Porcine) (Heparin) 5,000 units SC Q8 [facility] Last Admin: 03/26/18 22:38 Dose: 5,000 units Hydromorphone HCl (Dilaudid) 1 mg IVP Q3 PRN PRN Reason: Pain, severe (8-10) Last Admin: 03/28/18 06:10 Dose: 1 mg Vancomycin HCl 1.5 gm/ Sodium (Chloride) 500 mls @ 250 mls/hr IVPB Q8H [facility]; Protocol Last Admin: 03/28/18 02:00 Dose: 250 mls/hr Insulin Aspart (Novolog) 0 unit SC ACHS [facility]; Protocol Last Admin: 03/28/18 08:48 Dose: 6 units Insulin Glargine (Lantus) 10 unit SC DAILY [facility] Last Admin: 03/27/18 10:03 Dose: 10 units Metoprolol Tartrate (Lopressor) 25 mg PO BID [facility] Last Admin: 03/27/18 18:32 Dose: 25 mg Ondansetron HCl (Zofran Inj) 4 mg IVP Q4 PRN PRN Reason: Nausea/Vomiting Oxycodone/Acetaminophen (Percocet 5/325 Mg Tab) 1 tab PO Q6H PRN PRN Reason: Pain, moderate (4-7) Stop: 03/29/18 13:10 Oxycodone/Acetaminophen (Percocet 5/325 Mg Tab) 2 tab PO Q6H PRN PRN Reason: Pain, severe (8-10) Stop: 03/29/18 13:10 Pantoprazole Sodium (Protonix Ec Tab) 40 mg PO DAILY [facility] Last Admin: 03/27/18 10:00 Dose: Not Given - Labs Labs: 03/28/18 05:59 03/28/18 05:59 PT 14.3 SECONDS (9.7-12.2) H 03/26/18 05:56 INR 1.3 03/26/18 05:56 APTT 38 SECONDS (21-34) H D 03/26/18 05:56 - Constitutional Appears: Non-toxic, No Acute Distress - Head Exam Head Exam: ATRAUMATIC, NORMAL INSPECTION - Eye Exam Eye Exam: EOMI, Normal appearance - Respiratory Exam Respiratory Exam: NORMAL BREATHING PATTERN. absent: Respiratory Distress Additional comments: 36Fr & 32Fr chest tubes in place on suction, no air leak, serosanguinous output: 65cc and 152cc since OR - Cardiovascular Exam Cardiovascular Exam: Tachycardia - GI/Abdominal Exam GI & Abdominal Exam: Soft. absent: Distended, Tenderness - Neurological Exam Neurological Exam: Alert, Awake, Oriented x3 - Psychiatric Exam Psychiatric exam: Normal Affect, Normal Mood - Skin Skin Exam: Dry, Warm Assessment and Plan - Assessment and Plan (Free Text) Assessment: 32M with right sided pleural effusion refractory to IR thoracentesis, MRSA bacteremia s/p Right VATS w/ decortication, pleurolysis, pleural biopsy POD#1 Plan: - Daily CXR - Continue chest tubes on suction - Strongly encouraged IS use - Pt needs to be OOB all day after breakfast - Ambulate TID - Dilaudid 1mg Q3 PRN pain - Lidoderm patch added for additional pain control - Continue antibiotic per ID - Discussed plan with Dr. Asif Blanco PGY-4
--- NOTE | 2018-03-28 09:18 | CP.PCM.PN ---
Subjective - Date & Time of Evaluation Date of Evaluation: 03/28/18 - Subjective Subjective: Patient seen and examined at bedside, lying down comfortably. Afebrile and in no acute distress. States shortness of breath and cough are improving; Right VATS w/ decortication, pleurolysis, pleural biopsy yesterday Complaining of pain at chest tube insertion site Fluid analysis and culture and sensitivity Continue antibiotics Continue pain medication Objective - Vital Signs/Intake and Output Vital Signs (last 24 hours): Temp Pulse Resp BP Pulse Ox 100.3 F H 120 H 26 H 132/90 88 L 03/28/18 08:00 03/28/18 09:07 03/28/18 09:07 03/28/18 09:07 03/28/18 09:07 Intake and Output: 03/28/18 03/28/18 06:59 18:59 Intake Total 1840 200 Output Total 1471 400 Balance 369 -200 - Medications Medications: Current Medications Aspirin (Aspirin Chewable) 81 mg PO DAILY [facility] Gabapentin (Neurontin) 400 mg PO TID [facility] Last Admin: 03/27/18 18:35 Dose: 400 mg Heparin Sodium (Porcine) (Heparin) 5,000 units SC Q8 [facility] Last Admin: 03/26/18 22:38 Dose: 5,000 units Hydromorphone HCl (Dilaudid) 1 mg IVP Q3 PRN PRN Reason: Pain, severe (8-10) Last Admin: 03/28/18 06:10 Dose: 1 mg Vancomycin HCl 1.5 gm/ Sodium (Chloride) 500 mls @ 250 mls/hr IVPB Q8H [facility]; Protocol Last Admin: 03/28/18 02:00 Dose: 250 mls/hr Insulin Aspart (Novolog) 0 unit SC ACHS [facility]; Protocol Last Admin: 03/28/18 08:48 Dose: 6 units Insulin Glargine (Lantus) 10 unit SC DAILY [facility] Last Admin: 03/27/18 10:03 Dose: 10 units Lidocaine (Lidoderm) 1 ea TD DAILY [facility] Metoprolol Tartrate (Lopressor) 25 mg PO BID [facility] Last Admin: 03/27/18 18:32 Dose: 25 mg Oxycodone/Acetaminophen (Percocet 5/325 Mg Tab) 1 tab PO Q6H PRN PRN Reason: Pain, moderate (4-7) Stop: 03/29/18 13:10 Oxycodone/Acetaminophen (Percocet 5/325 Mg Tab) 2 tab PO Q6H PRN PRN Reason: Pain, severe (8-10) Stop: 03/29/18 13:10 Pantoprazole Sodium (Protonix Ec Tab) 40 mg PO DAILY [facility] Last Admin: 03/27/18 10:00 Dose: Not Given - Labs Labs: 03/28/18 05:59 03/28/18 05:59 PT 14.3 SECONDS (9.7-12.2) H 03/26/18 05:56 INR 1.3 03/26/18 05:56 APTT 38 SECONDS (21-34) H D 03/26/18 05:56 Assessment and Plan (1) Pleural effusion Status: Acute (2) MRSA bacteremia Status: Acute
--- NOTE | 2018-03-28 09:26 | RAD ---
Date of service: 03/28/2018 HISTORY: s/p VATS, decortication, 2 chest tubes COMPARISON: The FINDINGS: LUNGS: Redemonstrated are 2 in situ right-sided chest tubes unchanged in position. Patchy opacity seen throughout the right lung particularly in the right lung base likely representing combination of atelectasis/infiltrate and right-sided effusion. No definite pneumothorax. Mild left basilar atelectasis decreased subcutaneous emphysema PLEURA: No significant pleural effusion identified, no pneumothorax apparent. CARDIOVASCULAR: No aortic atherosclerotic calcification present. Normal cardiac size. No pulmonary vascular congestion. OSSEOUS STRUCTURES: No significant abnormalities. VISUALIZED UPPER ABDOMEN: Normal. OTHER FINDINGS: None. IMPRESSION: Redemonstrated are 2 in situ right-sided chest tubes unchanged in position. Patchy opacity seen throughout the right lung particularly in the right lung base likely representing combination of atelectasis/infiltrate and right-sided effusion. No definite pneumothorax. Mild left basilar atelectasis decreased subcutaneous emphysema
--- NOTE | 2018-03-28 10:03 | CP.CCUPN ---
CCU Subjective - Physician Review Events Since Last Encounter (Free Text): 03/28/18 10:02 Patient is a 32-year-old male with a diabetes admitted to the hospital with this severe MRSA septicemia, and a pneumonia and empyema. Patient underwent decortication, thoracotomy, chest tube on the right side on 03/27/2018 Patient is feeling slightly better. But still having cough with mucus and pain Cough with mucus production thick yellow noted. Vital signs stable otherwise. Pleuritic pain on the right side On examination: Chest good air entry, but the right-sided decreased air entry noted. No air leak noted Labs reviewed Improvement in the WBC noted. Patient is tolerating the pain medication, unable to take a deep breath now but better with pain meds Will continue the supportive treatment. Patient is a 32-year-old male admitted with the MRSA sepsis, MRSA pneumonia, pleural effusion. Status post thoracotomy. Continue the antibiotic as per infectious disease. Pain management. Incentive spirometer. Marnie up. DVT and GI prophylaxis will follow-up the patient. CCU Objective - Vital Signs / Intake & Output Vital Signs (Last 4 hours): Vital Signs Temp Pulse Resp BP Pulse Ox 03/28/18 09:07 120 H 26 H 132/90 88 L 03/28/18 09:00 94 H 47 H 87 L 03/28/18 08:05 122 H 19 148/85 97 03/28/18 08:00 100.3 F H 121 H 14 95 03/28/18 07:05 129 H 27 H 147/87 93 L 03/28/18 07:00 121 H 26 H 148/76 91 L 03/28/18 06:55 148/76 Intake and Output (Last 8hrs): Intake & Output 03/27/18 03/28/18 03/28/18 22:59 06:59 14:59 Intake Total 1040 1400 200 Output Total 983 846 400 Balance 57 554 -200 Weight 289 lb 0.125 oz Intake: Intake, IV Amount 500 500 Left Wrist 500 500 Oral 540 900 200 Output: Chest Tube Drainage 8 146 Right Anterior Chest 0 84 Right Posterior Chest 8 62 Urine 975 700 400 Urine, Voided 675 700 400 Other: # Voids Urine, Voided 0 0 1 - Physical Exam Head: Positive for: Atraumatic, Normocephalic Pupils: Positive for: PERRL Extroacular Muscles: Positive for: EOMI Conjunctiva: Positive for: Normal Mouth: Positive for: Moist Mucous Membranes Nose (Internal): Positive for: Normal Inspection Respiratory/Chest: Positive for: Decreased Breath Sounds (R>L), Tachypneic. Negative for: Respiratory Distress, Accessory Muscle Use, Retracting Cardiovascular: Positive for: Normal S1, S2, Tachycardic. Negative for: Murmurs Abdomen: Negative for: Tenderness, Distention, Peritoneal Signs Back: Positive for: Other (no lesions observed) Neurological: Positive for: GCS=15, CN II-XII Intact Skin: Positive for: Warm, Dry, Normal Color. Negative for: Rashes Psychiatric: Positive for: Alert, Oriented x 3 - Medications Active Medications: Active Medications Generic Name Dose Route Start Last Admin Trade Name Freq PRN Reason Stop Dose Admin Aspirin 81 mg 03/28/18 10:00 Aspirin Chewable PO DAILY JERED Gabapentin 400 mg 03/21/18 18:00 03/27/18 18:35 Neurontin PO 400 mg TID JERED Administration Heparin Sodium (Porcine) 5,000 units 03/23/18 14:00 03/26/18 22:38 Heparin SC 5,000 units Q8 JERED Administration Hydromorphone HCl 1 mg 03/27/18 17:30 03/28/18 06:10 Dilaudid IVP 1 mg Q3 PRN Administration Pain, severe (8-10) Vancomycin HCl 1.5 gm/ Sodium 500 mls @ 250 mls/hr 03/27/18 03:00 03/28/18 02:00 Chloride IVPB 250 mls/hr Q8H JERED Administration Protocol Insulin Aspart 0 unit 03/22/18 22:00 03/28/18 08:48 Novolog SC 6 units ACHS JERED Administration Protocol Insulin Glargine 10 unit 03/27/18 10:00 03/27/18 10:03 Lantus SC 10 units DAILY JERED Administration Lidocaine 1 ea 03/28/18 10:00 Lidoderm TD DAILY JERED Metoprolol Tartrate 25 mg 03/22/18 10:00 03/27/18 18:32 Lopressor PO 25 mg BID JERED Administration Oxycodone/Acetaminophen 1 tab 03/26/18 13:09 Percocet 5/325 Mg Tab PO 03/29/18 13:10 Q6H PRN Pain, moderate (4-7) Oxycodone/Acetaminophen 2 tab 03/26/18 13:09 Percocet 5/325 Mg Tab PO 03/29/18 13:10 Q6H PRN Pain, severe (8-10) Pantoprazole Sodium 40 mg 03/23/18 11:30 03/27/18 10:00 Protonix Ec Tab PO Not Given DAILY JERED - Patient Studies Lab Studies: Microbiology Studies 03/24/18 09:04 Blood Culture - Preliminary Blood-Venous NO GROWTH AFTER 4 DAYS 03/24/18 09:04 Blood Culture - Preliminary Blood-Venous NO GROWTH AFTER 4 DAYS 03/27/18 18:48 Gram Stain - Final Pleural Fluid 03/27/18 18:48 Gram Stain - Final Other: Please Indicate 03/27/18 18:48 Gram Stain - Final Pleural Fluid 03/22/18 17:00 Blood Culture - Final Blood NO GROWTH AFTER 5 DAYS Gram Stain - Final TEST NOT PERFORMED 03/22/18 16:30 Blood Culture - Final Blood NO GROWTH AFTER 5 DAYS Gram Stain - Final TEST NOT PERFORMED 03/24/18 17:19 Gram Stain - Final Thoracic Fluid Body Fluid Culture - Preliminary NO GROWTH AFTER 3 DAYS Lab Studies 03/28/18 03/28/18 03/28/18 Range/Units 05:59 05:59 04:30 WBC 13.3 H (4.8-10.8) K/uL RBC 4.06 L (4.40-5.90) Mil/uL Hgb 11.5 L (12.0-18.0) g/dL Hct 34.0 L (35.0-51.0) % MCV 83.7 (80.0-94.0) fL MCH 28.3 (27.0-31.0) pg MCHC 33.8 (33.0-37.0) g/dL RDW 12.6 (11.5-14.5) % Plt Count 481 H (130-400) K/uL MPV 8.9 (7.2-11.7) fL Neut % (Auto) (50.0-75.0) % Lymph % (Auto) (20.0-40.0) % Divide % (Auto) (0.0-10.0) % Eos % (Auto) (0.0-4.0) % Baso % (Auto) (0.0-2.0) % Neut # (Auto) (1.8-7.0) K/uL Lymph # (Auto) (1.0-4.3) K/uL Divide # (Auto) (0.0-0.8) K/uL Eos # (Auto) (0.0-0.7) K/uL Baso # (Auto) (0.0-0.2) K/uL Neutrophils % (Manual) (50-75) % Band Neutrophils % (0-2) % Lymphocytes % (Manual) (20-40) % Monocytes % (Manual) (0-10) % Eosinophils % (Manual) (0-4) % Platelet Estimate (NORMAL) Large Platelets Hypochromasia (manual) Anisocytosis (manual) Microcytosis (manual) Sodium 130 L (132-148) mmol/L Potassium 5.1 (3.6-5.2) mmol/L Chloride 94 L (98-107) mmol/L Carbon Dioxide 27 (22-30) mmol/L Anion Gap 15 (10-20) BUN 13 (9-20) mg/dL Creatinine 0.7 L (0.8-1.5) mg/dL Est GFR ( Amer) > 60 Est GFR (Non-Af Amer) > 60 POC Glucose (mg/dL) (65-110) mg/dL Random Glucose 287 H (75-110) mg/dL Lactic Acid (0.7-2.1) mmol/L Calcium 8.4 L (8.6-10.4) mg/dl Phosphorus 3.7 (2.5-4.5) mg/dL Magnesium 1.9 (1.6-2.3) mg/dL Total Bilirubin 0.8 (0.2-1.3) mg/dL AST 61 H (17-59) U/L ALT 37 (21-72) U/L Alkaline Phosphatase 215 H (38-126) U/L Troponin I (0.00-0.120) ng/mL Total Protein 7.0 (6.3-8.3) g/dL Albumin 3.2 L (3.5-5.0) g/dL Globulin 3.8 (2.2-3.9) gm/dL Albumin/Globulin Ratio 0.8 L (1.0-2.1) Pleural Total Protein g/dL Pleural LDH U/L Pleural Glucose mg/dL Vancomycin Trough 6.2 (5.0-10.0) ug/mL 03/28/18 03/27/18 03/27/18 Range/Units 02:07 21:12 18:28 WBC (4.8-10.8) K/uL RBC (4.40-5.90) Mil/uL Hgb (12.0-18.0) g/dL Hct (35.0-51.0) % MCV (80.0-94.0) fL MCH (27.0-31.0) pg MCHC (33.0-37.0) g/dL RDW (11.5-14.5) % Plt Count (130-400) K/uL MPV (7.2-11.7) fL Neut % (Auto) (50.0-75.0) % Lymph % (Auto) (20.0-40.0) % Divide % (Auto) (0.0-10.0) % Eos % (Auto) (0.0-4.0) % Baso % (Auto) (0.0-2.0) % Neut # (Auto) (1.8-7.0) K/uL Lymph # (Auto) (1.0-4.3) K/uL Divide # (Auto) (0.0-0.8) K/uL Eos # (Auto) (0.0-0.7) K/uL Baso # (Auto) (0.0-0.2) K/uL Neutrophils % (Manual) (50-75) % Band Neutrophils % (0-2) % Lymphocytes % (Manual) (20-40) % Monocytes % (Manual) (0-10) % Eosinophils % (Manual) (0-4) % Platelet Estimate (NORMAL) Large Platelets Hypochromasia (manual) Anisocytosis (manual) Microcytosis (manual) Sodium (132-148) mmol/L Potassium (3.6-5.2) mmol/L Chloride (98-107) mmol/L Carbon Dioxide (22-30) mmol/L Anion Gap (10-20) BUN (9-20) mg/dL Creatinine (0.8-1.5) mg/dL Est GFR ( Amer) Est GFR (Non-Af Amer) POC Glucose (mg/dL) 297 H 356 H (65-110) mg/dL Random Glucose (75-110) mg/dL Lactic Acid 1.1 (0.7-2.1) mmol/L Calcium (8.6-10.4) mg/dl Phosphorus (2.5-4.5) mg/dL Magnesium (1.6-2.3) mg/dL Total Bilirubin (0.2-1.3) mg/dL AST (17-59) U/L ALT (21-72) U/L Alkaline Phosphatase (38-126) U/L Troponin I (0.00-0.120) ng/mL Total Protein (6.3-8.3) g/dL Albumin (3.5-5.0) g/dL Globulin (2.2-3.9) gm/dL Albumin/Globulin Ratio (1.0-2.1) Pleural Total Protein g/dL Pleural LDH U/L Pleural Glucose mg/dL Vancomycin Trough (5.0-10.0) ug/mL 03/27/18 03/27/18 03/27/18 Range/Units 18:28 18:28 17:44 WBC 16.1 H (4.8-10.8) K/uL RBC 4.30 L (4.40-5.90) Mil/uL Hgb 11.9 L (12.0-18.0) g/dL Hct 36.0 (35.0-51.0) % MCV 83.8 (80.0-94.0) fL MCH 27.7 (27.0-31.0) pg MCHC 33.0 (33.0-37.0) g/dL RDW 12.6 (11.5-14.5) % Plt Count 476 H (130-400) K/uL MPV 7.8 (7.2-11.7) fL Neut % (Auto) 82.7 H (50.0-75.0) % Lymph % (Auto) 6.3 L (20.0-40.0) % Divide % (Auto) 10.3 H (0.0-10.0) % Eos % (Auto) 0.4 (0.0-4.0) % Baso % (Auto) 0.3 (0.0-2.0) % Neut # (Auto) 13.3 H (1.8-7.0) K/uL Lymph # (Auto) 1.0 (1.0-4.3) K/uL Divide # (Auto) 1.7 H (0.0-0.8) K/uL Eos # (Auto) 0.1 (0.0-0.7) K/uL Baso # (Auto) 0.1 (0.0-0.2) K/uL Neutrophils % (Manual) 62 (50-75) % Band Neutrophils % 16 H* (0-2) % Lymphocytes % (Manual) 7 L (20-40) % Monocytes % (Manual) 14 H (0-10) % Eosinophils % (Manual) 1 (0-4) % Platelet Estimate Normal (NORMAL) Large Platelets Present Hypochromasia (manual) Slight Anisocytosis (manual) Slight Microcytosis (manual) Slight Sodium 134 (132-148) mmol/L Potassium 5.1 (3.6-5.2) mmol/L Chloride 96 L (98-107) mmol/L Carbon Dioxide 26 (22-30) mmol/L Anion Gap 17 (10-20) BUN 13 (9-20) mg/dL Creatinine 0.8 (0.8-1.5) mg/dL Est GFR ( Amer) > 60 Est GFR (Non-Af Amer) > 60 POC Glucose (mg/dL) 336 H (65-110) mg/dL Random Glucose 353 H (75-110) mg/dL Lactic Acid (0.7-2.1) mmol/L Calcium 8.7 (8.6-10.4) mg/dl Phosphorus 4.9 H (2.5-4.5) mg/dL Magnesium 1.9 (1.6-2.3) mg/dL Total Bilirubin 1.0 (0.2-1.3) mg/dL AST 75 H D (17-59) U/L ALT 45 (21-72) U/L Alkaline Phosphatase 234 H (38-126) U/L Troponin I < 0.0120 (0.00-0.120) ng/mL Total Protein 7.1 (6.3-8.3) g/dL Albumin 3.3 L (3.5-5.0) g/dL Globulin 3.8 (2.2-3.9) gm/dL Albumin/Globulin Ratio 0.9 L (1.0-2.1) Pleural Total Protein g/dL Pleural LDH U/L Pleural Glucose mg/dL Vancomycin Trough (5.0-10.0) ug/mL 03/27/18 03/24/18 Range/Units 11:40 17:19 WBC (4.8-10.8) K/uL RBC (4.40-5.90) Mil/uL Hgb (12.0-18.0) g/dL Hct (35.0-51.0) % MCV (80.0-94.0) fL MCH (27.0-31.0) pg MCHC (33.0-37.0) g/dL RDW (11.5-14.5) % Plt Count (130-400) K/uL MPV (7.2-11.7) fL Neut % (Auto) (50.0-75.0) % Lymph % (Auto) (20.0-40.0) % Divide % (Auto) (0.0-10.0) % Eos % (Auto) (0.0-4.0) % Baso % (Auto) (0.0-2.0) % Neut # (Auto) (1.8-7.0) K/uL Lymph # (Auto) (1.0-4.3) K/uL Divide # (Auto) (0.0-0.8) K/uL Eos # (Auto) (0.0-0.7) K/uL Baso # (Auto) (0.0-0.2) K/uL Neutrophils % (Manual) (50-75) % Band Neutrophils % (0-2) % Lymphocytes % (Manual) (20-40) % Monocytes % (Manual) (0-10) % Eosinophils % (Manual) (0-4) % Platelet Estimate (NORMAL) Large Platelets Hypochromasia (manual) Anisocytosis (manual) Microcytosis (manual) Sodium (132-148) mmol/L Potassium (3.6-5.2) mmol/L Chloride (98-107) mmol/L Carbon Dioxide (22-30) mmol/L Anion Gap (10-20) BUN (9-20) mg/dL Creatinine (0.8-1.5) mg/dL Est GFR ( Amer) Est GFR (Non-Af Amer) POC Glucose (mg/dL) 230 H (65-110) mg/dL Random Glucose (75-110) mg/dL Lactic Acid (0.7-2.1) mmol/L Calcium (8.6-10.4) mg/dl Phosphorus (2.5-4.5) mg/dL Magnesium (1.6-2.3) mg/dL Total Bilirubin (0.2-1.3) mg/dL AST (17-59) U/L ALT (21-72) U/L Alkaline Phosphatase (38-126) U/L Troponin I (0.00-0.120) ng/mL Total Protein (6.3-8.3) g/dL Albumin (3.5-5.0) g/dL Globulin (2.2-3.9) gm/dL Albumin/Globulin Ratio (1.0-2.1) Pleural Total Protein 4.4 g/dL Pleural LDH 2406 U/L Pleural Glucose 141 mg/dL Vancomycin Trough (5.0-10.0) ug/mL Laboratory Results - last 24 hr 03/24/18 03/27/18 03/27/18 17:19 11:40 17:44 WBC RBC Hgb Hct MCV MCH MCHC RDW Plt Count MPV Neut % (Auto) Lymph % (Auto) Divide % (Auto) Eos % (Auto) Baso % (Auto) Neut # (Auto) Lymph # (Auto) Divide # (Auto) Eos # (Auto) Baso # (Auto) Neutrophils % (Manual) Band Neutrophils % Lymphocytes % (Manual) Monocytes % (Manual) Eosinophils % (Manual) Platelet Estimate Large Platelets Hypochromasia (manual) Anisocytosis (manual) Microcytosis (manual) Sodium Potassium Chloride Carbon Dioxide Anion Gap BUN Creatinine Est GFR ( Amer) Est GFR (Non-Af Amer) POC Glucose (mg/dL) 230 H 336 H Random Glucose Lactic Acid Calcium Phosphorus Magnesium Total Bilirubin AST ALT Alkaline Phosphatase Troponin I Total Protein Albumin Globulin Albumin/Globulin Ratio Pleural Total Protein 4.4 Pleural LDH 2406 Pleural Glucose 141 Vancomycin Trough 03/27/18 03/27/18 03/27/18 18:28 18:28 18:28 WBC 16.1 H RBC 4.30 L Hgb 11.9 L Hct 36.0 MCV 83.8 MCH 27.7 MCHC 33.0 RDW 12.6 Plt Count 476 H MPV 7.8 Neut % (Auto) 82.7 H Lymph % (Auto) 6.3 L Divide % (Auto) 10.3 H Eos % (Auto) 0.4 Baso % (Auto) 0.3 Neut # (Auto) 13.3 H Lymph # (Auto) 1.0 Divide # (Auto) 1.7 H Eos # (Auto) 0.1 Baso # (Auto) 0.1 Neutrophils % (Manual) 62 Band Neutrophils % 16 H* Lymphocytes % (Manual) 7 L Monocytes % (Manual) 14 H Eosinophils % (Manual) 1 Platelet Estimate Normal Large Platelets Present Hypochromasia (manual) Slight Anisocytosis (manual) Slight Microcytosis (manual) Slight Sodium 134 Potassium 5.1 Chloride 96 L Carbon Dioxide 26 Anion Gap 17 BUN 13 Creatinine 0.8 Est GFR ( Amer) > 60 Est GFR (Non-Af Amer) > 60 POC Glucose (mg/dL) Random Glucose 353 H Lactic Acid 1.1 Calcium 8.7 Phosphorus 4.9 H Magnesium 1.9 Total Bilirubin 1.0 AST 75 H D ALT 45 Alkaline Phosphatase 234 H Troponin I < 0.0120 Total Protein 7.1 Albumin 3.3 L Globulin 3.8 Albumin/Globulin Ratio 0.9 L Pleural Total Protein Pleural LDH Pleural Glucose Vancomycin Trough 03/27/18 03/28/18 03/28/18 21:12 02:07 04:30 WBC RBC Hgb Hct MCV MCH MCHC RDW Plt Count MPV Neut % (Auto) Lymph % (Auto) Divide % (Auto) Eos % (Auto) Baso % (Auto) Neut # (Auto) Lymph # (Auto) Divide # (Auto) Eos # (Auto) Baso # (Auto) Neutrophils % (Manual) Band Neutrophils % Lymphocytes % (Manual) Monocytes % (Manual) Eosinophils % (Manual) Platelet Estimate Large Platelets Hypochromasia (manual) Anisocytosis (manual) Microcytosis (manual) Sodium Potassium Chloride Carbon Dioxide Anion Gap BUN Creatinine Est GFR ( Amer) Est GFR (Non-Af Amer) POC Glucose (mg/dL) 356 H 297 H Random Glucose Lactic Acid Calcium Phosphorus Magnesium Total Bilirubin AST ALT Alkaline Phosphatase Troponin I Total Protein Albumin Globulin Albumin/Globulin Ratio Pleural Total Protein Pleural LDH Pleural Glucose Vancomycin Trough 6.2 03/28/18 03/28/18 05:59 05:59 WBC 13.3 H RBC 4.06 L Hgb 11.5 L Hct 34.0 L MCV 83.7 MCH 28.3 MCHC 33.8 RDW 12.6 Plt Count 481 H MPV 8.9 Neut % (Auto) Lymph % (Auto) Divide % (Auto) Eos % (Auto) Baso % (Auto) Neut # (Auto) Lymph # (Auto) Divide # (Auto) Eos # (Auto) Baso # (Auto) Neutrophils % (Manual) Band Neutrophils % Lymphocytes % (Manual) Monocytes % (Manual) Eosinophils % (Manual) Platelet Estimate Large Platelets Hypochromasia (manual) Anisocytosis (manual) Microcytosis (manual) Sodium 130 L Potassium 5.1 Chloride 94 L Carbon Dioxide 27 Anion Gap 15 BUN 13 Creatinine 0.7 L Est GFR ( Amer) > 60 Est GFR (Non-Af Amer) > 60 POC Glucose (mg/dL) Random Glucose 287 H Lactic Acid Calcium 8.4 L Phosphorus 3.7 Magnesium 1.9 Total Bilirubin 0.8 AST 61 H ALT 37 Alkaline Phosphatase 215 H Troponin I Total Protein 7.0 Albumin 3.2 L Globulin 3.8 Albumin/Globulin Ratio 0.8 L Pleural Total Protein Pleural LDH Pleural Glucose Vancomycin Trough Fingerstick Blood Sugar Results: 306 Critical Care Progress Note - Nutrition Nutrition: Nutrition Category Date Time Status Diabetic [Consistent Carbohydrate] [DIET] Diets 03/27/18 Dinner Active
[2018-03-28] MEDS: (Lantus) Insulin Glargine, Recombinant SC SCH (10:24)
[2018-03-28] MEDS: Pantoprazole 40 mg EC Tab PO SCH (10:24)
[2018-03-28] MEDS: Lidocaine 5% Patch TD SCH (10:29)
[2018-03-28] MEDS: Albuterol-Ipratrop 3 mg / 0.5 (3 ml) UD INH SCH ×2 (13:42→22:03)
[2018-03-28] MEDS ORDERED: Fluticasone Nasal 50 mcg/Spray NAS SCH (14:30)
[2018-03-28] MEDS: Fluticasone Nasal 50 mcg/Spray NAS SCH (21:36)
[2018-03-29] MEDS: HYDROmorphone 1 mg/ml ISec IVP PRN ×6 (00:35→23:35)
[2018-03-29] MEDS: Albuterol-Ipratrop 3 mg / 0.5 (3 ml) UD INH SCH ×4 (02:46→19:49)
[2018-03-29] MEDS: Vancomycin 1.5 GM in Sodium Chloride 0.9% 500 ML IVPB SCH ×3 (03:00→18:03)
[2018-03-29 06:08] LABS: BASO # 0.1 K/uL (0.0-0.2); EOS # 0.3 K/uL (0.0-0.7); EOS % 1.8 % (0.0-4.0); HEMOGLOBIN 10.7 g/dL (12.0-18.0); LYMPH # 1.8 K/uL (1.0-4.3); LYMPH % 12.7 % (20.0-40.0); MEAN CORPUSCULAR HEMOGLOBIN 28.3 pg (27.0-31.0); MEAN CORPUSCULAR HGB CONC 34.1 g/dL (33.0-37.0); MEAN PLATELET VOLUME 8.8 fL (7.2-11.7); MONO # 1.7 K/uL (0.0-0.8); MONO % 11.5 % (0.0-10.0); NEUT # 10.5 K/uL (1.8-7.0); RBC 3.79 Mil/uL (4.40-5.90); RED CELL DISTRIBUTION WIDTH 12.5 % (11.5-14.5); WHITE BLOOD COUNT 14.4 K/uL (4.8-10.8)
[2018-03-29 06:27] LABS: BLOOD UREA NITROGEN 9 mg/dL (9-20); CALCIUM 8.4 mg/dl (8.6-10.4); GFR NON-AFRICAN AMERICAN > 60
--- NOTE | 2018-03-29 08:03 | CP.CCUPN ---
CCU Subjective - Physician Review Events Since Last Encounter (Free Text): 03/29/18 08:01 Patient is a 32-year-old male with a diabetes admitted to the hospital with this severe MRSA septicemia, and a pneumonia and empyema. Patient underwent decortication, thoracotomy, chest tube on the right side on 03/27/2018 Patient is feeling slightly better. But still having cough with mucus and pain Cough with mucus production thick yellow noted. Vital signs stable otherwise. Patient was some bleeding yesterday. Still having right-sided splinting pleuritic pain. Episodic tachycardia. But he is feeling much better On examination: Chest good air entry, but the right-sided decreased air entry noted. No air leak noted Labs reviewed Significant improvement noted X-ray chest stable. Fluid culture also showing evidence of gram-positive cocci likely MRSA. Will continue the supportive treatment. Patient is a 32-year-old male admitted with the MRSA sepsis, MRSA pneumonia, pleural effusion. Status post thoracotomy. Continue the antibiotic as per infectious disease. Pain management. Incentive spirometer. Marnie up. DVT and GI prophylaxis will follow-up the patient. If the patient is stable can be transferred to regular medical floor CCU Objective - Vital Signs / Intake & Output Vital Signs (Last 4 hours): Vital Signs Pulse Resp BP Pulse Ox 03/29/18 07:05 112 H 26 H 138/98 H 91 L 03/29/18 07:00 133 H 29 H 92 L 03/29/18 06:05 111 H 22 131/83 94 L 03/29/18 06:04 110 H 25 H 150/76 93 L 03/29/18 06:00 113 H 20 91 L Intake and Output (Last 8hrs): Intake & Output 03/28/18 03/29/18 03/29/18 22:59 06:59 14:59 Intake Total 1720 1040 220 Output Total 1842 2492 400 Balance -122 -1452 -180 Weight 291 lb 0.12 oz Intake: Intake, IV Amount 500 500 Left Forearm 500 Left Wrist 500 Oral 1220 540 220 Output: Chest Tube Drainage 42 42 Right Anterior Chest 24 12 Right Posterior Chest 18 30 Urine 1800 2450 400 Urine, Voided 1800 2450 400 Other: # Voids Urine, Voided 1 1 1 # Bowel Movements 0 0 - Physical Exam Head: Positive for: Atraumatic, Normocephalic Pupils: Positive for: PERRL Extroacular Muscles: Positive for: EOMI Conjunctiva: Positive for: Normal Mouth: Positive for: Moist Mucous Membranes Nose (Internal): Positive for: Normal Inspection Respiratory/Chest: Positive for: Decreased Breath Sounds (R>L), Tachypneic. Negative for: Respiratory Distress, Accessory Muscle Use, Retracting Cardiovascular: Positive for: Normal S1, S2, Tachycardic. Negative for: Murmurs Abdomen: Negative for: Tenderness, Distention, Peritoneal Signs Back: Positive for: Other (no lesions observed) Neurological: Positive for: GCS=15, CN II-XII Intact Skin: Positive for: Warm, Dry, Normal Color. Negative for: Rashes Psychiatric: Positive for: Alert, Oriented x 3 - Medications Active Medications: Active Medications Generic Name Dose Route Start Last Admin Trade Name Freq PRN Reason Stop Dose Admin Albuterol/Ipratropium 3 ml 03/28/18 14:00 03/29/18 07:52 Duoneb 3 Mg/0.5 Mg (3 Ml) Ud INH 3 ml RQ6 JERED Administration Aspirin 81 mg 03/28/18 10:00 03/28/18 10:23 Aspirin Chewable PO 81 mg DAILY JERED Administration Fluticasone Propionate 1 spr 03/28/18 22:00 03/28/18 21:36 Flonase VANDANA 1 spray Q12H JERED Administration Gabapentin 400 mg 03/21/18 18:00 03/28/18 17:59 Neurontin PO 400 mg TID JERED Administration Heparin Sodium (Porcine) 5,000 units 03/23/18 14:00 03/29/18 05:30 Heparin SC 5,000 units Q8 JERED Administration Hydromorphone HCl 1 mg 03/29/18 08:01 Dilaudid IVP Q4 PRN Pain, severe (8-10) Vancomycin HCl 1.5 gm/ Sodium 500 mls @ 250 mls/hr 03/27/18 03:00 03/29/18 03:00 Chloride IVPB 250 mls/hr Q8H JERED Administration Protocol Insulin Aspart 0 unit 03/22/18 22:00 03/28/18 21:19 Novolog SC Not Given ACHS JERED Protocol Insulin Glargine 10 unit 03/27/18 10:00 03/28/18 10:24 Lantus SC 10 units DAILY JERED Administration Lidocaine 1 ea 03/28/18 10:00 03/28/18 10:29 Lidoderm TD 1 ea DAILY JERED Administration Metoprolol Tartrate 25 mg 03/22/18 10:00 03/28/18 17:59 Lopressor PO 25 mg BID JERED Administration Oxycodone/Acetaminophen 1 tab 03/26/18 13:09 Percocet 5/325 Mg Tab PO 03/29/18 13:10 Q6H PRN Pain, moderate (4-7) Oxycodone/Acetaminophen 2 tab 03/26/18 13:09 Percocet 5/325 Mg Tab PO 03/29/18 13:10 Q6H PRN Pain, severe (8-10) Pantoprazole Sodium 40 mg 03/23/18 11:30 03/28/18 10:24 Protonix Ec Tab PO 40 mg DAILY JERED Administration - Patient Studies Lab Studies: Microbiology Studies 03/27/18 18:48 Fungal Culture - Preliminary Pleural Cavity 03/27/18 18:48 Fungal Culture - Preliminary Pleural Fluid 03/27/18 18:48 Fungal Culture - Preliminary Other: Please Indicate 03/27/18 18:48 Gram Stain - Final Other: Please Indicate Tissue Culture - Preliminary Staphylococcus Species 03/27/18 18:48 Anaerobic Culture - Preliminary Pleural Fluid No growth. 03/27/18 18:48 Gram Stain - Final Pleural Fluid Body Fluid Culture - Preliminary NO GROWTH AFTER 24 HOURS 03/27/18 18:48 Gram Stain - Final Pleural Fluid Body Fluid Culture - Preliminary Gram Positive Cocci 03/24/18 17:19 Gram Stain - Final Thoracic Fluid Body Fluid Culture - Final NO GROWTH AFTER 4 DAYS 03/24/18 09:04 Blood Culture - Preliminary Blood-Venous NO GROWTH AFTER 4 DAYS 03/24/18 09:04 Blood Culture - Preliminary Blood-Venous NO GROWTH AFTER 4 DAYS Lab Studies 03/29/18 03/29/18 03/24/18 Range/Units 06:01 06:01 17:19 WBC 14.4 H (4.8-10.8) K/uL RBC 3.79 L (4.40-5.90) Mil/uL Hgb 10.7 L (12.0-18.0) g/dL Hct 31.5 L (35.0-51.0) % MCV 83.0 (80.0-94.0) fL MCH 28.3 (27.0-31.0) pg MCHC 34.1 (33.0-37.0) g/dL RDW 12.5 (11.5-14.5) % Plt Count 411 H (130-400) K/uL MPV 8.8 (7.2-11.7) fL Neut % (Auto) 73.0 (50.0-75.0) % Lymph % (Auto) 12.7 L (20.0-40.0) % Donley % (Auto) 11.5 H (0.0-10.0) % Eos % (Auto) 1.8 (0.0-4.0) % Baso % (Auto) 1.0 (0.0-2.0) % Neut # (Auto) 10.5 H (1.8-7.0) K/uL Lymph # (Auto) 1.8 (1.0-4.3) K/uL Donley # (Auto) 1.7 H (0.0-0.8) K/uL Eos # (Auto) 0.3 (0.0-0.7) K/uL Baso # (Auto) 0.1 (0.0-0.2) K/uL Sodium 130 L (132-148) mmol/L Potassium 4.4 (3.6-5.2) mmol/L Chloride 94 L (98-107) mmol/L Carbon Dioxide 26 (22-30) mmol/L Anion Gap 14 (10-20) BUN 9 (9-20) mg/dL Creatinine 0.6 L (0.8-1.5) mg/dL Est GFR ( Amer) > 60 Est GFR (Non-Af Amer) > 60 Random Glucose 313 H (75-110) mg/dL Calcium 8.4 L (8.6-10.4) mg/dl Fluid Albumin 2.1 g/dL Laboratory Results - last 24 hr 03/24/18 03/29/18 03/29/18 17:19 06:01 06:01 WBC 14.4 H RBC 3.79 L Hgb 10.7 L Hct 31.5 L MCV 83.0 MCH 28.3 MCHC 34.1 RDW 12.5 Plt Count 411 H MPV 8.8 Neut % (Auto) 73.0 Lymph % (Auto) 12.7 L Donley % (Auto) 11.5 H Eos % (Auto) 1.8 Baso % (Auto) 1.0 Neut # (Auto) 10.5 H Lymph # (Auto) 1.8 Donley # (Auto) 1.7 H Eos # (Auto) 0.3 Baso # (Auto) 0.1 Sodium 130 L Potassium 4.4 Chloride 94 L Carbon Dioxide 26 Anion Gap 14 BUN 9 Creatinine 0.6 L Est GFR ( Amer) > 60 Est GFR (Non-Af Amer) > 60 Random Glucose 313 H Calcium 8.4 L Fluid Albumin 2.1 Fingerstick Blood Sugar Results: 282 Critical Care Progress Note - Nutrition Nutrition: Nutrition Category Date Time Status Diabetic [Consistent Carbohydrate] [DIET] Diets 03/27/18 Dinner Active
[2018-03-29] MEDS ORDERED: HYDROmorphone 1 mg/ml ISec IVP PRN (08:08)
[2018-03-29] MEDS: (Novolog) Insulin Aspart, Recombinant 100 u/ml 10 ml vial SC SCH ×4 (08:30→22:40)
--- NOTE | 2018-03-29 09:05 | CP.PCM.PN ---
Subjective - Date & Time of Evaluation Date of Evaluation: 03/29/18 Time of Evaluation: 07:00 - Subjective Subjective: cardiothoracic progress note for Dr. Harmon Pt seen and examined at bedside this AM. Pt had a low fever of 100.5 overnight, persistent tachycardia, and desaturates to 91 without nasal cannula. Patient states that pain and breathing feel better to him this AM. Objective - Vital Signs/Intake and Output Vital Signs (last 24 hours): Temp Pulse Resp BP Pulse Ox 99.6 F 112 H 26 H 138/98 H 91 L 03/29/18 08:00 03/29/18 07:05 03/29/18 07:05 03/29/18 07:05 03/29/18 07:05 Intake and Output: 03/29/18 03/29/18 06:59 18:59 Intake Total 2040 220 Output Total 3142 400 Balance -1102 -180 - Medications Medications: Current Medications Albuterol/Ipratropium (Duoneb 3 Mg/0.5 Mg (3 Ml) Ud) 3 ml INH RQ6 [facility] Last Admin: 03/29/18 07:52 Dose: 3 ml Aspirin (Aspirin Chewable) 81 mg PO DAILY [facility] Last Admin: 03/28/18 10:23 Dose: 81 mg Fluticasone Propionate (Flonase) 1 spr VANDANA Q12H [facility] Last Admin: 03/28/18 21:36 Dose: 1 spray Gabapentin (Neurontin) 400 mg PO TID [facility] Last Admin: 03/28/18 17:59 Dose: 400 mg Heparin Sodium (Porcine) (Heparin) 5,000 units SC Q8 [facility] Last Admin: 03/29/18 05:30 Dose: 5,000 units Hydromorphone HCl (Dilaudid) 1 mg IVP Q4 PRN PRN Reason: Pain, severe (8-10) Vancomycin HCl 1.5 gm/ Sodium (Chloride) 500 mls @ 250 mls/hr IVPB Q8H [facility]; Protocol Last Admin: 03/29/18 03:00 Dose: 250 mls/hr Insulin Aspart (Novolog) 0 unit SC ACHS [facility]; Protocol Last Admin: 03/29/18 08:30 Dose: 4 units Insulin Glargine (Lantus) 10 unit SC DAILY [facility] Last Admin: 03/28/18 10:24 Dose: 10 units Lidocaine (Lidoderm) 1 ea TD DAILY [facility] Last Admin: 03/28/18 10:29 Dose: 1 ea Metoprolol Tartrate (Lopressor) 25 mg PO BID [facility] Last Admin: 03/28/18 17:59 Dose: 25 mg Oxycodone/Acetaminophen (Percocet 5/325 Mg Tab) 1 tab PO Q6H PRN PRN Reason: Pain, moderate (4-7) Stop: 03/29/18 13:10 Oxycodone/Acetaminophen (Percocet 5/325 Mg Tab) 2 tab PO Q6H PRN PRN Reason: Pain, severe (8-10) Stop: 03/29/18 13:10 Pantoprazole Sodium (Protonix Ec Tab) 40 mg PO DAILY [facility] Last Admin: 03/28/18 10:24 Dose: 40 mg - Labs Labs: 03/29/18 06:01 03/29/18 06:01 PT 14.3 SECONDS (9.7-12.2) H 03/26/18 05:56 INR 1.3 03/26/18 05:56 APTT 38 SECONDS (21-34) H D 03/26/18 05:56 - Constitutional Appears: Well, Non-toxic, No Acute Distress - Head Exam Head Exam: ATRAUMATIC, NORMOCEPHALIC - Eye Exam Eye Exam: Normal appearance. absent: Conjunctival injection, Scleral icterus - ENT Exam ENT Exam: Mucous Membranes Moist, Normal Oropharynx - Respiratory Exam Respiratory Exam: NORMAL BREATHING PATTERN. absent: Accessory Muscle Use, Respiratory Distress Additional comments: mild tachypnea, no dyspnea chest tubes with dressing in place c/d/i, chest tubes with serosanguinous output, no leak - Cardiovascular Exam Cardiovascular Exam: Tachycardia, REGULAR RHYTHM - GI/Abdominal Exam GI & Abdominal Exam: Soft. absent: Distended, Tenderness - Extremities Exam Extremities Exam: absent: Calf Tenderness, Pedal Edema, Tenderness - Neurological Exam Neurological Exam: Alert, Awake, Oriented x3 - Psychiatric Exam Psychiatric exam: Normal Affect, Normal Mood - Skin Skin Exam: Dry, Normal Color Assessment and Plan - Assessment and Plan (Free Text) Assessment: 32M POD#3 s/p VATS and decortication of empyema Plan: Continue chest tubes to suction, if CXR ok tomorrow AM, will put on waterseal Continue to monitor chest tube output closely Continue daily CXR Continue antibiotics per primary/ID--attempt to switch to PO Continue to follow up cultures PRN pain medication Encourage ambulation and incentive spirometer use--Pt must ambulate 3x/day Discussed with Dr. Jonna Limon, PGY2
[2018-03-29] MEDS: Fluticasone Nasal 50 mcg/Spray NAS SCH ×2 (10:22→21:05)
[2018-03-29] MEDS: Pantoprazole 40 mg EC Tab PO SCH (10:25)
[2018-03-29] MEDS: Lidocaine 5% Patch TD SCH (10:27)
[2018-03-29] MEDS: (Lantus) Insulin Glargine, Recombinant SC SCH (10:32)
[2018-03-29] MEDS ORDERED: Bisacodyl 5mg EC Tab PO ONE (10:53)
--- NOTE | 2018-03-29 13:44 | CP.PCM.PN ---
Subjective - Date & Time of Evaluation Date of Evaluation: 03/29/18 Time of Evaluation: 13:41 - Subjective Subjective: pt still in icu has chest tube draining fluid positive mrsa Objective - Vital Signs/Intake and Output Vital Signs (last 24 hours): Temp Pulse Resp BP Pulse Ox 98.2 F 91 H 35 H 118/62 91 L 03/29/18 13:08 03/29/18 13:06 03/29/18 13:06 03/29/18 13:06 03/29/18 13:06 Intake and Output: 03/29/18 03/29/18 06:59 18:59 Intake Total 2040 1200 Output Total 3142 1620 Balance -1102 -420 - Medications Medications: Current Medications Acetaminophen (Tylenol 325mg Tab) 650 mg PO Q6 PRN PRN Reason: Fever >100.4 F Last Admin: 03/29/18 12:08 Dose: 650 mg Albuterol/Ipratropium (Duoneb 3 Mg/0.5 Mg (3 Ml) Ud) 3 ml INH RQ6 [facility] Last Admin: 03/29/18 13:09 Dose: Not Given Aspirin (Aspirin Chewable) 81 mg PO DAILY [facility] Last Admin: 03/29/18 10:23 Dose: 81 mg Docusate Sodium (Colace) 100 mg PO TID [facility] Last Admin: 03/29/18 13:19 Dose: 100 mg Fluticasone Propionate (Flonase) 1 spr VANDANA Q12H [facility] Last Admin: 03/29/18 10:22 Dose: 1 spray Gabapentin (Neurontin) 400 mg PO TID [facility] Last Admin: 03/29/18 13:19 Dose: 400 mg Heparin Sodium (Porcine) (Heparin) 5,000 units SC Q8 [facility] Last Admin: 03/29/18 13:19 Dose: 5,000 units Hydromorphone HCl (Dilaudid) 1 mg IVP Q4H PRN PRN Reason: Pain, severe (8-10) Vancomycin HCl 1.5 gm/ Sodium (Chloride) 500 mls @ 250 mls/hr IVPB Q8H [facility]; Protocol Last Admin: 03/29/18 10:23 Dose: 250 mls/hr Insulin Aspart (Novolog) 0 unit SC ACHS [facility]; Protocol Last Admin: 03/29/18 12:08 Dose: 8 units Insulin Glargine (Lantus) 10 unit SC DAILY [facility] Last Admin: 03/29/18 10:32 Dose: 10 units Lactulose (Enulose) 20 gm PO HS [facility] Lidocaine (Lidoderm) 1 ea TD DAILY [facility] Last Admin: 03/29/18 10:27 Dose: 1 ea Metoprolol Tartrate (Lopressor) 25 mg PO BID [facility] Last Admin: 03/29/18 10:23 Dose: 25 mg Pantoprazole Sodium (Protonix Ec Tab) 40 mg PO DAILY [facility] Last Admin: 03/29/18 10:25 Dose: 40 mg - Labs Labs: 03/29/18 06:01 03/29/18 06:01 PT 14.3 SECONDS (9.7-12.2) H 03/26/18 05:56 INR 1.3 03/26/18 05:56 APTT 38 SECONDS (21-34) H D 03/26/18 05:56 - Head Exam Head Exam: ATRAUMATIC - Eye Exam Eye Exam: Normal appearance - ENT Exam ENT Exam: Mucous Membranes Moist - Neck Exam Neck Exam: Full ROM - Respiratory Exam Respiratory Exam: Decreased Breath Sounds Additional comments: chest tube in place - Cardiovascular Exam Cardiovascular Exam: Tachycardia - GI/Abdominal Exam GI & Abdominal Exam: Normal Bowel Sounds - Exam Exam: NORMAL INSPECTION - Extremities Exam Extremities Exam: Normal Inspection - Back Exam Back Exam: NORMAL INSPECTION - Neurological Exam Neurological Exam: Oriented x3 - Psychiatric Exam Psychiatric exam: Normal Affect - Skin Skin Exam: Normal Color Assessment and Plan - Assessment and Plan (Free Text) Assessment: empyema mrsa infection s/p h zoster obeseity Plan: as per orders
--- NOTE | 2018-03-29 13:48 | RAD ---
Date of service: 03/29/2018 HISTORY: s/p VATS, decortication, 2 chest tubes COMPARISON: Comparison made with chest radiograph dated the 03/28/2018 FINDINGS: LUNGS: Redemonstrated are 2 in situ right-sided chest tubes 1 extending into the right lung apex and the other coiled inferiorly, the tip of which is located medial lung base. Patchy opacity seen throughout the right hemithorax likely representing combination of residual atelectasis/infiltrate and effusion. No definitive pneumothorax. Small amount of residual subcutaneous emphysema seen right lateral chest wall PLEURA: As above CARDIOVASCULAR: No significant aortic atherosclerotic calcification present. Cardiomegaly. No pulmonary vascular congestion. OSSEOUS STRUCTURES: No significant abnormalities. VISUALIZED UPPER ABDOMEN: Normal. OTHER FINDINGS: None. IMPRESSION: Redemonstrated are 2 in situ right-sided chest tubes 1 extending into the right lung apex and the other coiled inferiorly, the tip of which is located medial lung base. Patchy opacity seen throughout the right hemithorax likely representing combination of residual atelectasis/infiltrate and effusion. No definitive pneumothorax. Small amount of residual subcutaneous emphysema seen right lateral chest wall
--- NOTE | 2018-03-29 18:22 | CP.PCM.PN ---
Subjective - Date & Time of Evaluation Date of Evaluation: 03/29/18 Time of Evaluation: 08:00 - Subjective Subjective: improving s/p VATS Vanco level ok chest tubes in place Objective - Vital Signs/Intake and Output Vital Signs (last 24 hours): Temp Pulse Resp BP Pulse Ox 98.1 F 111 H 25 H 132/74 95 03/29/18 16:00 03/29/18 18:00 03/29/18 18:00 03/29/18 17:39 03/29/18 18:00 Intake and Output: 03/29/18 03/29/18 06:59 18:59 Intake Total 2040 2430 Output Total 3142 2800 Balance -1102 -370 - Medications Medications: Current Medications Acetaminophen (Tylenol 325mg Tab) 650 mg PO Q6 PRN PRN Reason: Fever >100.4 F Last Admin: 03/29/18 12:08 Dose: 650 mg Albuterol/Ipratropium (Duoneb 3 Mg/0.5 Mg (3 Ml) Ud) 3 ml INH RQ6 [facility] Last Admin: 03/29/18 13:09 Dose: Not Given Aspirin (Aspirin Chewable) 81 mg PO DAILY [facility] Last Admin: 03/29/18 10:23 Dose: 81 mg Docusate Sodium (Colace) 100 mg PO TID [facility] Last Admin: 03/29/18 17:39 Dose: 100 mg Fluticasone Propionate (Flonase) 1 spr VANDANA Q12H [facility] Last Admin: 03/29/18 10:22 Dose: 1 spray Gabapentin (Neurontin) 400 mg PO TID [facility] Last Admin: 03/29/18 17:40 Dose: 400 mg Heparin Sodium (Porcine) (Heparin) 5,000 units SC Q8 [facility] Last Admin: 03/29/18 13:19 Dose: 5,000 units Hydromorphone HCl (Dilaudid) 1 mg IVP Q4H PRN PRN Reason: Pain, severe (8-10) Last Admin: 03/29/18 18:03 Dose: 1 mg Vancomycin HCl 1.5 gm/ Sodium (Chloride) 500 mls @ 250 mls/hr IVPB Q8H [facility]; Protocol Last Admin: 03/29/18 18:03 Dose: 250 mls/hr Insulin Aspart (Novolog) 0 unit SC ACHS [facility]; Protocol Last Admin: 03/29/18 17:40 Dose: 4 units Insulin Glargine (Lantus) 10 unit SC DAILY [facility] Last Admin: 03/29/18 10:32 Dose: 10 units Lactulose (Enulose) 20 gm PO HS [facility] Lidocaine (Lidoderm) 1 ea TD DAILY [facility] Last Admin: 03/29/18 10:27 Dose: 1 ea Metoprolol Tartrate (Lopressor) 25 mg PO BID [facility] Last Admin: 03/29/18 17:39 Dose: 25 mg Pantoprazole Sodium (Protonix Ec Tab) 40 mg PO DAILY [facility] Last Admin: 03/29/18 10:25 Dose: 40 mg - Labs Labs: 03/29/18 06:01 03/29/18 06:01 PT 14.3 SECONDS (9.7-12.2) H 03/26/18 05:56 INR 1.3 03/26/18 05:56 APTT 38 SECONDS (21-34) H D 03/26/18 05:56 - Constitutional Appears: Non-toxic, Chronically Ill - Head Exam Head Exam: NORMOCEPHALIC - Eye Exam Eye Exam: absent: Scleral icterus - ENT Exam ENT Exam: Mucous Membranes Dry - Neck Exam Neck Exam: absent: Lymphadenopathy - Respiratory Exam Respiratory Exam: Decreased Breath Sounds - Cardiovascular Exam Cardiovascular Exam: REGULAR RHYTHM Assessment and Plan (1) Cellulitis of back Status: Acute (2) Hyperglycemia Status: Acute (3) Chest wall muscle strain Status: Acute
[2018-03-30] MEDS: Albuterol-Ipratrop 3 mg / 0.5 (3 ml) UD INH SCH ×3 (01:20→13:19)
[2018-03-30] MEDS: Vancomycin 1.5 GM in Sodium Chloride 0.9% 500 ML IVPB SCH ×3 (02:40→19:35)
[2018-03-30] MEDS: HYDROmorphone 1 mg/ml ISec IVP PRN ×4 (04:40→19:29)
[2018-03-30 06:59] LABS: BASO # 0.1 K/uL (0.0-0.2); BASO % 0.5 % (0.0-2.0); EOS # 0.3 K/uL (0.0-0.7); EOS % 2.1 % (0.0-4.0); HEMOGLOBIN 11.2 g/dL (12.0-18.0); LYMPH # 1.7 K/uL (1.0-4.3); LYMPH % 12.1 % (20.0-40.0); MEAN CELL VOLUME 82.8 fL (80.0-94.0); MEAN CORPUSCULAR HEMOGLOBIN 27.5 pg (27.0-31.0); MEAN CORPUSCULAR HGB CONC 33.2 g/dL (33.0-37.0); MEAN PLATELET VOLUME 9.1 fL (7.2-11.7); MONO # 1.5 K/uL (0.0-0.8); MONO % 10.6 % (0.0-10.0); NEUT # 10.4 K/uL (1.8-7.0); NEUT % 74.7 % (50.0-75.0); NRBC % 0.1 % (0.0-2.0); RBC 4.07 Mil/uL (4.40-5.90); RED CELL DISTRIBUTION WIDTH 12.8 % (11.5-14.5)
[2018-03-30 07:35] LABS: ALB/GLOB RATIO 0.8 (1.0-2.1); ALBUMIN 3.2 g/dL (3.5-5.0); ALT/SGPT 27 U/L (21-72); AST/SGOT 33 U/L (17-59); BLOOD UREA NITROGEN 10 mg/dL (9-20); CALCIUM 8.7 mg/dl (8.6-10.4); GFR NON-AFRICAN AMERICAN > 60
[2018-03-30] MEDS: (Novolog) Insulin Aspart, Recombinant 100 u/ml 10 ml vial SC SCH ×3 (07:59→16:44)
--- NOTE | 2018-03-30 09:06 | OP ---
PROCEDURE DATE: 03/27/2018 PREOPERATIVE DIAGNOSIS: Complicated right pleural effusion, symptomatic, rule out empyema. POSTOPERATIVE DIAGNOSIS: Stage 3 right-sided empyema. SURGEON: Terrence Gold M.D. LOAN SERVICING OFFICER: Gabriela Blanco DO. TYPE OF ANESTHESIA: General. ANESTHESIA ADMINISTERED BY: As per record. PROCEDURES: 1. Flexible bronchoscopy. 2. Regional intercostal nerve block (multiple). 3. Right video-assisted thoracoscopic surgery with pleural biopsy. 4. Intrapleural pneumolysis. 5. Removal of fibrinous debris. 6. Decortication. 7. Removal of empyema cavity. INDICATIONS: As above. COMPLICATIONS: None. ESTIMATED BLOOD LOSS: Approximately 150 mL. SPECIMENS: Right pleural fluid for culture in cytology and right pleura/fibrinous debris/rind/empyema cavity for culture and histopathology. PROCEDURE IN DETAIL: The patient was identified by the operating room staff and placed supine onto the operating room table. Bilateral Venodynes were placed. Adequate IV access was inserted by the anesthesiologist. Prophylactic IV antibiotics were not given since the patient was receiving broad spectrum IV antibiotics while on the wards. General endotracheal anesthesia was induced uneventfully. A Boothe catheter was inserted. A full bronchoscopic examination was performed. Moderate amounts of whitish secretions were evacuated. There were no endobronchial lesions noted. The ana and sub-ana was somewhat blunted. There was minimal airway inflammation noted as well. The position of the double-lumen endotracheal tube was confirmed to be in proper place with the use of the bronchoscope. The patient was then turned to the left lateral decubitus position and maintained there with a beanbag. All pressure points were appropriately padded. The position of the double lumen endotracheal tube was confirmed to be in proper place with the use of a bronchoscope. With maximal hip flexion, the patient was securely positioned, prepped and draped in the usual sterile fashion. The regional intercostal nerve blocks were performed to the entire right lateral chest wall by infiltrating 0.25% Marcaine in all the intercostal spaces, just medial to the vertebral takeoffs. On the single-lung ventilation, a right thoracoscopy was performed via 2-port incision sites. 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 A circumferential intrapleural pneumonolysis was initially begun. This was achieved with the use of gentle blunt manipulation, and cautery is being necessary. Fibrinous debris, rind, and gelatinous material were removed and passed off the field as specimens. The majority of the disease was in the posterior basilar portion of the hemothorax, posterior apical, and anterior medial. These areas, also upon evacuation of adhesions and fibrinous debris, were also encountered to have nerissa purulent material as well. Specimens were taken as described above. Areas of encapsulated empyema cavities were also excised with the use of gentle blunt manipulation and cautery, as deemed necessary. Care was taken so as to preserve the integrity of the visceral pleura as much as possible. On the combination of these maneuvers allowed, full-lung expansion and the ability to achieve pleural apposition. The parietal pleura was then decorticated as much as possible. There was residual visceral pleural debris as well, and this was decorticated with gentle blunt manipulation using gentle ventilation on the affected lung. This was able to establish a plain between the visceral pleura and the actual rind. These maneuvers did allow for increased pleural apposition. At this point, the lower lobe was off the diaphragm and mobile. The right upper lobe was fully aerated to the apex of the hemithorax. There were no other pockets of debris that could be identified. The entire hemithorax was irrigated with copious amounts of warm sterile saline. Hemostasis was inspected for and achieved with the use of cautery as deemed necessary. The hemithorax was drained in with 2 large port chest tubes with extra holes for improved drainage. They both entered the plural cavity through separate stab wounds. One was guided in the posterior apical fashion, and the other in the anterior and medial fashion. They were anchored to the skin with heavy monofilament sutures. Again, two-lung ventilation resumed and good pleural opposition was noted. There was no evidence of any significant air leak. The remaining port sites were closed with layers of absorbable suture. Additional regional intercostal nerve block was performed by infiltrating the long-acting Marcaine, EXPAREL. Sterile dressings were applied. The patient was laid supine and allowed to awaken. He was extubated uneventfully. He was transferred back to the postanesthesia care unit with stable hemodynamics and stable respiratory status. All counts were correct x2. Terrence Gold M.D.
--- NOTE | 2018-03-30 09:20 | RAD ---
Date of service: 03/30/2018 HISTORY: s/p VATS, decortication, 2 chest tubes COMPARISON: No prior. FINDINGS: LUNGS: S/p decortication and VATS. Chest tubes in stable position. Persistent patchy opacifications throughout the right hemithorax. Persistent diffuse pleural thickening and/or loculated pleural effusion. PLEURA: As above. CARDIOVASCULAR: No aortic atherosclerotic calcification present. Top normal cardiac size. OSSEOUS STRUCTURES: Degenerative changes in the spine. Calcific tendinopathy of the left proximal humerus. VISUALIZED UPPER ABDOMEN: Normal. OTHER FINDINGS: None. IMPRESSION: No significant interval change.
[2018-03-30] MEDS: Pantoprazole 40 mg EC Tab PO SCH (10:12)
[2018-03-30] MEDS: (Lantus) Insulin Glargine, Recombinant SC SCH (10:13)
[2018-03-30] MEDS: Lidocaine 5% Patch TD SCH (10:13)
[2018-03-30] MEDS: Fluticasone Nasal 50 mcg/Spray NAS SCH (10:16)
--- NOTE | 2018-03-30 11:04 | CP.PCM.PN ---
Subjective - Date & Time of Evaluation Date of Evaluation: 03/30/18 Time of Evaluation: 06:00 - Subjective Subjective: awake alert oob Objective - Vital Signs/Intake and Output Vital Signs (last 24 hours): Temp Pulse Resp BP Pulse Ox 98.2 F 91 H 31 H 117/58 L 98 03/30/18 08:00 03/30/18 08:02 03/30/18 08:02 03/30/18 10:12 03/30/18 08:02 Intake and Output: 03/30/18 03/30/18 06:59 18:59 Intake Total 1940 240 Output Total 2408 Balance -468 240 - Medications Medications: Current Medications Acetaminophen (Tylenol 325mg Tab) 650 mg PO Q6 PRN PRN Reason: Fever >100.4 F Last Admin: 03/30/18 04:40 Dose: 650 mg Albuterol/Ipratropium (Duoneb 3 Mg/0.5 Mg (3 Ml) Ud) 3 ml INH RQ6 [facility] Last Admin: 03/30/18 08:04 Dose: 3 ml Aspirin (Aspirin Chewable) 81 mg PO DAILY [facility] Last Admin: 03/30/18 10:11 Dose: 81 mg Docusate Sodium (Colace) 100 mg PO TID [facility] Last Admin: 03/30/18 10:12 Dose: 100 mg Fluticasone Propionate (Flonase) 1 spr VANDANA Q12H [facility] Last Admin: 03/30/18 10:16 Dose: 1 spray Gabapentin (Neurontin) 400 mg PO TID [facility] Last Admin: 03/30/18 10:14 Dose: 400 mg Heparin Sodium (Porcine) (Heparin) 5,000 units SC Q8 [facility] Last Admin: 03/30/18 05:00 Dose: 5,000 units Hydromorphone HCl (Dilaudid) 1 mg IVP Q4H PRN PRN Reason: Pain, severe (8-10) Last Admin: 03/30/18 10:06 Dose: 1 mg Vancomycin HCl 1.5 gm/ Sodium (Chloride) 500 mls @ 250 mls/hr IVPB Q8H [facility]; Protocol Last Admin: 03/30/18 10:26 Dose: 250 mls/hr Insulin Aspart (Novolog) 0 unit SC ACHS [facility]; Protocol Last Admin: 03/30/18 07:59 Dose: 4 units Insulin Glargine (Lantus) 10 unit SC DAILY [facility] Last Admin: 03/30/18 10:13 Dose: 10 units Lactulose (Enulose) 20 gm PO HS [facility] Last Admin: 03/29/18 21:05 Dose: 20 gm Lidocaine (Lidoderm) 1 ea TD DAILY [facility] Last Admin: 03/30/18 10:13 Dose: 1 ea Metoprolol Tartrate (Lopressor) 25 mg PO BID [facility] Last Admin: 03/30/18 10:12 Dose: 25 mg Pantoprazole Sodium (Protonix Ec Tab) 40 mg PO DAILY [facility] Last Admin: 03/30/18 10:12 Dose: 40 mg - Labs Labs: 03/30/18 06:55 03/30/18 06:55 PT 14.3 SECONDS (9.7-12.2) H 03/26/18 05:56 INR 1.3 03/26/18 05:56 APTT 38 SECONDS (21-34) H D 03/26/18 05:56 - Constitutional Appears: Non-toxic - Head Exam Head Exam: NORMOCEPHALIC - Eye Exam Eye Exam: absent: Scleral icterus - ENT Exam ENT Exam: Mucous Membranes Dry - Neck Exam Neck Exam: absent: Lymphadenopathy - Respiratory Exam Respiratory Exam: Decreased Breath Sounds - Cardiovascular Exam Cardiovascular Exam: REGULAR RHYTHM - GI/Abdominal Exam GI & Abdominal Exam: Soft Assessment and Plan (1) Cellulitis of back Status: Acute (2) Hyperglycemia Status: Acute (3) Chest wall muscle strain Status: Acute
--- NOTE | 2018-03-30 15:36 | CP.PCM.PN ---
Subjective - Date & Time of Evaluation Date of Evaluation: 03/30/18 Time of Evaluation: 07:00 - Subjective Subjective: THORACIC SURGERY PROGRESS NOTE FOR DR. HINOJOSA Patient seen and examined at bedside in the ICU. He is OOB to chair and using IS. He reports pain at the chest tube site. He is tolerating diet with good appetite. He denies SOB/CP. + BM. Pt states that he got OOB to chair yesterday and ambulated once yesterday. Objective - Vital Signs/Intake and Output Vital Signs (last 24 hours): Temp Pulse Resp BP Pulse Ox 97.8 F 99 H 16 103/64 99 03/30/18 12:00 03/30/18 14:00 03/30/18 14:00 03/30/18 13:02 03/30/18 14:00 Intake and Output: 03/30/18 03/30/18 06:59 18:59 Intake Total 1940 1220 Output Total 2408 500 Balance -468 720 - Medications Medications: Current Medications Acetaminophen (Tylenol 325mg Tab) 650 mg PO Q6 PRN PRN Reason: Fever >100.4 F Last Admin: 03/30/18 04:40 Dose: 650 mg Albuterol/Ipratropium (Duoneb 3 Mg/0.5 Mg (3 Ml) Ud) 3 ml INH RQ6 [facility] Last Admin: 03/30/18 13:19 Dose: 3 ml Aspirin (Aspirin Chewable) 81 mg PO DAILY [facility] Last Admin: 03/30/18 10:11 Dose: 81 mg Docusate Sodium (Colace) 100 mg PO TID [facility] Last Admin: 03/30/18 13:24 Dose: 100 mg Fluticasone Propionate (Flonase) 1 spr VANDANA Q12H [facility] Last Admin: 03/30/18 10:16 Dose: 1 spray Gabapentin (Neurontin) 400 mg PO TID [facility] Last Admin: 03/30/18 13:24 Dose: 400 mg Heparin Sodium (Porcine) (Heparin) 5,000 units SC Q8 [facility] Last Admin: 03/30/18 13:24 Dose: 5,000 units Hydromorphone HCl (Dilaudid) 1 mg IVP Q4H PRN PRN Reason: Pain, severe (8-10) Last Admin: 03/30/18 14:20 Dose: 1 mg Vancomycin HCl 1.5 gm/ Sodium (Chloride) 500 mls @ 250 mls/hr IVPB Q8H [facility]; Protocol Last Admin: 03/30/18 10:26 Dose: 250 mls/hr Insulin Aspart (Novolog) 0 unit SC ACHS [facility]; Protocol Last Admin: 03/30/18 11:50 Dose: 8 units Insulin Glargine (Lantus) 10 unit SC DAILY [facility] Last Admin: 03/30/18 10:13 Dose: 10 units Lactulose (Enulose) 20 gm PO HS [facility] Last Admin: 03/29/18 21:05 Dose: 20 gm Lidocaine (Lidoderm) 1 ea TD DAILY [facility] Last Admin: 03/30/18 10:13 Dose: 1 ea Metoprolol Tartrate (Lopressor) 25 mg PO BID [facility] Last Admin: 03/30/18 10:12 Dose: 25 mg Pantoprazole Sodium (Protonix Ec Tab) 40 mg PO DAILY [facility] Last Admin: 03/30/18 10:12 Dose: 40 mg - Labs Labs: 03/30/18 06:55 03/30/18 06:55 PT 14.3 SECONDS (9.7-12.2) H 03/26/18 05:56 INR 1.3 03/26/18 05:56 APTT 38 SECONDS (21-34) H D 03/26/18 05:56 - Constitutional Appears: Non-toxic, No Acute Distress - Head Exam Head Exam: ATRAUMATIC, NORMAL INSPECTION - Eye Exam Eye Exam: EOMI, Normal appearance - Respiratory Exam Respiratory Exam: NORMAL BREATHING PATTERN. absent: Respiratory Distress Additional comments: 36Fr & 32Fr chest tubes in place on water seal, no air leak, serosanguinous output: 122cc & 28cc over 24 hours - Cardiovascular Exam Cardiovascular Exam: +S1, +S2 - GI/Abdominal Exam GI & Abdominal Exam: Soft. absent: Tenderness - Neurological Exam Neurological Exam: Alert, Awake, Oriented x3 - Psychiatric Exam Psychiatric exam: Normal Affect, Normal Mood - Skin Skin Exam: Normal Color, Warm Assessment and Plan - Assessment and Plan (Free Text) Assessment: 32M with right sided pleural effusion refractory to IR thoracentesis, MRSA bacteremia s/p Right VATS w/ decortication, pleurolysis, pleural biopsy POD#3 Pleural fluid = MRSA Plan: - Daily CXR - Chest tubes placed to water seal this AM - Will remove lateral chest tube tomorrow - Strongly encouraged IS use - Pt needs to be OOB all day after breakfast - Ambulate TID - Continue antibiotics per ID - Discussed plan with Dr. Asif Blanco PGY-4
--- NOTE | 2018-03-30 17:02 | RAD ---
HISTORY: Confirmation of PICC line placement COMPARISON: Chest x-ray performed earlier the same day TECHNIQUE: Chest, one view. FINDINGS: Examination limited by habitus. Right-sided PICC likely terminates in the proximal right atrium. Two right-sided chest tubes. LUNGS: Patchy opacities throughout the right hemithorax. Persistent dense pleural thickening and/or loculated effusion. No definite pneumothorax. Please note that chest x-ray has limited sensitivity for the detection of pulmonary masses. CARDIOVASCULAR: Mild cardiomegaly. No significant atherosclerotic calcification present. OSSEOUS STRUCTURES: No acute osseous abnormality identified. VISUALIZED UPPER ABDOMEN: Elevation of the right hemidiaphragm. OTHER FINDINGS: Subcutaneous emphysema, right lateral chest wall. IMPRESSION: Right-sided PICC likely terminates in the proximal right atrium. Two right-sided chest tubes. Patchy opacities throughout the right hemithorax. Persistent dense pleural thickening and/or loculated effusion. No definite pneumothorax. Mild cardiomegaly. Subcutaneous emphysema, right lateral chest wall. Discussed with PICC nurse Edel on 03/30/18 at 4:57 p.m.
--- NOTE | 2018-03-30 17:43 | CP.PCM.PN ---
Subjective - Date & Time of Evaluation Date of Evaluation: 03/30/18 Time of Evaluation: 17:40 - Subjective Subjective: pt still has chest tube less fluid coming out on antibioitics bs sugar hi Objective - Vital Signs/Intake and Output Vital Signs (last 24 hours): Temp Pulse Resp BP Pulse Ox 98.5 F 96 H 20 127/71 95 03/30/18 17:00 03/30/18 17:00 03/30/18 17:00 03/30/18 17:00 03/30/18 17:00 Intake and Output: 03/30/18 03/30/18 06:59 18:59 Intake Total 1940 1340 Output Total 2408 1000 Balance -468 340 - Medications Medications: Current Medications Acetaminophen (Tylenol 325mg Tab) 650 mg PO Q6 PRN PRN Reason: Fever >100.4 F Last Admin: 03/30/18 04:40 Dose: 650 mg Albuterol/Ipratropium (Duoneb 3 Mg/0.5 Mg (3 Ml) Ud) 3 ml INH RQ6 [facility] Last Admin: 03/30/18 13:19 Dose: 3 ml Aspirin (Aspirin Chewable) 81 mg PO DAILY [facility] Last Admin: 03/30/18 10:11 Dose: 81 mg Docusate Sodium (Colace) 100 mg PO TID [facility] Last Admin: 03/30/18 13:24 Dose: 100 mg Fluticasone Propionate (Flonase) 1 spr VANDANA Q12H [facility] Last Admin: 03/30/18 10:16 Dose: 1 spray Gabapentin (Neurontin) 400 mg PO TID [facility] Last Admin: 03/30/18 13:24 Dose: 400 mg Heparin Sodium (Porcine) (Heparin) 5,000 units SC Q8 [facility] Last Admin: 03/30/18 13:24 Dose: 5,000 units Hydromorphone HCl (Dilaudid) 1 mg IVP Q4H PRN PRN Reason: Pain, severe (8-10) Last Admin: 03/30/18 14:20 Dose: 1 mg Vancomycin HCl 1.5 gm/ Sodium (Chloride) 500 mls @ 250 mls/hr IVPB Q8H [facility]; Protocol Last Admin: 03/30/18 10:26 Dose: 250 mls/hr Insulin Detemir (Levemir) 15 unit SC [facility] Insulin Glargine (Lantus) 10 unit SC DAILY [facility] Last Admin: 03/30/18 10:13 Dose: 10 units Lactulose (Enulose) 20 gm PO HS [facility] Last Admin: 03/29/18 21:05 Dose: 20 gm Lidocaine (Lidoderm) 1 ea TD DAILY [facility] Last Admin: 03/30/18 10:13 Dose: 1 ea Metoprolol Tartrate (Lopressor) 25 mg PO BID [facility] Last Admin: 03/30/18 10:12 Dose: 25 mg Pantoprazole Sodium (Protonix Ec Tab) 40 mg PO DAILY [facility] Last Admin: 03/30/18 10:12 Dose: 40 mg - Labs Labs: 03/30/18 06:55 03/30/18 06:55 PT 14.3 SECONDS (9.7-12.2) H 03/26/18 05:56 INR 1.3 03/26/18 05:56 APTT 38 SECONDS (21-34) H D 03/26/18 05:56 - Constitutional Appears: Non-toxic - Head Exam Head Exam: NORMAL INSPECTION - Eye Exam Eye Exam: Normal appearance Pupil Exam: NORMAL ACCOMODATION - ENT Exam ENT Exam: Mucous Membranes Moist - Neck Exam Neck Exam: Full ROM - Respiratory Exam Respiratory Exam: Decreased Breath Sounds - Cardiovascular Exam Cardiovascular Exam: REGULAR RHYTHM - GI/Abdominal Exam GI & Abdominal Exam: Normal Bowel Sounds - Exam Exam: NORMAL INSPECTION - Back Exam Back Exam: NORMAL INSPECTION - Neurological Exam Neurological Exam: Alert, Normal Gait, Oriented x3 - Psychiatric Exam Psychiatric exam: Normal Mood - Skin Skin Exam: Normal Color Assessment and Plan - Assessment and Plan (Free Text) Assessment: empyeama chest tube dmid Plan: increase insulin
[2018-03-30] MEDS ORDERED: Insulin Detemir 100 units/ml Vial (Levemir) SC SCH (22:00)
[2018-03-31] MEDS: HYDROmorphone 1 mg/ml ISec IVP PRN ×5 (00:14→17:07)
[2018-03-31] MEDS: Vancomycin 1.5 GM in Sodium Chloride 0.9% 500 ML IVPB SCH ×3 (03:04→19:26)
[2018-03-31] MEDS: Albuterol-Ipratrop 3 mg / 0.5 (3 ml) UD INH SCH ×3 (08:12→19:48)
[2018-03-31] MEDS: Lidocaine 5% Patch TD SCH (10:15)
[2018-03-31] MEDS: Fluticasone Nasal 50 mcg/Spray NAS SCH ×2 (10:16→21:36)
[2018-03-31] MEDS: (Lantus) Insulin Glargine, Recombinant SC SCH (10:16)
[2018-03-31] MEDS: Pantoprazole 40 mg EC Tab PO SCH (10:16)
--- NOTE | 2018-03-31 11:46 | RAD ---
Date of service: 03/31/2018 HISTORY: s/p right chest tubes COMPARISON: 03/30/2018 FINDINGS: LUNGS: Shallow lung volumes. Right perihilar coalescent airspace opacities in similar-appearing these also project over the confluence of the 2 right-sided chest tubes. One chest tube tip is at the medial right lung apex. The other tip points right inferomedially PLEURA: Small right pleural effusion suspect. Right inferolateral pleural reaction inferred. Concomitant discoid atelectatic changes likely relating to chest tube insertion effects. No pneumothorax seen. CARDIOVASCULAR: No aortic atherosclerotic calcification present. Normal cardiac size. No pulmonary vascular congestion. PICC line tip estimated in superior vena cava-right atrial junction. OSSEOUS STRUCTURES: No significant abnormalities. VISUALIZED UPPER ABDOMEN: The asymmetrically elevated right hemidiaphragm is as before. OTHER FINDINGS: None. IMPRESSION: No interval change noted. Findings as above.
--- NOTE | 2018-03-31 12:21 | CP.PCM.PN ---
Subjective - Date & Time of Evaluation Date of Evaluation: 03/31/18 Time of Evaluation: 12:19 - Subjective Subjective: pt still haschest tube in pt bs hi 400 will increase insulin Objective - Vital Signs/Intake and Output Vital Signs (last 24 hours): Temp Pulse Resp BP Pulse Ox 98.6 F 105 H 20 135/80 91 L 03/31/18 08:00 03/31/18 08:00 03/31/18 08:00 03/31/18 10:16 03/31/18 08:00 Intake and Output: 03/31/18 03/31/18 06:59 18:59 Output Total 0 Balance 0 - Medications Medications: Current Medications Acetaminophen (Tylenol 325mg Tab) 650 mg PO Q6 PRN PRN Reason: Fever >100.4 F Last Admin: 03/30/18 18:26 Dose: 650 mg Albuterol/Ipratropium (Duoneb 3 Mg/0.5 Mg (3 Ml) Ud) 3 ml INH RQ6 [facility] Last Admin: 03/31/18 08:12 Dose: Not Given Aspirin (Aspirin Chewable) 81 mg PO DAILY [facility] Last Admin: 03/31/18 10:16 Dose: 81 mg Docusate Sodium (Colace) 100 mg PO TID [facility] Last Admin: 03/31/18 10:16 Dose: 100 mg Fluticasone Propionate (Flonase) 1 spr VANDANA Q12H [facility] Last Admin: 03/31/18 10:16 Dose: 1 spray Gabapentin (Neurontin) 400 mg PO TID [facility] Last Admin: 03/31/18 10:16 Dose: 400 mg Hydromorphone HCl (Dilaudid) 1 mg IVP Q4H PRN PRN Reason: Pain, severe (8-10) Last Admin: 03/31/18 12:18 Dose: 1 mg Vancomycin HCl 1.5 gm/ Sodium (Chloride) 500 mls @ 250 mls/hr IVPB Q8H [facility]; Protocol Last Admin: 03/31/18 10:15 Dose: 250 mls/hr Insulin Detemir (Levemir) 15 unit SC [facility] Last Admin: 03/30/18 21:08 Dose: 15 units Insulin Glargine (Lantus) 15 unit SC Q12H [facility] Lactulose (Enulose) 20 gm PO [facility] Last Admin: 03/30/18 21:07 Dose: 20 gm Lidocaine (Lidoderm) 1 ea TD DAILY [facility] Last Admin: 03/31/18 10:15 Dose: 1 ea Metoprolol Tartrate (Lopressor) 25 mg PO BID [facility] Last Admin: 03/31/18 10:16 Dose: 25 mg Pantoprazole Sodium (Protonix Ec Tab) 40 mg PO DAILY [facility] Last Admin: 03/31/18 10:16 Dose: 40 mg - Labs Labs: 03/30/18 06:55 03/30/18 06:55 PT 14.3 SECONDS (9.7-12.2) H 03/26/18 05:56 INR 1.3 03/26/18 05:56 APTT 38 SECONDS (21-34) H D 03/26/18 05:56 - Constitutional Appears: Non-toxic - Head Exam Head Exam: NORMAL INSPECTION - Eye Exam Eye Exam: Normal appearance Pupil Exam: NORMAL ACCOMODATION - ENT Exam ENT Exam: Mucous Membranes Moist - Respiratory Exam Respiratory Exam: Decreased Breath Sounds - Cardiovascular Exam Cardiovascular Exam: REGULAR RHYTHM - GI/Abdominal Exam GI & Abdominal Exam: Normal Bowel Sounds - Extremities Exam Extremities Exam: Full ROM, Normal Capillary Refill - Neurological Exam Neurological Exam: Alert, Awake, Oriented x3 - Psychiatric Exam Psychiatric exam: Normal Mood - Skin Skin Exam: Normal Color Assessment and Plan - Assessment and Plan (Free Text) Assessment: empyema mrsa cont treatment dmid uncontroled inc ins
[2018-03-31] MEDS ORDERED: (Lantus) Insulin Glargine, Recombinant SC SCH (12:30)
[2018-03-31] MEDS: (Novolin R) Insulin Human Regular 100 units/ml vial SC SCH ×3 (13:06→21:35)
--- NOTE | 2018-03-31 13:37 | CP.PCM.PN ---
Subjective - Date & Time of Evaluation Date of Evaluation: 03/31/18 Time of Evaluation: 08:00 - Subjective Subjective: seen on rounds iv rx renewed Objective - Vital Signs/Intake and Output Vital Signs (last 24 hours): Temp Pulse Resp BP Pulse Ox 98.6 F 105 H 20 135/80 91 L 03/31/18 08:00 03/31/18 08:00 03/31/18 08:00 03/31/18 10:16 03/31/18 08:00 Intake and Output: 03/31/18 03/31/18 06:59 18:59 Output Total 0 Balance 0 - Medications Medications: Current Medications Acetaminophen (Tylenol 325mg Tab) 650 mg PO Q6 PRN PRN Reason: Fever >100.4 F Last Admin: 03/30/18 18:26 Dose: 650 mg Albuterol/Ipratropium (Duoneb 3 Mg/0.5 Mg (3 Ml) Ud) 3 ml INH RQ6 [facility] Last Admin: 03/31/18 13:21 Dose: Not Given Aspirin (Aspirin Chewable) 81 mg PO DAILY [facility] Last Admin: 03/31/18 10:16 Dose: 81 mg Docusate Sodium (Colace) 100 mg PO TID [facility] Last Admin: 03/31/18 10:16 Dose: 100 mg Fluticasone Propionate (Flonase) 1 spr VANDANA Q12H [facility] Last Admin: 03/31/18 10:16 Dose: 1 spray Gabapentin (Neurontin) 400 mg PO TID [facility] Last Admin: 03/31/18 10:16 Dose: 400 mg Hydromorphone HCl (Dilaudid) 1 mg IVP Q4H PRN PRN Reason: Pain, severe (8-10) Last Admin: 03/31/18 12:18 Dose: 1 mg Vancomycin HCl 1.5 gm/ Sodium (Chloride) 500 mls @ 250 mls/hr IVPB Q8H [facility]; Protocol Last Admin: 03/31/18 10:15 Dose: 250 mls/hr Insulin Detemir (Levemir) 15 unit SC Q12H [facility] Insulin Human Regular (Novolin R) 0 unit SC ACHS [facility]; Protocol Last Admin: 03/31/18 13:06 Dose: 10 units Lactulose (Enulose) 20 gm PO HS [facility] Last Admin: 03/30/18 21:07 Dose: 20 gm Lidocaine (Lidoderm) 1 ea TD DAILY [facility] Last Admin: 03/31/18 10:15 Dose: 1 ea Metoprolol Tartrate (Lopressor) 25 mg PO BID [facility] Last Admin: 03/31/18 10:16 Dose: 25 mg Pantoprazole Sodium (Protonix Ec Tab) 40 mg PO DAILY [facility] Last Admin: 03/31/18 10:16 Dose: 40 mg - Labs Labs: 03/30/18 06:55 03/30/18 06:55 PT 14.3 SECONDS (9.7-12.2) H 03/26/18 05:56 INR 1.3 03/26/18 05:56 APTT 38 SECONDS (21-34) H D 03/26/18 05:56 - Constitutional Appears: Non-toxic, Chronically Ill - Head Exam Head Exam: NORMOCEPHALIC - Eye Exam Eye Exam: absent: Scleral icterus - ENT Exam ENT Exam: Mucous Membranes Dry - Neck Exam Neck Exam: absent: Lymphadenopathy - Respiratory Exam Respiratory Exam: Decreased Breath Sounds - Cardiovascular Exam Cardiovascular Exam: REGULAR RHYTHM - GI/Abdominal Exam GI & Abdominal Exam: Distended, Soft Assessment and Plan (1) Cellulitis of back Status: Acute (2) Hyperglycemia Status: Acute (3) Chest wall muscle strain Status: Acute
--- NOTE | 2018-03-31 16:20 | CP.PCM.PN ---
Subjective - Date & Time of Evaluation Date of Evaluation: 03/31/18 Time of Evaluation: 14:40 - Subjective Subjective: Patient seen and examined at bedside, lying down comfortably. Afebrile and in no acute distress. S/p right lung VATS, decortication, and pleural biopsy. Patient states he still has occasional cough with clear phlegm. Also complains of pain at the chest tube site. Continue antibiotics. Objective - Vital Signs/Intake and Output Vital Signs (last 24 hours): Temp Pulse Resp BP Pulse Ox 98.6 F 105 H 20 135/80 91 L 03/31/18 08:00 03/31/18 08:00 03/31/18 08:00 03/31/18 10:16 03/31/18 08:00 Intake and Output: 03/31/18 03/31/18 06:59 18:59 Intake Total 1050 Output Total 0 Balance 0 1050 - Medications Medications: Current Medications Acetaminophen (Tylenol 325mg Tab) 650 mg PO Q6 PRN PRN Reason: Fever >100.4 F Last Admin: 03/30/18 18:26 Dose: 650 mg Albuterol/Ipratropium (Duoneb 3 Mg/0.5 Mg (3 Ml) Ud) 3 ml INH RQ6 [facility] Last Admin: 03/31/18 13:21 Dose: Not Given Aspirin (Aspirin Chewable) 81 mg PO DAILY [facility] Last Admin: 03/31/18 10:16 Dose: 81 mg Docusate Sodium (Colace) 100 mg PO TID [facility] Last Admin: 03/31/18 13:59 Dose: 100 mg Fluticasone Propionate (Flonase) 1 spr VANDANA Q12H [facility] Last Admin: 03/31/18 10:16 Dose: 1 spray Gabapentin (Neurontin) 400 mg PO TID [facility] Last Admin: 03/31/18 13:59 Dose: 400 mg Heparin Sodium (Porcine) (Heparin) 5,000 units SC Q12H [facility] Last Admin: 03/31/18 15:00 Dose: 5,000 units Hydromorphone HCl (Dilaudid) 1 mg IVP Q4H PRN PRN Reason: Pain, severe (8-10) Last Admin: 03/31/18 12:18 Dose: 1 mg Vancomycin HCl 1.5 gm/ Sodium (Chloride) 500 mls @ 250 mls/hr IVPB Q8H [facility]; Protocol Last Admin: 03/31/18 10:15 Dose: 250 mls/hr Insulin Detemir (Levemir) 15 unit SC Q12H [facility] Insulin Human Regular (Novolin R) 0 unit SC ACHS [facility]; Protocol Last Admin: 03/31/18 13:06 Dose: 10 units Lactulose (Enulose) 20 gm PO HS [facility] Last Admin: 03/30/18 21:07 Dose: 20 gm Lidocaine (Lidoderm) 1 ea TD DAILY [facility] Last Admin: 03/31/18 10:15 Dose: 1 ea Metoprolol Tartrate (Lopressor) 25 mg PO BID [facility] Last Admin: 03/31/18 10:16 Dose: 25 mg Pantoprazole Sodium (Protonix Ec Tab) 40 mg PO DAILY [facility] Last Admin: 03/31/18 10:16 Dose: 40 mg - Labs Labs: 03/30/18 06:55 03/30/18 06:55 PT 14.3 SECONDS (9.7-12.2) H 03/26/18 05:56 INR 1.3 03/26/18 05:56 APTT 38 SECONDS (21-34) H D 03/26/18 05:56 Assessment and Plan (1) Pleural effusion Status: Acute (2) MRSA bacteremia Status: Acute
[2018-03-31] MEDS ORDERED: (Novolin R) Insulin Human Regular 100 units/ml vial SC SCH (16:30)
--- NOTE | 2018-03-31 18:30 | RAD ---
Date of service: 03/31/2018 HISTORY: chest tube removal COMPARISON: March 31, 2018 study performed 08:41. FINDINGS: LUNGS: Stable consolidative changes and low volume right lung. PLEURA: Status post removal of 1 of the 2 chest tubes identified previously. Stable position of the remaining chest tube in the right pleural space the tip is medially near the apex of the right hemithorax. CARDIOVASCULAR: No atherosclerotic calcification present PICC line in satisfactory position OSSEOUS STRUCTURES: No significant abnormalities. VISUALIZED UPPER ABDOMEN: Normal. OTHER FINDINGS: None. IMPRESSION: No adverse findings following removal of 1/2 chest tubes in the right pleural space. Stable findings with respect to pulmonary parenchyma and vascular apparatus
--- NOTE | 2018-03-31 19:08 | CP.PCM.PN ---
Subjective - Date & Time of Evaluation Date of Evaluation: 03/31/18 Time of Evaluation: 07:00 - Subjective Subjective: THORACIC SURGERY PROGRESS NOTE FOR DR. HINOJOSA Patient seen and examined at bedside. He was transferred out of the ICU to the floor. He states that he ambulated 5 times yesterday. He is using the IS. He reports same pain at the chest tube site. He is tolerating diet with good appetite. He denies SOB/CP. Objective - Vital Signs/Intake and Output Vital Signs (last 24 hours): Temp Pulse Resp BP Pulse Ox 98.7 F 99 H 18 131/80 95 03/31/18 16:00 03/31/18 16:00 03/31/18 16:00 03/31/18 17:08 03/31/18 16:00 Intake and Output: 03/31/18 04/01/18 18:59 06:59 Intake Total 1050 Balance 1050 - Medications Medications: Current Medications Acetaminophen (Tylenol 325mg Tab) 650 mg PO Q6 PRN PRN Reason: Fever >100.4 F Last Admin: 03/30/18 18:26 Dose: 650 mg Albuterol/Ipratropium (Duoneb 3 Mg/0.5 Mg (3 Ml) Ud) 3 ml INH RQ6 [facility] Last Admin: 03/31/18 13:21 Dose: Not Given Aspirin (Aspirin Chewable) 81 mg PO DAILY [facility] Last Admin: 03/31/18 10:16 Dose: 81 mg Docusate Sodium (Colace) 100 mg PO TID [facility] Last Admin: 03/31/18 17:08 Dose: 100 mg Fluticasone Propionate (Flonase) 1 spr VANDANA Q12H [facility] Last Admin: 03/31/18 10:16 Dose: 1 spray Gabapentin (Neurontin) 400 mg PO TID [facility] Last Admin: 03/31/18 17:31 Dose: 400 mg Heparin Sodium (Porcine) (Heparin) 5,000 units SC Q12H [facility] Last Admin: 03/31/18 15:00 Dose: 5,000 units Hydromorphone HCl (Dilaudid) 1 mg IVP Q4H PRN PRN Reason: Pain, severe (8-10) Last Admin: 03/31/18 17:07 Dose: 1 mg Vancomycin HCl 1.5 gm/ Sodium (Chloride) 500 mls @ 250 mls/hr IVPB Q8H [facility]; Protocol Last Admin: 03/31/18 10:15 Dose: 250 mls/hr Insulin Detemir (Levemir) 15 unit SC Q12H [facility] Insulin Human Regular (Novolin R) 0 unit SC ACHS [facility]; Protocol Last Admin: 03/31/18 17:32 Dose: 8 units Lactulose (Enulose) 20 gm PO HS [facility] Last Admin: 03/30/18 21:07 Dose: 20 gm Lidocaine (Lidoderm) 1 ea TD DAILY [facility] Last Admin: 03/31/18 10:15 Dose: 1 ea Metoprolol Tartrate (Lopressor) 25 mg PO BID [facility] Last Admin: 03/31/18 17:08 Dose: 25 mg Pantoprazole Sodium (Protonix Ec Tab) 40 mg PO DAILY [facility] Last Admin: 03/31/18 10:16 Dose: 40 mg - Labs Labs: 03/30/18 06:55 03/30/18 06:55 PT 14.3 SECONDS (9.7-12.2) H 03/26/18 05:56 INR 1.3 03/26/18 05:56 APTT 38 SECONDS (21-34) H D 03/26/18 05:56 - Constitutional Appears: Non-toxic, No Acute Distress - Head Exam Head Exam: ATRAUMATIC, NORMAL INSPECTION - Eye Exam Eye Exam: EOMI, Normal appearance - Respiratory Exam Respiratory Exam: NORMAL BREATHING PATTERN. absent: Respiratory Distress Additional comments: 36Fr & 32Fr chest tubes in place on water seal, no air leak, no output over 24 hours - Cardiovascular Exam Cardiovascular Exam: +S1, +S2 - GI/Abdominal Exam GI & Abdominal Exam: Soft. absent: Tenderness - Neurological Exam Neurological Exam: Alert, Awake, Oriented x3 - Psychiatric Exam Psychiatric exam: Normal Affect, Normal Mood Assessment and Plan - Assessment and Plan (Free Text) Assessment: 32M with right sided pleural effusion refractory to IR thoracentesis, MRSA bacteremia s/p Right VATS w/ decortication, pleurolysis, pleural biopsy POD#4 Pleural fluid = MRSA Plan: - Daily CXR - Lateral chest tube removed today - CXR post removal reviewed - Strongly encouraged IS use - Strongly encouraged ambulation and OOB - Continue antibiotics per ID - DC planning - Discussed plan with Dr. Asif Blanco PGY-4
[2018-03-31] MEDS: Insulin Detemir 100 units/ml Vial (Levemir) SC SCH (21:36)
[2018-03-31] MEDS: HYDROmorphone 0.5 mg/0.5 ml ISec IVP PRN (21:39)
[2018-04-01] MEDS: HYDROmorphone 0.5 mg/0.5 ml ISec IVP PRN ×5 (01:53→22:35)
[2018-04-01] MEDS: Vancomycin 1.5 GM in Sodium Chloride 0.9% 500 ML IVPB SCH ×3 (03:29→18:18)
[2018-04-01] MEDS: Albuterol-Ipratrop 3 mg / 0.5 (3 ml) UD INH SCH ×2 (08:10→20:22)
[2018-04-01] MEDS: (Novolin R) Insulin Human Regular 100 units/ml vial SC SCH ×4 (09:16→21:35)
[2018-04-01] MEDS: Pantoprazole 40 mg EC Tab PO SCH (09:16)
[2018-04-01] MEDS: Insulin Detemir 100 units/ml Vial (Levemir) SC SCH ×2 (09:16→21:36)
[2018-04-01] MEDS: Fluticasone Nasal 50 mcg/Spray NAS SCH ×2 (09:16→21:34)
[2018-04-01] MEDS: Lidocaine 5% Patch TD SCH (10:31)
--- NOTE | 2018-04-01 14:46 | RAD ---
Date of service: 04/01/2018 HISTORY: Follow-up chest tube COMPARISON: Multiple serial examinations preceding the most recent study: March 31, 2018 FINDINGS: LUNGS: Stable consolidative changes and low lung volumes right lung. PLEURA: Stable position of solitary chest tube in the right pleural space. No visible pneumothorax. CARDIOVASCULAR: No atherosclerotic calcification present No radiographic findings to suggest acute or significant cardiovascular disease. PICC line in satisfactory position OSSEOUS STRUCTURES: No significant abnormalities. VISUALIZED UPPER ABDOMEN: Normal. OTHER FINDINGS: None. IMPRESSION: Stable position of support apparatus including solitary chest tube in the right pleural space. Satisfactory sleep below position of PICC line. Stable right lower lobe infiltrate.
--- NOTE | 2018-04-01 16:56 | CP.PCM.PN ---
Subjective - Date & Time of Evaluation Date of Evaluation: 04/01/18 Time of Evaluation: 12:00 - Subjective Subjective: Patient seen and examined at bedside, lying down comfortably. Afebrile and in no acute distress. S/p right lung VATS, decortication, Chest tube 1 out of 2 removed; 2nd chest tube draining serosanguinous fluid. Patient still complains of cough with clear phlegm; also has pain at the chest tube site. Continue antibiotics. continue analgesics Follow-up chest x-ray Objective - Vital Signs/Intake and Output Vital Signs (last 24 hours): Temp Pulse Resp BP Pulse Ox 97 F L 114 H 18 111/72 95 04/01/18 15:48 04/01/18 15:48 04/01/18 15:48 04/01/18 15:48 04/01/18 15:48 Intake and Output: 04/01/18 04/01/18 06:59 18:59 Intake Total 1300 Output Total 1775 Balance -1775 1300 - Medications Medications: Current Medications Acetaminophen (Tylenol 325mg Tab) 650 mg PO Q6 PRN PRN Reason: Fever >100.4 F Last Admin: 03/30/18 18:26 Dose: 650 mg Albuterol/Ipratropium (Duoneb 3 Mg/0.5 Mg (3 Ml) Ud) 3 ml INH RQ6 [facility] Last Admin: 04/01/18 08:10 Dose: 3 ml Aspirin (Aspirin Chewable) 81 mg PO DAILY [facility] Last Admin: 04/01/18 09:15 Dose: 81 mg Docusate Sodium (Colace) 100 mg PO TID [facility] Last Admin: 04/01/18 14:33 Dose: 100 mg Fluticasone Propionate (Flonase) 1 spr VANDANA Q12H [facility] Last Admin: 04/01/18 09:16 Dose: 1 spray Gabapentin (Neurontin) 400 mg PO TID [facility] Last Admin: 04/01/18 14:33 Dose: 400 mg Heparin Sodium (Porcine) (Heparin) 5,000 units SC Q12H [facility] Last Admin: 04/01/18 14:33 Dose: 5,000 units Hydromorphone HCl (Dilaudid) 0.5 mg IVP Q6H PRN PRN Reason: Pain, severe (8-10) Last Admin: 04/01/18 16:37 Dose: 0.5 mg Vancomycin HCl 1.5 gm/ Sodium (Chloride) 500 mls @ 250 mls/hr IVPB Q8H [facility]; Protocol Last Admin: 04/01/18 10:30 Dose: 250 mls/hr Insulin Detemir (Levemir) 15 unit SC Q12H [facility] Last Admin: 04/01/18 09:16 Dose: 15 unit Insulin Human Regular (Novolin R) 0 unit SC ACHS [facility]; Protocol Last Admin: 04/01/18 16:42 Dose: 8 units Lactulose (Enulose) 20 gm PO HS [facility] Last Admin: 03/31/18 21:35 Dose: 20 gm Lidocaine (Lidoderm) 1 ea TD DAILY [facility] Last Admin: 04/01/18 10:31 Dose: 1 ea Metoprolol Tartrate (Lopressor) 25 mg PO BID [facility] Last Admin: 04/01/18 09:16 Dose: 25 mg Pantoprazole Sodium (Protonix Ec Tab) 40 mg PO DAILY [facility] Last Admin: 04/01/18 09:16 Dose: 40 mg - Labs Labs: 03/30/18 06:55 03/30/18 06:55 PT 14.3 SECONDS (9.7-12.2) H 03/26/18 05:56 INR 1.3 03/26/18 05:56 APTT 38 SECONDS (21-34) H D 03/26/18 05:56 Assessment and Plan (1) Pleural effusion Status: Acute (2) MRSA bacteremia Status: Acute
--- NOTE | 2018-04-01 17:43 | CP.PCM.PN ---
Subjective - Date & Time of Evaluation Date of Evaluation: 04/01/18 Time of Evaluation: 17:41 - Subjective Subjective: still has chest tube in r side chest has pain Objective - Vital Signs/Intake and Output Vital Signs (last 24 hours): Temp Pulse Resp BP Pulse Ox 97 F L 114 H 18 111/72 95 04/01/18 15:48 04/01/18 15:48 04/01/18 15:48 04/01/18 15:48 04/01/18 15:48 Intake and Output: 04/01/18 04/01/18 06:59 18:59 Intake Total 1300 Output Total 1775 Balance -1775 1300 - Medications Medications: Current Medications Acetaminophen (Tylenol 325mg Tab) 650 mg PO Q6 PRN PRN Reason: Fever >100.4 F Last Admin: 03/30/18 18:26 Dose: 650 mg Albuterol/Ipratropium (Duoneb 3 Mg/0.5 Mg (3 Ml) Ud) 3 ml INH RQ6 [facility] Last Admin: 04/01/18 08:10 Dose: 3 ml Aspirin (Aspirin Chewable) 81 mg PO DAILY [facility] Last Admin: 04/01/18 09:15 Dose: 81 mg Docusate Sodium (Colace) 100 mg PO TID [facility] Last Admin: 04/01/18 14:33 Dose: 100 mg Fluticasone Propionate (Flonase) 1 spr VANDANA Q12H [facility] Last Admin: 04/01/18 09:16 Dose: 1 spray Gabapentin (Neurontin) 400 mg PO TID [facility] Last Admin: 04/01/18 14:33 Dose: 400 mg Heparin Sodium (Porcine) (Heparin) 5,000 units SC Q12H [facility] Last Admin: 04/01/18 14:33 Dose: 5,000 units Hydromorphone HCl (Dilaudid) 0.5 mg IVP Q6H PRN PRN Reason: Pain, severe (8-10) Last Admin: 04/01/18 16:37 Dose: 0.5 mg Vancomycin HCl 1.5 gm/ Sodium (Chloride) 500 mls @ 250 mls/hr IVPB Q8H [facility]; Protocol Last Admin: 04/01/18 10:30 Dose: 250 mls/hr Insulin Detemir (Levemir) 15 unit SC Q12H [facility] Last Admin: 04/01/18 09:16 Dose: 15 unit Insulin Human Regular (Novolin R) 0 unit SC ACHS [facility]; Protocol Last Admin: 04/01/18 16:42 Dose: 8 units Lactulose (Enulose) 20 gm PO HS [facility] Last Admin: 03/31/18 21:35 Dose: 20 gm Lidocaine (Lidoderm) 1 ea TD DAILY [facility] Last Admin: 04/01/18 10:31 Dose: 1 ea Metoprolol Tartrate (Lopressor) 25 mg PO BID [facility] Last Admin: 04/01/18 09:16 Dose: 25 mg Pantoprazole Sodium (Protonix Ec Tab) 40 mg PO DAILY [facility] Last Admin: 04/01/18 09:16 Dose: 40 mg - Labs Labs: 03/30/18 06:55 03/30/18 06:55 PT 14.3 SECONDS (9.7-12.2) H 03/26/18 05:56 INR 1.3 03/26/18 05:56 APTT 38 SECONDS (21-34) H D 03/26/18 05:56 - Constitutional Appears: Non-toxic - Head Exam Head Exam: NORMAL INSPECTION - Eye Exam Eye Exam: Normal appearance Pupil Exam: NORMAL ACCOMODATION - ENT Exam ENT Exam: Mucous Membranes Dry - Neck Exam Neck Exam: Full ROM - Respiratory Exam Respiratory Exam: Decreased Breath Sounds Additional comments: chest tube in - Cardiovascular Exam Cardiovascular Exam: Tachycardia - GI/Abdominal Exam GI & Abdominal Exam: Normal Bowel Sounds - Exam Exam: NORMAL INSPECTION - Extremities Exam Extremities Exam: Full ROM - Neurological Exam Neurological Exam: Alert, Oriented x3 - Psychiatric Exam Psychiatric exam: Normal Mood - Skin Skin Exam: Normal Color Assessment and Plan - Assessment and Plan (Free Text) Assessment: empyeama chest tube in s/p herpez zoster mrsa Plan: cont as per orders
--- NOTE | 2018-04-01 18:09 | CP.PCM.PN ---
Subjective - Date & Time of Evaluation Date of Evaluation: 04/01/18 Time of Evaluation: 08:00 - Subjective Subjective: Afebrile and in no acute distress. S/p right lung VATS, decortication, Chest tube 1 out of 2 removed; 2nd chest tube draining serosanguinous fluid. Objective - Vital Signs/Intake and Output Vital Signs (last 24 hours): Temp Pulse Resp BP Pulse Ox 97 F L 114 H 18 111/72 95 04/01/18 15:48 04/01/18 15:48 04/01/18 15:48 04/01/18 15:48 04/01/18 15:48 Intake and Output: 04/01/18 04/01/18 06:59 18:59 Intake Total 1300 Output Total 1775 Balance -1775 1300 - Medications Medications: Current Medications Acetaminophen (Tylenol 325mg Tab) 650 mg PO Q6 PRN PRN Reason: Fever >100.4 F Last Admin: 03/30/18 18:26 Dose: 650 mg Albuterol/Ipratropium (Duoneb 3 Mg/0.5 Mg (3 Ml) Ud) 3 ml INH RQ6 [facility] Last Admin: 04/01/18 08:10 Dose: 3 ml Aspirin (Aspirin Chewable) 81 mg PO DAILY [facility] Last Admin: 04/01/18 09:15 Dose: 81 mg Docusate Sodium (Colace) 100 mg PO TID [facility] Last Admin: 04/01/18 14:33 Dose: 100 mg Fluticasone Propionate (Flonase) 1 spr VANDANA Q12H [facility] Last Admin: 04/01/18 09:16 Dose: 1 spray Gabapentin (Neurontin) 400 mg PO TID [facility] Last Admin: 04/01/18 14:33 Dose: 400 mg Heparin Sodium (Porcine) (Heparin) 5,000 units SC Q12H [facility] Last Admin: 04/01/18 14:33 Dose: 5,000 units Hydromorphone HCl (Dilaudid) 0.5 mg IVP Q6H PRN PRN Reason: Pain, severe (8-10) Last Admin: 04/01/18 16:37 Dose: 0.5 mg Vancomycin HCl 1.5 gm/ Sodium (Chloride) 500 mls @ 250 mls/hr IVPB Q8H [facility]; Protocol Last Admin: 04/01/18 10:30 Dose: 250 mls/hr Insulin Detemir (Levemir) 15 unit SC Q12H [facility] Last Admin: 04/01/18 09:16 Dose: 15 unit Insulin Human Regular (Novolin R) 0 unit SC ACHS [facility]; Protocol Last Admin: 04/01/18 16:42 Dose: 8 units Lactulose (Enulose) 20 gm PO HS [facility] Last Admin: 03/31/18 21:35 Dose: 20 gm Lidocaine (Lidoderm) 1 ea TD DAILY [facility] Last Admin: 04/01/18 10:31 Dose: 1 ea Metoprolol Tartrate (Lopressor) 25 mg PO BID [facility] Last Admin: 04/01/18 09:16 Dose: 25 mg Pantoprazole Sodium (Protonix Ec Tab) 40 mg PO DAILY [facility] Last Admin: 04/01/18 09:16 Dose: 40 mg - Labs Labs: 03/30/18 06:55 03/30/18 06:55 PT 14.3 SECONDS (9.7-12.2) H 03/26/18 05:56 INR 1.3 03/26/18 05:56 APTT 38 SECONDS (21-34) H D 03/26/18 05:56 - Constitutional Appears: Non-toxic, Chronically Ill - Head Exam Head Exam: NORMOCEPHALIC - Eye Exam Eye Exam: absent: Scleral icterus - ENT Exam ENT Exam: Mucous Membranes Dry - Neck Exam Neck Exam: absent: Lymphadenopathy - Respiratory Exam Respiratory Exam: Decreased Breath Sounds - Cardiovascular Exam Cardiovascular Exam: REGULAR RHYTHM - GI/Abdominal Exam GI & Abdominal Exam: Distended - Rectal Exam Rectal Exam: Deferred - Exam Exam: NORMAL INSPECTION - Extremities Exam Extremities Exam: absent: Pedal Edema Assessment and Plan (1) Cellulitis of back Status: Acute (2) Hyperglycemia Status: Acute (3) Chest wall muscle strain Status: Acute - Assessment and Plan (Free Text) Assessment: Afebrile and in no acute distress. S/p right lung VATS, decortication, Chest tube 1 out of 2 removed; 2nd chest tube draining serosanguinous fluid. vanco renewed
--- NOTE | 2018-04-01 19:16 | CP.PCM.PN ---
Subjective - Date & Time of Evaluation Date of Evaluation: 04/01/18 Time of Evaluation: 19:11 - Subjective Subjective: General Surgery Progress Note for Dr. Gold This 32M was seen and examined this Am at bedside. He is complaining of pain at chest tube site. He is however ambulating and getting out of bed. No new complaints at this time. Objective - Vital Signs/Intake and Output Vital Signs (last 24 hours): Temp Pulse Resp BP Pulse Ox 97 F L 114 H 18 115/71 95 04/01/18 15:48 04/01/18 15:48 04/01/18 15:48 04/01/18 18:17 04/01/18 15:48 Intake and Output: 04/01/18 04/02/18 18:59 06:59 Intake Total 1300 Balance 1300 - Medications Medications: Current Medications Acetaminophen (Tylenol 325mg Tab) 650 mg PO Q6 PRN PRN Reason: Fever >100.4 F Last Admin: 03/30/18 18:26 Dose: 650 mg Albuterol/Ipratropium (Duoneb 3 Mg/0.5 Mg (3 Ml) Ud) 3 ml INH RQ6 [facility] Last Admin: 04/01/18 08:10 Dose: 3 ml Aspirin (Aspirin Chewable) 81 mg PO DAILY [facility] Last Admin: 04/01/18 09:15 Dose: 81 mg Docusate Sodium (Colace) 100 mg PO TID [facility] Last Admin: 04/01/18 18:17 Dose: 100 mg Fluticasone Propionate (Flonase) 1 spr VANDANA Q12H [facility] Last Admin: 04/01/18 09:16 Dose: 1 spray Gabapentin (Neurontin) 400 mg PO TID [facility] Last Admin: 04/01/18 18:17 Dose: 400 mg Heparin Sodium (Porcine) (Heparin) 5,000 units SC Q12H [facility] Last Admin: 04/01/18 14:33 Dose: 5,000 units Hydromorphone HCl (Dilaudid) 0.5 mg IVP Q6H PRN PRN Reason: Pain, severe (8-10) Last Admin: 04/01/18 16:37 Dose: 0.5 mg Vancomycin HCl 1.5 gm/ Sodium (Chloride) 500 mls @ 250 mls/hr IVPB Q8H [facility]; Protocol Last Admin: 04/01/18 18:18 Dose: 250 mls/hr Insulin Detemir (Levemir) 15 unit SC Q12H [facility] Last Admin: 04/01/18 09:16 Dose: 15 unit Insulin Human Regular (Novolin R) 0 unit SC ACHS [facility]; Protocol Last Admin: 04/01/18 16:42 Dose: 8 units Lactulose (Enulose) 20 gm PO HS [facility] Last Admin: 03/31/18 21:35 Dose: 20 gm Lidocaine (Lidoderm) 1 ea TD DAILY [facility] Last Admin: 04/01/18 10:31 Dose: 1 ea Metoprolol Tartrate (Lopressor) 25 mg PO BID [facility] Last Admin: 04/01/18 18:17 Dose: 25 mg Pantoprazole Sodium (Protonix Ec Tab) 40 mg PO DAILY [facility] Last Admin: 04/01/18 09:16 Dose: 40 mg - Labs Labs: 03/30/18 06:55 03/30/18 06:55 PT 14.3 SECONDS (9.7-12.2) H 03/26/18 05:56 INR 1.3 03/26/18 05:56 APTT 38 SECONDS (21-34) H D 03/26/18 05:56 - Constitutional Appears: Non-toxic, Toxic - Head Exam Head Exam: ATRAUMATIC, NORMOCEPHALIC - Eye Exam Eye Exam: EOMI, Normal appearance - ENT Exam ENT Exam: Mucous Membranes Moist - Respiratory Exam Respiratory Exam: NORMAL BREATHING PATTERN Additional comments: Chest tube output minimal no air leak - Cardiovascular Exam Cardiovascular Exam: +S1, +S2 - GI/Abdominal Exam GI & Abdominal Exam: Soft. absent: Guarding, Rigid, Tenderness - Neurological Exam Neurological Exam: Alert, Awake - Psychiatric Exam Psychiatric exam: Normal Affect, Normal Mood - Skin Skin Exam: Dry, Intact Assessment and Plan - Assessment and Plan (Free Text) Assessment: 32M with empyema s/p vats decortication with tube throacotomy X2, s/p removal of curved chest tube AM CXR Pain Control Chest tube to water seal Begin D/C Planning Further recs per Dr. Jonna Funk PGY3
[2018-04-02] MEDS: Albuterol-Ipratrop 3 mg / 0.5 (3 ml) UD INH SCH ×2 (01:20→19:24)
[2018-04-02] MEDS: Vancomycin 1.5 GM in Sodium Chloride 0.9% 500 ML IVPB SCH ×3 (03:01→18:31)
[2018-04-02] MEDS: HYDROmorphone 0.5 mg/0.5 ml ISec IVP PRN ×2 (04:41→10:27)
[2018-04-02 08:13] LABS: BASO # 0.1 K/uL (0.0-0.2); EOS # 0.2 K/uL (0.0-0.7); EOS % 2.1 % (0.0-4.0); HEMOGLOBIN 12.6 g/dL (12.0-18.0); LYMPH # 1.8 K/uL (1.0-4.3); LYMPH % 16.3 % (20.0-40.0); MEAN CELL VOLUME 82.5 fL (80.0-94.0); MEAN CORPUSCULAR HEMOGLOBIN 28.7 pg (27.0-31.0); MEAN CORPUSCULAR HGB CONC 34.7 g/dL (33.0-37.0); MEAN PLATELET VOLUME 8.9 fL (7.2-11.7); MONO # 1.1 K/uL (0.0-0.8); MONO % 9.8 % (0.0-10.0); NEUT % 70.8 % (50.0-75.0); NRBC % 0.2 % (0.0-2.0); RBC 4.41 Mil/uL (4.40-5.90); RED CELL DISTRIBUTION WIDTH 12.7 % (11.5-14.5); WHITE BLOOD COUNT 11.3 K/uL (4.8-10.8)
[2018-04-02 08:33] LABS: ALB/GLOB RATIO 0.8 (1.0-2.1); ALBUMIN 3.5 g/dL (3.5-5.0); ALT/SGPT 21 U/L (21-72); AST/SGOT 27 U/L (17-59); BLOOD UREA NITROGEN 11 mg/dL (9-20); CALCIUM 9.1 mg/dl (8.6-10.4); GFR NON-AFRICAN AMERICAN > 60
[2018-04-02] MEDS: Lidocaine 5% Patch TD SCH (09:08)
[2018-04-02] MEDS: Pantoprazole 40 mg EC Tab PO SCH (09:08)
[2018-04-02] MEDS: Insulin Detemir 100 units/ml Vial (Levemir) SC SCH ×2 (09:08→22:24)
[2018-04-02] MEDS: (Novolin R) Insulin Human Regular 100 units/ml vial SC SCH ×4 (09:08→22:25)
[2018-04-02] MEDS: Fluticasone Nasal 50 mcg/Spray NAS SCH ×2 (09:10→21:18)
--- NOTE | 2018-04-02 09:26 | RAD ---
Date of service: 04/02/2018 HISTORY: Right r thoracotomy COMPARISON: Comparison made with prior chest radiograph 04/01/2018 FINDINGS: In situ right-sided chest tube again seen tip which overlies the right medial lung apex.. In situ right-sided PICC line also again seen unchanged LUNGS: Patchy opacity seen in the right mid to lower lung field likely representing atelectasis with suspected small effusion. Minimal left basilar atelectasis. No definitive pneumothorax PLEURA: As above.. CARDIOVASCULAR: No aortic atherosclerotic calcification present. Heart appears mildly enlarged. No pulmonary vascular congestion. OSSEOUS STRUCTURES: No significant abnormalities. VISUALIZED UPPER ABDOMEN: Normal. OTHER FINDINGS: None. IMPRESSION: Patchy infiltrate changes seen in the right mid to lower lung field with suspected small effusion. Minimal left basilar atelectasis..
--- NOTE | 2018-04-02 10:36 | CP.PCM.PN ---
Subjective - Date & Time of Evaluation Date of Evaluation: 04/02/18 Time of Evaluation: 07:00 - Subjective Subjective: THORACIC SURGERY PROGRESS NOTE FOR DR. HINOJOSA Patient seen and examined at bedside. He states that he ambulated 3 times yesterday. He is using the IS to 1000. He reports same pain at the chest tube site. He is tolerating diet. He denies SOB/CP. Objective - Vital Signs/Intake and Output Vital Signs (last 24 hours): Temp Pulse Resp BP Pulse Ox 98.2 F 105 H 20 134/78 97 04/02/18 08:27 04/02/18 08:27 04/02/18 08:27 04/02/18 09:09 04/02/18 08:27 Intake and Output: 04/02/18 04/02/18 06:59 18:59 Intake Total 1100 Output Total 1000 Balance 100 - Medications Medications: Current Medications Acetaminophen (Tylenol 325mg Tab) 650 mg PO Q6 PRN PRN Reason: Fever >100.4 F Last Admin: 04/02/18 00:51 Dose: 650 mg Albuterol/Ipratropium (Duoneb 3 Mg/0.5 Mg (3 Ml) Ud) 3 ml INH RQ6 [facility] Last Admin: 04/02/18 01:20 Dose: 3 ml Aspirin (Aspirin Chewable) 81 mg PO DAILY [facility] Last Admin: 04/02/18 09:08 Dose: 81 mg Docusate Sodium (Colace) 100 mg PO TID [facility] Last Admin: 04/02/18 09:08 Dose: 100 mg Fluticasone Propionate (Flonase) 1 spr VANDANA Q12H [facility] Last Admin: 04/02/18 09:10 Dose: Not Given Gabapentin (Neurontin) 400 mg PO TID [facility] Last Admin: 04/02/18 09:08 Dose: 400 mg Heparin Sodium (Porcine) (Heparin) 5,000 units SC Q12H [facility] Last Admin: 04/02/18 03:02 Dose: 5,000 units Hydromorphone HCl (Dilaudid) 0.5 mg IVP Q6H PRN PRN Reason: Pain, severe (8-10) Last Admin: 04/02/18 10:27 Dose: 0.5 mg Vancomycin HCl 1.5 gm/ Sodium (Chloride) 500 mls @ 250 mls/hr IVPB Q8H [facility]; Protocol Last Admin: 04/02/18 10:27 Dose: 250 mls/hr Insulin Detemir (Levemir) 15 unit SC Q12H [facility] Last Admin: 04/02/18 09:08 Dose: 15 unit Insulin Human Regular (Novolin R) 0 unit SC ACHS [facility]; Protocol Last Admin: 04/02/18 09:08 Dose: 4 units Lactulose (Enulose) 20 gm PO HS [facility] Last Admin: 04/01/18 21:40 Dose: Not Given Lidocaine (Lidoderm) 1 ea TD DAILY [facility] Last Admin: 04/02/18 09:08 Dose: 1 ea Metoprolol Tartrate (Lopressor) 25 mg PO BID [facility] Last Admin: 04/02/18 09:09 Dose: 25 mg Pantoprazole Sodium (Protonix Ec Tab) 40 mg PO DAILY [facility] Last Admin: 04/02/18 09:08 Dose: 40 mg - Labs Labs: 04/02/18 07:57 04/02/18 07:57 PT 14.3 SECONDS (9.7-12.2) H 03/26/18 05:56 INR 1.3 03/26/18 05:56 APTT 38 SECONDS (21-34) H D 03/26/18 05:56 - Constitutional Appears: Non-toxic, No Acute Distress - Head Exam Head Exam: ATRAUMATIC, NORMAL INSPECTION - Eye Exam Eye Exam: EOMI, Normal appearance - Respiratory Exam Respiratory Exam: NORMAL BREATHING PATTERN. absent: Respiratory Distress Additional comments: chest tube in place on water seal, no air leak, no output over past 24 hours - Cardiovascular Exam Cardiovascular Exam: Tachycardia (mild), +S1, +S2 - GI/Abdominal Exam GI & Abdominal Exam: Soft. absent: Distended, Firm, Guarding, Tenderness - Neurological Exam Neurological Exam: Alert, Awake, Oriented x3 - Psychiatric Exam Psychiatric exam: Normal Affect, Normal Mood - Skin Skin Exam: Dry, Normal Color Assessment and Plan - Assessment and Plan (Free Text) Assessment: 32M with right sided pleural effusion refractory to IR thoracentesis, MRSA guido teremia s/p Right VATS w/ decortication, pleurolysis, pleural biopsy POD#6 Pleural fluid = MRSA Plan: - Daily CXR reviewed - Strongly encouraged IS use - Strongly encouraged ambulation and OOB - Continue antibiotics per ID - Will remove remaining chest tube today. If post removal CXR ok, clear for DC from surgical standpoint - Discussed plan with Dr. Asif Blanco PGY-4
[2018-04-02] MEDS ORDERED: HYDROmorphone 0.5 mg/0.5 ml ISec IVP PRN (12:20)
--- NOTE | 2018-04-02 16:24 | CP.PCM.PN ---
Subjective - Date & Time of Evaluation Date of Evaluation: 04/02/18 Time of Evaluation: 11:45 - Subjective Subjective: Patient seen and examined at bedside, lying down comfortably. Afebrile and in no acute distress. S/p right lung VATS, decortication, pneumolysis, and pleural biopsy. Chest tube 1 out of 2 removed; 2nd chest tube not draining much. Patient still complains of pain at the chest tube site. Continue analgesics. Continue antibiotics. -CXR (04/02): patchy infiltrate changes seen in the right [id number] lung field with suspected small effusion; minimal left basilar atelectasis. Objective - Vital Signs/Intake and Output Vital Signs (last 24 hours): Temp Pulse Resp BP Pulse Ox 97.4 F L 95 H 20 105/62 96 04/02/18 15:37 04/02/18 15:37 04/02/18 15:37 04/02/18 15:37 04/02/18 15:37 Intake and Output: 04/02/18 04/02/18 06:59 18:59 Intake Total 1100 1300 Output Total 1000 Balance 100 1300 - Medications Medications: Current Medications Acetaminophen (Tylenol 325mg Tab) 650 mg PO Q6 PRN PRN Reason: Fever >100.4 F Last Admin: 04/02/18 00:51 Dose: 650 mg Albuterol/Ipratropium (Duoneb 3 Mg/0.5 Mg (3 Ml) Ud) 3 ml INH RQ6 [facility] Last Admin: 04/02/18 01:20 Dose: 3 ml Aspirin (Aspirin Chewable) 81 mg PO DAILY [facility] Last Admin: 04/02/18 09:08 Dose: 81 mg Docusate Sodium (Colace) 100 mg PO TID [facility] Last Admin: 04/02/18 14:27 Dose: 100 mg Fluticasone Propionate (Flonase) 1 spr VANDANA Q12H [facility] Last Admin: 04/02/18 09:10 Dose: Not Given Gabapentin (Neurontin) 400 mg PO TID [facility] Last Admin: 04/02/18 14:27 Dose: 400 mg Heparin Sodium (Porcine) (Heparin) 5,000 units SC Q12H [facility] Last Admin: 04/02/18 03:02 Dose: 5,000 units Hydromorphone HCl (Dilaudid) 0.5 mg IVP Q4H PRN PRN Reason: Pain, severe (8-10) Vancomycin HCl 1.5 gm/ Sodium (Chloride) 500 mls @ 250 mls/hr IVPB Q8H [facility]; Protocol Last Admin: 04/02/18 10:27 Dose: 250 mls/hr Insulin Detemir (Levemir) 15 unit SC Q12H [facility] Last Admin: 04/02/18 09:08 Dose: 15 unit Insulin Human Regular (Novolin R) 0 unit SC ACHS [facility]; Protocol Last Admin: 04/02/18 12:56 Dose: 8 units Lactulose (Enulose) 20 gm PO HS [facility] Last Admin: 04/01/18 21:40 Dose: Not Given Lidocaine (Lidoderm) 1 ea TD DAILY [facility] Last Admin: 04/02/18 09:08 Dose: 1 ea Metoprolol Tartrate (Lopressor) 25 mg PO BID [facility] Last Admin: 04/02/18 09:09 Dose: 25 mg Pantoprazole Sodium (Protonix Ec Tab) 40 mg PO DAILY [facility] Last Admin: 04/02/18 09:08 Dose: 40 mg - Labs Labs: 04/02/18 07:57 04/02/18 07:57 PT 14.3 SECONDS (9.7-12.2) H 03/26/18 05:56 INR 1.3 03/26/18 05:56 APTT 38 SECONDS (21-34) H D 03/26/18 05:56 Assessment and Plan (1) Pleural effusion Status: Acute (2) MRSA bacteremia Status: Acute
--- NOTE | 2018-04-02 16:25 | CP.PCM.PN ---
Subjective - Date & Time of Evaluation Date of Evaluation: 04/02/18 Time of Evaluation: 08:00 - Subjective Subjective: Afebrile and in no acute distress. S/p right lung VATS, decortication, Objective - Vital Signs/Intake and Output Vital Signs (last 24 hours): Temp Pulse Resp BP Pulse Ox 97.4 F L 95 H 20 105/62 96 04/02/18 15:37 04/02/18 15:37 04/02/18 15:37 04/02/18 15:37 04/02/18 15:37 Intake and Output: 04/02/18 04/02/18 06:59 18:59 Intake Total 1100 1300 Output Total 1000 Balance 100 1300 - Medications Medications: Current Medications Acetaminophen (Tylenol 325mg Tab) 650 mg PO Q6 PRN PRN Reason: Fever >100.4 F Last Admin: 04/02/18 00:51 Dose: 650 mg Albuterol/Ipratropium (Duoneb 3 Mg/0.5 Mg (3 Ml) Ud) 3 ml INH RQ6 [facility] Last Admin: 04/02/18 01:20 Dose: 3 ml Aspirin (Aspirin Chewable) 81 mg PO DAILY [facility] Last Admin: 04/02/18 09:08 Dose: 81 mg Docusate Sodium (Colace) 100 mg PO TID [facility] Last Admin: 04/02/18 14:27 Dose: 100 mg Fluticasone Propionate (Flonase) 1 spr VANDANA Q12H [facility] Last Admin: 04/02/18 09:10 Dose: Not Given Gabapentin (Neurontin) 400 mg PO TID [facility] Last Admin: 04/02/18 14:27 Dose: 400 mg Heparin Sodium (Porcine) (Heparin) 5,000 units SC Q12H [facility] Last Admin: 04/02/18 03:02 Dose: 5,000 units Hydromorphone HCl (Dilaudid) 0.5 mg IVP Q4H PRN PRN Reason: Pain, severe (8-10) Vancomycin HCl 1.5 gm/ Sodium (Chloride) 500 mls @ 250 mls/hr IVPB Q8H [facility]; Protocol Last Admin: 04/02/18 10:27 Dose: 250 mls/hr Insulin Detemir (Levemir) 15 unit SC Q12H [facility] Last Admin: 04/02/18 09:08 Dose: 15 unit Insulin Human Regular (Novolin R) 0 unit SC ACHS [facility]; Protocol Last Admin: 04/02/18 12:56 Dose: 8 units Lactulose (Enulose) 20 gm PO HS [facility] Last Admin: 04/01/18 21:40 Dose: Not Given Lidocaine (Lidoderm) 1 ea TD DAILY [facility] Last Admin: 04/02/18 09:08 Dose: 1 ea Metoprolol Tartrate (Lopressor) 25 mg PO BID [facility] Last Admin: 04/02/18 09:09 Dose: 25 mg Pantoprazole Sodium (Protonix Ec Tab) 40 mg PO DAILY [facility] Last Admin: 04/02/18 09:08 Dose: 40 mg - Labs Labs: 04/02/18 07:57 04/02/18 07:57 PT 14.3 SECONDS (9.7-12.2) H 03/26/18 05:56 INR 1.3 03/26/18 05:56 APTT 38 SECONDS (21-34) H D 03/26/18 05:56 - Constitutional Appears: Non-toxic - Head Exam Head Exam: NORMOCEPHALIC - Eye Exam Eye Exam: Scleral icterus - ENT Exam ENT Exam: Mucous Membranes Dry - Neck Exam Neck Exam: absent: Lymphadenopathy - Respiratory Exam Respiratory Exam: Decreased Breath Sounds - Cardiovascular Exam Cardiovascular Exam: REGULAR RHYTHM - GI/Abdominal Exam GI & Abdominal Exam: Distended - Rectal Exam Rectal Exam: Deferred - Exam Exam: NORMAL INSPECTION - Extremities Exam Extremities Exam: absent: Pedal Edema - Back Exam Back Exam: absent: CVA tenderness (L), CVA tenderness (R) Assessment and Plan (1) Cellulitis of back Status: Acute (2) Hyperglycemia Status: Acute (3) Chest wall muscle strain Status: Acute - Assessment and Plan (Free Text) Assessment: Afebrile and in no acute distress. S/p right lung VATS, decortication,
--- NOTE | 2018-04-02 17:10 | RAD ---
Date of service: 04/02/2018 HISTORY: s/p Right chest tube removal COMPARISON: No prior. FINDINGS: LUNGS: Interval removal right-sided chest tube. No definitive pneumothorax however there does appear to be some residual atelectasis and possibly small residual effusion. PLEURA: As above. CARDIOVASCULAR: No aortic atherosclerotic calcification present. Cardiomegaly.. No pulmonary vascular congestion. OSSEOUS STRUCTURES: No significant abnormalities. VISUALIZED UPPER ABDOMEN: Normal. OTHER FINDINGS: None. IMPRESSION: Interval removal of right-sided chest tube. Persistent elevation right hemidiaphragm with residual atelectasis and probable small effusion
[2018-04-03] MEDS: Albuterol-Ipratrop 3 mg / 0.5 (3 ml) UD INH SCH ×4 (01:15→19:37)
[2018-04-03] MEDS: Vancomycin 1.5 GM in Sodium Chloride 0.9% 500 ML IVPB SCH ×3 (03:20→18:30)
[2018-04-03] MEDS: (Novolin R) Insulin Human Regular 100 units/ml vial SC SCH ×4 (08:30→21:49)
--- NOTE | 2018-04-03 10:07 | CP.PCM.PN ---
Subjective - Date & Time of Evaluation Date of Evaluation: 04/03/18 Time of Evaluation: 10:05 - Subjective Subjective: pt feels good anxious to go home Objective - Vital Signs/Intake and Output Vital Signs (last 24 hours): Temp Pulse Resp BP Pulse Ox 97.7 F 111 H 20 125/83 95 04/03/18 08:16 04/03/18 08:16 04/03/18 08:16 04/03/18 08:16 04/03/18 08:16 Intake and Output: 04/03/18 04/03/18 06:59 18:59 Intake Total 1000 Balance 1000 - Medications Medications: Current Medications Acetaminophen (Tylenol 325mg Tab) 650 mg PO Q6 PRN PRN Reason: Fever >100.4 F Last Admin: 04/03/18 08:53 Dose: 650 mg Albuterol/Ipratropium (Duoneb 3 Mg/0.5 Mg (3 Ml) Ud) 3 ml INH RQ6 [facility] Last Admin: 04/03/18 07:50 Dose: 3 ml Aspirin (Aspirin Chewable) 81 mg PO DAILY [facility] Last Admin: 04/02/18 09:08 Dose: 81 mg Docusate Sodium (Colace) 100 mg PO TID [facility] Last Admin: 04/02/18 17:40 Dose: 100 mg Fluticasone Propionate (Flonase) 1 spr VANDANA Q12H [facility] Last Admin: 04/02/18 21:18 Dose: Not Given Gabapentin (Neurontin) 400 mg PO TID [facility] Last Admin: 04/02/18 17:40 Dose: 400 mg Vancomycin HCl 1.5 gm/ Sodium (Chloride) 500 mls @ 250 mls/hr IVPB Q8H [facility]; Protocol Last Admin: 04/03/18 03:20 Dose: 250 mls/hr Insulin Human Regular (Novolin R) 0 unit SC ACHS [facility]; Protocol Last Admin: 04/03/18 08:30 Dose: 4 units Lidocaine (Lidoderm) 1 ea TD DAILY [facility] Last Admin: 04/02/18 09:08 Dose: 1 ea Metoprolol Tartrate (Lopressor) 25 mg PO BID [facility] Last Admin: 04/02/18 17:40 Dose: 25 mg Pantoprazole Sodium (Protonix Ec Tab) 40 mg PO DAILY [facility] Last Admin: 04/02/18 09:08 Dose: 40 mg - Labs Labs: 04/02/18 07:57 04/02/18 07:57 PT 14.3 SECONDS (9.7-12.2) H 03/26/18 05:56 INR 1.3 03/26/18 05:56 APTT 38 SECONDS (21-34) H D 03/26/18 05:56 - Constitutional Appears: Non-toxic - Head Exam Head Exam: NORMAL INSPECTION - Eye Exam Eye Exam: Normal appearance Pupil Exam: NORMAL ACCOMODATION - ENT Exam ENT Exam: Normal Exam - Neck Exam Neck Exam: Normal Inspection - Respiratory Exam Respiratory Exam: Clear to Ausculation Bilateral - Cardiovascular Exam Cardiovascular Exam: REGULAR RHYTHM - GI/Abdominal Exam GI & Abdominal Exam: Soft - Exam Exam: NORMAL INSPECTION - Extremities Exam Extremities Exam: Full ROM - Neurological Exam Neurological Exam: Alert, Normal Gait, Oriented x3 - Psychiatric Exam Psychiatric exam: Normal Affect - Skin Skin Exam: Normal Color Assessment and Plan - Assessment and Plan (Free Text) Assessment: s/p herpez s/p empyeama dmid uncontroled obesity s/p MRSA infection Plan: will discuss with id consult for discharge plan today
--- NOTE | 2018-04-03 10:37 | RAD ---
Date of service: 2018-04-03 08:42:40 HISTORY: s/p R thoracotomy COMPARISON: No prior. FINDINGS: No change right-sided PICC line with tip in the SVC LUNGS: Patchy atelectasis and/or infiltrate changes right mid to lower lung field slightly improved prior study. There is a somewhat curvilinear opacity along the lateral pleural surface that could represent pleural thickening and/or small amount of tracking pleural fluid. No definitive pneumothorax is identified. PLEURA: No significant pleural effusion identified, no pneumothorax apparent. CARDIOVASCULAR: No aortic atherosclerotic calcification present. Cardiac silhouette stable. No pulmonary vascular congestion. OSSEOUS STRUCTURES: No significant abnormalities. VISUALIZED UPPER ABDOMEN: Normal. OTHER FINDINGS: None. IMPRESSION: Patchy atelectasis and/or infiltrate changes right mid to lower lung field slightly improved prior study. There is a somewhat curvilinear opacity along the lateral pleural surface that could represent pleural thickening and/or small amount of tracking pleural fluid. No definitive pneumothorax is identified.
[2018-04-03] MEDS: Lidocaine 5% Patch TD SCH (11:00)
[2018-04-03] MEDS: Fluticasone Nasal 50 mcg/Spray NAS SCH ×2 (11:00→21:49)
[2018-04-03] MEDS: Pantoprazole 40 mg EC Tab PO SCH (11:00)
[2018-04-03] MEDS: Insulin Detemir 100 units/ml Vial (Levemir) SC SCH (11:07)
--- NOTE | 2018-04-03 11:34 | CP.PCM.PN ---
Subjective - Date & Time of Evaluation Date of Evaluation: 04/03/18 Time of Evaluation: 07:00 - Subjective Subjective: THORACIC SURGERY PROGRESS NOTE FOR DR. GOLD Patient seen and examined at bedside. He reports improved pain after the last chest tube was removed yesterday. He ambulated with PT yesterday. He is using the IS to 1500. He denies SOB/CP. He would like to go home. Objective - Vital Signs/Intake and Output Vital Signs (last 24 hours): Temp Pulse Resp BP Pulse Ox 97.7 F 111 H 20 125/83 95 04/03/18 08:16 04/03/18 08:16 04/03/18 08:16 04/03/18 11:00 04/03/18 08:16 Intake and Output: 04/03/18 04/03/18 06:59 18:59 Intake Total 1000 Balance 1000 - Medications Medications: Current Medications Acetaminophen (Tylenol 325mg Tab) 650 mg PO Q6 PRN PRN Reason: Fever >100.4 F Last Admin: 04/03/18 08:53 Dose: 650 mg Albuterol/Ipratropium (Duoneb 3 Mg/0.5 Mg (3 Ml) Ud) 3 ml INH RQ6 [facility] Last Admin: 04/03/18 07:50 Dose: 3 ml Aspirin (Aspirin Chewable) 81 mg PO DAILY [facility] Last Admin: 04/03/18 11:00 Dose: 81 mg Docusate Sodium (Colace) 100 mg PO TID [facility] Last Admin: 04/03/18 11:00 Dose: 100 mg Fluticasone Propionate (Flonase) 1 spr VANDANA Q12H [facility] Last Admin: 04/03/18 11:00 Dose: 1 spray Gabapentin (Neurontin) 400 mg PO TID [facility] Last Admin: 04/03/18 11:00 Dose: 400 mg Vancomycin HCl 1.5 gm/ Sodium (Chloride) 500 mls @ 250 mls/hr IVPB Q8H [facility]; Protocol Last Admin: 04/03/18 03:20 Dose: 250 mls/hr Insulin Detemir (Levemir) 18 unit SC Q24H [facility] Last Admin: 04/03/18 11:07 Dose: 18 units Insulin Human Regular (Novolin R) 0 unit SC ACHS [facility]; Protocol Last Admin: 04/03/18 08:30 Dose: 4 units Lidocaine (Lidoderm) 1 ea TD DAILY [facility] Last Admin: 04/03/18 11:00 Dose: 1 ea Metoprolol Tartrate (Lopressor) 25 mg PO BID [facility] Last Admin: 04/03/18 11:00 Dose: 25 mg Pantoprazole Sodium (Protonix Ec Tab) 40 mg PO DAILY [facility] Last Admin: 04/03/18 11:00 Dose: 40 mg - Labs Labs: 04/02/18 07:57 04/02/18 07:57 PT 14.3 SECONDS (9.7-12.2) H 03/26/18 05:56 INR 1.3 03/26/18 05:56 APTT 38 SECONDS (21-34) H D 03/26/18 05:56 - Constitutional Appears: Non-toxic, No Acute Distress - Head Exam Head Exam: ATRAUMATIC, NORMAL INSPECTION - Eye Exam Eye Exam: EOMI, Normal appearance - Respiratory Exam Respiratory Exam: NORMAL BREATHING PATTERN. absent: Respiratory Distress Additional comments: Dressing was saturated with parts of tape missing. Dressing changed - xeroform, 4x4 and tegaderm reinforced with silk tape on the sides - Cardiovascular Exam Cardiovascular Exam: +S1, +S2 - GI/Abdominal Exam GI & Abdominal Exam: Soft. absent: Distended, Tenderness - Neurological Exam Neurological Exam: Alert, Awake, Oriented x3 - Psychiatric Exam Psychiatric exam: Normal Affect, Normal Mood - Skin Skin Exam: Dry, Normal Color Assessment and Plan - Assessment and Plan (Free Text) Assessment: 32M with right sided pleural effusion refractory to IR thoracentesis, MRSA bacteremia s/p Right VATS w/ decortication, pleurolysis, pleural biopsy POD#7 Pleural fluid = MRSA Plan: - Daily CXR reviewed - no pneumothorax - Clear for DC from surgical standpoint - Follow up with Dr. Gold in his office next week, call [phone] to make appointment. - Continue IS use at home - Continue ambulation and OOB - Discussed plan with Dr. Asif Blanco PGY-4
--- NOTE | 2018-04-03 12:47 | CP.PCM.PN ---
Subjective - Date & Time of Evaluation Date of Evaluation: 04/03/18 Time of Evaluation: 07:45 - Subjective Subjective: Patient seen and examined at bedside. States he is feeling much better today, and his pain has resolved. Patient states he has been walking around in the room without any issues. Denies any shortness of breath, cough, pain, headaches, or any other symptoms. States hes anxious to go home. Second chest tube removed. Objective - Vital Signs/Intake and Output Vital Signs (last 24 hours): Temp Pulse Resp BP Pulse Ox 97.7 F 111 H 20 125/83 95 04/03/18 08:16 04/03/18 08:16 04/03/18 08:16 04/03/18 11:00 04/03/18 08:16 Intake and Output: 04/03/18 04/03/18 06:59 18:59 Intake Total 1000 Balance 1000 - Medications Medications: Current Medications Acetaminophen (Tylenol 325mg Tab) 650 mg PO Q6 PRN PRN Reason: Fever >100.4 F Last Admin: 04/03/18 08:53 Dose: 650 mg Albuterol/Ipratropium (Duoneb 3 Mg/0.5 Mg (3 Ml) Ud) 3 ml INH RQ6 [facility] Last Admin: 04/03/18 07:50 Dose: 3 ml Aspirin (Aspirin Chewable) 81 mg PO DAILY [facility] Last Admin: 04/03/18 11:00 Dose: 81 mg Docusate Sodium (Colace) 100 mg PO TID [facility] Last Admin: 04/03/18 11:00 Dose: 100 mg Fluticasone Propionate (Flonase) 1 spr VANDANA Q12H [facility] Last Admin: 04/03/18 11:00 Dose: 1 spray Gabapentin (Neurontin) 400 mg PO TID [facility] Last Admin: 04/03/18 11:00 Dose: 400 mg Vancomycin HCl 1.5 gm/ Sodium (Chloride) 500 mls @ 250 mls/hr IVPB Q8H [facility]; Protocol Last Admin: 04/03/18 03:20 Dose: 250 mls/hr Insulin Detemir (Levemir) 18 unit SC Q24H [facility] Last Admin: 04/03/18 11:07 Dose: 18 units Insulin Human Regular (Novolin R) 0 unit SC ACHS [facility]; Protocol Last Admin: 04/03/18 08:30 Dose: 4 units Lidocaine (Lidoderm) 1 ea TD DAILY [facility] Last Admin: 04/03/18 11:00 Dose: 1 ea Metoprolol Tartrate (Lopressor) 25 mg PO BID [facility] Last Admin: 04/03/18 11:00 Dose: 25 mg Pantoprazole Sodium (Protonix Ec Tab) 40 mg PO DAILY [facility] Last Admin: 04/03/18 11:00 Dose: 40 mg - Labs Labs: 04/02/18 07:57 04/02/18 07:57 PT 14.3 SECONDS (9.7-12.2) H 03/26/18 05:56 INR 1.3 03/26/18 05:56 APTT 38 SECONDS (21-34) H D 03/26/18 05:56 Assessment and Plan (1) Pleural effusion Status: Acute (2) MRSA bacteremia Status: Acute
--- NOTE | 2018-04-03 19:40 | CP.PCM.PN ---
Subjective - Date & Time of Evaluation Date of Evaluation: 04/03/18 Time of Evaluation: 09:00 - Subjective Subjective: S/p right lung VATS, decortication, pneumolysis, and pleural biopsy. Chest tube 1 out of 2 removed; 2nd chest tube not draining much. Patient still complains of pain at the chest tube site. -CXR (04/02): patchy infiltrate changes seen in the right [id number] lung field with suspected small effusion; minimal left basilar atelectasis. Objective - Vital Signs/Intake and Output Vital Signs (last 24 hours): Temp Pulse Resp BP Pulse Ox 98.4 F 112 H 20 128/72 94 L 04/03/18 16:00 04/03/18 16:00 04/03/18 16:00 04/03/18 17:24 04/03/18 16:00 Intake and Output: 04/03/18 04/04/18 18:59 06:59 Intake Total 1100 Balance 1100 - Medications Medications: Current Medications Acetaminophen (Tylenol 325mg Tab) 650 mg PO Q6 PRN PRN Reason: Fever >100.4 F Last Admin: 04/03/18 14:48 Dose: 650 mg Albuterol/Ipratropium (Duoneb 3 Mg/0.5 Mg (3 Ml) Ud) 3 ml INH RQ6 [facility] Last Admin: 04/03/18 19:37 Dose: 3 ml Aspirin (Aspirin Chewable) 81 mg PO DAILY [facility] Last Admin: 04/03/18 11:00 Dose: 81 mg Docusate Sodium (Colace) 100 mg PO TID [facility] Last Admin: 04/03/18 17:24 Dose: 100 mg Fluticasone Propionate (Flonase) 1 spr VANDANA Q12H [facility] Last Admin: 04/03/18 11:00 Dose: 1 spray Gabapentin (Neurontin) 400 mg PO TID [facility] Last Admin: 04/03/18 17:25 Dose: 400 mg Vancomycin HCl 1.5 gm/ Sodium (Chloride) 500 mls @ 250 mls/hr IVPB Q8H [facility]; Protocol Last Admin: 04/03/18 18:30 Dose: 250 mls/hr Insulin Detemir (Levemir) 18 unit SC Q24H [facility] Last Admin: 04/03/18 11:07 Dose: 18 units Insulin Human Regular (Novolin R) 0 unit SC ACHS [facility]; Protocol Last Admin: 04/03/18 17:25 Dose: 6 units Lidocaine (Lidoderm) 1 ea TD DAILY [facility] Last Admin: 04/03/18 11:00 Dose: 1 ea Metoprolol Tartrate (Lopressor) 25 mg PO BID [facility] Last Admin: 04/03/18 17:24 Dose: 25 mg Pantoprazole Sodium (Protonix Ec Tab) 40 mg PO DAILY [facility] Last Admin: 04/03/18 11:00 Dose: 40 mg - Labs Labs: 04/02/18 07:57 04/02/18 07:57 PT 14.3 SECONDS (9.7-12.2) H 03/26/18 05:56 INR 1.3 03/26/18 05:56 APTT 38 SECONDS (21-34) H D 03/26/18 05:56 - Constitutional Appears: Non-toxic - Head Exam Head Exam: NORMOCEPHALIC - Eye Exam Eye Exam: absent: Scleral icterus - ENT Exam ENT Exam: Mucous Membranes Dry - Neck Exam Neck Exam: absent: Lymphadenopathy - Respiratory Exam Respiratory Exam: Decreased Breath Sounds, Prolonged Expiratory Phase, Rales - Cardiovascular Exam Cardiovascular Exam: REGULAR RHYTHM - GI/Abdominal Exam GI & Abdominal Exam: Distended, Soft Assessment and Plan (1) Cellulitis of back Status: Acute (2) Hyperglycemia Status: Acute (3) Chest wall muscle strain Status: Acute - Assessment and Plan (Free Text) Assessment: Continue analgesics. Continue antibiotics.
[2018-04-04] MEDS: Albuterol-Ipratrop 3 mg / 0.5 (3 ml) UD INH SCH ×5 (01:10→19:58)
[2018-04-04] MEDS: Vancomycin 1.5 GM in Sodium Chloride 0.9% 500 ML IVPB SCH ×3 (02:56→19:35)
[2018-04-04] MEDS ORDERED: Oxycodone/Acetaminophen 5/325 mg Tab PO STA (03:11)
[2018-04-04 09:24] LABS: BASO # 0.1 K/uL (0.0-0.2); BASO % 0.5 % (0.0-2.0); EOS # 0.3 K/uL (0.0-0.7); EOS % 2.3 % (0.0-4.0); HEMOGLOBIN 11.3 g/dL (12.0-18.0); LYMPH # 1.3 K/uL (1.0-4.3); LYMPH % 11.7 % (20.0-40.0); MEAN CELL VOLUME 81.7 fL (80.0-94.0); MEAN CORPUSCULAR HEMOGLOBIN 27.4 pg (27.0-31.0); MEAN CORPUSCULAR HGB CONC 33.5 g/dL (33.0-37.0); MEAN PLATELET VOLUME 8.5 fL (7.2-11.7); MONO # 1.3 K/uL (0.0-0.8); NEUT # 8.6 K/uL (1.8-7.0); NEUT % 74.5 % (50.0-75.0); NRBC % 0.1 % (0.0-2.0); RBC 4.11 Mil/uL (4.40-5.90); RED CELL DISTRIBUTION WIDTH 13.1 % (11.5-14.5); WHITE BLOOD COUNT 11.5 K/uL (4.8-10.8)
[2018-04-04 09:53] LABS: ALB/GLOB RATIO 0.9 (1.0-2.1); ALBUMIN 3.6 g/dL (3.5-5.0); ALT/SGPT 21 U/L (21-72); AST/SGOT 21 U/L (17-59); BLOOD UREA NITROGEN 10 mg/dL (9-20); GFR NON-AFRICAN AMERICAN > 60
[2018-04-04] MEDS: Oxycodone/Acetaminophen 5/325 mg Tab PO PRN ×2 (09:57→17:12)
[2018-04-04] MEDS: Pantoprazole 40 mg EC Tab PO SCH (09:57)
[2018-04-04] MEDS: Lidocaine 5% Patch TD SCH (09:59)
[2018-04-04] MEDS: Insulin Detemir 100 units/ml Vial (Levemir) SC SCH (10:00)
[2018-04-04] MEDS: (Novolin R) Insulin Human Regular 100 units/ml vial SC SCH ×4 (10:00→21:28)
[2018-04-04] MEDS: Fluticasone Nasal 50 mcg/Spray NAS SCH ×2 (10:04→21:28)
--- NOTE | 2018-04-04 10:50 | RAD ---
Chest x-ray single frontal view History: Right thoracotomy. COMPARISON: 04/03/2018 FINDINGS: Right PICC line with tip extending into right SVC. Scattered patchy consolidative changes throughout the right lung. Pleural thickening along the lateral aspect of the right mid to lower lung zone. Bilateral hilar prominence. Mild cardiomegaly. Degenerative changes in the spine Impression: No significant interval change.
--- NOTE | 2018-04-04 11:27 | CP.PCM.PN ---
Subjective - Date & Time of Evaluation Date of Evaluation: 04/04/18 Time of Evaluation: 11:24 - Subjective Subjective: pt still has cough and patchy infiltrate lung as per id need more iv antibiotics Objective - Vital Signs/Intake and Output Vital Signs (last 24 hours): Temp Pulse Resp BP Pulse Ox 98.7 F 122 H 20 135/62 96 04/04/18 08:01 04/04/18 08:01 04/04/18 08:01 04/04/18 09:57 04/04/18 08:01 Intake and Output: 04/04/18 04/04/18 06:59 18:59 Intake Total 2500 Output Total 3150 Balance -650 - Medications Medications: Current Medications Acetaminophen (Tylenol 325mg Tab) 650 mg PO Q6 PRN PRN Reason: Fever >100.4 F Last Admin: 04/03/18 21:50 Dose: 650 mg Albuterol/Ipratropium (Duoneb 3 Mg/0.5 Mg (3 Ml) Ud) 3 ml INH RQ6 [facility] Last Admin: 04/04/18 07:47 Dose: 3 ml Aspirin (Aspirin Chewable) 81 mg PO DAILY [facility] Last Admin: 04/04/18 09:57 Dose: 81 mg Docusate Sodium (Colace) 100 mg PO TID [facility] Last Admin: 04/04/18 09:57 Dose: 100 mg Fluticasone Propionate (Flonase) 1 spr VANDANA Q12H [facility] Last Admin: 04/04/18 10:04 Dose: Not Given Gabapentin (Neurontin) 400 mg PO TID [facility] Last Admin: 04/04/18 09:59 Dose: 400 mg Vancomycin HCl 1.5 gm/ Sodium (Chloride) 500 mls @ 250 mls/hr IVPB Q8H [facility]; Protocol Last Admin: 04/04/18 10:07 Dose: 250 mls/hr Insulin Detemir (Levemir) 18 unit SC Q24H [facility] Last Admin: 04/04/18 10:00 Dose: 18 units Insulin Human Regular (Novolin R) 0 unit SC ACHS [facility]; Protocol Last Admin: 04/04/18 10:00 Dose: 6 unit Lidocaine (Lidoderm) 1 ea TD DAILY [facility] Last Admin: 04/04/18 09:59 Dose: 1 ea Metoprolol Tartrate (Lopressor) 25 mg PO BID [facility] Last Admin: 04/04/18 09:57 Dose: 25 mg Oxycodone/Acetaminophen (Percocet 5/325 Mg Tab) 1 tab PO Q4H PRN PRN Reason: Pain, moderate (4-7) Stop: 04/07/18 03:10 Last Admin: 04/04/18 09:57 Dose: 1 tab Pantoprazole Sodium (Protonix Ec Tab) 40 mg PO DAILY [facility] Last Admin: 04/04/18 09:57 Dose: 40 mg - Labs Labs: 04/04/18 09:15 04/04/18 09:15 PT 14.3 SECONDS (9.7-12.2) H 03/26/18 05:56 INR 1.3 03/26/18 05:56 APTT 38 SECONDS (21-34) H D 03/26/18 05:56 - Constitutional Appears: Non-toxic - Head Exam Head Exam: ATRAUMATIC - Eye Exam Eye Exam: Normal appearance Pupil Exam: NORMAL ACCOMODATION - ENT Exam ENT Exam: Normal Exam - Neck Exam Neck Exam: Normal Inspection - Respiratory Exam Respiratory Exam: Decreased Breath Sounds - Cardiovascular Exam Cardiovascular Exam: REGULAR RHYTHM - GI/Abdominal Exam GI & Abdominal Exam: Normal Bowel Sounds - Exam Exam: NORMAL INSPECTION - Extremities Exam Extremities Exam: Full ROM - Back Exam Back Exam: NORMAL INSPECTION - Neurological Exam Neurological Exam: Alert, Normal Gait, Oriented x3 - Psychiatric Exam Psychiatric exam: Normal Affect - Skin Skin Exam: Dry Assessment and Plan - Assessment and Plan (Free Text) Assessment: s/p epyeama still has lung infiltrate and efusion s/p hx of maruana abuse no iv drugs Plan: cont as per orders
[2018-04-05] MEDS: Albuterol-Ipratrop 3 mg / 0.5 (3 ml) UD INH SCH ×4 (01:36→20:48)
[2018-04-05] MEDS: Vancomycin 1.5 GM in Sodium Chloride 0.9% 500 ML IVPB SCH ×3 (02:27→19:14)
[2018-04-05] MEDS: (Novolin R) Insulin Human Regular 100 units/ml vial SC SCH ×4 (08:15→22:25)
[2018-04-05] MEDS: Pantoprazole 40 mg EC Tab PO SCH (09:20)
[2018-04-05] MEDS: Lidocaine 5% Patch TD SCH (09:21)
[2018-04-05] MEDS: Insulin Detemir 100 units/ml Vial (Levemir) SC SCH ×2 (09:21→11:31)
[2018-04-05] MEDS: Fluticasone Nasal 50 mcg/Spray NAS SCH ×2 (09:27→21:55)
--- NOTE | 2018-04-05 09:55 | CP.PCM.PN ---
Subjective - Date & Time of Evaluation Date of Evaluation: 04/05/18 Time of Evaluation: 09:52 - Subjective Subjective: pt said he swaeats alot still sutures in place on iv antibiotics Objective - Vital Signs/Intake and Output Vital Signs (last 24 hours): Temp Pulse Resp BP Pulse Ox 100 F H 106 H 24 133/86 95 04/04/18 23:00 04/04/18 23:00 04/04/18 23:00 04/05/18 09:20 04/04/18 23:00 - Medications Medications: Current Medications Acetaminophen (Tylenol 325mg Tab) 650 mg PO Q6 PRN PRN Reason: Fever >100.4 F Last Admin: 04/05/18 08:18 Dose: 650 mg Albuterol/Ipratropium (Duoneb 3 Mg/0.5 Mg (3 Ml) Ud) 3 ml INH RQ6 [facility] Last Admin: 04/05/18 08:13 Dose: 3 ml Aspirin (Aspirin Chewable) 81 mg PO DAILY [facility] Last Admin: 04/05/18 09:20 Dose: 81 mg Docusate Sodium (Colace) 100 mg PO TID [facility] Last Admin: 04/05/18 09:20 Dose: 100 mg Fluticasone Propionate (Flonase) 1 spr VANDANA Q12H [facility] Last Admin: 04/05/18 09:27 Dose: Not Given Gabapentin (Neurontin) 400 mg PO TID [facility] Last Admin: 04/05/18 09:20 Dose: 400 mg Vancomycin HCl 1.5 gm/ Sodium (Chloride) 500 mls @ 250 mls/hr IVPB Q8H [facility]; Protocol Last Admin: 04/05/18 02:27 Dose: 250 mls/hr Insulin Detemir (Levemir) 22 unit SC Q24H [facility] Insulin Human Regular (Novolin R) 0 unit SC ACHS [facility]; Protocol Last Admin: 04/05/18 08:15 Dose: 4 unit Lidocaine (Lidoderm) 1 ea TD DAILY [facility] Last Admin: 04/05/18 09:21 Dose: 1 ea Metoprolol Tartrate (Lopressor) 25 mg PO BID [facility] Last Admin: 04/05/18 09:20 Dose: 25 mg Oxycodone/Acetaminophen (Percocet 5/325 Mg Tab) 1 tab PO Q4H PRN PRN Reason: Pain, moderate (4-7) Stop: 04/07/18 03:10 Last Admin: 04/04/18 17:12 Dose: 1 tab Pantoprazole Sodium (Protonix Ec Tab) 40 mg PO DAILY [facility] Last Admin: 04/05/18 09:20 Dose: 40 mg - Labs Labs: 04/04/18 09:15 04/04/18 09:15 PT 14.3 SECONDS (9.7-12.2) H 03/26/18 05:56 INR 1.3 03/26/18 05:56 APTT 38 SECONDS (21-34) H D 03/26/18 05:56 - ENT Exam ENT Exam: Mucous Membranes Moist - Neck Exam Neck Exam: Full ROM - Respiratory Exam Respiratory Exam: Accessory Muscle Use, Decreased Breath Sounds - Cardiovascular Exam Cardiovascular Exam: REGULAR RHYTHM - GI/Abdominal Exam GI & Abdominal Exam: Normal Bowel Sounds - Rectal Exam Rectal Exam: NORMAL INSPECTION - Extremities Exam Extremities Exam: Normal Inspection - Back Exam Back Exam: NORMAL INSPECTION - Psychiatric Exam Psychiatric exam: Normal Affect - Skin Skin Exam: Normal Color Assessment and Plan - Assessment and Plan (Free Text) Assessment: s/p empyreama mrsa infection cont as per orders willdiscuss plan with dr ambriz Plan: will discuss with dr ambriz
--- NOTE | 2018-04-05 17:21 | CP.PCM.PN ---
Subjective - Date & Time of Evaluation Date of Evaluation: 04/05/18 Time of Evaluation: 09:00 - Subjective Subjective: IV Vanco in progress Cont IV rx as per Dr Siddiqui Objective - Vital Signs/Intake and Output Vital Signs (last 24 hours): Temp Pulse Resp BP Pulse Ox 99.7 F H 111 H 20 123/83 95 04/05/18 07:00 04/05/18 07:00 04/05/18 07:00 04/05/18 17:10 04/05/18 07:00 - Medications Medications: Current Medications Acetaminophen (Tylenol 325mg Tab) 650 mg PO Q6 PRN PRN Reason: Fever >100.4 F Last Admin: 04/05/18 08:18 Dose: 650 mg Albuterol/Ipratropium (Duoneb 3 Mg/0.5 Mg (3 Ml) Ud) 3 ml INH RQ6 [facility] Last Admin: 04/05/18 13:12 Dose: 3 ml Aspirin (Aspirin Chewable) 81 mg PO DAILY [facility] Last Admin: 04/05/18 09:20 Dose: 81 mg Docusate Sodium (Colace) 100 mg PO TID [facility] Last Admin: 04/05/18 17:10 Dose: 100 mg Fluticasone Propionate (Flonase) 1 spr VANDANA Q12H [facility] Last Admin: 04/05/18 09:27 Dose: Not Given Gabapentin (Neurontin) 400 mg PO TID [facility] Last Admin: 04/05/18 17:10 Dose: 400 mg Vancomycin HCl 1.5 gm/ Sodium (Ch[facility]) 500 mls @ 250 mls/hr IVPB Q8H [facility]; Protocol Last Admin: 04/05/18 12:14 Dose: 250 mls/hr Insulin Detemir (Levemir) 22 unit SC Q24H [facility] Last Admin: 04/05/18 11:31 Dose: Not Given Insulin Human Regular (Novolin R) 0 unit SC ACHS [facility]; Protocol Last Admin: 04/05/18 17:11 Dose: 6 unit Lidocaine (Lidoderm) 1 ea TD DAILY [facility] Last Admin: 04/05/18 09:21 Dose: 1 ea Metoprolol Tartrate (Lopressor) 25 mg PO BID [facility] Last Admin: 04/05/18 17:10 Dose: 25 mg Oxycodone/Acetaminophen (Percocet 5/325 Mg Tab) 1 tab PO Q4H PRN PRN Reason: Pain, moderate (4-7) Stop: 04/07/18 03:10 Last Admin: 04/04/18 17:12 Dose: 1 tab Pantoprazole Sodium (Protonix Ec Tab) 40 mg PO DAILY [facility] Last Admin: 04/05/18 09:20 Dose: 40 mg - Labs Labs: 04/04/18 09:15 04/04/18 09:15 PT 14.3 SECONDS (9.7-12.2) H 03/26/18 05:56 INR 1.3 03/26/18 05:56 APTT 38 SECONDS (21-34) H D 03/26/18 05:56 - Constitutional Appears: Non-toxic, Chronically Ill - Head Exam Head Exam: NORMOCEPHALIC - Eye Exam Eye Exam: absent: Scleral icterus - ENT Exam ENT Exam: Mucous Membranes Dry - Neck Exam Neck Exam: absent: Lymphadenopathy - Respiratory Exam Respiratory Exam: Decreased Breath Sounds - Cardiovascular Exam Cardiovascular Exam: REGULAR RHYTHM - GI/Abdominal Exam GI & Abdominal Exam: Distended, Soft Assessment and Plan (1) Cellulitis of back Status: Acute (2) Hyperglycemia Status: Acute (3) Chest wall muscle strain Status: Acute - Assessment and Plan (Free Text) Assessment: cont iv rx as per DR Siddiqui
[2018-04-06] MEDS: Albuterol-Ipratrop 3 mg / 0.5 (3 ml) UD INH SCH ×4 (01:50→21:39)
[2018-04-06] MEDS: Vancomycin 1.5 GM in Sodium Chloride 0.9% 500 ML IVPB SCH ×3 (02:40→19:02)
[2018-04-06] MEDS: Oxycodone/Acetaminophen 5/325 mg Tab PO PRN ×2 (06:56→21:45)
[2018-04-06 08:22] LABS: BASO # 0.1 K/uL (0.0-0.2); BASO % 0.8 % (0.0-2.0); EOS # 0.4 K/uL (0.0-0.7); EOS % 4.3 % (0.0-4.0); HEMOGLOBIN 10.8 g/dL (12.0-18.0); LYMPH # 1.4 K/uL (1.0-4.3); MEAN CELL VOLUME 80.9 fL (80.0-94.0); MEAN CORPUSCULAR HEMOGLOBIN 27.5 pg (27.0-31.0); MEAN PLATELET VOLUME 8.7 fL (7.2-11.7); MONO # 1.2 K/uL (0.0-0.8); MONO % 12.7 % (0.0-10.0); NEUT # 6.6 K/uL (1.8-7.0); NEUT % 68.2 % (50.0-75.0); RBC 3.92 Mil/uL (4.40-5.90); RED CELL DISTRIBUTION WIDTH 13.2 % (11.5-14.5); WHITE BLOOD COUNT 9.7 K/uL (4.8-10.8)
[2018-04-06] MEDS: (Novolin R) Insulin Human Regular 100 units/ml vial SC SCH ×4 (08:25→22:33)
[2018-04-06 08:47] LABS: ALB/GLOB RATIO 0.9 (1.0-2.1); ALBUMIN 3.4 g/dL (3.5-5.0); ALT/SGPT 26 U/L (21-72); AST/SGOT 25 U/L (17-59); BLOOD UREA NITROGEN 13 mg/dL (9-20); CALCIUM 8.9 mg/dl (8.6-10.4); GFR NON-AFRICAN AMERICAN > 60
[2018-04-06] MEDS: Pantoprazole 40 mg EC Tab PO SCH (09:15)
[2018-04-06] MEDS: Insulin Detemir 100 units/ml Vial (Levemir) SC SCH ×2 (09:15→22:34)
[2018-04-06] MEDS: Lidocaine 5% Patch TD SCH (09:16)
[2018-04-06] MEDS: Fluticasone Nasal 50 mcg/Spray NAS SCH ×2 (10:28→22:34)
--- NOTE | 2018-04-06 12:43 | CP.PCM.PN ---
Subjective - Date & Time of Evaluation Date of Evaluation: 04/06/18 Time of Evaluation: 08:00 - Subjective Subjective: discussed on rounds possible d/c on PO rx when cleared by Pulm and cardio Objective - Vital Signs/Intake and Output Vital Signs (last 24 hours): Temp Pulse Resp BP Pulse Ox 98.8 F 116 H 20 132/78 97 04/06/18 09:00 04/06/18 09:14 04/06/18 09:00 04/06/18 09:15 04/06/18 09:00 - Medications Medications: Current Medications Acetaminophen (Tylenol 325mg Tab) 650 mg PO Q6 PRN PRN Reason: Fever >100.4 F Last Admin: 04/05/18 22:28 Dose: 650 mg Albuterol/Ipratropium (Duoneb 3 Mg/0.5 Mg (3 Ml) Ud) 3 ml INH RQ6 [facility] Last Admin: 04/06/18 08:36 Dose: 3 ml Aspirin (Aspirin Chewable) 81 mg PO DAILY [facility] Last Admin: 04/06/18 09:15 Dose: 81 mg Docusate Sodium (Colace) 100 mg PO TID [facility] Last Admin: 04/06/18 09:15 Dose: 100 mg Fluticasone Propionate (Flonase) 1 spr VANDANA Q12H [facility] Last Admin: 04/06/18 10:28 Dose: 1 spray Vancomycin HCl 1.5 gm/ Sodium (Chloride) 500 mls @ 250 mls/hr IVPB Q8H [facility]; P rotocol Last Admin: 04/06/18 10:29 Dose: 250 mls/hr Insulin Detemir (Levemir) 22 unit SC Q24H [facility] Last Admin: 04/06/18 09:15 Dose: 22 units Insulin Human Regular (Novolin R) 0 unit SC ACHS [facility]; Protocol Last Admin: 04/06/18 08:25 Dose: 4 unit Lidocaine (Lidoderm) 1 ea TD DAILY [facility] Last Admin: 04/06/18 09:16 Dose: 1 ea Metoprolol Tartrate (Lopressor) 25 mg PO BID [facility] Last Admin: 04/06/18 09:15 Dose: 25 mg Oxycodone/Acetaminophen (Percocet 5/325 Mg Tab) 1 tab PO Q4H PRN PRN Reason: Pain, moderate (4-7) Stop: 04/07/18 03:10 Last Admin: 04/06/18 06:56 Dose: 1 tab Pantoprazole Sodium (Protonix Ec Tab) 40 mg PO DAILY [facility] Last Admin: 04/06/18 09:15 Dose: 40 mg - Labs Labs: 04/06/18 08:13 04/06/18 08:13 PT 14.3 SECONDS (9.7-12.2) H 03/26/18 05:56 INR 1.3 03/26/18 05:56 APTT 38 SECONDS (21-34) H D 03/26/18 05:56 - Constitutional Appears: Non-toxic, Chronically Ill - Head Exam Head Exam: NORMOCEPHALIC - Eye Exam Eye Exam: absent: Scleral icterus - ENT Exam ENT Exam: Mucous Membranes Dry - Neck Exam Neck Exam: absent: Lymphadenopathy - Respiratory Exam Respiratory Exam: Decreased Breath Sounds - Cardiovascular Exam Cardiovascular Exam: REGULAR RHYTHM - GI/Abdominal Exam GI & Abdominal Exam: Distended - Rectal Exam Rectal Exam: Deferred Assessment and Plan (1) Hyperglycemia Status: Acute (2) Chest wall muscle strain Status: Acute (3) Empyema Status: Acute (4) Empyema lung Status: Acute (5) MRSA bacteremia Status: Acute (6) Pleural effusion Status: Acute (7) Abscess Status: Acute
--- NOTE | 2018-04-06 17:11 | CP.PCM.PN ---
Subjective - Date & Time of Evaluation Date of Evaluation: 04/06/18 Time of Evaluation: 17:09 - Subjective Subjective: feels betr less sob Objective - Vital Signs/Intake and Output Vital Signs (last 24 hours): Temp Pulse Resp BP Pulse Ox 98.8 F 116 H 20 132/78 97 04/06/18 09:00 04/06/18 09:14 04/06/18 09:00 04/06/18 09:15 04/06/18 09:00 - Medications Medications: Current Medications Acetaminophen (Tylenol 325mg Tab) 650 mg PO Q6 PRN PRN Reason: Fever >100.4 F Last Admin: 04/05/18 22:28 Dose: 650 mg Albuterol/Ipratropium (Duoneb 3 Mg/0.5 Mg (3 Ml) Ud) 3 ml INH RQ6 [facility] Last Admin: 04/06/18 13:51 Dose: 3 ml Aspirin (Aspirin Chewable) 81 mg PO DAILY [facility] Last Admin: 04/06/18 09:15 Dose: 81 mg Docusate Sodium (Colace) 100 mg PO TID [facility] Last Admin: 04/06/18 13:43 Dose: 100 mg Fluticasone Propionate (Flonase) 1 spr VANDANA Q12H [facility] Last Admin: 04/06/18 10:28 Dose: 1 spray Glipizide (Glucotrol) 10 mg PO ACB [facility] Vancomycin HCl 1.5 gm/ Sodium (Chloride) 500 mls @ 250 mls/hr IVPB Q8H [facility]; Protocol Last Admin: 04/06/18 10:29 Dose: 250 mls/hr Insulin Detemir (Levemir) 58 unit SC HS [facility] Insulin Human Regular (Novolin R) 0 unit SC ACHS [facility]; Protocol Last Admin: 04/06/18 12:26 Dose: 8 unit Lidocaine (Lidoderm) 1 ea TD DAILY [facility] Last Admin: 04/06/18 09:16 Dose: 1 ea Metoprolol Tartrate (Lopressor) 25 mg PO BID [facility] Last Admin: 04/06/18 09:15 Dose: 25 mg Oxycodone/Acetaminophen (Percocet 5/325 Mg Tab) 1 tab PO Q4H PRN PRN Reason: Pain, moderate (4-7) Stop: 04/07/18 03:10 Last Admin: 04/06/18 06:56 Dose: 1 tab Pantoprazole Sodium (Protonix Ec Tab) 40 mg PO DAILY [facility] Last Admin: 04/06/18 09:15 Dose: 40 mg - Labs Labs: 04/06/18 08:13 04/06/18 08:13 PT 14.3 SECONDS (9.7-12.2) H 03/26/18 05:56 INR 1.3 03/26/18 05:56 APTT 38 SECONDS (21-34) H D 03/26/18 05:56 - Constitutional Appears: Non-toxic - Head Exam Head Exam: NORMAL INSPECTION - Eye Exam Eye Exam: Normal appearance Pupil Exam: NORMAL ACCOMODATION - ENT Exam ENT Exam: Normal Exam - Neck Exam Neck Exam: Full ROM - Respiratory Exam Respiratory Exam: Decreased Breath Sounds - Cardiovascular Exam Cardiovascular Exam: REGULAR RHYTHM - GI/Abdominal Exam GI & Abdominal Exam: Normal Bowel Sounds - Rectal Exam Rectal Exam: NORMAL INSPECTION - Exam External exam: NORMAL EXTERNAL EXAM - Back Exam Back Exam: NORMAL INSPECTION - Neurological Exam Neurological Exam: Alert, Oriented x3 - Psychiatric Exam Psychiatric exam: Normal Affect - Skin Skin Exam: Normal Color Assessment and Plan - Assessment and Plan (Free Text) Assessment: empeama mrsainfection Plan: chest xray cont curent tratment
--- NOTE | 2018-04-06 17:33 | CP.PCM.PN ---
Subjective - Date & Time of Evaluation Date of Evaluation: 04/06/18 Time of Evaluation: 09:20 - Subjective Subjective: patient seen and examined Feeling much better Denies cough, denies fever chills Slight chest pain and suture site On IV antibiotics Continue present treatment Followup chest x-ray Objective - Vital Signs/Intake and Output Vital Signs (last 24 hours): Temp Pulse Resp BP Pulse Ox 98.8 F 108 H 20 122/72 94 L 04/06/18 16:00 04/06/18 16:00 04/06/18 16:00 04/06/18 16:00 04/06/18 16:00 - Medications Medications: Current Medications Acetaminophen (Tylenol 325mg Tab) 650 mg PO Q6 PRN PRN Reason: Fever >100.4 F Last Admin: 04/05/18 22:28 Dose: 650 mg Albuterol/Ipratropium (Duoneb 3 Mg/0.5 Mg (3 Ml) Ud) 3 ml INH RQ6 [facility] Last Admin: 04/06/18 13:51 Dose: 3 ml Aspirin (Aspirin Chewable) 81 mg PO DAILY [facility] Last Admin: 04/06/18 09:15 Dose: 81 mg Docusate Sodium (Colace) 100 mg PO TID [facility] Last Admin: 04/06/18 13:43 Dose: 100 mg Fluticasone Propionate (Flonase) 1 spr VANDANA Q12H [facility] Last Admin: 04/06/18 10:28 Dose: 1 spray Glipizide (Glucotrol) 10 mg PO ACB [facility] Vancomycin HCl 1.5 gm/ Sodium (Chloride) 500 mls @ 250 mls/hr IVPB Q8H [facility]; Protocol Last Admin: 04/06/18 10:29 Dose: 250 mls/hr Insulin Detemir (Levemir) 58 unit SC HS [facility] Insulin Human Regular (Novolin R) 0 unit SC ACHS [facility]; Protocol Last Admin: 04/06/18 12:26 Dose: 8 unit Lidocaine (Lidoderm) 1 ea TD DAILY [facility] Last Admin: 04/06/18 09:16 Dose: 1 ea Metoprolol Tartrate (Lopressor) 25 mg PO BID [facility] Last Admin: 04/06/18 09:15 Dose: 25 mg Oxycodone/Acetaminophen (Percocet 5/325 Mg Tab) 1 tab PO Q4H PRN PRN Reason: Pain, moderate (4-7) Stop: 04/07/18 03:10 Last Admin: 04/06/18 06:56 Dose: 1 tab Pantoprazole Sodium (Protonix Ec Tab) 40 mg PO DAILY [facility] Last Admin: 04/06/18 09:15 Dose: 40 mg - Labs Labs: 04/06/18 08:13 04/06/18 08:13 PT 14.3 SECONDS (9.7-12.2) H 03/26/18 05:56 INR 1.3 03/26/18 05:56 APTT 38 SECONDS (21-34) H D 03/26/18 05:56 Assessment and Plan (1) Pleural effusion Status: Acute (2) MRSA bacteremia Status: Acute
[2018-04-07] MEDS: Albuterol-Ipratrop 3 mg / 0.5 (3 ml) UD INH SCH ×3 (01:18→13:23)
[2018-04-07] MEDS: Vancomycin 1.5 GM in Sodium Chloride 0.9% 500 ML IVPB SCH ×3 (02:30→18:15)
[2018-04-07 07:56] VITALS: RESP 20
[2018-04-07] MEDS: (Novolin R) Insulin Human Regular 100 units/ml vial SC SCH ×4 (08:34→21:33)
[2018-04-07] MEDS: Pantoprazole 40 mg EC Tab PO SCH (09:26)
[2018-04-07] MEDS: Lidocaine 5% Patch TD SCH (09:27)
[2018-04-07] MEDS: Fluticasone Nasal 50 mcg/Spray NAS SCH ×2 (09:29→21:51)
--- NOTE | 2018-04-07 11:59 | CP.PCM.PN ---
Subjective - Date & Time of Evaluation Date of Evaluation: 04/07/18 Time of Evaluation: 11:57 - Subjective Subjective: pt feels good breathing beter Objective - Vital Signs/Intake and Output Vital Signs (last 24 hours): Temp Pulse Resp BP Pulse Ox 99.3 F 110 H 20 133/83 97 04/07/18 07:00 04/07/18 07:00 04/07/18 07:00 04/07/18 09:27 04/07/18 07:00 - Medications Medications: Current Medications Acetaminophen (Tylenol 325mg Tab) 650 mg PO Q6 PRN PRN Reason: Fever >100.4 F Last Admin: 04/05/18 22:28 Dose: 650 mg Albuterol/Ipratropium (Duoneb 3 Mg/0.5 Mg (3 Ml) Ud) 3 ml INH RQ6 [facility] Last Admin: 04/07/18 07:39 Dose: 3 ml Aspirin (Aspirin Chewable) 81 mg PO DAILY [facility] Last Admin: 04/07/18 09:26 Dose: 81 mg Docusate Sodium (Colace) 100 mg PO TID [facility] Last Admin: 04/07/18 09:26 Dose: 100 mg Fluticasone Propionate (Flonase) 1 spr VANDANA Q12H [facility] Last Admin: 04/07/18 09:29 Dose: Not Given Vancomycin HCl 1.5 gm/ Sodium (Chloride) 500 mls @ 250 mls/hr IVPB Q8H [facility]; Protocol Last Admin: 04/07/18 02:30 Dose: 250 mls/hr Insulin Detemir (Levemir) 58 unit SC HS [facility] Last Admin: 04/06/18 22:34 Dose: 58 units Insulin Human Regular (Novolin R) 0 unit SC ACHS [facility]; Protocol Last Admin: 04/07/18 08:34 Dose: 2 unit Lidocaine (Lidoderm) 1 ea TD DAILY [facility] Last Admin: 04/07/18 09:27 Dose: 1 ea Metoprolol Tartrate (Lopressor) 25 mg PO BID [facility] Last Admin: 04/07/18 09:27 Dose: 25 mg Pantoprazole Sodium (Protonix Ec Tab) 40 mg PO DAILY [facility] Last Admin: 04/07/18 09:26 Dose: 40 mg - Labs Labs: 04/06/18 08:13 04/06/18 08:13 PT 14.3 SECONDS (9.7-12.2) H 03/26/18 05:56 INR 1.3 03/26/18 05:56 APTT 38 SECONDS (21-34) H D 03/26/18 05:56 - Constitutional Appears: Non-toxic - Head Exam Head Exam: ATRAUMATIC - Eye Exam Eye Exam: Normal appearance Pupil Exam: NORMAL ACCOMODATION - ENT Exam ENT Exam: Mucous Membranes Moist - Neck Exam Neck Exam: Full ROM - Respiratory Exam Respiratory Exam: NORMAL BREATHING PATTERN - Cardiovascular Exam Cardiovascular Exam: REGULAR RHYTHM - GI/Abdominal Exam GI & Abdominal Exam: Normal Bowel Sounds - Rectal Exam Rectal Exam: NORMAL INSPECTION - Exam Exam: NORMAL INSPECTION - Extremities Exam Extremities Exam: Full ROM - Back Exam Back Exam: NORMAL INSPECTION - Psychiatric Exam Psychiatric exam: Normal Affect - Skin Skin Exam: Intact Assessment and Plan - Assessment and Plan (Free Text) Assessment: s/p emoyeama and bactreamia s/p mrsa Plan: will doscuss with dr ambriz
--- NOTE | 2018-04-07 12:33 | CP.PCM.PN ---
Subjective - Date & Time of Evaluation Date of Evaluation: 04/07/18 Time of Evaluation: 08:00 - Subjective Subjective: possible d/c on PO zyvox for 7 days will discuss with dr matthews Objective - Vital Signs/Intake and Output Vital Signs (last 24 hours): Temp Pulse Resp BP Pulse Ox 99.3 F 110 H 20 133/83 97 04/07/18 07:00 04/07/18 07:00 04/07/18 07:00 04/07/18 09:27 04/07/18 07:00 - Medications Medications: Current Medications Acetaminophen (Tylenol 325mg Tab) 650 mg PO Q6 PRN PRN Reason: Fever >100.4 F Last Admin: 04/05/18 22:28 Dose: 650 mg Albuterol/Ipratropium (Duoneb 3 Mg/0.5 Mg (3 Ml) Ud) 3 ml INH RQ6 [facility] Last Admin: 04/07/18 07:39 Dose: 3 ml Aspirin (Aspirin Chewable) 81 mg PO DAILY [facility] Last Admin: 04/07/18 09:26 Dose: 81 mg Docusate Sodium (Colace) 100 mg PO TID [facility] Last Admin: 04/07/18 09:26 Dose: 100 mg Fluticasone Propionate (Flonase) 1 spr VANDANA Q12H [facility] Last Admin: 04/07/18 09:29 Dose: Not Given Glipizide (Glucotrol) 10 mg PO ACD [facility] Vancomycin HCl 1.5 gm/ Sodium (Chloride) 500 mls @ 250 mls/hr IVPB Q8H [facility]; Protocol Last Admin: 04/07/18 02:30 Dose: 250 mls/hr Insulin Detemir (Levemir) 58 unit SC HS [facility] Last Admin: 04/06/18 22:34 Dose: 58 units Insulin Human Regular (Novolin R) 0 unit SC ACHS [facility]; Protocol Last Admin: 04/07/18 08:34 Dose: 2 unit Lidocaine (Lidoderm) 1 ea TD DAILY [facility] Last Admin: 04/07/18 09:27 Dose: 1 ea Metoprolol Tartrate (Lopressor) 25 mg PO BID [facility] Last Admin: 04/07/18 09:27 Dose: 25 mg Pantoprazole Sodium (Protonix Ec Tab) 40 mg PO DAILY [facility] Last Admin: 04/07/18 09:26 Dose: 40 mg - Labs Labs: 04/06/18 08:13 04/06/18 08:13 PT 14.3 SECONDS (9.7-12.2) H 03/26/18 05:56 INR 1.3 03/26/18 05:56 APTT 38 SECONDS (21-34) H D 03/26/18 05:56 - Constitutional Appears: Non-toxic, Chronically Ill - Head Exam Head Exam: NORMOCEPHALIC - Eye Exam Eye Exam: absent: Scleral icterus - ENT Exam ENT Exam: Mucous Membranes Dry - Neck Exam Neck Exam: absent: Lymphadenopathy - Respiratory Exam Respiratory Exam: Decreased Breath Sounds - Cardiovascular Exam Cardiovascular Exam: REGULAR RHYTHM, +S1, +S2 Assessment and Plan (1) Hyperglycemia Status: Acute (2) Chest wall muscle strain Status: Acute (3) Empyema Status: Acute (4) Empyema lung Status: Acute (5) MRSA bacteremia Status: Acute (6) Pleural effusion Status: Acute (7) Abscess Status: Acute
[2018-04-07] MEDS: Oxycodone/Acetaminophen 5/325 mg Tab PO PRN ×2 (16:55→21:54)
[2018-04-07] MEDS: Insulin Detemir 100 units/ml Vial (Levemir) SC SCH (21:49)
[2018-04-08] MEDS: Vancomycin 1.5 GM in Sodium Chloride 0.9% 500 ML IVPB SCH ×2 (02:06→10:01)
[2018-04-08] MEDS: Oxycodone/Acetaminophen 5/325 mg Tab PO PRN ×2 (06:07→10:05)
[2018-04-08] MEDS: (Novolin R) Insulin Human Regular 100 units/ml vial SC SCH ×2 (08:02→12:34)
[2018-04-08 08:08] VITALS: O2SAT 96
[2018-04-08 08:27] LABS: BASO # 0.1 K/uL (0.0-0.2); BASO % 0.7 % (0.0-2.0); EOS # 0.6 K/uL (0.0-0.7); EOS % 5.9 % (0.0-4.0); HEMOGLOBIN 11.3 g/dL (12.0-18.0); LYMPH # 1.4 K/uL (1.0-4.3); LYMPH % 15.2 % (20.0-40.0); MEAN CORPUSCULAR HEMOGLOBIN 27.6 pg (27.0-31.0); MEAN CORPUSCULAR HGB CONC 34.1 g/dL (33.0-37.0); MEAN PLATELET VOLUME 8.4 fL (7.2-11.7); MONO # 1.1 K/uL (0.0-0.8); MONO % 11.7 % (0.0-10.0); NEUT # 6.2 K/uL (1.8-7.0); NEUT % 66.5 % (50.0-75.0); RBC 4.1 Mil/uL (4.40-5.90); RED CELL DISTRIBUTION WIDTH 12.9 % (11.5-14.5); WHITE BLOOD COUNT 9.4 K/uL (4.8-10.8)
[2018-04-08 08:54] LABS: BLOOD UREA NITROGEN 11 mg/dL (9-20); GFR NON-AFRICAN AMERICAN > 60
[2018-04-08 08:55] LABS: ALB/GLOB RATIO 0.9 (1.0-2.1); ALBUMIN 3.4 g/dL (3.5-5.0); ALT/SGPT 32 U/L (21-72); AST/SGOT 31 U/L (17-59); CALCIUM 9.1 mg/dl (8.6-10.4)
[2018-04-08] MEDS: Lidocaine 5% Patch TD SCH (10:01)
[2018-04-08] MEDS: Pantoprazole 40 mg EC Tab PO SCH (10:01)
[2018-04-08] MEDS: Fluticasone Nasal 50 mcg/Spray NAS SCH (10:03)
--- NOTE | 2018-04-08 12:33 | CP.PCM.PN ---
Subjective - Date & Time of Evaluation Date of Evaluation: 04/08/18 Time of Evaluation: 12:30 - Subjective Subjective: pt feels good happy he is going home on oral medications Objective - Vital Signs/Intake and Output Vital Signs (last 24 hours): Temp Pulse Resp BP Pulse Ox 98.6 F 101 H 20 118/76 96 04/08/18 07:07 04/08/18 07:07 04/08/18 07:07 04/08/18 10:03 04/08/18 07:07 Intake and Output: 04/08/18 04/08/18 06:59 18:59 Output Total 1000 Balance -1000 - Medications Medications: Current Medications Acetaminophen (Tylenol 325mg Tab) 650 mg PO Q6 PRN PRN Reason: Fever >100.4 F Last Admin: 04/05/18 22:28 Dose: 650 mg Aspirin (Aspirin Chewable) 81 mg PO DAILY [facility] Last Admin: 04/08/18 10:01 Dose: 81 mg Docusate Sodium (Colace) 100 mg PO TID [facility] Last Admin: 04/08/18 10:01 Dose: 100 mg Fluticasone Propionate (Flonase) 1 spr VANDANA Q12H [facility] Last Admin: 04/08/18 10:03 Dose: 1 spray Glipizide (Glucotrol) 10 mg PO ACD [facility] Last Admin: 04/07/18 17:26 Dose: 10 mg Vancomycin HCl 1.5 gm/ Sodium (Chloride) 500 mls @ 250 mls/hr IVPB Q8H [facility]; Protocol Last Admin: 04/08/18 10:01 Dose: 250 mls/hr Insulin Detemir (Levemir) 58 unit SC HS [facility] Last Admin: 04/07/18 21:49 Dose: 58 units Insulin Human Regular (Novolin R) 0 unit SC ACHS [facility]; Protocol Last Admin: 04/08/18 08:02 Dose: Not Given Lidocaine (Lidoderm) 1 ea TD DAILY [facility] Last Admin: 04/08/18 10:01 Dose: 1 ea Metoprolol Tartrate (Lopressor) 25 mg PO BID [facility] Last Admin: 04/08/18 10:03 Dose: 25 mg Oxycodone/Acetaminophen (Percocet 5/325 Mg Tab) 1 tab PO Q4H PRN PRN Reason: Pain, moderate (4-7) Stop: 04/10/18 16:47 Last Admin: 04/08/18 10:05 Dose: 1 tab Pantoprazole Sodium (Protonix Ec Tab) 40 mg PO DAILY [facility] Last Admin: 04/08/18 10:01 Dose: 40 mg - Labs Labs: 04/08/18 08:20 04/08/18 08:20 PT 14.3 SECONDS (9.7-12.2) H 03/26/18 05:56 INR 1.3 03/26/18 05:56 APTT 38 SECONDS (21-34) H D 03/26/18 05:56 - Constitutional Appears: Well, Non-toxic - Head Exam Head Exam: NORMAL INSPECTION - Eye Exam Eye Exam: Normal appearance Pupil Exam: NORMAL ACCOMODATION - ENT Exam ENT Exam: Mucous Membranes Moist - Neck Exam Neck Exam: Normal Inspection - Respiratory Exam Respiratory Exam: NORMAL BREATHING PATTERN - Cardiovascular Exam Cardiovascular Exam: REGULAR RHYTHM - GI/Abdominal Exam GI & Abdominal Exam: Normal Bowel Sounds - Exam Exam: NORMAL INSPECTION - Back Exam Back Exam: NORMAL INSPECTION - Neurological Exam Neurological Exam: Oriented x3 Neuro motor strength exam: Left Upper Extremity: 5 - Psychiatric Exam Psychiatric exam: Normal Mood - Skin Skin Exam: Intact Assessment and Plan - Assessment and Plan (Free Text) Assessment: s.p empyeama s/p mrsa dmid obesity Plan: will dc home today cont all med f/u in my office in one weeke
--- NOTE | 2018-04-08 12:57 | CP.PCM.PN ---
Subjective - Date & Time of Evaluation Date of Evaluation: 04/08/18 Time of Evaluation: 12:57 - Subjective Subjective: PATIENT SEEN AND EXAMINED AT THE BEDSIDE Objective - Vital Signs/Intake and Output Vital Signs (last 24 hours): Temp Pulse Resp BP Pulse Ox 98.6 F 101 H 20 118/76 96 04/08/18 07:07 04/08/18 07:07 04/08/18 07:07 04/08/18 10:03 04/08/18 07:07 Intake and Output: 04/08/18 04/08/18 06:59 18:59 Output Total 1000 Balance -1000 - Medications Medications: Current Medications Acetaminophen (Tylenol 325mg Tab) 650 mg PO Q6 PRN PRN Reason: Fever >100.4 F Last Admin: 04/05/18 22:28 Dose: 650 mg Aspirin (Aspirin Chewable) 81 mg PO DAILY [facility] Last Admin: 04/08/18 10:01 Dose: 81 mg Docusate Sodium (Colace) 100 mg PO TID [facility] Last Admin: 04/08/18 10:01 Dose: 100 mg Fluticasone Propionate (Flonase) 1 spr VANDANA Q12H [facility] Last Admin: 04/08/18 10:03 Dose: 1 spray Glipizide (Glucotrol) 10 mg PO ACD [facility] Last Admin: 04/07/18 17:26 Dose: 10 mg Vancomycin HCl 1.5 gm/ Sodium (Chloride) 500 mls @ 250 mls/hr IVPB Q8H [facility]; Protocol Last Admin: 04/08/18 10:01 Dose: 250 mls/hr Insulin Detemir (Levemir) 58 unit SC HS [facility] Last Admin: 04/07/18 21:49 Dose: 58 units Insulin Human Regular (Novolin R) 0 unit SC ACHS [facility]; Protocol Last Admin: 04/08/18 08:02 Dose: Not Given Lidocaine (Lidoderm) 1 ea TD DAILY [facility] Last Admin: 04/08/18 10:01 Dose: 1 ea Metoprolol Tartrate (Lopressor) 25 mg PO BID [facility] Last Admin: 04/08/18 10:03 Dose: 25 mg Oxycodone/Acetaminophen (Percocet 5/325 Mg Tab) 1 tab PO Q4H PRN PRN Reason: Pain, moderate (4-7) Stop: 04/10/18 16:47 Last Admin: 04/08/18 10:05 Dose: 1 tab Pantoprazole Sodium (Protonix Ec Tab) 40 mg PO DAILY [facility] Last Admin: 04/08/18 10:01 Dose: 40 mg - Labs Labs: 04/08/18 08:20 04/08/18 08:20 PT 14.3 SECONDS (9.7-12.2) H 03/26/18 05:56 INR 1.3 03/26/18 05:56 APTT 38 SECONDS (21-34) H D 03/26/18 05:56 Assessment and Plan - Assessment and Plan (Free Text) Assessment: follow up with dr palacios in her office ----call for appoitment follow up with dr montano in his office ----call for appointment follow up with dr matthews in his office ----call for appointment Follow up with Dr. Gold in his office next week, call [phone] to make appointment. Continue IS use at home Continue ambulation May remove dressing Sat. May shower but do not take a bath or swim continue home medication new prescription given zyvox 600 mg by mouth every 12 hours for 7 days florastor 250 mg by mouth twice a day levemir 58 u at hs glipizide 10 mg by mouth before dinner metoprolo 25 mg by mouth twice a day activity as tolerated call dr palacios or go to the emergency room if symptom return or worsening
[2018-04-08 16:17] VITALS: BP 123/87; PULSE 92; TEMP 97.8
--- NOTE | 2018-04-09 07:52 | CARD ---
APPROVED REPORT Date of service: 03/22/2018 EKG Measurement Heart [id number] <Conclusion> Sinus tachycardia Incomplete right bundle branch block Borderline ECG
== END 2018-04-08 18:00 | disposition home or self-care (01) | DRG 853 ==
LOC: C.ER 01:45 → C.3T 04:16 → C.5S 03-22 10:38 → C.9I 03-22 17:40 → C.5S 03-30 16:59
PROVIDERS: ADMIT Internal Medicine; ATTEND Internal Medicine
PROC: 0W993ZZ Drainage of Right Pleural Cavity, Percutaneous Approach (ICD-10-PCS; 2018-03-26)
PROC: 0BCN4ZZ Extirpation of Matter from Right Pleura, Percutaneous Endoscopic Approach (ICD-10-PCS; 2018-03-27)
PROC: 0W9940Z Drainage of Right Pleural Cavity with Drainage Device, Percutaneous Endoscopic Approach (ICD-10-PCS; 2018-03-27)
PROC: 0BBN4ZX Excision of Right Pleura, Percutaneous Endoscopic Approach, Diagnostic (ICD-10-PCS; 2018-03-27)
PROC: 3E0T3BZ Introduction of Anesthetic Agent into Peripheral Nerves and Plexi, Percutaneous Approach (ICD-10-PCS; 2018-03-27)
PROC: 0BJ08ZZ Inspection of Tracheobronchial Tree, Via Natural or Artificial Opening Endoscopic (ICD-10-PCS; principal; 2018-03-27 14:00)
PROC: 0BNK4ZZ Release Right Lung, Percutaneous Endoscopic Approach (ICD-10-PCS; 2018-03-27 14:00)
DX: A41.02 Sepsis due to Methicillin resistant Staphylococcus aureus (principal); J15.212 Pneumonia due to Methicillin resistant Staphylococcus aureus; J86.9 Pyothorax without fistula; J91.8 Pleural effusion in other conditions classified elsewhere; L03.312 Cellulitis of back [any part except buttock and flank]; Z68.41 Body mass index [BMI] 40.0-44.9, adult; B02.9 Zoster without complications; I10 Essential (primary) hypertension; E11.65 Type 2 diabetes mellitus with hyperglycemia; E66.01 Morbid (severe) obesity due to excess calories; R65.20 Severe sepsis without septic shock

== ENCOUNTER 2018-06-29 12:16 | Emergency (ER) | payer SELFPAY ==
[2018-06-29 12:16] VITALS: BMI 41.1
[2018-06-29 12:28] VITALS: BP 137/90; PULSE 87; RESP 16; TEMP 98.3; O2SAT 97
--- NOTE | 2018-06-29 13:30 | C.PDOC ---
History Of Present Illness 32 y/o male with a PMHx of diabetes and folliculitis to his posterior neck, presents to the ED with complaints of a painful swelling to his posterior neck. Patient reports he has had abscesses to that area in the past. He has tried applying warm compresses and topical antibiotics. Otherwise he denies any injury to the site. No associated fever or chills. Patient notes he checks his BS daily and it has been running between 190-220. Time Seen by Provider: 06/29/18 13:05 Chief Complaint (Nursing): Abnormal Skin Integrity History Per: Patient History/Exam Limitations: no limitations Onset/Duration Of Symptoms: Days (7) Current Symptoms Are (Timing): Still Present Location Of Injury: Posterior: Neck Quality Of Symptoms: Painful, Swollen Past Medical History Reviewed: Historical Data, Nursing Documentation, Vital Signs Vital Signs: Last Vital Signs Temp 98.3 F 06/29/18 12:25 Pulse 87 06/29/18 12:25 Resp 16 06/29/18 12:25 BP 137/90 06/29/18 12:25 Pulse Ox 97 06/29/18 12:25 - Medical History PMH: Diabetes, HTN, Seizures (when he was much younger, last seizure more than 10 years ago) - [facility] Procedures DRAINAGE OF R PLEURAL CAV WITH DRAIN DEV, PERC ENDO APPROACH (03/21/18) DRAINAGE OF RIGHT PLEURAL CAVITY, PERCUTANEOUS APPROACH (03/21/18) EXCISION OF RIGHT PLEURA, PERC ENDO APPROACH, DIAGN (03/21/18) EXTIRPATION OF MATTER FROM RIGHT PLEURA, PERC ENDO APPROACH (03/21/18) INSPECTION OF TRACHEOBRONCHIAL TREE, ENDO (03/21/18) INTRODUCE LOCAL ANESTH IN PERIPH NRV, PLEXI, PERC (03/21/18) RELEASE RIGHT LUNG, PERCUTANEOUS ENDOSCOPIC APPROACH (03/21/18) Family History: States: Unknown Family Hx - Social History Hx Tobacco Use: No Hx Alcohol Use: No Hx Substance Use: Yes (marijuana once in a while as per pt) - Immunization History Hx Tetanus Toxoid Vaccination: Yes Hx Influenza Vaccination: No Hx Pneumococcal Vaccination: No Review Of Systems Except As Marked, All Systems Reviewed And Found Negative. Constitutional: Negative for: Fever, Chills, Weakness Eyes: Negative for: Redness, Other (scleral icterus) Cardiovascular: Negative for: Chest Pain Respiratory: Negative for: Cough, Shortness of Breath Gastrointestinal: Negative for: Nausea, Vomiting, Diarrhea Musculoskeletal: Positive for: Neck Pain (with swollen area to posterior neck). Negative for: Back Pain Neurological: Negative for: Weakness, Numbness, Headache Physical Exam - Physical Exam Appears: Well, Non-toxic, No Acute Distress Skin: Warm, Other (Tender area of induration to the base of the skull, with notable folliculitis in the area; No drainage, no fluctuance) Head: Atraumatic, Normacephalic Eye(s): bilateral: Normal Inspection (no scleral icterus), PERRL, EOMI Oral Mucosa: Moist Neck: Normal ROM Chest: Symmetrical Respiratory: No Accessory Muscle Use, Other (Normal inspiratory effort) Extremity: Bilateral: Atraumatic, Normal ROM Pulses: Left Radial: Normal, Right Radial: Normal Neurological/Psych: Oriented x3, Normal Cranial Nerves ED Course And Treatment O2 Sat by Pulse Oximetry: 97 (RA) Pulse Ox Interpretation: Normal Medical Decision Making Medical Decision Making: Patient appears to have an abscess forming due to chronic folliculitis to the area. no area of fluctuance at this time. Plan: Patient will be discharged home with rx for Augmentin and Tramadol. Advised to continue with warm compresses and return if worse. Disposition Counseled Patient/Family Regarding: Diagnosis, Need For Followup, Rx Given - Disposition Disposition: HOME/ ROUTINE Disposition Time: 13:23 Condition: STABLE Prescriptions: Amoxicillin/Clavulanate [Augmentin 875 MG-125 MG] 1 tab PO BID #20 tab RX: traMADol [Ultram] 50 mg PO TID PRN #15 tab PRN Reason: Pain, Severe (8-10) Instructions: Boil (DC) Forms: [facility] (Tunisian), General Discharge Instructions - Clinical Impression Clinical Impression: Abscess - PA / IMAGERY ANALYST / Resident Statement MD/DO has reviewed & agrees with the documentation as recorded. - Scribe Statement The provider has reviewed the documentation as recorded by the Shruthiibestefany Denney All medical record entries made by the Scribe were at my direction and personally dictated by me. I have reviewed the chart and agree that the record accurately reflects my personal performance of the history, physical exam, medical decision making, and the department course for this patient. I have also personally directed, reviewed, and agree with the discharge instructions and disposition.
== END 2018-06-29 13:49 | disposition home or self-care (01) ==
LOC: C.ER 12:16
DX: L02.11 Cutaneous abscess of neck (principal)